=== PATIENT | female | born 1955 | race Caucasian/White ===

== ENCOUNTER 2019-06-15 10:01 | Outpatient (CLI) | payer MEDICARE, OTHER, SELFPAY ==
[2019-06-15 11:25] LABS: Basophils # 0.1 10^3/uL (0.0-0.1); Eosinophils # 0.2 10^3/uL (0.0-0.8); Eosinophils % 4.2 %; Hematocrit 40.2 % (37.0-47.0); Lymphocytes # 1.1 10^3/uL (0.8-4.8); Lymphocytes % 21.1 %; Mean Corpuscular HGB Conc 32.3 g/dL (30.0-36.0); Mean Corpuscular Volume 89.5 fL (81-99); Mean Platelet Volume 10.2 fL (7.4-10.4); Monocytes # 0.6 10^3/uL (0.2-0.9); Neutrophils # 3.2 10^3/uL (1.8-7.7); Neutrophils % 61.1 %; Nucleated Red Blood Cells % 0 %; Platelet Count 171 10^3/cmm (130-400); Red Blood Count 4.49 10^6/uL (4.1-5.3); Red Cell Distribution Width 13.3 % (12.1-15.1); White Blood Count 5.3 10^3/uL (4.0-10.0)
[2019-06-15 11:46] LABS: Alanine Aminotransferase 19 U/L (0-33); Albumin Level 3.9 g/dL (3.5-5.2); Alkaline Phosphatase 83 IU/L (35-105); Anion Gap 15.9 (5-19); Aspartate Amino Transferase 25 U/L (0-32); Blood Urea Nitrogen 15 mg/dL (8-23); Calcium 10.8 mg/Dl (8.8-10.2); Carbon Dioxide 24 mmol/L (22-29); Chloride 102 mmol/L (98-107); Globulin 2.5 g/dL (1.3-4.6); Glomerular Filtration Rate 123.8 mL/min (90-130); Glucose 141 mg/dL (74-106); Potassium 3.9 mmol/L (3.5-5.1); Sodium 138 mmol/L (136-145); Total Bilirubin 1.1 mg/dL (0.15-1.2); Total Protein 6.4 g/dL (6.6-8.7)
[2019-06-15 12:00] LABS: Lactate Dehydrogenase 193 U/L (135-214)
== END 2019-06-15 10:02 | disposition home or self-care (01) ==
LOC: ONCMED 10:06
PROVIDERS: Family Provider Family Medicine; PCP Family Medicine; Visit Provider Internal Medicine Medical Oncology
DX: C82.19 Follicular lymphoma grade II, extranodal and solid organ sites (principal)
CPT/HCPCS: 80053; 83615; 85025

== ENCOUNTER 2019-06-19 14:09 | Outpatient (CLI) | payer MEDICARE, OTHER, SELFPAY ==
--- NOTE | 2019-06-23 16:48 | ONC FU_ITS ---
Dr. García Patient Follow-Up Note Patient: Aylin Dietz Unit #: [id number]: 1955 Dicatated By: Paco García M.D.Date of Visit:Jun 19, 2019 Onc Med Follow-up/Prog Note Chief Complaint: Lymphoma. 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 She has a history of having undergone treatment for lymphoma by Dr. Ghulam Coon in [place]. It was initially diagnosed in 1991. I do not have the records, the based on the patient's description, it was probably low-grade. It had progressed on light chemotherapy, following which she had 6 cycles of treatment with an Adriamycin containing regimen, I assume CHOP, completed sometime in 1992. She had complete response, previously with no evidence of recurrence. Her medical history is otherwise significant for rheumatoid arthritis, initially diagnosed in 1982. Her RA has been well controlled on long-term therapy with methotrexate. Her other medical illnesses include hypertension, GERD, and obstructive sleep apnea. In December 2016 she was found to have low-grade endometrial carcinoma, for which she underwent hysterectomy/bilateral salpingo-oophorectomy. She did not require any additional treatment. She also has had multiple skin cancers excised. She is a nonsmoker. Sometime around May or June she became aware of a knot in her right cheek. It wasn't visible, but she could feel it with her finger or her tongue. A neck CT on 09/26/2018 showed an enlarged lymph node on the right side of the face measuring 1.9 x 1.2 cm. There was a suggestion of fullness and soft tissue lesion in the right pouting tonsil measuring approximately 1.3 x 1.1 cm. The parotid glands appeared normal, and there appeared to be normal sized intraparotid lymph nodes. She was referred to Dr. Garcia. An initial FNA biopsy of the cheek mass was nondiagnostic. She was then referred to Dr. Faustina Martinez at [facility]. On 12/04/2018 she underwent right superficial parotidectomy, level IIA and posterior level IB right neck dissection, and excision of the right buccal mass. The parotid gland showed no histopathologic abnormalities and the intraparotid lymph nodes showed reactive lymphoid hyperplasia with no morphologic evidence of lymphoma. 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 The neck dissection showed no involvement in 13 lymph nodes. I had seen her initially on 01/04/2019. Her staging PET/CT on 01/06/2019 showed a poorly defined right parotid soft tissue lesion measuring approximately 1.7 x 3.0 cm with SUV 3.6, felt to be consistent with lymphoma. A second FDG positive mass was noted in the subcutaneous fat overlying the left maxilla measuring 1.4 x 0.8 cm. There were multiple FDG positive mediastinal lymph nodes with possible paralysis of the left vocal cord. There were 2 semisolid nodules in the right upper lobe, with the dominant lesion measuring 1.1 cm of SUV 2.0, felt to be inflammatory. With low-grade lymphoma in the setting of long-term methotrexate therapy, she was recommended to stop the methotrexate and otherwise just continue on observation/expectant management. Her medical illnesses, in addition to rheumatoid arthritis, include hypertension, GERD, and obstructive sleep apnea. She has additional history of having undergone hysterectomy/bilateral salpingo-oophorectomy for low-grade endometrial cancer in 2017. She also has had multiple skin cancers excised. She is a nonsmoker. INTERIM HISTORY: Her repeat neck CT on 04/12/2019 showed evidence of partial right neck dissection and removal of the right parotid gland with appropriate appearing postsurgical changes. There are no new lymph nodes identified, but there was a new soft tissue fullness noted in the right paraglottic space measuring 19 x [address] of the neck on 05/16/2019 showed evidence of soft tissue thickening/mass involving the right paraglottic space extending to the right vocal cord, unchanged from the prior study. There was severe central canal stenosis in the cervical spine at C5-C6, also unchanged. Partially visualized patchy opacities were noted in the right lung apex. There was no cervical lymphadenopathy. She is seen for a follow-up visit. She has been somewhat fatigued, but she is still doing light work. ECOG score is 1. Her appetite has been good, and her weight has been stable. She has not had fever. She has occasional hot flashes. She has some shortness of breath with activity. She does not complain of cough, and she has not been having chest pain. She had another episode of diarrhea 3 to 4 weeks ago, but that resolved. She has no complaints. Her joint pain has been getting worse, especially in her hands. She says her left knee has been hurting a lot. She has numbness/tingling in her feet. Recently the fingertips on both hands have felt different. Medications: Aspirin 1 Tablet (of 81 mg) Oral daily, Calcium + D 1 Tablet Oral daily, Folic Acid 2 Tablet (of 1 mg) Oral daily, Losartan Potassium-HCTZ 1 Tablet (of 50-12.5 mg) Oral daily, metFORMIN HCl 1 Tablet (of 500 mg) Oral daily, Multivitamin Adults 1 Tablet Oral daily, Naproxen 1 Tablet (of 500 mg) Oral daily PRN, raNITIdine HCl 1 Tablet (of 300 mg) Oral b.i.d. Allergies: No Known Allergies. Review of Systems: Constitutional - She has some fatigue, but she is able to do light work. Her appetite is good. Her weight is stable. No fever. She has occasional hot flashes and sweating. ECOG score is 1, ENMT - She has occasional sinus congestion. No mouth sores. No sore throat or difficulty swallowing, Hematologic/Lymphatic - No abnormal bruising or bleeding, Respiratory - She has some shortness of breath with activity. No cough. No pleuritic pain or hemoptysis, Cardiovascular - No angina pain. No palpitations, Gastrointestinal - No nausea or vomiting. No heartburn or acid reflux. She had diarrhea 3 or 4 weeks ago. Her bowels are OK now. No blood in the stool or black stools, Genitourinary (F) - No dysuria or hematuria. No urinary frequency. No urgency or incontinence, Musculoskeletal - She has been having more joint pain, particularly in her hands. She also complains that her left knee is hurting a lot, Integumentary - No skin complications, Neurologic - No headache or dizziness. She has numbness and tingling in her feet, Psychiatric - No anxiety or depression. No insomnia. Vital Signs: Performed on Jun 19, 2019 14:46 Height - 67.50 in Weight - 304.2 lbs (HIGH) BSA - 2.43 sq.m BMI - 46.94 (HIGH) Temperature - 98.7 F Pulse - 92 /min Respiration - 24 /min BP - 136/86 mm(hg) O2 Sat - 96 % Pain - 0 Physical Examination: Constitutional - She looks pretty good generally, Eyes - Sclerae nonicteric. Conjunctivae clear, ENMT - No lesions noted in the oral cavity, Hematologic/Lymphatic - There is no cervical, clavicular, or axillary adenopathy noted, Respiratory - Lungs are clear with good air movement bilaterally, Cardiovascular - Heart rhythm is regular. There is a II/ systolic murmur. There is no gallop or rub noted, Abdomen - Moderately distended. Liver and spleen are not enlarged. There is no abdominal mass or ascites noted and there is no inguinal adenopathy, Extremities - No edema. Dorsalis pedis pulses are palpable bilaterally, Neurologic - No focal neurologic deficits noted. Impression: 1. 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 2. She had previous chemotherapy for lymphoma in . This was probably also low-grade lymphoma. 3. She has long-standing rheumatoid arthritis. Her other medical illnesses include: 4. Hypertension. 5. GERD. 6. Obstructive sleep apnea. 7. She underwent hysterectomy/bilateral salpingo-oophorectomy for low-grade endometrial cancer in 2017. 8. She has had multiple skin cancers excised. Her staging PET/CT did show residual activity in the right parotid area, and there also appeared to be involved mediastinal lymph nodes. However, in the setting of long-term methotrexate therapy, she was advised initially to just stop the methotrexate and otherwise continue on observation/expectant management. Her neck CT on 04/12/2019 showed no new lymph nodes, but there was a new soft tissue fullness noted in the right paraglottic space measuring 19 x 12 mm. She was then seen by Dr. Garcia and her flexible laryngoscopy on 04/23/2019 showed no abnormal findings. Her repeat neck CT showed no progression of the abnormality in the right paraglottic space. There was no cervical lymphadenopathy noted. Plan: She remains on observation/expectant management. She will be scheduled for a follow-up visit with restaging PET/CT in 1 month. Signed By: Paco García M.D. <<Signature on File>>
== END 2019-06-19 14:10 | disposition home or self-care (01) ==
LOC: ONCMED 14:16
PROVIDERS: Family Provider Family Medicine; PCP Family Medicine; Visit Provider Internal Medicine Medical Oncology
DX: C82.19 Follicular lymphoma grade II, extranodal and solid organ sites (principal); M06.9 Rheumatoid arthritis, unspecified; I10 Essential (primary) hypertension; K21.9 Gastro-esophageal reflux disease without esophagitis; G47.33 Obstructive sleep apnea (adult) (pediatric); Z79.82 Long term (current) use of aspirin; Z79.899 Other long term (current) drug therapy; Z85.828 Personal history of other malignant neoplasm of skin; Z85.42 Personal history of malignant neoplasm of other parts of uterus; Z90.710 Acquired absence of both cervix and uterus; Z92.21 Personal history of antineoplastic chemotherapy
CPT/HCPCS: G0463

== ENCOUNTER 2019-07-31 13:42 | Outpatient (CLI) | payer MEDICARE, OTHER, SELFPAY ==
--- NOTE | 2019-07-31 13:53 | CT_ITS ---
WS: [id number] CT NECK WITH CONTRAST HISTORY: FOLLICULAR LYMPHOMA GRADE II,EXTRANODAL AND SOLID ORGAN SITE TECHNIQUE: Contiguous 5 mm axial images are performed through the neck with intravenous contrast. Sag ittal and coronal reformats are also submitted. All CT scans at [facility] use at least o ne of these dose optimization techniques: automated exposure control; mA and/or kV adjustment per pat ient size (includes targeted exams where dose is matched to clinical indication); or iterative recons truction. CONTRAST: CONTRAST: Omnipaque 300; 95 mL IV. DLP: 3084.84 mGycm COMPARISON: 05/16/2019, 04/12/2019 and 09/26/2018 Significant improvement in the recently described soft tissue mass in the RIGHT paracolic space. Ther e is still some soft tissue thickening in the superior RIGHT pericolonic space near the free edge of the epiglottis. This soft tissue thickening measures 10 x 6 mm and extends anteriorly towards the mid line but does not cross the midline. No compromise of the airway. No cervical chain lymph nodes. Prior postsurgical changes of a RIGHT parotidectomy and lymph node dis section. No change in the appearance of the postsurgical site. There is soft tissue thickening and moyer rgical clips at the resection site. Normal thyroid. There is a central calcification in the RIGHT lobe. Severe degenerative disc disease at C5-6 and C6-7. Encroachment upon the cervical cord at C5-C6 by os teophytes. Visualized portions of the skull base demonstrate no abnormalities. Orbits and globes are within norm al limits. No soft tissue masses. Visualized paranasal sinuses and mastoid air cells are normal. Again noted are the ill-defined nodules in the RIGHT upper lung with the largest measuring 6 mm. Thes e are unchanged. CT/CT neck w con* [id number] IMPRESSION: 1. Significant decrease in size of the RIGHT paraglottic space mass since 05/06. There is still a small amount of soft tissue thickening in the superior paraglottic space abutting the free edge of the epiglottis. This could be some retained mucus products. Overall decrease in size of the previously described mass. 2. Postsurgical changes in the RIGHT neck. No adenopathy identified. 3. Unchanged RIGHT upper lobe ill-defined nodules.
[2019-07-31] MEDS: iohexol 300 mg/mL 100 mL Btl IV (14:55)
== END 2019-07-31 13:43 | disposition home or self-care (01) ==
LOC: RADWPI 13:48
PROVIDERS: Family Provider Family Medicine; PCP Family Medicine; Visit Provider Internal Medicine Medical Oncology
DX: C82.19 Follicular lymphoma grade II, extranodal and solid organ sites (principal)
CPT/HCPCS: 70491; Q9967

== ENCOUNTER 2019-08-03 11:28 | Outpatient (CLI) | payer MEDICARE, OTHER, SELFPAY ==
--- NOTE | 2019-08-03 11:33 | CT_ITS ---
WS: [id number] CT scan of the chest With IV contrast, CT scan of the abdomen and pelvis with IV contrast, addition al two-dimensional coronal and sagittal reconstruction was performed, 08/03/2019 Clinical Data: FOLLICULAR LYMPHOMA GRADE 2 Comparison: CT chest abdomen and pelvis, 04/20/2019. DLP: 2635.[address] scans at [facility] use at least one of these dose optimization techniques: automat ed exposure control; mA and/or kV adjustment per patient size (includes targeted exams where dose is matched to clinical indication); or iterative reconstruction. Findings: Chest: The groundglass opacities in the right lung have diminished in size and number. The left lung opacit ies have diminished slightly in size. The mediastinal adenopathy remains unchanged. No masses or new groundglass infiltrates are seen. There are no effusions. The heart size is normal with no pericardial effusion. The pulmonary arterial system and thoracic aorta demonstrate no abnormalities or dilatations. There is no axillary adenopathy. The bones of the thorax show osteoarthritis of the thoracic vertebra l bodies. Abdomen/pelvis: The liver, spleen, adrenal glands and pancreas show no change. The spleen remains slightly increased in size. There are gallstones in the gallbladder.. The kidneys show equal bilateral contrast excretion and there is a 0.79 cm nonobstructing central lef t renal calculus.. The abdominal aorta is normal in size. No appendicitis or diverticulitis is seen. Oral contrast is in the stomach and small bowel and there is no bowel dilatation. No abscess, adenopathy, ascites, mass, obstruction or free air is seen. The c olon shows fecal material and sigmoid diverticula. The bladder is unremarkable. The uterus is absent. No inguinal hernia is seen. The bones of the lower thorax, lumbar spine, pelvis, and hips demonstrate osteoarthritic change and m ultiple levels of degenerative disc disease of the lumbar spine. No metastatic lesions are seen.. CT/CT chest abd pel w con* Impression: 1. Multiple bilateral pulmonary ground glass opacifications which have improved slightly. 2. No change in mediastinal adenopathy. 3. No change in splenomegaly and cholelithiasis. 4. Nonobstructing central left renal calculus.
[2019-08-03] MEDS: iohexol 300 mg/mL 50 mL Btl PO (13:13)
[2019-08-03] MEDS: iohexol 300 mg/mL 100 mL Btl IV (13:14)
== END 2019-08-03 11:29 | disposition home or self-care (01) ==
LOC: RADWPI 11:32
PROVIDERS: Family Provider Family Medicine; PCP Family Medicine; Visit Provider Internal Medicine Medical Oncology
DX: C82.19 Follicular lymphoma grade II, extranodal and solid organ sites (principal); R49.0 Dysphonia; N20.0 Calculus of kidney; R16.1 Splenomegaly, not elsewhere classified; K80.20 Calculus of gallbladder without cholecystitis without obstruction; R91.1 Solitary pulmonary nodule; R91.8 Other nonspecific abnormal finding of lung field
CPT/HCPCS: 71260; 74177

== ENCOUNTER 2019-09-07 10:55 | Outpatient (CLI) | payer MEDICARE, OTHER, SELFPAY ==
[2019-09-07 12:15] LABS: Basophils # 0.1 10^3/uL (0.0-0.1); Basophils % 1.4 %; Eosinophils # 0.2 10^3/uL (0.0-0.8); Eosinophils % 4.3 %; Hematocrit 42.2 % (37.0-47.0); Hemoglobin 13.8 g/dL (11.5-15.3); Lymphocytes # 1.2 10^3/uL (0.8-4.8); Lymphocytes % 22.7 %; Mean Corpuscular HGB Conc 32.7 g/dL (30.0-36.0); Mean Corpuscular Volume 91.7 fL (81-99); Mean Platelet Volume 10.5 fL (7.4-10.4); Monocytes # 0.6 10^3/uL (0.2-0.9); Monocytes % 11.2 %; Neutrophils % 59.6 %; Nucleated Red Blood Cells % 0 %; Platelet Count 180 10^3/cmm (130-400); Red Cell Distribution Width 13.2 % (12.1-15.1); White Blood Count 5.1 10^3/uL (4.0-10.0)
[2019-09-07 12:38] LABS: Alanine Aminotransferase 27 U/L (0-33); Albumin Level 4.1 g/dL (3.5-5.2); Alkaline Phosphatase 81 IU/L (35-105); Anion Gap 19.9 (5-19); Aspartate Amino Transferase 28 U/L (0-32); Blood Urea Nitrogen 14 mg/dL (8-23); Calcium 10.4 mg/dL (8.5-10.5); Carbon Dioxide 25 mmol/L (22-29); Chloride 101 mmol/L (98-107); Globulin 2.5 g/dL (1.3-4.6); Glucose 187 mg/dL (65-115); Osmolality Calculated 295 mOsm/kg (285-295); Potassium 3.9 mmol/L (3.5-5.1); Sodium 142 mmol/L (136-145); Total Bilirubin 1.2 mg/dL (0.15-1.2); Total Protein 6.6 g/dL (6.6-8.7)
[2019-09-07 12:59] LABS: Lactate Dehydrogenase 175 U/L (135-214)
== END 2019-09-07 10:56 | disposition home or self-care (01) ==
LOC: ONCMED 12:52
PROVIDERS: Family Provider Family Medicine; PCP Family Medicine; Visit Provider Internal Medicine Medical Oncology
DX: C82.19 Follicular lymphoma grade II, extranodal and solid organ sites (principal)
CPT/HCPCS: 80053; 83615; 85025

== ENCOUNTER 2019-10-31 13:37 | Outpatient (RCR) | payer MEDICARE, OTHER, SELFPAY | END 2019-11-04 23:59 | disposition home or self-care (01) | LOC: SPT 13:37 | PROVIDERS: PCP Family Medicine; Visit Provider Family Medicine | DX: M25.562 Pain in left knee (principal) | CPT/HCPCS: 97161; 97530 ==

== ENCOUNTER 2019-11-09 10:56 | Outpatient (CLI) | payer MEDICARE, OTHER, SELFPAY ==
--- NOTE | 2019-11-09 11:10 | XR_ITS ---
WS: [id number] SCREENING DEXA SCAN [employer] HISTORY: 64 years old Female with POSTMENOPAUSAL COMPARISON: None available. FINDINGS: The L1-L4 bone mineral density measures 2.209 g/cm2. This corresponds to a T score of 8.6 and Z score of 9.0. Left femoral neck bone mineral density measures 1.336 g/cm2. This corresponds to T score of 2.6 and Z score of 3.0. Right femoral neck bone mineral density measures 1.351 g/cm2. This corresponds to a T score of 2.7 an d Z score of 3.1. Mean femoral neck bone mineral density measures 1.343 g/cm2. This corresponds to a T score of 2.7 and Z score of 3.1. XR/XR DEXA axial skeleton* [id number] IMPRESSION: Patient's FRAX calculated 10 year probability for major osteoporotic fracture i s 4.6% and osteoporotic hip fracture is 0.1% Normal bone densitometry study.
== END 2019-11-09 10:57 | disposition home or self-care (01) ==
LOC: RADWPI 10:59
PROVIDERS: Family Provider Family Medicine; PCP Family Medicine; Visit Provider Family Medicine
DX: Z78.0 Asymptomatic menopausal state (principal)
CPT/HCPCS: 77080

== ENCOUNTER 2019-12-05 06:00 | Outpatient (RCR) | payer MEDICARE, OTHER, SELFPAY | END 2020-01-04 23:00 | disposition home or self-care (01) | LOC: SPT 06:00 | PROVIDERS: PCP Family Medicine; Referring Provider Family Medicine; Visit Provider Family Medicine | DX: M25.562 Pain in left knee (principal) | CPT/HCPCS: 97110 ==

== ENCOUNTER 2019-12-14 14:20 | Outpatient (CLI) | payer MEDICARE, OTHER, SELFPAY ==
[2019-12-14 14:38] LABS: Basophils # 0.1 10^3/uL (0.0-0.1); Basophils % 1.1 %; Eosinophils # 0.1 10^3/uL (0.0-0.8); Hematocrit 40.5 % (37.0-47.0); Hemoglobin 13.3 g/dL (11.5-15.3); Lymphocytes # 1.2 10^3/uL (0.8-4.8); Mean Corpuscular HGB Conc 32.8 g/dL (30.0-36.0); Mean Corpuscular Volume 91.2 fL (81-99); Mean Platelet Volume 10.2 fL (7.4-10.4); Monocytes # 0.7 10^3/uL (0.2-0.9); Monocytes % 12.2 %; Neutrophils # 3.36 10^3/uL (1.8-7.7); Neutrophils % 62.1 %; Nucleated Red Blood Cells % 0 %; Platelet Count 174 10^3/cmm (130-400); Red Blood Count 4.44 10^6/uL (4.1-5.3); Red Cell Distribution Width 13.1 % (12.1-15.1); White Blood Count 5.4 10^3/uL (4.0-10.0)
[2019-12-14 15:00] LABS: Alanine Aminotransferase 28 U/L (0-33); Albumin Level 4.1 g/dL (3.5-5.2); Alkaline Phosphatase 75 IU/L (35-105); Anion Gap 16.9 (5-19); Aspartate Amino Transferase 27 U/L (0-32); Blood Urea Nitrogen 13 mg/dL (8-23); Calcium 9.9 mg/dL (8.5-10.5); Carbon Dioxide 24 mmol/L (22-29); Chloride 105 mmol/L (98-107); Globulin 2.5 g/dL (1.3-4.6); Glomerular Filtration Rate 159.7 mL/min (90-130); Glucose 119 mg/dL (65-115); Lactate Dehydrogenase 165 U/L (135-214); Osmolality Calculated 291 mOsm/kg (285-295); Potassium 3.9 mmol/L (3.5-5.1); Sodium 142 mmol/L (136-145); Total Bilirubin 1.2 mg/dL (0.15-1.2); Total Protein 6.6 g/dL (6.6-8.7)
== END 2019-12-14 14:21 | disposition home or self-care (01) ==
LOC: ONCMED 15:11
PROVIDERS: PCP Family Medicine; Visit Provider Internal Medicine Medical Oncology
DX: C82.19 Follicular lymphoma grade II, extranodal and solid organ sites (principal); K21.9 Gastro-esophageal reflux disease without esophagitis; I10 Essential (primary) hypertension; M06.9 Rheumatoid arthritis, unspecified; Z85.42 Personal history of malignant neoplasm of other parts of uterus; Z85.820 Personal history of malignant melanoma of skin
CPT/HCPCS: 80053; 83615; 85025

== ENCOUNTER 2019-12-17 14:16 | Outpatient (CLI) | payer MEDICARE, OTHER, SELFPAY ==
--- NOTE | 2019-12-21 14:28 | ONC FU_ITS ---
Dr. García Patient Follow-Up Note Patient: Aylin Dietz Unit #: [id number]: 1955 Dicatated By: Paco García M.D.Date of Visit:Dec 17, 2019 Onc Med Follow-up/Prog Note Chief Complaint: Lymphoma. 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 She has a history of having undergone treatment for lymphoma by Dr. Ghulam Coon in [place]. It was initially diagnosed in 1991. I do not have the records, the based on the patient's description, it was probably low-grade. It had progressed on light chemotherapy, following which she had 6 cycles of treatment with an Adriamycin containing regimen, I assume CHOP, completed sometime in 1992. She had complete response, previously with no evidence of recurrence. Her medical history is otherwise significant for rheumatoid arthritis, initially diagnosed in 1982. Her RA has been well controlled on long-term therapy with methotrexate. Her other medical illnesses include hypertension, GERD, and obstructive sleep apnea. In December 2016 she was found to have low-grade endometrial carcinoma, for which she underwent hysterectomy/bilateral salpingo-oophorectomy. She did not require any additional treatment. She also has had multiple skin cancers excised. She is a nonsmoker. Sometime around May or June she became aware of a knot in her right cheek. It wasn't visible, but she could feel it with her finger or her tongue. A neck CT on 09/26/2018 showed an enlarged lymph node on the right side of the face measuring 1.9 x 1.2 cm. There was a suggestion of fullness and soft tissue lesion in the right pouting tonsil measuring approximately 1.3 x 1.1 cm. The parotid glands appeared normal, and there appeared to be normal sized intraparotid lymph nodes. She was referred to Dr. Garcia. An initial FNA biopsy of the cheek mass was nondiagnostic. She was then referred to Dr. Faustina Martinez at [facility]. On 12/04/2018 she underwent right superficial parotidectomy, level IIA and posterior level IB right neck dissection, and excision of the right buccal mass. The parotid gland showed no histopathologic abnormalities and the intraparotid lymph nodes showed reactive lymphoid hyperplasia with no morphologic evidence of lymphoma. 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 The neck dissection showed no involvement in 13 lymph nodes. I had seen her initially on 01/04/2019. Her staging PET/CT on 01/06/2019 showed a poorly defined right parotid soft tissue lesion measuring approximately 1.7 x 3.0 cm with SUV 3.6, felt to be consistent with lymphoma. A second FDG positive mass was noted in the subcutaneous fat overlying the left maxilla measuring 1.4 x 0.8 cm. There were multiple FDG positive mediastinal lymph nodes with possible paralysis of the left vocal cord. There were 2 semisolid nodules in the right upper lobe, with the dominant lesion measuring 1.1 cm of SUV 2.0, felt to be inflammatory. With low-grade lymphoma in the setting of long-term methotrexate therapy, she was recommended to stop the methotrexate and otherwise just continue on observation/expectant management. Her medical illnesses, in addition to rheumatoid arthritis, include hypertension, GERD, and obstructive sleep apnea. She has additional history of having undergone hysterectomy/bilateral salpingo-oophorectomy for low-grade endometrial cancer in 2017. She also has had multiple skin cancers excised. She is a nonsmoker. INTERIM HISTORY: Her repeat neck CT on 04/12/2019 showed evidence of partial right neck dissection and removal of the right parotid gland with appropriate appearing postsurgical changes. There are no new lymph nodes identified, but there was a new soft tissue fullness noted in the right paraglottic space measuring 19 x 12 mm. She was seen again by Dr. Garcia and her flexible laryngoscopy showed no significant abnormality. Repeat CT of the neck on 05/16/2019 showed evidence of soft tissue thickening/mass involving the right paraglottic space extending to the right vocal cord, unchanged from the prior study. There was severe central canal stenosis in the cervical spine at C5-C6, also unchanged. Partially visualized patchy opacities were noted in the right lung apex. There was no cervical lymphadenopathy. Restaging CT sans of the chest, abdomen, and pelvis on 08/03/2019 showed diminished size and number of groundglass opacities in the right lung. The left lung opacities also had diminished slightly in size. The mediastinal adenopathy remained unchanged. There was no axillary adenopathy noted. The spleen remained slightly increased in size. There was no adenopathy in the abdomen/pelvis. She continued observation/expectant management. She is seen for a followup visit. She has been feeling just fine, though she says her energy is not as good as it had been. She has been going to physical therapy for problems with her left knee. She is still able to do light work. Her ECOG score is 1. Her appetite is good. She has not had fever. She does report having sweating almost every night. She has occasional cough associated with phlegm in her throat. She does not complain of shortness of breath or chest pain. She has no GI or complaints. She has been having some pain in her hands/fingers, and she thinks she may be getting neuropathy, she does have neuropathy in her feet. Medications: Aspirin 1 Tablet (of 81 mg) Oral daily, Calcium + D 1 Tablet Oral daily, Famotidine 1 Tablet (of 20 mg) Oral daily, Folic Acid 2 Tablet (of 1 mg) Oral daily, hydroCHLOROthiazide 1 Tablet (of 12.5 mg) Oral daily, Lipitor 1 Tablet Oral daily, Losartan Potassium 1 Tablet (of 50 mg) Oral daily, metFORMIN HCl 1 Tablet (of 500 mg) Oral daily, Multivitamin Adults 1 Tablet Oral daily, Naproxen 1 Tablet (of 500 mg) Oral daily PRN Allergies: No Known Allergies. Review of Systems: Constitutional - She is feeling good, but her energy is low. She is able to do light housework. Her appetite is good and weight is up about 4 pounds. No fevers. She is having night sweats. No hot flashes. ECOG score is 1, ENMT - No sinus congestion/drainage. No mouth sores. No sore throat or difficulty swallowing, Hematologic/Lymphatic - She bruises easily, Respiratory - No shortness of breath. She has an occasional cough. No pleuritic pain or hemoptysis. She uses CPAP at night, Cardiovascular - No angina pain. No palpitations, Gastrointestinal - No nausea or vomiting. No heartburn or acid reflux. No diarrhea or constipation. No blood in the stool or black stools, Genitourinary (F) - No dysuria or hematuria. No urinary frequency. No urgency or incontinence, Musculoskeletal - She is having pain in her left knee, and she is going to physical therapy for it, Integumentary - No skin complications, Neurologic - No headache or dizziness. She is having a heaviness feeling in her hands. She has neuropathy in her feet. No other focal neurologic symptoms, Psychiatric - No anxiety or depression. No insomnia. Vital Signs: Performed on Dec 17, 2019 14:34 Height - 67.50 in Weight - 308.8 lbs (HIGH) BSA - 2.45 sq.m BMI - 47.65 (HIGH) Temperature - 97.0 F (LOW) Pulse - 93 /min Respiration - 24 /min BP - 155/85 mm(hg) (HIGH) O2 Sat - 96 % Pain - 0 Physical Examination: Constitutional - She looks pretty good generally, Eyes - Sclerae nonicteric. Conjunctivae clear, ENMT - No lesions noted in the oral cavity, Hematologic/Lymphatic - There is no cervical, clavicular, or axillary adenopathy noted, Respiratory - Lungs are clear with good air movement bilaterally, Cardiovascular - Heart rhythm is regular. There is a II/ systolic murmur. There is no gallop or rub noted, Abdomen - Moderately distended but soft. Liver and spleen are not enlarged. There is no abdominal mass or ascites noted and there is no inguinal adenopathy, Extremities - Slight edema, Neurologic - No focal neurologic deficits noted. Lab/Imaging: Test performed on Dec 14, 2019 14:01 LDH (Total) 165 U/L Sodium 142 mmol/L Potassium 3.9 mmol/L Chloride 105 mmol/L CO2 24 mmol/L Anion Gap 16.9 BUN 13 mg/dL Creatinine 0.4 mg/dL Cr Clearance (Est) 301.3600 mL/min eGFR 159.7 mL/min Glucose 119 mg/dL Calcium 9.9 mg/dL Protein, Total 6.6 g/dL Albumin 4.1 g/dL Globulin 2.5 g/dL Bilirubin, Total 1.2 mg/dL ALT (SGPT) 28 U/L AST (SGOT) 27 U/L Alkaline Phosphatase 75 IU/L WBC 5.4 10 3/uL RBC 4.44 10 6/uL HGB 13.3 g/dL HCT 40.5 % MCV 91.2 fL MCH 30.0 pg MCHC 32.8 g/dL RDW 13.1 % Platelet Count 174 10 3/cmm MPV 10.2 fL Neutrophils 3.36 10 3/uL Lymphocytes 1.2 10 3/uL Monocytes 0.7 10 3/uL Eosinophils 0.1 10 3/uL Basophils 0.1 10 3/uL Neutrophil % 62.1 % Lymphocyte % 22.0 % Monocyte % 12.2 % Eosinophil % 2.0 % Basophils % 1.1 % NRBC % 0 % Impression: 1. 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 It developed in the setting of mcc methotrexate therapy for rheumatoid arthritis. 2. She had previous chemotherapy for lymphoma in . This was probably also low-grade lymphoma. 3. She has long-standing rheumatoid arthritis. Her other medical illnesses include: 4. Hypertension. 5. GERD. 6. Obstructive sleep apnea. 7. She underwent hysterectomy/bilateral salpingo-oophorectomy for low-grade endometrial cancer in 2017. 8. She has had multiple skin cancers excised. Her staging PET/CT did show residual activity in the right parotid area, and there also appeared to be involved mediastinal lymph nodes. However, in the setting of long-term methotrexate therapy, she was advised to stop the methotrexate and otherwise just be followed on observation/expectant management. Her neck CT on 04/12/2019 showed no new lymph nodes, but there was a new soft tissue fullness noted in the right paraglottic space measuring 19 x 12 mm. She was then seen by Dr. Garcia and her flexible laryngoscopy on 04/23/2019 showed no abnormal findings. Her repeat neck CT showed no progression of the abnormality in the right paraglottic space. There was no cervical lymphadenopathy noted. Restaging CT scans of the chest, abdomen, and pelvis on 08/03/2019 showed improved groundglass opacities in the right lung. There was slight improvement noted in the left lung. Mediastinal lymph nodes appeared stable. There was no other adenopathy noted. She continued observation/expectant management. During follow-up she her overall clinical status has remained stable with no obvious progression of the lymphoma. Plan: She remains on observation/expectant management. She will be scheduled for repeat CT scans in January, which will be a 6-month interval study. She is scheduled to have follow-up visit with Dr. Raya in February. Signed By: Paco García M.D. <<Signature on File>>
== END 2019-12-17 14:17 | disposition home or self-care (01) ==
LOC: ONCMED 14:20
PROVIDERS: PCP Family Medicine; Visit Provider Internal Medicine Medical Oncology
DX: C82.19 Follicular lymphoma grade II, extranodal and solid organ sites (principal); I10 Essential (primary) hypertension; K21.9 Gastro-esophageal reflux disease without esophagitis; G47.33 Obstructive sleep apnea (adult) (pediatric); Z85.42 Personal history of malignant neoplasm of other parts of uterus; Z85.828 Personal history of other malignant neoplasm of skin; Z90.710 Acquired absence of both cervix and uterus; Z90.722 Acquired absence of ovaries, bilateral
CPT/HCPCS: G0463

== ENCOUNTER 2020-01-05 06:00 | Outpatient (RCR) | payer MEDICARE, OTHER, SELFPAY | END 2020-02-04 23:59 | disposition home or self-care (01) | LOC: SPT 06:00 | PROVIDERS: PCP Family Medicine; Referring Provider Family Medicine; Visit Provider Family Medicine | DX: M25.562 Pain in left knee (principal) | CPT/HCPCS: 97110 ==

== ENCOUNTER 2020-01-30 09:19 | Outpatient (CLI) | payer MEDICARE, OTHER, SELFPAY ==
--- NOTE | 2020-01-30 09:39 | CT_ITS ---
WS: [id number] CT CHEST, ABDOMEN AND PELVIS WITH CONTRAST HISTORY: FOLLICULAR LYMPHOMA GRADE II, EXTRANODAL AND SOLID ORGAN TECHNIQUE: Contiguous 5 mm axial imaging performed through the chest, abdomen and pelvis with IV cont rast, oral contrast has been provided. Coronal and sagittal reformats chest. Coronal and sagittal ref ormats through the abdomen and pelvis. All CT scans at [facility] use at least one of the se dose optimization techniques: automated exposure control; mA and/or kV adjustment per patient size (includes targeted exams where dose is matched to clinical indication); or iterative reconstruction. CONTRAST: Omnipaque 300; 95 mL IV. DLP: 2572.71 mGycm COMPARISON: 08/03/2019 and 04/20/[address]: Continued slow improvement in the bilateral groundglass and subsolid opacifications since and 04/20/2019. Area of increased opacification in density along the RIGHT inferior major fi ssure measures 12 mm with improvement. There is additional groundglass opacification in the RIGHT mid dle lobe and linear atelectasis at the lingula along the diaphragmatic surface of the LEFT lower lobe . Small mediastinal and hilar lymph nodes. Lymph nodes have decreased in size and number since 04/20/20 19. No enlarging lymph nodes. Normal-sized thoracic aorta and pulmonary artery. Normal size heart. Abdomen CT: Mild hepatic steatosis. No mass or bile duct dilatation. Portal vein is patent. Gallbladd er is present and contains stones. No adjacent inflammation. No bile duct dilatation. Pancreas remain s enlarged at 14.3 cm in length with no change. Normal pancreas and adrenal glands. Cortical thinning and nodularity of each kidney. Nonobstructing calcification mid LEFT kidney measures 12 mm. Focal sc arring in the LEFT upper pole. Atherosclerosis aorta and splenic artery. No adenopathy. No GI tract obstruction. Several diverticula in the descending and sigmoid colon with no inflammation . Pelvic CT: Well-distended urinary bladder. No free fluid or adenopathy. Prior hysterectomy. Degenerative thoracolumbar scoliosis. No bone destruction. No fractures or pathological fracture. CT/CT chest abd pel w con* IMPRESSION: 1. Continued slow improvement in the groundglass opacifications and subsolid o pacifications bilaterally. 2. Slight improvement in the mediastinal and hilar lymph nodes. Largest lymph node at the AP window measures 10 mm. 3. Unchanged mild splenomegaly. 4. No mesenteric or retroperitoneal adenopathy identified. 5. Cholelithiasis without acute cholecystitis. 6. Colonic diverticulosis without diverticulitis.
[2020-01-30] MEDS: iohexol 300 mg/mL 50 mL Btl PO (10:11)
[2020-01-30] MEDS: iohexol 300 mg/mL 100 mL Btl IV (11:09)
== END 2020-01-30 09:20 | disposition home or self-care (01) ==
LOC: RADWPI 09:22
PROVIDERS: PCP Family Medicine; Visit Provider Internal Medicine Medical Oncology
DX: C82.19 Follicular lymphoma grade II, extranodal and solid organ sites (principal); R16.1 Splenomegaly, not elsewhere classified; K80.20 Calculus of gallbladder without cholecystitis without obstruction; K57.90 Diverticulosis of intestine, part unspecified, without perforation or abscess without bleeding
CPT/HCPCS: 71260; 74177; Q9967

== ENCOUNTER 2020-02-01 10:07 | Outpatient (CLI) | payer MEDICARE, OTHER, SELFPAY ==
--- NOTE | 2020-02-01 | CT_ITS ---
WS: [id number] CT NECK WITH CONTRAST HISTORY: LYMPHOMA TECHNIQUE: Contiguous 5 mm axial images are performed through the neck with intravenous contrast. Sag ittal and coronal reformats are also submitted. All CT scans at [facility] use at least o ne of these dose optimization techniques: automated exposure control; mA and/or kV adjustment per pat ient size (includes targeted exams where dose is matched to clinical indication); or iterative recons truction. CONTRAST: CONTRAST: Omnipaque 300; 95 mL IV. DLP: 3541.25 mGy-cm. COMPARISON: 07/31/2019 and 05/16/2019 Continued soft tissue thickening in the RIGHT paraglottic space with extension to the midline. There is mild contact on the epiglottic fold. Mass has slightly increased in size now measuring 1.5 x 0.7 c m. Mass appears slightly more bulky as compared to the most recent study. There is mild deformity and encroachment into the RIGHT vallecula. Status post resection of majority of the RIGHT parotid gland. No significant cervical chain or suprac lavicular adenopathy is identified. Calcification in the RIGHT thyroid. Submandibular glands are normal. LEFT parotid gland is negative. Straightening of the normal cervical lordosis. Advanced degenerative changes in the cervical spine mo st significant at C5-6. Osteophytes encroach upon the central canal at C5-6. Visualized paranasal sinuses and mastoid air cells are normal. RIGHT upper lobe nodules poorly visualized today due to the motion and breathing artifact. Subcentime ter lymph nodes in the RIGHT paratracheal region and AP window. CT/CT neck w con* [id number] IMPRESSION: 1. Interval increase in size of the RIGHT paraglottic space mass with slight e xtension across the midline and narrowing of the vallecula. Soft tissue mass no w measures 1.5 x 0.7 cm. Suspicious for recurrent neoplastic disease. 2. No adenopathy. 3. RIGHT neck parotid gland removal and lymph node resection. 4. RIGHT upper lobe nodule is not identified today and may be obscured by vashti thing motion.
[2020-02-01] MEDS: iohexol 300 mg/mL 100 mL Btl IV (10:57)
== END 2020-02-01 10:08 | disposition home or self-care (01) ==
LOC: RADWPI 10:13
PROVIDERS: PCP Family Medicine; Visit Provider Internal Medicine Medical Oncology
DX: C82.19 Follicular lymphoma grade II, extranodal and solid organ sites (principal)
CPT/HCPCS: 70491; Q9967

== ENCOUNTER 2020-02-08 07:49 | Outpatient (CLI) | payer MEDICARE, OTHER, SELFPAY ==
--- NOTE | 2020-02-08 07:57 | MM_ITS ---
WS: [id number] BILATERAL DIGITAL SCREENING MAMMOGRAPHY WITH CAD CLINICAL INFORMATION: SCREENING HISTORY: Screening mammogram. No current complaints. COMPARISON: TECHNIQUE: Bilateral CC and MLO views. FINDINGS: Scattered fibroglandular densities bilaterally. Previously described cyst along the posterior nipple line has nearly resolved today measuring 5 mm. No suspicious focal mass, asymmetry, calcifications, o r architectural distortion. No evidence of malignancy. Vascular calcifications. Punctate and lucent c entered calcifications. MM/[place] [id number] IMPRESSION: BI-RADS: 2-Benign FOLLOW UP: 1 Year Follow-up Recommend return to annual screening mammography.
== END 2020-02-08 07:50 | disposition home or self-care (01) ==
LOC: RADSHAW 07:53
PROVIDERS: PCP Family Medicine; Visit Provider Family Medicine
DX: Z12.31 Encounter for screening mammogram for malignant neoplasm of breast (principal)
CPT/HCPCS: 77067

== ENCOUNTER 2020-03-04 10:14 | Outpatient (CLI) | payer MEDICARE, OTHER, SELFPAY ==
--- NOTE | 2020-03-04 10:48 | ECG_ITS ---
[facility] Test Date: 2020-03-04 Pat Name: Aylin Dietz Department: Room: Gender: Female Manager Distribution: : 1955 Requested By: Vinh Pineda Order Number: [id number] Jeffy MD: Adal Almodovar M.D. Measurements Intervals [place] Rate: 94 P: 27 ME: 174 QRS: -25 QRSD: 108 T: 19 QT: 344 QTc: 431 Interpretive Statements SINUS RHYTHM BORDERLINE LEFT AXIS DEVIATION [QRS AXIS < -20] VOLTAGE CRITERIA FOR LVH [MEETS CRITERIA IN ONE OF: R(aVL), S(V1), R(V5), R(V5/V6)+S(V1)] INTERPRETATION BASED ON A DEFAULT AGE OF 40 YEARS No previous ECG available for comparison Electronically Signed On 03-05-2020 18:36:44 CDT by Adal Almodovar M.D. [id number]
[2020-03-04 10:57] LABS: Basophils # 0.1 10^3/uL (0.0-0.1); Basophils % 1.2 %; Eosinophils # 0.1 10^3/uL (0.0-0.8); Eosinophils % 1.9 %; Hematocrit 39.8 % (37.0-47.0); Lymphocytes # 1.3 10^3/uL (0.8-4.8); Lymphocytes % 22.3 %; Mean Corpuscular HGB Conc 32.7 g/dL (30.0-36.0); Mean Corpuscular Hemoglobin 30.2 pg (28.0-34.0); Mean Corpuscular Volume 92.6 fL (81-99); Mean Platelet Volume 10.1 fL (7.4-10.4); Monocytes # 0.8 10^3/uL (0.2-0.9); Monocytes % 13.5 %; Neutrophils # 3.41 10^3/uL (1.8-7.7); Neutrophils % 60.4 %; Nucleated Red Blood Cells % 0 %; Platelet Count 160 10^3/cmm (130-400); Red Cell Distribution Width 12.9 % (12.1-15.1); White Blood Count 5.7 10^3/uL (4.0-10.0)
[2020-03-04 11:16] LABS: Anion Gap 15.4 (5-19); Blood Urea Nitrogen 16 mg/dL (8-23); Calcium 10.1 mg/dL (8.5-10.5); Carbon Dioxide 28 mmol/L (22-29); Chloride 102 mmol/L (98-107); Glomerular Filtration Rate 83.7 mL/min (90-130); Glucose 159 mg/dL (65-115); Osmolality Calculated 297 mOsm/kg (285-295); Potassium 4.4 mmol/L (3.5-5.1); Sodium 141 mmol/L (136-145)
== END 2020-03-04 10:15 | disposition home or self-care (01) ==
LOC: LAB 10:22
PROVIDERS: PCP Family Medicine; Visit Provider Specialist
DX: R22.1 Localized swelling, mass and lump, neck (principal)
CPT/HCPCS: 36415; 80048; 85025; 93005

== ENCOUNTER 2020-05-08 15:55 | Inpatient (IN) | payer MEDICARE, OTHER, SELFPAY ==
[2020-05-08] VITALS (9 sets, daily range): BP systolic 87–132; BP diastolic 59–77; PULSE 86–120; RESP 16–20; TEMP 36.9–39.4; O2SAT 93–95; BMI 45.6
--- NOTE | 2020-05-08 16:29 | XR_ITS ---
WS: [id number] Portable AP upright chest, 05/08/2020 Clinical Data: fever Comparison: None. Findings: No nodules, masses or effusions are seen. The heart is normal. The pulmonary vascularity is not increased. No pneumonia or pneumothorax is seen. The aortic arch and descending aorta are minima lly tortuous. XR/XR chest 1V portable [id number] Impression: Atherosclerosis.
--- NOTE | 2020-05-08 17:12 | ED_ITS ---
Documented by User: DAYDAY Del Toro 05/08/20 19:02 HPI - Fever General: Chief Complaint: Fever Stated Complaint: fever/dehydrated/unable to eat Time Seen by Provider: 05/08/20 17:02 History of Present Illness: HPI Narrative: Presents from home with acute onset fever today confusion problems ambulation and was incontinent stool here in the waiting room. Patient did have Covid 2 months ago. Did have a throat biopsy 2 weeks ago. Patient with some abdominal discomfort. MD elicited complaint: fever and malaise Pertinent past history: other (Covid) Onset (ago): hour(s) Exacerbating factors: nothing Associated symptoms: Reports no associated symptoms, abdominal pain (Abdominal discomfort generalized mild) and confusion; Deny chills, chest pain, extremity pain, headache(s), nasal congestion, nausea or vomiting Treatments prior to arrival fever: none Review of Systems Const: Denies: fever(s), chills or body aches Eyes: Denies: change in vision or blurry vision ENMT: Denies: throat pain or nasal congestion Card: Denies: chest pain or dyspnea on exertion Resp: Denies: dyspnea, productive cough or non-productive cough GI: Reports: abdominal pain (Abdominal discomfort generalized mild) and other (Was incontinent of stool in waiting room); Denies: nausea or vomiting Musc: Denies: extremity pain Skin/Breast: Denies: rash Neuro: Reports: confusion and difficulty communicating thoughts; Denies: headache(s) Psych: Denies: anxiety or depression Brendon/Lymph: Denies: easy bruising Physical Exam Const: COMMON NORMALS: no acute distress and average body habitus ORIENTATION/CONSCIOUSNESS: Yes oriented to person, Yes oriented to place and Yes oriented to time HENMT: COMMON NORMALS: normocephalic HEAD & SCALP: normal to inspection and normocephalic FACE & SINUS: normal facial exam Eye: COMMON NORMALS: conjunctivae normal GENERAL EYE: appearance normal, both eyes and all related structures CONJUNCTIVA: Yes conjunctivae normal Neck/C-Spine: COMMON NORMALS: no meningeal signs and no JVD Chest: COMMONS NORMALS: normal inspection of the chest Resp: COMMON NORMALS: normal respiratory effort and clear to auscultation bilaterally AUSCULTATION: clear to auscultation bilaterally Cardio: COMMON NORMALS: no JVD, regular rate and regular rhythm RATE: regular rate RHYTHM: regular rhythm GI: COMMON NORMALS: Normal to inspection, nondistended, normoactive bowel sounds present Extremity: COMMON NORMALS: normal to inspection and full ROM Neuro: SENSORIUM/ORIENTATION: Yes oriented to person, Yes oriented to place and Yes oriented to time MENINGEAL SIGNS: Yes no meningeal signs SPEECH: speech normal GAIT: Yes Other gait observations present (Week) MOTOR EXAM: Pronator motor function not present and no tremor noted Course Vital Signs: Vital signs: Vital Signs Temperature 98.4 F 05/08/20 20:58 Pulse Rate 93 05/08/20 22:09 Respiratory Rate 18 05/08/20 22:09 Blood Pressure 116/72 05/08/20 22:09 Pulse Oximetry 95 05/08/20 22:09 MDM - Fever MDM Narrative: Medical decision making narrative: Discussed case with Dr. Gerard. Following sepsis protocol Lab Data: Labs: Lab Results 05/08/20 05/08/20 05/08/20 Range/Units 17:20 17:20 17:20 WBC 12.2 H (4.0-10.0) 10^3/ uL RBC 4.30 (4.1-5.3) 10^6/u L Hgb 12.8 (11.5-15.3) g/dL Hct 38.2 (37.0-47.0) % MCV 88.8 (81-99) fL MCH 29.8 (28.0-34.0) pg MCHC 33.5 (30.0-36.0) g/dL RDW 13.6 (12.1-15.1) % Plt Count 122 L (130-400) 10^3/c mm MPV 11.1 H (7.4-10.4) fL Neut % (Auto) 76.4 % Lymph % (Auto) 6.9 % Gaston % (Auto) 15.1 % Eos % (Auto) 0.6 % Baso % (Auto) 0.3 % Neut # (Auto) 9.35 H (1.8-7.7) 10^3/u L Lymph # (Auto) 0.9 (0.8-4.8) 10^3/u L Gaston # (Auto) 1.9 H (0.2-0.9) 10^3/u L Eos # (Auto) 0.1 (0.0-0.8) 10^3/u L Baso # (Auto) 0.0 (0.0-0.1) 10^3/u L Nucleated RBC % (a uto) 0 % Nucleated RBCs # 0.0 /100WBC D-Dimer (0-0.59) ug/mIFE U Specimen Type Sample Site ABG pH (7.35-7.45) ABG pCO2 (35-45) mmHg ABG pO2 (80.0-100.0) mmH g ABG HCO3 (22-26) mmol/L ABG Base Excess (-2.0-2.0) mmol/ L Rodríguez Test Hematocrit (37-47) % O2 Delivery Device FiO2 % Specimen Drawn By Automatic Equipment Technician ID Sodium 134 L (136-145) mmol/L Potassium 3.5 (3.5-5.1) mmol/L Chloride 98 (98-107) mmol/L Carbon Dioxide 21 L (22-29) mmol/L Anion Gap 18.5 (5-19) BUN 30 H (8-23) mg/dL Creatinine 1.1 H (0.5-0.9) mg/dL GFR Calculation 49.7 L (90-130) mL/min Glucose 193 H (65-115) mg/dL Calculated Osmolal ity 289 (285-295) mOsm/k g Lactic Acid 2.2 (0.5-2.2) mmol/L Lactic Acid (Sepsi s) (0.5-2.2) mmol/L Calcium 9.6 (8.5-10.5) mg/dL Total Bilirubin 3.4 H (0.15-1.2) mg/dL AST 37 H (0-32) U/L ALT 29 (0-33) U/L Alkaline Phosphata se 110 H (35-105) IU/L Troponin T Baselin e (0-10) ng/L C-Reactive Protein 257.9 H (0.0-4.9) mg/L Total Protein 6.5 L (6.6-8.7) g/dL Albumin 3.5 (3.5-5.2) g/dL Globulin 3.0 (1.3-4.6) g/dL Urine Color (Yellow) Urine Appearance (CLEAR) Urine pH (5-7) Ur Specific Gravit y (1.005-1.030) Urine Protein (Negative) Urine Glucose (UA) (Normal) Urine Ketones (Negative) Urine Blood (Negative) Urine Nitrate (Negative) Urine Bilirubin (Negative) Urine Urobilinogen (Negative) mg/dL Ur Leukocyte Dayana ase (Negative) Urine RBC (0-2) /hpf Urine WBC (0-5) /hpf Ur Squamous Epith Cells (0-5) /hpf Ur Transition Epit h Cell /hpf Amorphous Sediment Urine Bacteria (NONE) /hpf Influenza Type A A g (Negative) Influenza Type B A g (Negative) 05/08/20 05/08/20 05/08/20 Range/Units 17:21 18:48 19:33 WBC (4.0-10.0) 10^3/ uL RBC (4.1-5.3) 10^6/u L Hgb (11.5-15.3) g/dL Hct (37.0-47.0) % MCV (81-99) fL MCH (28.0-34.0) pg MCHC (30.0-36.0) g/dL RDW (12.1-15.1) % Plt Count (130-400) 10^3/c mm MPV (7.4-10.4) fL Neut % (Auto) % Lymph % (Auto) % Gaston % (Auto) % Eos % (Auto) % Baso % (Auto) % Neut # (Auto) (1.8-7.7) 10^3/u L Lymph # (Auto) (0.8-4.8) 10^3/u L Gaston # (Auto) (0.2-0.9) 10^3/u L Eos # (Auto) (0.0-0.8) 10^3/u L Baso # (Auto) (0.0-0.1) 10^3/u L Nucleated RBC % (a uto) % Nucleated RBCs # /100WBC D-Dimer (0-0.59) ug/mIFE U Specimen Type arterial Sample Site left radial ABG pH 7.45 (7.35-7.45) ABG pCO2 32.4 L (35-45) mmHg ABG pO2 72.4 L (80.0-100.0) mmH g ABG HCO3 22.6 (22-26) mmol/L ABG Base Excess -0.7 (-2.0-2.0) mmol/ L Rodríguez Test positive Hematocrit 39.0 (37-47) % O2 Delivery Device room air FiO2 21.0 % Specimen Drawn By harkr Automatic Equipment Technician ID harkr Sodium (136-145) mmol/L Potassium (3.5-5.1) mmol/L Chloride (98-107) mmol/L Carbon Dioxide (22-29) mmol/L Anion Gap (5-19) BUN (8-23) mg/dL Creatinine (0.5-0.9) mg/dL GFR Calculation (90-130) mL/min Glucose (65-115) mg/dL Calculated Osmolal ity (285-295) mOsm/k g Lactic Acid (0.5-2.2) mmol/L Lactic Acid (Sepsi s) (0.5-2.2) mmol/L Calcium (8.5-10.5) mg/dL Total Bilirubin (0.15-1.2) mg/dL AST (0-32) U/L ALT (0-33) U/L Alkaline Phosphata se (35-105) IU/L Troponin T Baselin e (0-10) ng/L C-Reactive Protein (0.0-4.9) mg/L Total Protein (6.6-8.7) g/dL Albumin (3.5-5.2) g/dL Globulin (1.3-4.6) g/dL Urine Color Dark yellow (Yellow) Urine Appearance Cloudy (CLEAR) Urine pH 5 (5-7) Ur Specific Gravit y 1.020 (1.005-1.030) Urine Protein 2+ H (Negative) Urine Glucose (UA) Norm (Normal) Urine Ketones 1+ H (Negative) Urine Blood 3+ H (Negative) Urine Nitrate Negative (Negative) Urine Bilirubin 1+ H (Negative) Urine Urobilinogen 1 H (Negative) mg/dL Ur Leukocyte Dayana ase 2+ H (Negative) Urine RBC 5-10 H (0-2) /hpf Urine WBC Too numerous to c nt H (0-5) /hpf Ur Squamous Epith Cells 40-55 H (0-5) /hpf Ur Transition Epit h Cell 0-4 /hpf Amorphous Sediment Not Reportable Urine Bacteria 4+ H (NONE) /hpf Influenza Type A A g Negative (Negative) Influenza Type B A g Negative (Negative) 05/08/20 05/08/20 05/08/20 Range/Units 19:47 20:49 20:49 WBC (4.0-10.0) 10^3/ uL RBC (4.1-5.3) 10^6/u L Hgb (11.5-15.3) g/dL Hct (37.0-47.0) % MCV (81-99) fL MCH (28.0-34.0) pg MCHC (30.0-36.0) g/dL RDW (12.1-15.1) % Plt Count (130-400) 10^3/c mm MPV (7.4-10.4) fL Neut % (Auto) % Lymph % (Auto) % Gaston % (Auto) % Eos % (Auto) % Baso % (Auto) % Neut # (Auto) (1.8-7.7) 10^3/u L Lymph # (Auto) (0.8-4.8) 10^3/u L Gaston # (Auto) (0.2-0.9) 10^3/u L Eos # (Auto) (0.0-0.8) 10^3/u L Baso # (Auto) (0.0-0.1) 10^3/u L Nucleated RBC % (a uto) % Nucleated RBCs # /100WBC D-Dimer 4.60 H (0-0.59) ug/mIFE U Specimen Type Sample Site ABG pH (7.35-7.45) ABG pCO2 (35-45) mmHg ABG pO2 (80.0-100.0) mmH g ABG HCO3 (22-26) mmol/L ABG Base Excess (-2.0-2.0) mmol/ L Rodríguez Test Hematocrit (37-47) % O2 Delivery Device FiO2 % Specimen Drawn By Automatic Equipment Technician ID Sodium (136-145) mmol/L Potassium (3.5-5.1) mmol/L Chloride (98-107) mmol/L Carbon Dioxide (22-29) mmol/L Anion Gap (5-19) BUN (8-23) mg/dL Creatinine (0.5-0.9) mg/dL GFR Calculation (90-130) mL/min Glucose (65-115) mg/dL Calculated Osmolal ity (285-295) mOsm/k g Lactic Acid (0.5-2.2) mmol/L Lactic Acid (Sepsi s) 1.6 (0.5-2.2) mmol/L Calcium (8.5-10.5) mg/dL Total Bilirubin (0.15-1.2) mg/dL AST (0-32) U/L ALT (0-33) U/L Alkaline Phosphata se (35-105) IU/L Troponin T Baselin e 32 H (0-10) ng/L C-Reactive Protein (0.0-4.9) mg/L Total Protein (6.6-8.7) g/dL Albumin (3.5-5.2) g/dL Globulin (1.3-4.6) g/dL Urine Color (Yellow) Urine Appearance (CLEAR) Urine pH (5-7) Ur Specific Gravit y (1.005-1.030) Urine Protein (Negative) Urine Glucose (UA) (Normal) Urine Ketones (Negative) Urine Blood (Negative) Urine Nitrate (Negative) Urine Bilirubin (Negative) Urine Urobilinogen (Negative) mg/dL Ur Leukocyte Dayana ase (Negative) Urine RBC (0-2) /hpf Urine WBC (0-5) /hpf Ur Squamous Epith Cells (0-5) /hpf Ur Transition Epit h Cell /hpf Amorphous Sediment Urine Bacteria (NONE) /hpf Influenza Type A A g (Negative) Influenza Type B A g (Negative) Discharge Plan Discharge Patient Disposition: Admitted As Inpatient Clinical Impression: Pyelonephritis, Urolithiasis, Sepsis Condition: Stable Sign Out Sign Out Data: Patient Sign Out occurred on 05/08/20 at 19:50. Patient's care was discussed, and care was transferred from to Siomara Gerard. Coding Level of Care Code ED Metrology Technician for Chg Fwd Exam Comprehensive Documented by User: Siomara Gerard 05/08/20 22:22 HPI - Fever General: Chief Complaint: Fever Stated Complaint: fever/dehydrated/unable to eat Time Seen by Provider: 05/08/20 17:02 Course Vital Signs: Vital signs: Vital Signs Temperature 98.4 F 05/08/20 20:58 Pulse Rate 93 05/08/20 22:09 Respiratory Rate 18 05/08/20 22:09 Blood Pressure 116/72 05/08/20 22:09 Pulse Oximetry 95 05/08/20 22:09 MDM - Fever MDM Narrative: Medical decision making narrative: 1955 -Case endorsed to me from Geremias Ocampo. Please see his note for his history, physical exam and medical decision-making notes. 2220 -the case was reviewed with Dr. Spence. He is going to come into place a stent. Dr. Moon understands he has been consulted. Currently patient is still stable with no tachycardia, no hypotension and she is making urine. She is afebrile now. There is been no vomiting and the patient has received IV antibiotics. Other findings Dr. Moon stated he would like to work-up after she is out of surgery. Lab Data: Attestation: I reviewed the patient's lab results. Labs: Lab Results 05/08/20 05/08/20 05/08/20 Range/Units 17:20 17:20 17:20 WBC 12.2 H (4.0-10.0) 10^3/ uL RBC 4.30 (4.1-5.3) 10^6/u L Hgb 12.8 (11.5-15.3) g/dL Hct 38.2 (37.0-47.0) % MCV 88.8 (81-99) fL MCH 29.8 (28.0-34.0) pg MCHC 33.5 (30.0-36.0) g/dL RDW 13.6 (12.1-15.1) % Plt Count 122 L (130-400) 10^3/c mm MPV 11.1 H (7.4-10.4) fL Neut % (Auto) 76.4 % Lymph % (Auto) 6.9 % Gaston % (Auto) 15.1 % Eos % (Auto) 0.6 % Baso % (Auto) 0.3 % Neut # (Auto) 9.35 H (1.8-7.7) 10^3/u L Lymph # (Auto) 0.9 (0.8-4.8) 10^3/u L Gaston # (Auto) 1.9 H (0.2-0.9) 10^3/u L Eos # (Auto) 0.1 (0.0-0.8) 10^3/u L Baso # (Auto) 0.0 (0.0-0.1) 10^3/u L Nucleated RBC % (a uto) 0 % Nucleated RBCs # 0.0 /100WBC D-Dimer (0-0.59) ug/mIFE U Specimen Type Sample Site ABG pH (7.35-7.45) ABG pCO2 (35-45) mmHg ABG pO2 (80.0-100.0) mmH g ABG HCO3 (22-26) mmol/L ABG Base Excess (-2.0-2.0) mmol/ L Rodríguez Test Hematocrit (37-47) % O2 Delivery Device FiO2 % Specimen Drawn By Automatic Equipment Technician ID Sodium 134 L (136-145) mmol/L Potassium 3.5 (3.5-5.1) mmol/L Chloride 98 (98-107) mmol/L Carbon Dioxide 21 L (22-29) mmol/L Anion Gap 18.5 (5-19) BUN 30 H (8-23) mg/dL Creatinine 1.1 H (0.5-0.9) mg/dL GFR Calculation 49.7 L (90-130) mL/min Glucose 193 H (65-115) mg/dL Calculated Osmolal ity 289 (285-295) mOsm/k g Lactic Acid 2.2 (0.5-2.2) mmol/L Lactic Acid (Sepsi s) (0.5-2.2) mmol/L Calcium 9.6 (8.5-10.5) mg/dL Total Bilirubin 3.4 H (0.15-1.2) mg/dL AST 37 H (0-32) U/L ALT 29 (0-33) U/L Alkaline Phosphata se 110 H (35-105) IU/L Troponin T Baselin e (0-10) ng/L C-Reactive Protein 257.9 H (0.0-4.9) mg/L Total Protein 6.5 L (6.6-8.7) g/dL Albumin 3.5 (3.5-5.2) g/dL Globulin 3.0 (1.3-4.6) g/dL Urine Color (Yellow) Urine Appearance (CLEAR) Urine pH (5-7) Ur Specific Gravit y (1.005-1.030) Urine Protein (Negative) Urine Glucose (UA) (Normal) Urine Ketones (Negative) Urine Blood (Negative) Urine Nitrate (Negative) Urine Bilirubin (Negative) Urine Urobilinogen (Negative) mg/dL Ur Leukocyte Dayana ase (Negative) Urine RBC (0-2) /hpf Urine WBC (0-5) /hpf Ur Squamous Epith Cells (0-5) /hpf Ur Transition Epit h Cell /hpf Amorphous Sediment Urine Bacteria (NONE) /hpf Influenza Type A A g (Negative) Influenza Type B A g (Negative) 05/08/20 05/08/20 05/08/20 Range/Units 17:21 18:48 19:33 WBC (4.0-10.0) 10^3/ uL RBC (4.1-5.3) 10^6/u L Hgb (11.5-15.3) g/dL Hct (37.0-47.0) % MCV (81-99) fL MCH (28.0-34.0) pg MCHC (30.0-36.0) g/dL RDW (12.1-15.1) % Plt Count (130-400) 10^3/c mm MPV (7.4-10.4) fL Neut % (Auto) % Lymph % (Auto) % Gaston % (Auto) % Eos % (Auto) % Baso % (Auto) % Neut # (Auto) (1.8-7.7) 10^3/u L Lymph # (Auto) (0.8-4.8) 10^3/u L Gaston # (Auto) (0.2-0.9) 10^3/u L Eos # (Auto) (0.0-0.8) 10^3/u L Baso # (Auto) (0.0-0.1) 10^3/u L Nucleated RBC % (a uto) % Nucleated RBCs # /100WBC D-Dimer (0-0.59) ug/mIFE U Specimen Type arterial Sample Site left radial ABG pH 7.45 (7.35-7.45) ABG pCO2 32.4 L (35-45) mmHg ABG pO2 72.4 L (80.0-100.0) mmH g ABG HCO3 22.6 (22-26) mmol/L ABG Base Excess -0.7 (-2.0-2.0) mmol/ L Rodríguez Test positive Hematocrit 39.0 (37-47) % O2 Delivery Device room air FiO2 21.0 % Specimen Drawn By harkr Automatic Equipment Technician ID harkr Sodium (136-145) mmol/L Potassium (3.5-5.1) mmol/L Chloride (98-107) mmol/L Carbon Dioxide (22-29) mmol/L Anion Gap (5-19) BUN (8-23) mg/dL Creatinine (0.5-0.9) mg/dL GFR Calculation (90-130) mL/min Glucose (65-115) mg/dL Calculated Osmolal ity (285-295) mOsm/k g Lactic Acid (0.5-2.2) mmol/L Lactic Acid (Sepsi s) (0.5-2.2) mmol/L Calcium (8.5-10.5) mg/dL Total Bilirubin (0.15-1.2) mg/dL AST (0-32) U/L ALT (0-33) U/L Alkaline Phosphata se (35-105) IU/L Troponin T Baselin e (0-10) ng/L C-Reactive Protein (0.0-4.9) mg/L Total Protein (6.6-8.7) g/dL Albumin (3.5-5.2) g/dL Globulin (1.3-4.6) g/dL Urine Color Dark yellow (Yellow) Urine Appearance Cloudy (CLEAR) Urine pH 5 (5-7) Ur Specific Gravit y 1.020 (1.005-1.030) Urine Protein 2+ H (Negative) Urine Glucose (UA) Norm (Normal) Urine Ketones 1+ H (Negative) Urine Blood 3+ H (Negative) Urine Nitrate Negative (Negative) Urine Bilirubin 1+ H (Negative) Urine Urobilinogen 1 H (Negative) mg/dL Ur Leukocyte Dayana ase 2+ H (Negative) Urine RBC 5-10 H (0-2) /hpf Urine WBC Too numerous to c nt H (0-5) /hpf Ur Squamous Epith Cells 40-55 H (0-5) /hpf Ur Transition Epit h Cell 0-4 /hpf Amorphous Sediment Not Reportable Urine Bacteria 4+ H (NONE) /hpf Influenza Type A A g Negative (Negative) Influenza Type B A g Negative (Negative) 05/08/20 05/08/20 05/08/20 Range/Units 19:47 20:49 20:49 WBC (4.0-10.0) 10^3/ uL RBC (4.1-5.3) 10^6/u L Hgb (11.5-15.3) g/dL Hct (37.0-47.0) % MCV (81-99) fL MCH (28.0-34.0) pg MCHC (30.0-36.0) g/dL RDW (12.1-15.1) % Plt Count (130-400) 10^3/c mm MPV (7.4-10.4) fL Neut % (Auto) % Lymph % (Auto) % Gaston % (Auto) % Eos % (Auto) % Baso % (Auto) % Neut # (Auto) (1.8-7.7) 10^3/u L Lymph # (Auto) (0.8-4.8) 10^3/u L Gaston # (Auto) (0.2-0.9) 10^3/u L Eos # (Auto) (0.0-0.8) 10^3/u L Baso # (Auto) (0.0-0.1) 10^3/u L Nucleated RBC % (a uto) % Nucleated RBCs # /100WBC D-Dimer 4.60 H (0-0.59) ug/mIFE U Specimen Type Sample Site ABG pH (7.35-7.45) ABG pCO2 (35-45) mmHg ABG pO2 (80.0-100.0) mmH g ABG HCO3 (22-26) mmol/L ABG Base Excess (-2.0-2.0) mmol/ L Rodríguez Test Hematocrit (37-47) % O2 Delivery Device FiO2 % Specimen Drawn By Automatic Equipment Technician ID Sodium (136-145) mmol/L Potassium (3.5-5.1) mmol/L Chloride (98-107) mmol/L Carbon Dioxide (22-29) mmol/L Anion Gap (5-19) BUN (8-23) mg/dL Creatinine (0.5-0.9) mg/dL GFR Calculation (90-130) mL/min Glucose (65-115) mg/dL Calculated Osmolal ity (285-295) mOsm/k g Lactic Acid (0.5-2.2) mmol/L Lactic Acid (Sepsi s) 1.6 (0.5-2.2) mmol/L Calcium (8.5-10.5) mg/dL Total Bilirubin (0.15-1.2) mg/dL AST (0-32) U/L ALT (0-33) U/L Alkaline Phosphata se (35-105) IU/L Troponin T Baselin e 32 H (0-10) ng/L C-Reactive Protein (0.0-4.9) mg/L Total Protein (6.6-8.7) g/dL Albumin (3.5-5.2) g/dL Globulin (1.3-4.6) g/dL Urine Color (Yellow) Urine Appearance (CLEAR) Urine pH (5-7) Ur Specific Gravit y (1.005-1.030) Urine Protein (Negative) Urine Glucose (UA) (Normal) Urine Ketones (Negative) Urine Blood (Negative) Urine Nitrate (Negative) Urine Bilirubin (Negative) Urine Urobilinogen (Negative) mg/dL Ur Leukocyte Dayana ase (Negative) Urine RBC (0-2) /hpf Urine WBC (0-5) /hpf Ur Squamous Epith Cells (0-5) /hpf Ur Transition Epit h Cell /hpf Amorphous Sediment Urine Bacteria (NONE) /hpf Influenza Type A A g (Negative) Influenza Type B A g (Negative) Imaging Data^: CT Head: Radiologist's impression: [address] [address] [address] Scan Report Signed Patient: Aylin Dietz #: [id number] : 4Acct#:[id number] Age/Sex: 64 / FADM Date: 05/08/20 Loc: ERRoom/Bed: Attending Dr: Ordering Provider/Ordering MD: Denzel Ocampo Sr, HEALTH POLICY ANALYSTASIF Date of Service: 05/08/20 Procedure(s): CT head wo con* [id number] Accession Number(s): [id number] Report Number: [id number] PROCEDURE INFORMATION: Exam: CT Head Without Contrast Exam date and time: 05/08/2020 6:12 PM Age: 64 years old Clinical indication: Altered mental status/memory loss; Confusion or disorientation; Additional info: Confusion sudden onset TECHNIQUE: Imaging protocol: Computed tomography of the head without contrast. Radiation optimization: All CT scans at this facility use at least one of these dose optimization techniques: automated exposure control; mA and/or kV adjustment per patient size (includes targeted exams where dose is matched to clinical indication); or iterative reconstruction. COMPARISON: No relevant prior studies available. RADIATION DOSE METRICS: Total DLP (mGy-cm): 917.75 FINDINGS: Brain: No evidence of active or acute intracranial pathologic process, hemorrhage, or trauma. Unremarkable white matter for age. No mass effect. Cerebral ventricles: No ventriculomegaly. Bones/joints: Unremarkable. No acute fracture. Paranasal sinuses: Visualized sinuses are unremarkable. No fluid levels. Mastoid air cells: Visualized mastoid air cells are well aerated. Soft tissues: Unremarkable. CT/CT head wo con* [id number] IMPRESSION: No acute intracranial abnormality. Radiation Dose CTDIVOL = (mGy): DLP = 917.75 (mGy-cm) Dictated By:Atif Alexander Signed By:Lucy Alexander Date/Time:05/08/201847 DD/ 46 CT Abd/Pel: Radiologist's impression: [address] [address] [address] Scan Report Signed Patient: Aylin Dietz #: [id number] : 4[facility]#:[id number] Age/Sex: 64 / FADM Date: 05/08/20 Loc: ERRoom/Bed: Attending Dr: Ordering Provider/Ordering MD: Denzel Ocampo Sr, HEALTH POLICY ANALYSTRAMOS Date of Service: 05/08/20 Procedure(s): CT angio chest w abd pel w con Accession Number(s): [id number] Report Number: [id number] PROCEDURE INFORMATION: Exam: CT Angiography Chest With Contrast Exam date and time: 05/08/2020 8:04 PM Age: 64 years old Clinical indication: Abdominal tenderness; Shortness of breath; Prior surgery; Surgery type: Hyst; Patient HX: Best images possible. Positional iv; Additional info: Post covid TECHNIQUE: Imaging protocol: Computed tomographic angiography of the chest with intravenous contrast. 3D rendering (Not supervised by radiologist): MIP and/or 3D reconstructed images were created by the technologist. Radiation optimization: All CT scans at this facility use at least one of these dose optimization techniques: automated exposure control; mA and/or kV adjustment per patient size (includes targeted exams where dose is matched to clinical indication); or iterative reconstruction. Contrast material: VISI 320; Contrast volume: 95 ml; Contrast route: INTRAVENOUS (IV); COMPARISON: CT chest abd pel w con* 01/30/2020 10:57 AM RADIATION DOSE METRICS: Total DLP (mGy-cm): 3240.17 FINDINGS: Pulmonary arteries: Suboptimal pulmonary arterial contrast enhancement. No grossly visible central pulmonary embolism/pulmonary arterial thrombus. Aorta: The thoracic aorta is nonaneurysmal. No visible intimal flap or dissection. Lungs: No visible active or acute interstitial or alveolar airspace disease. Stable very tiny focus of ground-glass opacification base of the anterior segment right upper lobe. Stable very small subpleural plaque along the major fissure lateral segment right middle lobe. Doubt of clinical significance. Pleural space: Unremarkable. No pneumothorax. No pleural effusion. Heart: Mild coronary artery disease. Calcified mitral annulus. No cardiomegaly. No visible pericardial effusion. Lymph nodes: Marginally prominent mediastinal lymph nodes that have been stable since last evaluation of 01/30/2020. Bones/joints: Degenerative disease and degenerative disc disease of the spine without visible evidence of acute osseous abnormality. No visible osteolytic or osteoblastic destructive process. Mild scoliotic curvature. Soft tissues: Unremarkable. Other findings: Marked obesity. Increased quantum mottle artifact which degrades image quality in detail. IMPRESSION: 1. Suboptimal pulmonary arterial contrast enhancement. No grossly visible central pulmonary embolism/pulmonary arterial thrombus. 2. Mild coronary disease. PROCEDURE INFORMATION: Exam: CT Abdomen And Pelvis With Contrast Exam date and time: 05/08/2020 8:04 PM Age: 64 years old Clinical indication: Abdominal tenderness; Shortness of breath; Prior surgery; Surgery type: Hyst; Patient HX: Best images possible. Positional iv; Additional info: Post covid TECHNIQUE: Imaging protocol: Computed tomography of the abdomen and pelvis with intravenous contrast. Radiation optimization: All CT scans at this facility use at least one of these dose optimization techniques: automated exposure control; mA and/or kV adjustment per patient size (includes targeted exams where dose is matched to clinical indication); or iterative reconstruction. Contrast material: VISI 320; Contrast volume: 95 ml; Contrast route: INTRAVENOUS (IV); COMPARISON: CT chest abd pel w con* 01/30/2020 10:57 AM RADIATION DOSE METRICS: Total DLP (mGy-cm): 3240.17 FINDINGS: Liver: Diffuse fatty infiltration of the liver. Hepatomegaly. No visible hepatic mass or cystic structure. Gallbladder and bile ducts: Cholelithiasis. Porcelain gallbladder. No visible intra or extrahepatic biliary ectasia. Pancreas: Mild atrophic changes of the pancreas. No visible pancreatic ductal ectasia. Spleen: Splenomegaly. Scattered calcified granulomas of antecedent disease. Adrenal glands: Normal. No mass. Kidneys and ureters: Left ureteropelvic junction lithiasis measuring 9 mm x 6 mm x 7.8 mm. Moderate severe left hydronephrosis to the high grade partially obstructing stone. No visible distal ureterolithiasis. Residual 11.7 mm calyceal stone equator left kidney. Right kidney with 2 tiny nonobstructing calyceal nephrolithiasis foci both under 2 mm. Stomach and bowel: Assessment of the hollow viscus fails to reveal evidence of active or acute pathology. Nonobstructed bowel pattern. No visible acute diverticulitis. No visible adynamic or reactive ileus. Appendix: The appendix is visualized and appears noninflamed. Intraperitoneal space: Unremarkable. No free air. No significant fluid collection. Vasculature: The abdominal aorta is nonaneurysmal. Mild arterial sclerotic disease. Lymph nodes: Unremarkable. No enlarged lymph nodes. Urinary bladder: Sal catheter within a decompressed urinary bladder. Reproductive: Status post hysterectomy. Bones/joints: Degenerative disease and degenerative disc disease of the spine with spondylosis deformans and facet arthrosis. No visible osteolytic or osteoblastic destructive process. Soft tissues: Marked obesity. Other findings: Increased quantum mottle artifact which degrades image quality in detail. CT/CT angio chest w abd pel w con IMPRESSION: 1. Left ureteropelvic junction lithiasis measuring 9 mm x 6 mm x 7.8 mm. Moderate severe left hydronephrosis to the high grade partially obstructing stone. 2. Bilateral nephrolithiasis. 3. Splenomegaly. 4. Diffuse fatty infiltration of the liver with hepatomegaly. 5. Cholelithiasis. Porcelain gallbladder. 6. Other nonurgent, nonemergent, chronic, and age related findings as detailed in text above. Radiation Dose CTDIVOL = (mGy): DLP = 3240.17~3240.17 (mGy-cm) Dictated By:Atif Alexander Signed By:Atif AlexanderSigned Date/Time:05/08/202115 DD/ 13 EKG Data^: EKG 1: Attestation: I personally reviewed and interpreted this EKG as follows: EKG interpretation date: 05/08/20 EKG interpretation time: 20:46 Interpretation: Normal sinus rhythm @ 95, left axis deviation, nonspecific ST and T wave changes. EKG 2: Attestation: I personally reviewed and interpreted this EKG as follows: EKG interpretation date: 05/08/20 EKG interpretation time: 22:01 Interpretation: Normal sinus rhythm at 93 beats a minute, nonspecific ST and T wave changes. Discharge Plan Discharge Patient Disposition: Admitted As Inpatient Clinical Impression: Pyelonephritis, Urolithiasis, Sepsis Condition: Stable Sign Out Sign Out Data: Patient Sign Out occurred on 05/08/20 at 19:50. Patient's care was discussed, and care was transferred from to Siomara Albright [facility]. Coding Level of Care Code ED Metrology Technician for Chg Fwd Exam Comprehensive
[2020-05-08 18:06] LABS: Basophils % 0.3 %; Eosinophils # 0.1 10^3/uL (0.0-0.8); Eosinophils % 0.6 %; Hematocrit 38.2 % (37.0-47.0); Hemoglobin 12.8 g/dL (11.5-15.3); Lymphocytes # 0.9 10^3/uL (0.8-4.8); Lymphocytes % 6.9 %; Mean Corpuscular HGB Conc 33.5 g/dL (30.0-36.0); Mean Corpuscular Hemoglobin 29.8 pg (28.0-34.0); Mean Corpuscular Volume 88.8 fL (81-99); Mean Platelet Volume 11.1 fL (7.4-10.4); Monocytes # 1.9 10^3/uL (0.2-0.9); Monocytes % 15.1 %; Neutrophils # 9.35 10^3/uL (1.8-7.7); Neutrophils % 76.4 %; Nucleated Red Blood Cells % 0 %; Platelet Count 122 10^3/cmm (130-400); Red Cell Distribution Width 13.6 % (12.1-15.1); White Blood Count 12.2 10^3/uL (4.0-10.0)
[2020-05-08] MEDS: acetaminophen 500 mg Tablet 1000 MG PO (18:06)
[2020-05-08] MEDS: sodium chloride 0.9% 1,000 ML 999 ML IV ×3 (18:07→22:22)
[2020-05-08 18:17] LABS: Influenza A by IFA Negative (Negative); Influenza B by IFA Negative (Negative)
[2020-05-08 18:20] LABS: Lactic Sepsis W/Reflex 2.2 mmol/L (0.5-2.2)
[2020-05-08 18:21] LABS: Alanine Aminotransferase 29 U/L (0-33); Albumin Level 3.5 g/dL (3.5-5.2); Alkaline Phosphatase 110 IU/L (35-105); Anion Gap 18.5 (5-19); Aspartate Amino Transferase 37 U/L (0-32); Blood Urea Nitrogen 30 mg/dL (8-23); C Reactive Protein 257.9 mg/L (0.0-4.9); Calcium 9.6 mg/dL (8.5-10.5); Carbon Dioxide 21 mmol/L (22-29); Chloride 98 mmol/L (98-107); Glomerular Filtration Rate 49.7 mL/min (90-130); Glucose 193 mg/dL (65-115); Osmolality Calculated 289 mOsm/kg (285-295); Potassium 3.5 mmol/L (3.5-5.1); Sodium 134 mmol/L (136-145); Total Bilirubin 3.4 mg/dL (0.15-1.2); Total Protein 6.5 g/dL (6.6-8.7)
--- NOTE | 2020-05-08 18:27 | PC.NURSE ---
daughter states pt has been confused for the last two days. states pt is normally a&o x4. daughter states called pt about 1430 today and noticed pt seemed to have word salad and could not explain what she was doing to her. upon exam pt is having a hard time developing sentences and often forgets what she wants to say. pt is oriented to time, place, person. pt has mild sensory deficit to right arm and right face, pt visual newell are also impaired, but pt got number of fingers wrong on both right and left peripheral vision. no drift noted, perrl. 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
--- NOTE | 2020-05-08 18:31 | CTR_ITS ---
PROCEDURE INFORMATION: Exam: CT Angiography Chest With Contrast Exam date and time: 05/08/2020 8:04 PM Age: 64 years old Clinical indication: Abdominal tenderness; Shortness of breath; Prior surgery; Surgery type: Hyst; Patient HX: Best images possible. Positional iv; Additional info: Post covid TECHNIQUE: Imaging protocol: Computed tomographic angiography of the chest with intravenous contrast. 3D rendering (Not supervised by radiologist): MIP and/or 3D reconstructed images were created by the technologist. Radiation optimization: All CT scans at this facility use at least one of these dose optimization techniques: automated exposure control; mA and/or kV adjustment per patient size (includes targeted exams where dose is matched to clinical indication); or iterative reconstruction. Contrast material: VISI 320; Contrast volume: 95 ml; Contrast route: INTRAVENOUS (IV); COMPARISON: CT chest abd pel w con* 01/30/2020 10:57 AM RADIATION DOSE METRICS: Total DLP (mGy-cm): 3240.17 FINDINGS: Pulmonary arteries: Suboptimal pulmonary arterial contrast enhancement. No grossly visible central pulmonary embolism/pulmonary arterial thrombus. Aorta: The thoracic aorta is nonaneurysmal. No visible intimal flap or dissection. Lungs: No visible active or acute interstitial or alveolar airspace disease. Stable very tiny focus of ground-glass opacification base of the anterior segment right upper lobe. Stable very small subpleural plaque along the major fissure lateral segment right middle lobe. Doubt of clinical significance. Pleural space: Unremarkable. No pneumothorax. No pleural effusion. Heart: Mild coronary artery disease. Calcified mitral annulus. No cardiomegaly. No visible pericardial effusion. Lymph nodes: Marginally prominent mediastinal lymph nodes that have been stable since last evaluation of 01/30/2020. Bones/joints: Degenerative disease and degenerative disc disease of the spine without visible evidence of acute osseous abnormality. No visible osteolytic or osteoblastic destructive process. Mild scoliotic curvature. Soft tissues: Unremarkable. Other findings: Marked obesity. Increased quantum mottle artifact which degrades image quality in detail. IMPRESSION: 1. Suboptimal pulmonary arterial contrast enhancement. No grossly visible central pulmonary embolism/pulmonary arterial thrombus. 2. Mild coronary disease. PROCEDURE INFORMATION: Exam: CT Abdomen And Pelvis With Contrast Exam date and time: 05/08/2020 8:04 PM Age: 64 years old Clinical indication: Abdominal tenderness; Shortness of breath; Prior surgery; Surgery type: Hyst; Patient HX: Best images possible. Positional iv; Additional info: Post covid TECHNIQUE: Imaging protocol: Computed tomography of the abdomen and pelvis with intravenous contrast. Radiation optimization: All CT scans at this facility use at least one of these dose optimization techniques: automated exposure control; mA and/or kV adjustment per patient size (includes targeted exams where dose is matched to clinical indication); or iterative reconstruction. Contrast material: VISI 320; Contrast volume: 95 ml; Contrast route: INTRAVENOUS (IV); COMPARISON: CT chest abd pel w con* 01/30/2020 10:57 AM RADIATION DOSE METRICS: Total DLP (mGy-cm): 3240.17 FINDINGS: Liver: Diffuse fatty infiltration of the liver. Hepatomegaly. No visible hepatic mass or cystic structure. Gallbladder and bile ducts: Cholelithiasis. Porcelain gallbladder. No visible intra or extrahepatic biliary ectasia. Pancreas: Mild atrophic changes of the pancreas. No visible pancreatic ductal ectasia. Spleen: Splenomegaly. Scattered calcified granulomas of antecedent disease. Adrenal glands: Normal. No mass. Kidneys and ureters: Left ureteropelvic junction lithiasis measuring 9 mm x 6 mm x 7.8 mm. Moderate severe left hydronephrosis to the high grade partially obstructing stone. No visible distal ureterolithiasis. Residual 11.7 mm calyceal stone equator left kidney. Right kidney with 2 tiny nonobstructing calyceal nephrolithiasis foci both under 2 mm. Stomach and bowel: Assessment of the hollow viscus fails to reveal evidence of active or acute pathology. Nonobstructed bowel pattern. No visible acute diverticulitis. No visible adynamic or reactive ileus. Appendix: The appendix is visualized and appears noninflamed. Intraperitoneal space: Unremarkable. No free air. No significant fluid collection. Vasculature: The abdominal aorta is nonaneurysmal. Mild arterial sclerotic disease. Lymph nodes: Unremarkable. No enlarged lymph nodes. Urinary bladder: Sal catheter within a decompressed urinary bladder. Reproductive: Status post hysterectomy. Bones/joints: Degenerative disease and degenerative disc disease of the spine with spondylosis deformans and facet arthrosis. No visible osteolytic or osteoblastic destructive process. Soft tissues: Marked obesity. Other findings: Increased quantum mottle artifact which degrades image quality in detail. CT/CT angio chest w abd pel w con IMPRESSION: 1. Left ureteropelvic junction lithiasis measuring 9 mm x 6 mm x 7.8 mm. Moderate severe left hydronephrosis to the high grade partially obstructing stone. 2. Bilateral nephrolithiasis. 3. Splenomegaly. 4. Diffuse fatty infiltration of the liver with hepatomegaly. 5. Cholelithiasis. Porcelain gallbladder. 6. Other nonurgent, nonemergent, chronic, and age related findings as detailed in text above. Radiation Dose CTDIVOL = (mGy): DLP = 3240.17~3240.17 (mGy-cm)
[2020-05-08 19:14] LABS: Add Urine Microscopic? YES; Bilirubin Urine 1+ (Negative); Blood Urine 3+ (Negative); Glucose Urine UA Norm (Normal); Ketones Urine 1+ (Negative); Leukocyte Esterase Urine 2+ (Negative); Nitrate Urine Negative (Negative); Protein Urine 2+ (Negative); Urine Appearance Cloudy (CLEAR); Urine Color Dark Yellow (Yellow); Urobilinogen Urine 1 mg/dL (Negative); pH Urine 5 (5-7)
[2020-05-08 19:30] LABS: Reflex Lactate Order REFLEX LACTIC ORDERD
[2020-05-08 19:37] LABS: Add Urine Culture? No; Bacteria Urine 4+ /hpf; Squamous Epithelial Cell Urine 40-55 /hpf (0-5); Transitional Epi Cells Urine 0-4 /hpf; WBC Urine TOO NUMEROUS TO CNT /hpf (0-5)
[2020-05-08 19:45] LABS: ABG PCO2 32.4 mmHg (35-45); ABG PH Result 7.45 (7.35-7.45); Base Excess ABG -0.7 mmol/L (-2.0-2.0); Blood Gas Allen Test positive; Blood Gas Sample Site left radial; HCO3 ABG 22.6 mmol/L (22-26); Oxygen Device room air; PO2 ABG 72.4 mmHg (80.0-100.0)
[2020-05-08] MEDS: cefTRIAXone 1,000 MG in sodium chloride 0.9% (plus) 50 ML 100 MG IV ×2 (19:49→23:30)
--- NOTE | 2020-05-08 19:59 | ECG_ITS ---
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 Measurements Intervals [place] Rate: 95 P: 55 NH: 201 QRS: -30 QRSD: 110 T: 52 QT: 374 QTc: 472 Interpretive Statements SINUS RHYTHM BORDERLINE LEFT AXIS DEVIATION [QRS AXIS < -20] Compared to ECG 03/04/2020 10:49:29 Left ventricular hypertrophy no longer present Electronically Signed On 05-09-2020 19:12:40 SHIP FITTER by Barb Diamond M.D. [id number]
[2020-05-08] MEDS: iodixanol 320 mg/mL 100mL Btl IV (20:44)
--- NOTE | 2020-05-08 20:58 | PC.NURSE ---
pt incontinent of bowel and diaphoretic in ct scan. pt bed sheets changed and neelam care performed
[2020-05-08 21:13] LABS: Lactic Acid level (Lactate) 1.6 mmol/L (0.5-2.2)
[2020-05-08 21:14] LABS: Troponin(5th) Baseline 32 ng/L (0-10)
--- NOTE | 2020-05-08 21:47 | US_ITS ---
WS: [id number] ULTRASOUND ABDOMEN LIMITED CLINICAL INFORMATION: Pain COMPARISON: None. FINDINGS: Liver Size: Enlarged Craniocaudal length: 24.7 cm. Echogenicity: Coarse Surface nodularity: None. Mass (size and location): None. Bile ducts Intrahepatic ducts: Normal. Common bile duct diameter: 0.5 cm. Gallbladder Calcified porcelain gallbladder is Gallstones: Present Gallbladder sludge: None. Gallbladder wall thickenin.8 mm Pericholecystic fluid: None. Sonographic Mccarty sign: Absent. Pancreas Normal as visualized. Right kidney: Normal. Hydronephrosis: None. Size: 13.9 cm x 6.6 cm x 5.0 cm. Abdominal aorta and IVC Visualized portions are normal. Ascites: None. US/US gall bladder [id number] IMPRESSION: 1. Hepatomegaly with diffuse fatty infiltration. 2. Calcified porcelain gallbladder with cholelithiasis and mild wall thickenin g. This is similar in appearance to CT January 30, 2020. Normal common bile duct . 3. No hydronephrosis in right kidney.
--- NOTE | 2020-05-08 21:59 | ECG_ITS ---
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 Measurements Intervals [place] Rate: 93 P: 2 MS: 155 QRS: -29 QRSD: 117 T: 44 QT: 372 QTc: 463 Interpretive Statements SINUS RHYTHM BORDERLINE LEFT AXIS DEVIATION [QRS AXIS < -20] MODERATE INTRAVENTRICULAR CONDUCTION DELAY [110+ ms QRS DURATION] Compared to ECG 05/08/2020 20:46:12 Intraventricular conduction delay now present Electronically Signed On 05-09-2020 19:35:29 BILLING SERVICES MANAGER by Barb Diamond M.D. [id number]
--- NOTE | 2020-05-08 22:51 | P.CONIM_ITS ---
Providers/Reason For Consult Consulting Physican/Specialty*: Urology/Spence Reason for Consult*: Left obstructive pyelonephritis Primary Care Provider: Vinh Raya MD History of Present Illness History of Present Illness Aylin Dietz is a 64 [facility], left flank pain, evidence of sepsis with UTI and a CT scan showed a large obstructing left UPJ stone as well as a renal calculus. She was having some confusion as well. White count was elevated. Urinalysis was grossly infected. I was consulted for emergency evaluation and recommended emergency left ureteral stent placement. Will be admitted to the hospitalist service for management of sepsis. Review of Systems Narrative: General: Has had fever and chills. Some confusion noted by her daughter. Prior to several days ago she was in her usual good state of health. HEENT no changes in hearing difficulty swallowing cardiovascular denies chest pains Respiratory no chronic cough. No shortness of breath. No wheezing GI has had nausea and abdominal pain diffusely but also left-sided pain no overt UTI type symptoms but has had some left flank pain consistent with renal colic as well. Skin denies jaundice rashes or lesions Hematologic lymphatic: No abnormal bleeding. No swollen lymph nodes Psychiatric: Has had some confusion the last couple days according to her daughter Tabitha Musculoskeletal: Denies any acute change or deformities does have chronic rheumatoid arthritis symptomatic Endocrine: No flushing. Does have history of diabetes status of control unknown Meds/Allergies Home Medications and Allergies Home Medications Medication Instructions Recorded Confirmed Last Taken Type aspirin [Aspir-81] 81 mg PO DAILY 05/08/20 05/08/20 Unknown History atorvastatin 10 mg PO DAILY 05/08/20 05/08/20 Unknown History calcium carbonate-vitamin D3 1 tab PO DAILY 05/08/20 05/08/20 Unknown History [Calcium + D] famotidine 20 mg PO BID 05/08/20 05/08/20 Unknown History folic acid 2 mg PO DAILY 05/08/20 05/08/20 Unknown History hydrochlorothiazide 12.5 mg PO DAILY 05/08/20 05/08/20 Unknown History hydrocodone-acetaminophen 1 - 2 tab PO Q5H PRN 05/08/20 05/08/20 Unknown History losartan 100 mg PO DAILY 05/08/20 05/08/20 Unknown History metformin 500 mg PO DAILY 05/08/20 05/08/20 Unknown History multivitamin 1 tab PO DAILY 05/08/20 05/08/20 Unknown History Allergies Allergy/AdvReac Type Severity Reaction Status Date / Time No Known Allergies Allergy Unverified 05/08/20 18:51 Current Medications Current Medications Generic Name Dose Route Start Last Admin Trade Name Freq PRN Reason Stop Dose Admin Sodium Chloride 1,000 mls @ 999 mls/hr 05/08/20 22:16 05/08/20 22:22 Sodium Chloride 0.9% IV 05/08/20 23:16 999 mls/hr .Q1H1M ONE Administration PFSH Acute PFSH: Medical History (Updated 05/08/20 @ 23:13 by Dmitriy Spence MD) GERD (gastroesophageal reflux disease) History of lymphoma History of rheumatoid arthritis Hypertension Obstructive sleep apnea Skin cancer Tonsillectomy planned Surgical History (Updated 05/08/20 @ 23:12 by Dmitriy Spence MD) History of bladder suspension procedure History of carpal tunnel release History of total abdominal hysterectomy and bilateral salpingo-oophorectomy History of tubal ligation Family History (Updated 05/08/20 @ 23:11 by Dmitriy Spence MD) Other CAD (coronary artery disease) Cancer Hypertension Social History (Updated 05/08/20 @ 23:10 by Dmitriy Spence MD) Smoking and tobacco status: never smoked Vitals/I&O/Wt Last Vital Signs Temp 98.4 F 05/08/20 20:58 Pulse 93 05/08/20 22:09 Resp 18 05/08/20 22:09 BP 116/72 05/08/20 22:09 Pulse Ox 95 05/08/20 22:09 Weight last 48 hrs Weight 300 lb Physical Exam Const: COMMON NORMALS: no acute distress, alert and well nourished GENERAL APPEARANCE: well kempt and well developed ORIENTATION/CONSCIOUSNESS: not confused HENMT: COMMON NORMALS: normocephalic and atraumatic HEAD & SCALP: normoceph alic and atraumatic Eye: COMMON NORMALS: conjunctivae normal and no scleral icterus CONJUNCTIVA: Yes conjunctivae normal Neck/C-Spine: COMMON NORMALS: full ROM GENERAL: Yes normal visual ins pection Lymph: LYMPHATIC: no lymphadenopathy noted and no lymphedema noted Resp: COMMON NORMALS: normal respiratory effort and clear to auscultation bilaterally EFFORT & INSPECTION: No labored and No Actively coughing AUSCULTATION: clear to auscultation bilaterally Cardio: COMMON NORMALS: regular rate, regular rhythm and No murmurs present (Cardio) RATE: regular rate RHYTHM: regular rhythm BRUITS: no carotid bruits Extremity: COMMON NORMALS: no clubbing, cyanosis or edema Neuro: COMMON NORMALS: no focal motor deficits SENSORIUM/ORIENTATION: Yes alert Psych: COMMON NORMALS: mental status grossly normal APPEARANCE: Yes grossly normal and Yes well kempt ATTITUDE: Yes calm and Yes engaged Skin: COMMON NORMALS: no rashes or lesions noted and no jaundice GENERAL SKIN EXAM: no rashes or lesions noted Urinary Catheter Management^: Sal: Cath Placed During This Visit: yes Reason for Continuing Indwelling Catheter: Acute Urinary Retention or Obstruction Urinary Catheter Date of Insertion: 05/08/20 Urinary Catheter Time of Insertion: 18:45 Data Micro: Micro: Microbiology 05/08/20 19:12 Blood Culture - Pr eliminary Blood SPECIMEN COLLE MARIMAR 05/08/20 19:47 Blood Culture - Pr eliminary Blood SPECIMEN [facility] MARIM[facility] A&P Assessment and plan (1) Obstructive pyelonephritis: To the operating room emergently for cystoscopy, left ureteral stent placement. Possible ureteroscopy if cannot advance wire beyond the obstructing stone. Reviewed the possibility for need for interventional radiology and left percutaneous nephrostomy tube placement if retrograde access is unattainable. This is emergent. Patient is quite ill. Status: Acute (2) Sepsis: Status: Acute Qualifiers: Sepsis acute organ dysfunction status: unspecified Sepsis type: sepsis due to unspecified organism Qualified Code(s): A41.9 - Sepsis, unspecified organism (3) Urolithiasis: Status: Acute Qualifiers: Urinary calculus location: kidney and ureter Qualified Code(s): N20.2 - Calculus of kidney with calculus of ureter Coding Level of Care Code Acute Hydration Plant Operator for [facility] Fwd Exam Comprehensive Diagnoses Obstructive pyelonephritis N11.1 Sepsis A41.9 Sepsis acute organ dysfunction status: unspecified Sepsis type: sepsis due to unspecified organism Urolithiasis N20.2 Urinary calculus location: kidney and ureter
[2020-05-08 23:09] LABS: INR 1.17 (0.8-1.2); Partial Thromboplastin Time 34.5 SECONDS (23.9-36.7)
[2020-05-08 23:16] LABS: Troponin 5 2HR 26.81 ng/L (0-10)
--- NOTE | 2020-05-08 23:17 | ANES.PREANE2 ---
Pre-Anesthetic Assessment Pre-Anesthetic Assessment: Height/Weight: Height 1.73 m Weight 136.078 kg Temp Pulse Resp BP Pulse Ox 98.4 F 93 18 116/72 95 05/08/20 20:58 05/08/20 22:09 05/08/20 22:09 05/08/20 22:09 05/08/20 22:09 Preop Diagnosis: obstructive pyelonephritis Proposed Procedure: Operation Date: 05/08/20 23:00 Proposed Procedures p Cystoscopy(Not Applicable) - Dmitriy Spence MD s Ureteral Stent Placement(Not Applicable) - Dmitriy Spence MD Was Beta Merle taken within 24 hours: N/A Last intake: 0700 Social: Social History: No alcohol and No tobacco Airway: Submandibular: WNL Cervical ROM: WNL MP: 3 Dentition: Full Additional comments: biopsy base of tongue two weeks ago Pulmonary: Pulmonary: Sleep apnea (cpap) CV/HEM: CV/HEM: HTN : Comments: kidney stones Hepatic: Hepatic: None reported GI: GI: None reported Metabolic: Metabolic: DM (pre-diabetic) and Morbid obesity Musc/skel: Musc/skel: OA/DJD Neuropsych: Neuropsych: None reported Anesthetic Plan: ASA status: 3E Anesthesia: General and MAC PFSH Anesthesia PFSH: Medical History (Updated 05/08/20 @ 23:13 by Dmitriy Spence MD) GERD (gastroesophageal reflux disease) History of lymphoma History of rheumatoid arthritis Hypertension Obstructive sleep apnea Skin cancer Tonsillectomy planned Surgical History (Updated 05/08/20 @ 23:12 by Dmitriy Spence MD) History of bladder suspension procedure History of carpal tunnel release History of total abdominal hysterectomy and bilateral salpingo-oophorectomy History of tubal ligation Family History (Updated 05/08/20 @ 23:11 by Dmitriy Spence MD) Other CAD (coronary artery disease) Cancer Hypertension Social History (Updated 05/08/20 @ 23:10 by Dmitriy Spence MD) Smoking and tobacco status: never smoked Data Anesthesia CBC & Chem 7: 05/08/20 17:20 05/08/20 17:20 Other Labs: Laboratory Results - last 48 hr 05/08/20 05/08/20 05/08/20 17:20 17:20 17:20 WBC 12.2 H RBC 4.30 Hgb 12.8 Hct 38.2 MCV 88.8 MCH 29.8 MCHC 33.5 RDW 13.6 Plt Count 122 L MPV 11.1 H Neut % (Auto) 76.4 Lymph % (Auto) 6.9 [place] % (Auto) 15.1 Eos % (Auto) 0.6 Baso % (Auto) 0.3 Neut # (Auto) 9.35 H Lymph # (Auto) 0.9 [place] # (Auto) 1.9 H Eos # (Auto) 0.1 Baso # (Auto) 0.0 Nucleated RBC % (auto) 0 Nucleated RBCs # 0.0 PT INR APTT D-Dimer Specimen Type Sample Site ABG pH ABG pCO2 ABG pO2 ABG HCO3 ABG Base Excess Rdoríguez Test Hematocrit O2 Delivery Device FiO2 Specimen Drawn By Plant Physiology Teacher ID Sodium 134 L Potassium 3.5 Chloride 98 Carbon Dioxide 21 L Anion Gap 18.5 BUN 30 H Creatinine 1.1 H GFR Calculation 49.7 L Glucose 193 H Calculated Osmolality 289 Lactic Acid 2.2 Lactic Acid (Sepsis) Calcium 9.6 Total Bilirubin 3.4 H AST 37 H ALT 29 Alkaline Phosphatase 110 H Troponin T Baseline C-Reactive Protein 257.9 H Total Protein 6.5 L Albumin 3.5 Globulin 3.0 Urine Color Urine Appearance Urine pH Ur Specific [place] Urine Protein Urine Glucose (UA) Urine Ketones Urine Blood Urine Nitrate Urine Bilirubin Urine Urobilinogen Ur Leukocyte Esterase Urine RBC Urine WBC Ur Squamous Epith Cells Ur Transition Epith Cell Amorphous Sediment Urine Bacteria Influenza Type A Ag Influenza Type B Ag 05/08/20 05/08/20 05/08/20 17:21 18:48 19:33 WBC RBC Hgb Hct MCV MCH MCHC RDW Plt Count MPV Neut % (Auto) Lymph % (Auto) [place] % (Auto) Eos % (Auto) Baso % (Auto) Neut # (Auto) Lymph # (Auto) [place] # (Auto) Eos # (Auto) Baso # (Auto) Nucleated RBC % (auto) Nucleated RBCs # PT INR APTT D-Dimer Specimen Type arterial Sample Site left radial ABG pH 7.45 ABG pCO2 32.4 L ABG pO2 72.4 L ABG HCO3 22.6 ABG Base Excess -0.7 Rodríguez Test positive Hematocrit 39.0 O2 Delivery Device room air FiO2 21.0 Specimen Drawn By harkr Plant Physiology Teacher ID harkr Sodium Potassium Chloride Carbon Dioxide Anion Gap BUN Creatinine GFR Calculation Glucose Calculated Osmolality Lactic Acid Lactic Acid (Sepsis) Calcium Total Bilirubin AST ALT Alkaline Phosphatase Troponin T Baseline C-Reactive Protein Total Protein Albumin Globulin Urine Color Dark yellow Urine Appearance Cloudy Urine pH 5 Ur Specific [place] 1.020 Urine Protein 2+ H Urine Glucose (UA) Norm Urine Ketones 1+ H Urine Blood 3+ H Urine Nitrate Negative Urine Bilirubin 1+ H Urine Urobilinogen 1 H Ur Leukocyte Esterase 2+ H Urine RBC 5-10 H Urine WBC Too numerous to cnt H Ur Squamous Epith Cells 40-55 H Ur Transition Epith Cell 0-4 Amorphous Sediment Not Reportable Urine Bacteria 4+ H Influenza Type A Ag Negative Influenza Type B Ag Negative 05/08/20 05/08/20 05/08/20 19:47 20:49 20:49 WBC RBC Hgb Hct MCV MCH MCHC RDW Plt Count MPV Neut % (Auto) Lymph % (Auto) [place] % (Auto) Eos % (Auto) Baso % (Auto) Neut # (Auto) Lymph # (Auto) [place] # (Auto) Eos # (Auto) Baso # (Auto) Nucleated RBC % (auto) Nucleated RBCs # PT INR APTT D-Dimer 4.60 H Specimen Type Sample Site ABG pH ABG pCO2 ABG pO2 ABG HCO3 ABG Base Excess Rodríguez Test Hematocrit O2 Delivery Device FiO2 Specimen Drawn By Plant Physiology Teacher ID Sodium Potassium Chloride Carbon Dioxide Anion Gap BUN Creatinine GFR Calculation Glucose Calculated Osmolality Lactic Acid Lactic Acid (Sepsis) 1.6 Calcium Total Bilirubin AST ALT Alkaline Phosphatase Troponin T Baseline 32 H C-Reactive Protein Total Protein Albumin Globulin Urine Color Urine Appearance Urine pH Ur Specific [place] Urine Protein Urine Glucose (UA) Urine Ketones Urine Blood Urine Nitrate Urine Bilirubin Urine Urobilinogen Ur Leukocyte Esterase Urine RBC Urine WBC Ur Squamous Epith Cells Ur Transition Epith Cell Amorphous Sediment Urine Bacteria Influenza Type A Ag Influenza Type B Ag 05/08/20 22:38 WBC RBC Hgb Hct MCV MCH MCHC RDW Plt Count MPV Neut % (Auto) Lymph % (Auto) [place] % (Auto) Eos % (Auto) Baso % (Auto) Neut # (Auto) Lymph # (Auto) [place] # (Auto) Eos # (Auto) Baso # (Auto) Nucleated RBC % (auto) Nucleated RBCs # PT 15.30 H INR 1.17 APTT 34.5 D-Dimer Specimen Type Sample Site ABG pH ABG pCO2 ABG pO2 ABG HCO3 ABG Base Excess Rodríguez Test Hematocrit O2 Delivery Device FiO2 Specimen Drawn By Plant Physiology Teacher ID Sodium Potassium Chloride Carbon Dioxide Anion Gap BUN Creatinine GFR Calculation Glucose Calculated Osmolality Lactic Acid Lactic Acid (Sepsis) Calcium Total Bilirubin AST ALT Alkaline Phosphatase Troponin T Baseline C-Reactive Protein Total Protein Albumin Globulin Urine Color Urine Appearance Urine pH Ur Specific [place] Urine Protein Urine Glucose (UA) Urine Ketones Urine Blood Urine Nitrate Urine Bilirubin Urine Urobilinogen Ur Leukocyte Esterase Urine RBC Urine WBC Ur Squamous Epith Cells Ur Transition Epith Cell Amorphous Sediment Urine Bacteria Influenza Type A Ag Influenza Type B Ag Micro: Microbiology 05/08/20 19:12 Blood Culture - Preliminary Blood SPECIMEN COLLECTED 05/08/20 19:47 Blood Culture - Preliminary Blood SPECIMEN COLLECTED Cardiac Studies: No Data to Display
--- NOTE | 2020-05-08 23:26 | PM.OP ---
Operative Report Date of procedure: May 08, 2020 Pre-op Diagnosis: obstructive pyelonephritis, left proximal 9 mm obstructing ureteral stone Post-op diagnosis: same Procedure Done: 1. Cystoscopy, left ureteral stent placement Implants: 7 [place] by 30 cm double-pigtail stent Pathology: none sent Surgeon: Bebe Anesthesia: MAC Estimated blood loss: Minimal Urine output: Not measured Complications: None Condition: stable Disposition: PACU Brief History: Aylin is a very pleasant 64-year-old white female who I evaluated for the first time tonight emergently at the request of the emergency department for obstructive pyelonephritis on the left associated with septic picture and a 9+ millimeter left proximal ureteral stone with obstruction. Urine was grossly infected. White count was elevated. She had not reported a fever of about 103 and had been ill for several days with some mental status changes. She had an additional stone in the left kidney that was nonobstructing. Admitted to the hospitalist service with urology consultation for emergency stent placement. Procedure: After emergent evaluation examination and obtaining of informed consent she was taken to the operating suite on 05/08/2014 where general anesthesia was administered without difficulty after appropriate timeout was performed, SCDs confirmed to be functioning, preoperative antibiotics administered, beta-myrtle protocol confirmed. Prepped and draped in the usual sterile fashion in dorsal lithotomy position paying careful attention to avoiding pressure points. 21 [place] cystoscope with 30 degree lens was introduced into the urethral meatus and advanced into the bladder under videoscopy. Bladder was systematically examined. No stones were seen. Showed signs of chronic infection. A flexible tip guidewire was advanced up the left ureter bypassing the stone at the UPJ and curling in the upper pole calyx. A 7 [place] by 30 cm double-pigtail stent was advanced over the guidewire through the cystoscope into appropriate position as confirmed via fluoroscopy and cystoscopy. Stent was confirmed to be draining. Bladder drained with a Sal catheter and the procedure completed. Hemodynamically stable throughout the procedure.
[2020-05-08 23:30] LABS: Troponin 5 2HR Delta -5.19 ABS# (0-10)
[2020-05-09] VITALS (153 sets, daily range): BP systolic 74–137; BP diastolic 40–79; PULSE 94–126; RESP 12–59; TEMP 37.2–40; O2SAT 91–100
--- NOTE | 2020-05-09 | SCC_ITS ---
Procedure Done: 1. Cystoscopy, left ureteral stent placement 6.7 seconds of fluoroscopic guidance, for a cumulative dose of 3.82 mGy, was provided to Dr. Spence by the radiology department. C-arm images of the abdomen were saved for the patient's permanent record. [facility]
--- NOTE | 2020-05-09 | SCC_ITS ---
Procedure Done: 1. Cystoscopy, left ureteral stent placement 6.7 seconds of fluoroscopic guidance, for a cumulative dose of 3.82 mGy, was provided to Dr. Spence by the radiology department. C-arm images of the abdomen were saved for the patient's permanent record. [facility]
[2020-05-09] MEDS: vancomycin 1,500 MG/300 ML PIGGYBACK 200 MG IV ×2 (00:38→19:23)
--- NOTE | 2020-05-09 00:48 | P.HP_ITS ---
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 ECA course: Pertinent vitals: Temperature: 103 , HR: 104-120 , B/P : 80/48 Imaging studies: CT head without contrast: No evidence of active or acute intracranial pathologic process, hemorrhage, or trauma. Unremarkable white matter for age. No mass effect. Cerebral ventricles: No ventriculomegaly. CT angio chest w abd pel w con: Suboptimal pulmonary arterial contrast enhancement. No grossly visible central pulmonary embolism/pulmonary arterial thrombus. No visible active or acute interstitial or alveolar airspace disease. Stable very tiny focus of ground-glass opacification base of the anterior segment right upper lobe. CT Abdomen And Pelvis With Contrast Left ureteropelvic junction lithiasis measuring 9 mm x 6 mm x 7.8 mm. Moderate severe left hydronephrosis to the high grade partially obstructing stone. Bilateral nephrolithiasis. Splenomegaly. Diffuse fatty infiltration of the liver with hepatomegaly. Cholelithiasis. Porcelain gallbladder. U/S ABD : Pertinent labs: WBC: 12.2 , lactic acid : 1.6 , Troponin: Baseline: 32, 2-hour: 26, delta T: - 5.1 Influenza : negative Urinalysis: Urine WBC : Too numerous to count, urine leukocyte Estrace: Positive Dr. Spence was consulted in the ER: For management of acute pyelonephritis: Secondary to obstructive uropathy. S/P Cystoscopy, left ureteral stent placement. Implants: 7 [place] by 30 cm double-pigtail stent. ER medication: Ceftriaxone 1 g IV x1 dose. 4 L IV normal saline Review of Systems Card: Denies: palpitations, edema, swelling of feet/ankles, dyspnea on exertion, orthopnea or leg pain with exertion Resp: Denies: dyspnea, productive cough, wheezing or pain on inspiration GI: Denies: abdominal pain, diarrhea or constipation Musc: Denies: extremity pain or extremity swelling Neuro: Denies: headache(s) Medications/Allergies Home Medications Medication Instructions Recorded Confirmed Last Taken Type aspirin [Aspir-81] 81 mg PO DAILY 05/08/20 05/08/20 Unknown History atorvastatin 10 mg PO DAILY 05/08/20 05/08/20 Unknown History calcium carbonate-vitamin D3 1 tab PO DAILY 05/08/20 05/08/20 Unknown History [Calcium + D] famotidine 20 mg PO BID 05/08/20 05/08/20 Unknown History folic acid 2 mg PO DAILY 05/08/20 05/08/20 Unknown History hydrochlorothiazide 12.5 mg PO DAILY 05/08/20 05/08/20 Unknown History hydrocodone-acetaminophen 1 - 2 tab PO Q5H PRN 05/08/20 05/08/20 Unknown History losartan 100 mg PO DAILY 05/08/20 05/08/20 Unknown History metformin 500 mg PO DAILY 05/08/20 05/08/20 Unknown History multivitamin 1 tab PO DAILY 05/08/20 05/08/20 Unknown History Allergies Allergy/AdvReac Type Severity Reaction Status Date / Time No Known Allergies Allergy Unverified 05/08/20 18:51 PFSH Acute PFSH: Medical History GERD (gastroesophageal reflux disease) History of lymphoma History of rheumatoid arthritis Hypertension Obstructive sleep apnea Skin cancer Tonsillectomy planned Surgical History History of bladder suspension procedure History of carpal tunnel release History of total abdominal hysterectomy and bilateral salpingo-oophorectomy History of tubal ligation Family History Other CAD (coronary artery disease) Cancer Hypertension Social History Smoking and tobacco status: never smoked Vitals/I&O/Wt Last Vital Signs Temp 98.4 F 05/08/20 20:58 Pulse 120 H 05/09/20 00:39 Resp 18 05/08/20 23:00 BP 120/55 05/09/20 00:39 Pulse Ox 99 05/09/20 00:39 05/08/20 05/08/20 05/09/20 14:59 22:59 06:59 Intake Total 50 / 50 Balance 50 / 50 Weight last 48 hrs Weight 136.078 kg Physical Exam Const: COMMON NORMALS: patient oriented x3 HENMT: COMMON NORMALS: normocephalic, atraumatic, hearing grossly normal bilaterally and external ears normal HEAD & SCALP: normocephalic and atraumatic EXTERNAL EAR: Yes external ears normal Eye: COMMON NORMALS: no scleral icterus GENERAL EYE: appearance normal, both eyes and all related structures Chest: COMMONS NORMALS: normal inspection of the chest and normal palpation of entire chest wall CHEST: Yes Symmetrical chest wall rise Resp: COMMON NORMALS: normal respiratory effort, No retractions, No use of accessory muscles and clear to auscultation bilaterally EFFORT & INSPECTION: Yes symmetric chest movement AUSCULTATION: clear to auscultation bilaterally Cardio: COMMON NORMALS: regular rate, regular rhythm, S1 normal heart sound present, S2 normal heart sound present, No gallops present (Cardio), No murmurs present (Cardio), No rub (Cardio) and Peripheral pulses 2+ throughout RATE: regular rate RHYTHM: regular rhythm HEART SOUNDS: S1 normal heart sound present and S2 normal heart sound present PERIPHERAL PULSES: Peripheral pulses 2+ throughout GI: COMMON NORMALS: Normal to inspection, nondistended, normoactive bowel sounds present, Soft to palpation, non-tender, No hepatosplenomegaly present and no masses AUSCULTATION: Yes normoactive bowel sounds PALPATION: Yes Soft to palpation and Yes No hepatosplenomegaly present RECTAL EXAM: deferred : OTHER: Left CVA tenderness present Extremity: COMMON NORMALS: no clubbing, cyanosis or edema and no pedal edema Neuro: COMMON NORMALS: patient oriented x3 Urinary Catheter Management^: Sal: Cath Placed During This Visit: yes Reason for Continuing Indwelling Catheter: Acute Urinary Retention or Obstruction Urinary Catheter Date of Insertion: 05/09/20 Urinary Catheter Time of Insertion: 00:19 Data : 05/08/20 17:20 05/08/20 17:20 Micro: Microbiology 05/08/20 19:12 Blood Culture - Preliminary Blood SPECIMEN COLLECTED 05/08/20 19:47 Blood Culture - Preliminary Blood SPECIMEN COLLECTED A&P Assessment and plan (1) Septic shock: Secondary to acute pyelonephritis secondary to obstructive uropathy Currently on Vanco and imipenem Currently requiring Levophed after adequate post volume resuscitation. Status: Acute (2) Obstructive pyelonephritis: S/P Cystoscopy, left ureteral stent placement. Implants: 7 [place] by 30 cm double-pigtail stent. Urology on board. Rec appreciated Status: Acute (3) Total bilirubin, elevated: Monitor CMP. Follow ultrasound abdomen report. Status: Acute (4) Diabetes: Sliding scale insulin Status: Acute (5) History of lymphoma: Status: Inactive (6) Hypertension: Currently hypotensive. Monitor blood pressure Status: Inactive (7) Obstructive sleep apnea: Status: Inactive Additional A&P Information DVT PPX: Lovenox 40 mg sc daily Code Status : Full code Disposition : Home Attestations Medical Necessity Statement*: Patient needs to be in hospital for management of septic shock. 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
[2020-05-09] MEDS: famotidine 20 mg/2 mL INJ IVP (01:01)
[2020-05-09] MEDS: enoxaparin 40 mg/0.4 mL Syringe SUBCUT (01:12)
[2020-05-09 01:13] LABS: Glucose Point of Care 165 mg/dL (70-110)
[2020-05-09 01:48] LABS: Troponin 5 6HR 30.44 ng/L (0-10)
[2020-05-09 02:02] LABS: Troponin 5 6HR Delta -1.56 ng/L (0-12)
--- NOTE | 2020-05-09 03:33 | PC.PHAR ---
Pharmacokinetic dosing service Date: 05/09/20 Time: 332 Objective: Patient: Aylin Dietz Floor: ICU-9 Age: 64 yo Serum creatinine: 1.1 mg/dL Height: 68.0 Inches Weight (kg): 139.706 Diagnosis: Relevant medical/social history: Cultures and sensitivities: Other labs: Assessment: IBW (kg): 63.90 Dosing wt(kg): 94.2 Estimated Creatinine clearance (ml/min): 50.7 CRCL method: Cockcroft and Gault using ibw(default). Drug selected: Vancomycin Loading dose (mg): 0 Vd (liters): 84.8 (factor used: 0.9 L/kg) Fernando (hr-1): 0.046 Half life (hrs): 15.07 Recommended dose: 1500 mg Interval: 18 hrs Infusion time (hrs): 1.5 Predicted peak (mcg/mL): 30.4 Predicted trough (mcg/mL): 14.23 Adjusted body weight was selected for vancomycin dosing. To switch back, select the total body weight option above. Renal function is stable [ ] /unstable [ ] Recommendations: Give Vancomycin 1500 mg q 18 hrs with an expected Cpeak of 30.4 mcg/ml and an expected Ctrough of 14.23 mcg/ml Renal dosing of other antibiotics (review renal dosing of other medications and list guidelines here): Thank you for the consult, will continue to follow. Signature: Julieta Kong [facility]
[2020-05-09] MEDS: sodium chloride 0.9% 1,000 ML 100 ML IV ×2 (04:16→19:37)
[2020-05-09] MEDS: acetaminophen 325 mg Tablet 650 MG PO ×4 (04:28→19:35)
[2020-05-09 04:33] LABS: Alanine Aminotransferase 32 U/L (0-33); Alkaline Phosphatase 109 IU/L (35-105); Aspartate Amino Transferase 47 U/L (0-32); Blood Urea Nitrogen 31 mg/dL (8-23); Calcium 8.8 mg/dL (8.5-10.5); Carbon Dioxide 18 mmol/L (22-29); Chloride 109 mmol/L (98-107); Globulin 3.5 g/dL (1.3-4.6); Glomerular Filtration Rate 55.5 mL/min (90-130); Glucose 159 mg/dL (65-115); Magnesium 1.4 mg/dL (1.7-2.3); Osmolality Calculated 304 mOsm/kg (285-295); Sodium 142 mmol/L (136-145); Total Bilirubin 2.1 mg/dL (0.15-1.2); Total Protein 6.5 g/dL (6.6-8.7)
[2020-05-09 04:51] LABS: Anion Gap 18.2 (5-19); Potassium 3.2 mmol/L (3.5-5.1)
[2020-05-09] MEDS: potassium chloride ER 20 mEq Tablet 40 MEQ PO (05:43)
[2020-05-09] MEDS: magnesium sulfate premix 2 GM/50 ML PIGGYBACK IV (05:44)
[2020-05-09 06:27] LABS: NT Pro B Type Natriuretic Pept 1525 pg/mL (0-125)
[2020-05-09 07:34] LABS: Hematocrit 39.5 % (37.0-47.0); Hemoglobin 12.5 g/dL (11.5-15.3); Mean Corpuscular HGB Conc 31.6 g/dL (30.0-36.0); Mean Corpuscular Hemoglobin 29.7 pg (28.0-34.0); Mean Corpuscular Volume 93.8 fL (81-99); Mean Platelet Volume 10.7 fL (7.4-10.4); Platelet Count 116 10^3/cmm (130-400); Red Blood Count 4.21 10^6/uL (4.1-5.3); Red Cell Distribution Width 14.1 % (12.1-15.1); Slide Review Slide Review Perform; White Blood Count 8.5 10^3/uL (4.0-10.0)
[2020-05-09 07:45] LABS: Absolute Neutrophil 7.4 10^3/cmm (1.4-6.5); Absolute Segmented Neutrophil 4.9 10/cmm (1.6-7.1); Band Neutrophils Absolute 2.5 10^3/cmm (0.0-1.2); Lymphocytes 9 %; Monocytes Absolute 0.3 10^3/cmm (0.1-0.6); Platelet Estimate Decreased (Normal); Segmented Neutrophils 58 %; Total Cells Counted 100 (0-100)
[2020-05-09 07:48] LABS: Eosinophils 0 %
[2020-05-09] MEDS: atorvastatin 40 mg Tablet 10 MG PO (08:16)
[2020-05-09] MEDS: folic acid 1 mg Tablet 2 MG PO (08:16)
[2020-05-09] MEDS: aspirin 81 mg EC Tablet PO (08:16)
[2020-05-09] MEDS: calcium carb-vit d 600mg/400unit 1 Tablet 1 EACH PO (08:16)
[2020-05-09] MEDS: famotidine 20 mg Tablet PO ×2 (08:16→18:33)
--- NOTE | 2020-05-09 09:30 | PC.CHAP ---
Pastoral Care Encounter/Spiritual Assessment Type of Contact [] Declined intake clinician visit [] Patient/Family/Request visit [] Outpatient visit [] Follow-up visit [] Physician referral [] Code/Alert [x] Routine visit [] Staff referral [] Actively dying [] Patient sleeping [] Family support [] [] Out of room [] Palliative care [] [] Receiving care in room [] Pre-surgical visit [] Trauma [] Long length of stay [] ICU visit [] Other: Relational/Emotional Strength [] Patient feels connected with others/family/visitors/staff [] Distress [] Loneliness/isolation [] Abandonment Spirituality of Patient [] Person of Leonila [] Attends Denominational of their Leonila [] Believes in Prayer [] Reads Bible or Uatsdin materials [] There are Spiritual issues to be addressed 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 Interventions [x] Prayer [x] Active listening [x] Non-anxious presence [x] Spiritual/emotional support [] Crisis/trauma care [] Spiritual counseling [] Bereavement support [] Provided bereavement packet [] Provided Bible/devotional materials [] Provided toy/stuffed animal, coloring book to patient or family member [] Provided Communion [] Anointing/[place] [] Salvation [x] Completed spiritual assessment [] Other: Impact on Illness or Injury [] Angry [] Fearful [] Anxious [] Often cries [] Exhaustion [] Unable to work [] Unable to attend orthodoxy [] Unable to walk/stand [] Unable to read [] Unable to drive [] Unable to eat/drink [] Unable to sleep [] Unable to be with family [] Patient intubated [] Other: Summary feeling stronger every day Time spent with patient 5 min
[2020-05-09] MEDS: sodium chloride 0.9% 500 ML 999 ML IV (09:49)
[2020-05-09 10:47] LABS: Procalcitonin 17.38 ng/mL (0-0.5)
--- NOTE | 2020-05-09 12:25 | P.PN_ITS ---
Subjective Subjective: Interval history: This morning patient was examined, she sitting up in bed, enjoying breakfast, alert oriented x3, answering all questions appropriately, denies any chest pain, denies any shortness of breath, denies any back pain, denies any abdominal pain, no fevers, no chills, no nausea, no vomiting Vitals/I&O/Wt Last Vital Signs Temp 99.9 F H 05/09/20 12:00 Pulse 98 05/09/20 12:00 Resp 25 H 05/09/20 12:00 BP 123/71 05/09/20 12:00 Pulse Ox 97 05/09/20 12:00 05/08/20 05/09/20 05/09/20 22:59 06:59 14:59 Intake Total 2316.213 / 2316.213 147.88 / 147.88 Output Total 450 / 450 500 / 500 Balance 1866.213 / 1866.213 -352.12 / -352.12 Weight last 48 hrs Weight 139.706 kg Weight 136.078 kg Physical Exam Const: COMMON NORMALS: no acute distress and patient oriented x3 HENMT: COMMON NORMALS: normocephalic HEAD & SCALP: normocephalic Neck/C-Spine: COMMON NORMALS: no JVD Resp: COMMON NORMALS: normal respiratory effort, No retractions, No use of accessory muscles and clear to auscultation bilaterally AUSCULTATION: clear to auscultation bilaterally Cardio: COMMON NORMALS: no JVD, regular rate, regular rhythm, S1 normal heart sound present and S2 normal heart sound present RATE: regular rate RHYTHM: regular rhythm HEART SOUNDS: S1 normal heart sound present and S2 normal heart sound present GI: COMMON NORMALS: Normal to inspection, nondistended, normoactive bowel sounds present, Soft to palpation, non-tender, No hepatosplenomegaly present, no masses and no bruits PALPATION: Yes Soft to palpation and Yes No hepatosplenomegaly present Extremity: COMMON NORMALS: capillary refill normal, no clubbing, cyanosis or edema, no calf tenderness and no pedal edema Neuro: COMMON NORMALS: patient oriented x3 Psych: COMMON NORMALS: mental status grossly normal Urinary Catheter Management^: Sal: Cath Placed During This Visit: yes Reason for Continuing Indwelling Catheter: Accurate Measurement of Urinary Output in Critically Ill Patients Urinary Catheter Date of Insertion: 05/09/20 Urinary Catheter Time of Insertion: 00:19 Data : 05/09/20 03:45 05/09/20 03:45 Micro: Microbiology 05/08/20 19:47 Blood Culture - Preliminary Blood Gram Negative Rods 05/08/20 19:12 Blood Culture - Preliminary Blood Gram Negative Rods A&P Assessment and plan (1) Septic shock: Secondary to acute pyelonephritis, secondary to obstructive uropathy, left proximal 9 mm obstructing ureteral stone Status post cystoscopy, left ureteral stent placement by Dr. Nunez Currently on Vanco and imipenem Blood culture showing gram-negative rods Currently off Levophed, will check volume status, LR boluses as needed Status: Acute (2) Obstructive pyelonephritis: S/P Cystoscopy, left ureteral stent placement. Implants: 7 German by 30 cm double-pigtail stent. Urology on board. Rec appreciated Status: Acute (3) Total bilirubin, elevated: T bili 2.1, direct 0.9, AST 47, alk phos 109 Has no abdominal pain complaints Has a known history of cholelithiasis CT scan of the abdomen shows diffuse fatty infiltration of the liver, hepatomegaly, no visible hepatic mass or stricture, no visible intra or extrahepatic biliary ectasia, porcelain gallbladder, no visible pancreatic duct ectasia, Abdominal ultrasound shows hepatomegaly with diffuse fatty infiltration, calcified porcelain gallbladder with cholelithiasis, mild wall thickening Plan: -Monitor bili, alk phos, AST, ALT, alk phos Status: Acute (4) Diabetes: Sliding scale insulin Status: Acute (5) History of lymphoma: Status: Inactive (6) Hypertension: Currently hypotensive. Monitor blood pressure Status: Inactive (7) Obstructive sleep apnea: Status: Inactive (8) Gram-negative bacteremia: Status: Acute (9) Porcelain gallbladder: We will have patient follow-up with surgery as outpatient Status: Acute Additional A&P Information DVT PPX: Lovenox 40 mg sc daily Code Status : Full code Disposition : Home Attestations Medical Necessity Statement*: Patient requires hospitalization, inpatient, greater than 2 midnights, for gram negative bacteremia, obstructive uropathy, pyelonephritis, UTI, sepsis, septic shock, transaminitis, cholelithiasis Time Spent in Patient Care: Greater than 35 minutes Critical Care Time: Critical care time 30 minutes Critical Care Time (min): 30 Coding Level of Care Code Acute Chief Controller Tower for Chg Fwd Exam Comprehensive Diagnoses Septic shock A41.9; R65.21 Obstructive pyelonephritis N11.1 Total bilirubin, elevated R17 Diabetes E11.9 History of lymphoma Z85.79 Hypertension I10 Obstructive sleep apnea G47.33 Gram-negative bacteremia R78.81 Porcelain gallbladder K82.8
[2020-05-09 13:06] LABS: Alanine Aminotransferase 32 U/L (0-33); Albumin Level 3.2 g/dL (3.5-5.2); Alkaline Phosphatase 127 IU/L (35-105); Anion Gap 16.6 (5-19); Aspartate Amino Transferase 37 U/L (0-32); Blood Urea Nitrogen 29 mg/dL (8-23); Calcium 8.6 mg/dL (8.5-10.5); Carbon Dioxide 21 mmol/L (22-29); Chloride 105 mmol/L (98-107); Globulin 3.1 g/dL (1.3-4.6); Glomerular Filtration Rate 49.7 mL/min (90-130); Glucose 179 mg/dL (65-115); Osmolality Calculated 298 mOsm/kg (285-295); Potassium 3.6 mmol/L (3.5-5.1); Sodium 139 mmol/L (136-145); Total Bilirubin 1.6 mg/dL (0.15-1.2); Total Protein 6.3 g/dL (6.6-8.7)
--- NOTE | 2020-05-09 13:35 | PC.NURSE ---
Fluid challange/cheetah test completed per Dr Cardozo. SVI change of 21.2%. Nurse alerted Dr Cardozo
[2020-05-09 15:20] LABS: Glucose Point of Care 212 mg/dL (70-110)
--- NOTE | 2020-05-09 15:27 | PC.NURSE ---
Nurse Observed patient becoming increasingly thirsty throughout the day and occasional diarrhea. Pt is a non inuslin dependent type 2 diabetic. Nurse checked blood sugar and the result was 212. Nurse received order from dr kirkland to start low dose insulin with meals and at bedtime as well as a stool sample to test for c-diff.
--- NOTE | 2020-05-09 15:47 | PC.NURSE ---
Patient Vomited a approximately 100 mL into emesis basin. Nurse provided patient with oral hygiene products and offered Zofran if needed.
--- NOTE | 2020-05-09 15:54 | PC.NURSE ---
Patient's temperature ia 101.4. Nurse administered 650mg of tylenol PRN.
[2020-05-09 17:54] LABS: Glucose Point of Care 131 mg/dL (70-110)
[2020-05-09 19:40] LABS: Glucose Point of Care 171 mg/dL (70-110)
--- NOTE | 2020-05-09 20:54 | PC.NURSE ---
Patient in room resting at this time. Patient did have incontinent BM earlier this shift and staff changed patient and gave good skin and neelam care. Patient denies any pain at this time. Patient is alert and orientated. BS active in all quadrants. Lung sounds clear. Call light within reach. Continue care.
[2020-05-09] MEDS: lanolin oint 7 gm 1 APPLIC TOPICAL (21:56)
--- NOTE | 2020-05-09 23:05 | SC_ITS ---
WS: [id number] C-arm fluoroscopy for left renal stent placement, 05/09/2020 Clinical Data: stent placement Comparison: None. Findings: There is a left ureteral stent curled in the left renal pelvis. SC/C-arm FL for Urology Impression: Left ureteral stent placement.
[2020-05-10] VITALS (94 sets, daily range): BP systolic 86–140; BP diastolic 50–89; PULSE 89–172; RESP 12–60; TEMP 36.6–38.8; O2SAT 82–100
[2020-05-10] MEDS: enoxaparin 40 mg/0.4 mL Syringe SUBCUT (00:03)
[2020-05-10] MEDS: acetaminophen 325 mg Tablet 650 MG PO ×4 (00:11→20:06)
[2020-05-10] MEDS: adenosine 3 mg/mL SDV 2mL 6 MG IVP (02:53)
[2020-05-10] MEDS: adenosine 3 mg/mL SDV 2mL 12 MG IVP (02:55)
--- NOTE | 2020-05-10 03:15 | ECG_ITS ---
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1955 Requested By: Scot Moon Order Number: [id number] Reading MD: CONI RANKIN Measurements Intervals [place] Heart Rate: 151 P: DE: QRS: -35 QRSD: 115 T: 77 QT: 298 QTc: 474 Interpretive Statements ATRIAL FIBRILLATION WITH RAPID VENTRICULAR RESPONSE MARKED LEFT AXIS DEVIATION [QRS AXIS < -30] MODERATE INTRAVENTRICULAR CONDUCTION DELAY [110+ ms QRS DURATION] NONSPECIFIC T-WAVE ABNORMALITY INTERPRETATION BASED ON A DEFAULT AGE OF 40 YEARS Compared to ECG 05/08/2020 22:01:43 T-wave abnormality now present Sinus rhythm no longer present Electronically Signed On 05-10-2020 17:27:20 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
[2020-05-10] MEDS: metoprolol tartrate 1 mg/1 mL SDV 5 mL 5 MG IV (03:23)
[2020-05-10] MEDS: digoxin 250 mcg/ml INJ 2 mL 500 MCG IVP (04:01)
--- NOTE | 2020-05-10 04:26 | PC.NURSE ---
Cardiac Change: Approximately at 0245 nurse noticed a tachycardia heart rate. EKG performed showing afib with rvr. LIZZY Ball called Dr. Moon to unit and Dr. Moon ordered 6mg IVP administered with no results. 12mg IVP then ordered and administered per Dr. Moon pause noted on athletic monitor, but rhythm still afib with rvr. Dr. Moon then ordered a 150mg Amio bolus and IV titratable drip. After amio bolus and before starting the drip, Dr. Moon also ordered 5mg Metoprolol IVP with constant cardiac monitoring and BP cycles every 1 minute. Pulse rate still tachy afib with rvr running approximately 140-165 bpm. Amio titratable drip started and infusing per protocol. Dr. Moon ordered 500mcg IVP of Digoxin administered per protocol, patients heart rate continues to run 125-145 afib with rvr at this time, patient is asymptomatic and denies any chest pain, no sweating present. Call light within reach continue care.
[2020-05-10 05:07] LABS: Basophils % 0.4 %; Eosinophils % 0.1 %; Hematocrit 34.5 % (37.0-47.0); Hemoglobin 11.3 g/dL (11.5-15.3); Lymphocytes # 0.5 10^3/uL (0.8-4.8); Lymphocytes % 7.5 %; Mean Corpuscular HGB Conc 32.8 g/dL (30.0-36.0); Mean Corpuscular Hemoglobin 29.4 pg (28.0-34.0); Mean Corpuscular Volume 89.8 fL (81-99); Mean Platelet Volume 11.5 fL (7.4-10.4); Monocytes # 0.8 10^3/uL (0.2-0.9); Monocytes % 12.1 %; Neutrophils # 5.35 10^3/uL (1.8-7.7); Nucleated Red Blood Cells % 0 %; Platelet Count 84 10^3/cmm (130-400); Red Blood Count 3.84 10^6/uL (4.1-5.3); Red Cell Distribution Width 14.2 % (12.1-15.1); White Blood Count 6.8 10^3/uL (4.0-10.0)
[2020-05-10 05:37] LABS: INR 1.09 (0.8-1.2)
[2020-05-10 05:40] LABS: Lactate (Lactic Acid level) 1.6 mmol/L (0.5-2.2)
[2020-05-10 05:45] LABS: Alanine Aminotransferase 26 U/L (0-33); Albumin Level 2.8 g/dL (3.5-5.2); Alkaline Phosphatase 128 IU/L (35-105); Anion Gap 16.4 (5-19); Aspartate Amino Transferase 25 U/L (0-32); Blood Urea Nitrogen 25 mg/dL (8-23); Calcium 8.6 mg/dL (8.5-10.5); Carbon Dioxide 18 mmol/L (22-29); Chloride 106 mmol/L (98-107); Globulin 3.1 g/dL (1.3-4.6); Glomerular Filtration Rate 62.6 mL/min (90-130); Glucose 156 mg/dL (65-115); Magnesium 1.7 mg/dL (1.7-2.3); Osmolality Calculated 292 mOsm/kg (285-295); Potassium 3.4 mmol/L (3.5-5.1); Sodium 137 mmol/L (136-145); Total Bilirubin 1.1 mg/dL (0.15-1.2); Total Protein 5.9 g/dL (6.6-8.7)
[2020-05-10 05:50] LABS: Procalcitonin 19.34 ng/mL (0-0.5)
[2020-05-10 05:58] LABS: D Dimer 8.74 ug/mIFEU (0-0.59)
[2020-05-10 06:01] LABS: Creatine Phosphokinase 90 U/L (26-192)
--- NOTE | 2020-05-10 06:23 | PC.NURSE ---
Patient resting in room with eyes closed. Patient is still currently afib with rvr. Amio gtt running per protocol. 0935 is the time to titrate to amio to maintenance dose. Patient denies any pain or chest pain. Call light is within reach. Continue care.
[2020-05-10] MEDS: ondansetron 2 mg/ML SDV 2 mL 4 MG IVP (06:48)
[2020-05-10] MEDS: magnesium sulfate premix 2 GM/50 ML PIGGYBACK IV (07:45)
--- NOTE | 2020-05-10 07:49 | XRR_ITS ---
PROCEDURE INFORMATION: Exam: XR Chest, 1 View Exam date and time: 05/10/2020 7:50 AM Age: 64 years old Clinical indication: Shortness of breath; Additional info: SOB TECHNIQUE: Imaging protocol: XR of the chest Views: 1 view. COMPARISON: CR XR chest 1V portable [id number] 05/08/2020 4:55 PM FINDINGS: Lungs: Unremarkable. No consolidation. Pleural space: Unremarkable. No pleural effusion. No pneumothorax. Heart/Mediastinum: Unremarkable. No cardiomegaly. Bones/joints: Unremarkable. XR/XR chest 1V portable [id number] IMPRESSION: No acute findings.
[2020-05-10 08:24] LABS: Glucose Point of Care 149 mg/dL (70-110)
--- NOTE | 2020-05-10 08:24 | CTR_ITS ---
PROCEDURE INFORMATION: Exam: CT Abdomen And Pelvis With Contrast Exam date and time: 05/10/2020 9:53 AM Age: 64 years old Clinical indication: Fever; Prior surgery; Surgery date: 6+ months; Surgery type: Hyster; Additional info: Recurrent fevers, sepsis, R/O abscess TECHNIQUE: Imaging protocol: Computed tomography of the abdomen and pelvis with intravenous contrast. Radiation optimization: All CT scans at this facility use at least one of these dose optimization techniques: automated exposure control; mA and/or kV adjustment per patient size (includes targeted exams where dose is matched to clinical indication); or iterative reconstruction. Contrast material: OMNIPAQUE 300; Contrast volume: 95 ml; Contrast route: INTRAVENOUS (IV); COMPARISON: CT angio chest w abd pel w con 05/08/2020 8:11 PM RADIATION DOSE METRICS: Total DLP (mGy-cm): 1804.42 FINDINGS: Lungs: There is left basilar atelectasis. Liver: There is diffuse decreased density of the liver indicating fatty liver. Gallbladder and bile ducts: Calcified stones are present in the gallbladder. There is a porcelain gallbladder. The bile ducts are not dilated. Pancreas: Normal. No ductal dilation. Spleen: Small benign calcified granulomas are present in the spleen. Adrenal glands: Normal. No mass. Kidneys and ureters: There is a 16 mm nonobstructing calcification within the midportion of the left kidney. The previously seen 9 mm ureteral calculus has been pushed back into the renal pelvis. The left hydronephrosis seen on previous CT scan has been relieved. There is small amount of left perinephric fluid that has decreased. Punctate nonobstructing calcifications present in the right kidney. A tiny bubble of air in the left renal pelvis is probably related to the stent placement. Stomach and bowel: Unremarkable. No obstruction. No mucosal thickening. Appendix: No evidence of appendicitis. Intraperitoneal space: A small ascites has developed in the lower pelvis. Vasculature: Unremarkable. No abdominal aortic aneurysm. Lymph nodes: Unremarkable. No enlarged lymph nodes. Urinary bladder: Sal catheter is present in a collapsed urinary bladder. Reproductive: Unremarkable as visualized. Bones/joints: Degenerative changes are present in the spine with sclerosis and osteophyte formation. Soft tissues: Unremarkable. CT/CT abdomen pelvis w con* [id number] IMPRESSION: 1. Satisfactory left ureteral stent position. There is no hydronephrosis. 2. Bilateral nephrolithiasis. The 9 mm left ureteral calculus that was seen on previous study has been pushed back into the nondilated left renal pelvis. 3. Fatty liver. 4. Cholelithiasis. Porcelain gallbladder. Radiation Dose CTDIVOL = (mGy): DLP = 1804.42 (mGy-cm)
[2020-05-10] MEDS: calcium carb-vit d 600mg/400unit 1 Tablet 1 EACH PO (08:26)
[2020-05-10] MEDS: aspirin 81 mg EC Tablet PO (08:27)
[2020-05-10] MEDS: folic acid 1 mg Tablet 2 MG PO (08:27)
[2020-05-10] MEDS: famotidine 20 mg Tablet PO ×2 (08:27→17:33)
[2020-05-10] MEDS: potassium chloride ER 20 mEq Tablet 40 MEQ PO (08:28)
[2020-05-10] MEDS: atorvastatin 40 mg Tablet 10 MG PO (08:28)
[2020-05-10 10:04] LABS: C Reactive Protein 390.2 mg/L (0.0-4.9)
--- NOTE | 2020-05-10 10:31 | PM.PN ---
Subjective Subjective: Interval history: Overnight patient developed A. fib with RVR, given amiodarone bolus, amiodarone drip, currently A. fib heart rates in the 110s, had high fevers overnight, T-max 102, he tells me that she has felt feverish overnight, did not have good sleep, as nurses were coming in and out over given her A. fib, no chest pain, no shortness of breath, no abdominal pain, no flank pain, has some degree of a poor appetite Vitals/I&O/Wt Last Vital Signs Temp 101.5 F H 05/10/20 07:36 Pulse 110 H 05/10/20 08:26 Resp 24 H 05/10/20 07:36 BP 114/70 05/10/20 07:36 Pulse Ox 95 05/10/20 08:26 05/09/20 05/10/20 05/10/20 22:59 06:59 14:59 Intake Total 1580 / 6904.978 8841 / 3487.772 Output Total 600 / 1300 1000 / 2300 200 / 200 Balance 980 / 684.772 503 / 1187.772 -200 / -200 Weight last 48 hrs Weight 139.706 kg Weight 136.078 kg Physical Exam Const: COMMON NORMALS: no acute distress and patient oriented x3 GENERAL APPEARANCE: ill appearing HENMT: COMMON NORMALS: normocephalic HEAD & SCALP: normocephalic Neck/C-Spine: COMMON NORMALS: no JVD Resp: COMMON NORMALS: normal respiratory effort, No retractions, No use of accessory muscles and clear to auscultation bilaterally AUSCULTATION: clear to auscultation bilaterally Cardio: COMMON NORMALS: no JVD, S1 normal heart sound present and S2 normal heart sound present RATE: tachycardic RHYTHM: abnormal rhythm HEART SOUNDS: S1 normal heart sound present and S2 normal heart sound present GI: COMMON NORMALS: Normal to inspection, nondistended, normoactive bowel sounds present, Soft to palpation, non-tender, No hepatosplenomegaly present, no masses and no bruits PALPATION: Yes Soft to palpation and Yes No hepatosplenomegaly present Extremity: COMMON NORMALS: capillary refill normal, no clubbing, cyanosis or edema, no calf tenderness and no pedal edema Neuro: COMMON NORMALS: patient oriented x3 Psych: COMMON NORMALS: mental status grossly normal Urinary Catheter Management^: Sal: Cath Placed During This Visit: yes Reason for Continuing Indwelling Catheter: Accurate Measurement of Urinary Output in Critically Ill Patients Urinary Catheter Date of Insertion: 05/09/20 Urinary Catheter Time of Insertion: 00:19 Data : 05/10/20 04:53 05/10/20 04:53 Micro: Microbiology 05/09/20 17:44 C.difficile Toxin B Gene (PCR) - Final Stool - Stool Aspirate 05/08/20 19:47 Blood Culture - Preliminary Blood Gram Negative Rods 05/08/20 19:12 Blood Culture - Preliminary Blood Gram Negative Rods A&P Assessment and plan (1) Septic shock: Secondary to acute pyelonephritis, secondary to obstructive uropathy, left proximal 9 mm obstructing ureteral stone Status post cystoscopy, left ureteral stent placement by Dr. Spence, postop day [address] Spence, purulent material was drained after stent was placed Continues to have fevers, T-max 102, pro-Tone 19.34, CRP 390.2, now developed A. fib with RVR Blood culture showing gram-negative rods Plan: -Requires ICU admission -Currently off Levophed, will check volume status, LR boluses as needed -Continue amiodarone drip, wean 0.5, start p.o. Cardizem 30 every 6 hours -Heparin drip started, monitor PTT -Echocardiogram ordered -Repeat blood cultures, urine cultures, inflammatory markers, chest x-ray, will order CT scan of the abdomen and pelvis with contrast to rule out underlying abscess -Continue vancomycin and Primaxin -We will monitor hemodynamics closely, monitor heart rates -We will keep n.p.o. until CT scan of the abdomen comes back Status: Acute (2) Obstructive pyelonephritis: S/P Cystoscopy, left ureteral stent placement. Implants: 7 Indonesian by 30 cm double-pigtail stent. Urology on board. Rec appreciated Status: Acute (3) Total bilirubin, elevated: T bili 2.1, direct 0.9, AST 47, alk phos 109 Now T bili is 1.1, direct 0.7, AST 25, ALT 26, alk phos 128 Has no abdominal pain complaints Has a known history of cholelithiasis CT scan of the abdomen shows diffuse fatty infiltration of the liver, hepatomegaly, no visible hepatic mass or stricture, no visible intra or extrahepatic biliary ectasia, porcelain gallbladder, no visible pancreatic duct ectasia, Abdominal ultrasound shows hepatomegaly with diffuse fatty infiltration, calcified porcelain gallbladder with cholelithiasis, mild wall thickening Plan: -Monitor bili, alk phos, AST, ALT, alk phos Status: Acute (4) Diabetes: Sliding scale insulin Status: Acute (5) History of lymphoma: Status: Inactive (6) Hypertension: Currently MAP greater than 65 Monitor blood pressure Status: Inactive (7) Obstructive sleep apnea: Status: Inactive (8) Gram-negative bacteremia: Status: Acute (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 fib with RVR, no chest pain complaints -Is on aspirin, statin, heparin as above -Echocardiogram ordered -No known underlying cardiovascular disease -Continue to monitor Status: Acute Additional A&P Information DVT PPX: Heparin drip Code Status : Full code Disposition : Home Plan for today: Repeat cultures, repeat blood work, chest x-ray, CT of the abdomen to rule out underlying abscess, get urology's recommendations, monitor hemodynamics closely, for A. fib transition to p.o. Cardizem, continue heparin drip, monitor for bleeding Attestations Medical Necessity Statement*: Patient requires hospitalization, ICU, for septic shock secondary to obstructive pyelonephritis, now with borderline low blood pressures, A. fib with RVR, recurrent fevers Time Spent in Patient Care: Greater than 35 minutes Critical Care Time: Critical Care Time (min): 45 Coding Level of Care Code Acute Vegetable Worker for Chg Fwd Diagnoses Septic shock A41.9; R65.21 Obstructive pyelonephritis N11.1 Total bilirubin, elevated R17 Diabetes E11.9 History of lymphoma Z85.79 Hypertension I10 Obstructive sleep apnea G47.33 Gram-negative bacteremia R78.81 Porcelain gallbladder K82.8 Atrial fibrillation with RVR I48.91 NSTEMI (non-ST elevated myocardial infarction) I21.4
[2020-05-10] MEDS: iohexol 300 mg/mL 100 mL Btl IV (10:39)
[2020-05-10] MEDS: dilTIAZem 30 mg Tablet PO (10:56)
[2020-05-10 11:13] LABS: Erythrocyte Sedimentation Rate 97 mm/hr (0-15)
[2020-05-10 12:21] LABS: Glucose Point of Care 131 mg/dL (70-110)
[2020-05-10 12:21] LABS: Partial Thromboplastin Time 28.8 SECONDS (23.9-36.7)
[2020-05-10 12:31] LABS: Vancomycin Trough 8.6 ug/mL (10-15)
[2020-05-10] MEDS: vancomycin 1,500 MG/300 ML PIGGYBACK 200 MG IV ×2 (12:48→13:59)
[2020-05-10] MEDS: heparin 5,000 unit/mL INJ 1 mL 4000 UNIT IVP (13:03)
[2020-05-10] MEDS: heparin drip 25,000 UNIT/500 ML PREMIX 36 UNIT IV (13:10)
[2020-05-10] MEDS: dilTIAZem 60 mg Tablet PO (14:00)
--- NOTE | 2020-05-10 15:26 | PC.NURSE ---
Nurse took patient to CT scan with another nurse. Trip was uneventful. Started patient on new medication orders of heparin, and cardizem upon return.
--- NOTE | 2020-05-10 15:28 | PC.NURSE ---
Patient developed a fever of 101.6. NUrse administered PRN tylenol.
[2020-05-10 17:20] LABS: Glucose Point of Care 126 mg/dL (70-110)
--- NOTE | 2020-05-10 17:52 | PC.NURSE ---
Patient's heart rate has become more regular. Varying between 90-105.Alerted Dr kirkland and received orders to stop the amiodorone, give 250ml bolus of LR, and increase the cardizem dose to 90mg po q6h.
--- NOTE | 2020-05-10 19:00 | PC.NURSE ---
Dr. Moon at bedside. Patient's blood pressure stable at this time. Dr. Moon requested to hold LR bolus for now. Will continue to monitor.
[2020-05-10 19:31] LABS: Basophils % 0.6 %; Eosinophils % 0.4 %; Hematocrit 33.9 % (37.0-47.0); Hemoglobin 11.1 g/dL (11.5-15.3); Lymphocytes # 0.5 10^3/uL (0.8-4.8); Lymphocytes % 6.8 %; Mean Corpuscular HGB Conc 32.7 g/dL (30.0-36.0); Mean Corpuscular Hemoglobin 29.4 pg (28.0-34.0); Mean Corpuscular Volume 89.9 fL (81-99); Mean Platelet Volume 11.6 fL (7.4-10.4); Monocytes # 0.8 10^3/uL (0.2-0.9); Monocytes % 10.8 %; Neutrophils # 5.68 10^3/uL (1.8-7.7); Neutrophils % 80.8 %; Nucleated Red Blood Cells % 0 %; Platelet Count 101 10^3/cmm (130-400); Red Blood Count 3.77 10^6/uL (4.1-5.3); Red Cell Distribution Width 14.3 % (12.1-15.1)
[2020-05-10] MEDS: sodium chloride 0.9% 1,000 ML 100 ML IV (19:49)
[2020-05-10] MEDS: dilTIAZem 60 mg Tablet 90 MG PO (19:49)
[2020-05-10 20:16] LABS: Glucose Point of Care 146 mg/dL (70-110)
[2020-05-10 20:24] LABS: Partial Thromboplastin Time 46.5 SECONDS (23.9-36.7)
[2020-05-10] MEDS: heparin 5,000 unit/mL INJ 1 mL IV (20:39)
[2020-05-11] VITALS (49 sets, daily range): BP systolic 95–162; BP diastolic 50–94; PULSE 79–126; RESP 14–35; TEMP 33.3–38.3; O2SAT 78–99
[2020-05-11] MEDS: dilTIAZem 60 mg Tablet 90 MG PO ×4 (01:45→20:09)
[2020-05-11] MEDS: vancomycin 1,500 MG/300 ML PIGGYBACK 200 MG IV ×2 (01:45→13:45)
[2020-05-11] MEDS: acetaminophen 325 mg Tablet 650 MG PO ×3 (01:52→16:12)
[2020-05-11] MEDS: heparin drip 25,000 UNIT/500 ML PREMIX 39 UNIT IV ×2 (03:20→20:10)
[2020-05-11 03:42] LABS: Basophils # 0.1 10^3/uL (0.0-0.1); Basophils % 0.9 %; Eosinophils # 0.1 10^3/uL (0.0-0.8); Eosinophils % 0.7 %; Hematocrit 32.9 % (37.0-47.0); Hemoglobin 10.8 g/dL (11.5-15.3); Lymphocytes # 0.7 10^3/uL (0.8-4.8); Lymphocytes % 10.5 %; Mean Corpuscular HGB Conc 32.8 g/dL (30.0-36.0); Mean Corpuscular Hemoglobin 29.3 pg (28.0-34.0); Mean Corpuscular Volume 89.2 fL (81-99); Monocytes % 14.6 %; Neutrophils # 4.92 10^3/uL (1.8-7.7); Neutrophils % 72.7 %; Nucleated Red Blood Cells % 0 %; Platelet Count 101 10^3/cmm (130-400); Red Blood Count 3.69 10^6/uL (4.1-5.3); Red Cell Distribution Width 14.3 % (12.1-15.1); White Blood Count 6.8 10^3/uL (4.0-10.0)
[2020-05-11 03:56] LABS: Lactate (Lactic Acid level) 1.4 mmol/L (0.5-2.2)
[2020-05-11 03:58] LABS: Magnesium 1.8 mg/dL (1.7-2.3); Phosphorus 1.8 mg/dL (2.5-4.5)
[2020-05-11 04:09] LABS: NT Pro B Type Natriuretic Pept 3317 pg/mL (0-125); Procalcitonin 10.44 ng/mL (0-0.5)
[2020-05-11 04:18] LABS: Alanine Aminotransferase 22 U/L (0-33); Albumin Level 2.1 g/dL (3.5-5.2); Alkaline Phosphatase 136 IU/L (35-105); Blood Urea Nitrogen 20 mg/dL (8-23); Calcium 8.1 mg/dL (8.5-10.5); Carbon Dioxide 17 mmol/L (22-29); Chloride 107 mmol/L (98-107); Globulin 3.4 g/dL (1.3-4.6); Glomerular Filtration Rate 83.7 mL/min (90-130); Glucose 124 mg/dL (65-115); Osmolality Calculated 284 mOsm/kg (285-295); Sodium 135 mmol/L (136-145); Total Bilirubin 0.7 mg/dL (0.15-1.2); Total Protein 5.5 g/dL (6.6-8.7)
[2020-05-11 04:19] LABS: Creatine Phosphokinase 40 U/L (26-192)
[2020-05-11 04:31] LABS: INR 1.02 (0.8-1.2)
[2020-05-11 04:32] LABS: Partial Thromboplastin Time 62.2 SECONDS (23.9-36.7)
[2020-05-11 05:11] LABS: Anion Gap 14.9 (5-19); Potassium 3.9 mmol/L (3.5-5.1)
[2020-05-11 05:12] LABS: Aspartate Amino Transferase 29 U/L (0-32)
--- NOTE | 2020-05-11 05:28 | USCV_ITS ---
Aylin Dietz Age: 64 Gender: F : 1955 Exam Date: 05/11/2020 06:27 Ordering Phys: Scot Moon MD Technologist: Estela Polk [place] [facility] [place]: New onset atrial fibrillation BP: 137 / 72 HR: 95 Rhythm: Sinus Technical Quality: Suboptimal MEASUREMENTS (Male / Female) Normal Values 2D ECHO LV Diastolic Diameter PLAX 4.5 cm 4.2 - 5.9 / 3.9 - 5.3 cm LV Systolic Diameter PLAX 3.0 cm LV Chamber Size 4.5 cm IVS Diastolic Thickness 1.8 cm 0.6 - 1.0 / 0.6 - 0.9 cm IVS Systolic Thickness 2.0 cm LVPW Diastolic Thickness 1.0 cm 0.6 - 1.0 / 0.6 - 0.9 cm LVPW Systolic Thickness 1.5 cm RV Chamber Size 3.1 cm LVOT Diameter 2.1 cm LV Ejection Fraction 2D Teich 61.8 % LA Diameter 3.6 cm LA Width 4.2 cm LA Height 6.7 cm RA Width 3.3 cm RA Height 5.6 cm Aorta at Sinotubular Diameter 2.9 cm M-MODE LV Diastolic Diameter MM 6.8 cm 4.2 - 5.9 / 3.9 - 5.3 cm LV Systolic Diameter MM 4.5 cm LV Ejection Fraction MM Teich 61.7 % IVS Diastolic Thickness MM 0.8 cm 0.6 - 1.0 / 0.6 - 0.9 cm IVS Systolic Thickness MM 1.4 cm LVPW Diastolic Thickness MM 1.2 cm 0.6 - 1.0 / 0.6 - 0.9 cm LVPW Systolic Thickness MM 1.7 cm RV Diastolic Diameter MM 0.9 cm Aortic Annulus Diameter 3.7 cm LA Ao Ratio MM 1.3 MV E Point Septal Separation 0.9 cm DOPPLER AV Peak Velocity 175.0 cm/s LVOT Peak Velocity 107.0 cm/s AV Area Cont Eq vti 2.4 cm squared AV Area Cont Eq pk 2.1 cm squared MV Peak Velocity 179.0 cm/s MV Area PHT 2.5 cm squared MV E' Velocity 178.0 cm/s TR Peak Velocity 248.0 cm/s TR Peak Gradient 24.6 mmHg TV Peak E Velocity 102.0 cm/s Right Atrial Pressure 3.0 mmHg Pulmonary Artery Systolic Pressu 27.6 mmHg PV Peak Velocity 81.0 cm/s RV Acceleration Time 0.0 s RV Ejection Time 0.3 s RV AcT/ET 0.2 FINDINGS Left Ventricle Normal left ventricular cavity size. Normal left ventricular systolic function. Left ventricular ejection fraction is estimated at 61 %. Due to atrial fibrillation diastolic function cannot be assessed accurately. Right Ventricle The right ventricle is normal in size and function. Right Atrium The right atrium is normal in size. Left Atrium Moderately increased left atrial size. Mitral Valve Moderately thickened mitral valve. Moderate mitral annular calcification. No mitral valve stenosis. Moderate mitral valve regurgitation. Aortic Valve Moderate aortic valve calcification. Mild aortic valve restriction without significant stenosistrace aortic valve regurgitation. Tricuspid Valve Dkat-el-eksesnch tricuspid valve regurgitation. Pulmonic Valve Mild pulmonary valve regurgitation. Pericardium Normal pericardium without effusion. Aorta Normal ascending aorta dimension. CONCLUSIONS 1-Normal left ventricular cavity size. Normal left ventricular systolic function. Left ventricular ejection fraction is estimated at 61 %. Due to atrial fibrillation diastolic function cannot be assessed accurately. 2-Moderate aortic valve calcification. Mild aortic valve restriction without significant stenosistrace aortic valve regurgitation. 3-Moderately increased left atrial size. 4-Moderately thickened mitral valve. Moderate mitral annular calcification. No mitral valve stenosis. Moderate mitral valve regurgitation. 2-Zgbz-cf-moderate tricuspid valve regurgitation. 6-There is no pericardial effusion. 7-Right atrial pressure is around 5 mm of mercury. 8-When compared to the prior echocardiogram dated January 12, 2017 patient is in atrial fibrillation now Adal Almodoavr MD (Electronically Signed) Final Date: 11 May 2020 14:12 S
[2020-05-11 05:32] LABS: D Dimer 7.91 ug/mIFEU (0-0.59)
[2020-05-11] MEDS: sodium chloride 0.9% 1,000 ML 100 ML IV (06:20)
[2020-05-11 06:48] LABS: Basophils % 0.6 %; Eosinophils # 0.1 10^3/uL (0.0-0.8); Eosinophils % 0.9 %; Hematocrit 31.9 % (37.0-47.0); Hemoglobin 10.6 g/dL (11.5-15.3); Lymphocytes # 0.7 10^3/uL (0.8-4.8); Lymphocytes % 10.4 %; Mean Corpuscular HGB Conc 33.2 g/dL (30.0-36.0); Mean Corpuscular Hemoglobin 29.5 pg (28.0-34.0); Mean Corpuscular Volume 88.9 fL (81-99); Mean Platelet Volume 11.7 fL (7.4-10.4); Neutrophils # 4.92 10^3/uL (1.8-7.7); Neutrophils % 72.2 %; Nucleated Red Blood Cells % 0 %; Platelet Count 105 10^3/cmm (130-400); Red Blood Count 3.59 10^6/uL (4.1-5.3); Red Cell Distribution Width 14.3 % (12.1-15.1); White Blood Count 6.8 10^3/uL (4.0-10.0)
--- NOTE | 2020-05-11 07:00 | XRR_ITS ---
PROCEDURE INFORMATION: Exam: XR Chest, 1 View Exam date and time: 05/11/2020 5:20 AM Age: 64 years old Clinical indication: Dyspnea; Additional info: SOB TECHNIQUE: Imaging protocol: XR of the chest Views: 1 view. COMPARISON: CR (CHEST, ) 05/10/2020 8:29 AM FINDINGS: Tubes, catheters and devices: Continued surgical clips in the right neck. Lungs: Possible interval minimal interstitial marking prominence in the lungs. Still no consolidation. Pleural space: Still no apparent pneumothorax or pleural fluid. Heart/Mediastinum: Interval borderline cardiomegaly. Vasculature: Continued aortic elongation. 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 No visible acute bony disease. XR/XR chest 1V portable [id number] IMPRESSION: Interval borderline cardiomegaly and possible development of minimal interstitial edema in the lungs.
[2020-05-11 08:12] LABS: Glucose Point of Care 119 mg/dL (70-110)
[2020-05-11] MEDS: calcium carb-vit d 600mg/400unit 1 Tablet 1 EACH PO (08:27)
[2020-05-11] MEDS: phosphorus 250 mg Tablet 500 MG PO (08:28)
[2020-05-11] MEDS: famotidine 20 mg Tablet PO ×2 (08:29→17:54)
[2020-05-11] MEDS: magnesium oxide 400 mg tablet 800 MG PO (08:29)
[2020-05-11] MEDS: folic acid 1 mg Tablet 2 MG PO (08:29)
[2020-05-11] MEDS: aspirin 81 mg EC Tablet PO (08:30)
[2020-05-11] MEDS: atorvastatin 40 mg Tablet 10 MG PO (08:30)
[2020-05-11] MEDS: metoprolol tartrate 1 mg/1 mL SDV 5 mL 5 MG IV ×2 (08:31→12:58)
--- NOTE | 2020-05-11 10:18 | PM.PN ---
Subjective Subjective: Interval history: This morning patient was examined, she is in bed, she has been off pressors for the last 48 hours, continues to be febrile, T-max 102, this is day 3 of admission, she complains of fevers and chills overnight, has some degree of poor appetite, no cough, no shortness of breath, no chest pain, no lightheadedness, no dizziness, no nausea, no vomiting, no abdominal pain, no flank pain, overall she is doing better, she is in and out of A. fib, her heart rates are well controlled, no episodes of bleeding as she is on heparin drip Vitals/I&O/Wt Last Vital Signs Temp 100.0 F H 05/11/20 08:00 Pulse 105 H 05/11/20 09:52 Resp 16 05/11/20 09:47 BP 132/72 05/11/20 08:00 Pulse Ox 98 05/11/20 09:47 05/10/20 05/11/20 05/11/20 22:59 06:59 14:59 Intake Total 1239.855 / 2212.980 1330.000 / 3542.980 418.333 / 418.333 Output Total 850 / 1050 600 / 1650 Balance 389.855 / 1162.980 730.000 / 1892.980 418.333 / 418.333 Physical Exam Const: COMMON NORMALS: no acute distress and patient oriented x3 GENERAL APPEARANCE: ill appearing HENMT: COMMON NORMALS: normocephalic HEAD & SCALP: normocephalic Neck/C-Spine: COMMON NORMALS: no JVD Resp: COMMON NORMALS: normal respiratory effort, No retractions, No use of accessory muscles and clear to auscultation bilaterally AUSCULTATION: clear to auscultation bilaterally Cardio: COMMON NORMALS: no JVD, regular rate, regular rhythm, S1 normal heart sound present and S2 normal heart sound present RATE: regular rate RHYTHM: regular rhythm HEART SOUNDS: S1 normal heart sound present and S2 normal heart sound present GI: COMMON NORMALS: Normal to inspection, nondistended, normoactive bowel sounds present, Soft to palpation, non-tender, No hepatosplenomegaly present, no masses and no bruits PALPATION: Yes Soft to palpation and Yes No hepatosplenomegaly present Extremity: COMMON NORMALS: capillary refill normal, no clubbing, cyanosis or edema, no calf tenderness and no pedal edema Neuro: COMMON NORMALS: patient oriented x3 Psych: COMMON NORMALS: mental status grossly normal Urinary Catheter Management^: Sal: Cath Placed During This Visit: yes Reason for Continuing Indwelling Catheter: Accurate Measurement of Urinary Output in Critically Ill Patients Urinary Catheter Date of Insertion: 05/09/20 Urinary Catheter Time of Insertion: 00:19 Data : 05/11/20 06:11 05/11/20 02:46 Micro: Microbiology 05/08/20 19:47 Blood Culture - Preliminary Blood Klebsiella pneumoniae 05/08/20 19:12 Blood Culture - Preliminary Blood Klebsiella pneumoniae 05/10/20 09:00 Urine Culture - Preliminary Urine Catheterized 05/10/20 11:37 Blood Culture - Preliminary Blood SPECIMEN COLLECTED 05/10/20 11:53 Blood Culture - Preliminary Blood SPECIMEN COLLECTED A&P Assessment and plan (1) Septic shock: Secondary to acute pyelonephritis, secondary to obstructive uropathy, left proximal 9 mm obstructing ureteral stone Status post cystoscopy, left ureteral stent placement by Dr. Spence, postop day [address] Spence, purulent material was drained after stent was placed Continues to have fevers, T-max 102, WBC down to 6.8, lactate 1.4, pro-Tone 10.44, CRP 252 Developed A. fib with RVR, now in A. fib well controlled Blood culture showing gram-negative rods, repeat blood culture so far negative Repeat CT scan of the abdomen pelvis with contrast yesterday, did not show any significant abscess, satisfactory placement of left ureteral stent, no hydronephrosis, bilateral nephrolithiasis, 9 mm left ureteral calculus that was seen on previous study has been pushed back into the nondilated left renal pelvis Plan: -Requires ICU admission -Currently off Levophed, will check volume status, LR boluses as needed to maintain MAP in the 65 -Off amiodarone drip, continue Cardizem 90 every 6 hours -Heparin drip started, monitor PTT -Echocardiogram ordered, pending -Follow cultures -Continue vancomycin and Primaxin day 3 -We will monitor hemodynamics closely, monitor heart rates -Consistent carb diet -Heparin for DVT prophylaxis, will consider switching over to Eliquis in the next 24 to 48 hours -For persistent fevers will do Covid testing, follow echo Plan for today, Covid testing, follow echocardiogram given up out of bed, bilateral lower extremity ultrasound for DVT Status: Acute (2) Obstructive pyelonephritis: S/P Cystoscopy, left ureteral stent placement. Implants: 7 Estonian by 30 cm double-pigtail stent. Urology on board. Rec appreciated Status: Acute (3) Total bilirubin, elevated: T bili 2.1, direct 0.9, AST 47, alk phos 109 Now T bili is 0.7, AST 29, ALT 22, alk phos 136, CK 40 Has no abdominal pain complaints Has a known history of cholelithiasis CT scan of the abdomen shows diffuse fatty infiltration of the liver, hepatomegaly, no visible hepatic mass or stricture, no visible intra or extrahepatic biliary ectasia, porcelain gallbladder, no visible pancreatic duct ectasia, Abdominal ultrasound shows hepatomegaly with diffuse fatty infiltration, calcified porcelain gallbladder with cholelithiasis, mild wall thickening Plan: -Monitor bili, alk phos, AST, ALT, alk phos Status: Acute (4) Diabetes: Sliding scale insulin Status: Acute (5) History of lymphoma: Status: Inactive (6) Hypertension: Currently MAP greater than 65 Monitor blood pressure Status: Inactive (7) Obstructive sleep apnea: Continue home CPAP Status: Inactive (8) Gram-negative bacteremia: Status: Acute (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 fib with RVR, no chest pain complaints -Is on aspirin, statin, heparin as above -Echocardiogram ordered -No known underlying cardiovascular disease -Continue to monitor Status: Acute Additional A&P Information DVT PPX: Heparin drip Code Status : Full code Disposition : Home Plan for today: Follow repeat cultures, Covid testing, follow echo, follow bilateral lower extremity ultrasounds, get up out of bed, aggressive pulmonary toilet Attestations Medical Necessity Statement*: Patient requires hospitalization for sepsis secondary to obstructive uropathy, with recurrent fevers, A. fib with RVR Time Spent in Patient Care: Greater than 35 minutes (>than 50% of time spent in counselling and/or direct pt care on unit). Critical Care Time: Critical Care Time (min): 35 Coding Level of Care Code Acute Veterans Service Officer for Chg Fwd Diagnoses Septic shock A41.9; R65.21 Obstructive pyelonephritis N11.1 Total bilirubin, elevated R17 Diabetes E11.9 History of lymphoma Z85.79 Hypertension I10 Obstructive sleep apnea G47.33 Gram-negative bacteremia R78.81 Porcelain gallbladder K82.8 Atrial fibrillation with RVR I48.91 NSTEMI (non-ST elevated myocardial infarction) I21.4
--- NOTE | 2020-05-11 10:26 | USR_ITS ---
PROCEDURE INFORMATION: Exam: US Duplex Lower Extremity Veins, Bilateral Exam date and time: 05/11/2020 10:51 AM Age: 64 years old Clinical indication: Abnormal findings; Abnormal lab test; Elevated d-dimer; Additional info: Persistent fever TECHNIQUE: Imaging protocol: Real-time duplex ultrasound of the extremities with 2-D hanley scale, color Doppler flow and spectral waveform analysis with image documentation. Complete exam focused on the bilateral lower extremity veins. COMPARISON: No relevant prior studies available. FINDINGS: Right deep veins: Unremarkable. The common femoral, femoral, proximal profunda femoral and popliteal veins are patent without thrombus. Normal Doppler waveforms. Normal compressibility and/or augmentation response. Right superficial veins: Saphenofemoral junction is patent without thrombus. Left deep veins: Unremarkable. The common femoral, femoral, proximal profunda femoral and popliteal veins are patent without thrombus. Normal Doppler waveforms. Normal compressibility and/or augmentation response. Left superficial veins: Saphenofemoral junction is patent without thrombus. Soft tissues: Unremarkable. US/CV venous duplex [facility] [id number] IMPRESSION: No evidence of deep vein thrombosis.
[2020-05-11 11:19] LABS: Glucose Point of Care 143 mg/dL (70-110)
[2020-05-11 12:03] LABS: Partial Thromboplastin Time 62.1 SECONDS (23.9-36.7)
[2020-05-11 12:09] LABS: Influenza A by IFA Negative (Negative); Influenza B by IFA Negative (Negative)
[2020-05-11 12:27] LABS: SARS Covid-2 Antigen Negative (Negative)
[2020-05-11 12:35] LABS: Vancomycin Trough 15.8 ug/mL (10-15)
[2020-05-11 17:27] LABS: Glucose Point of Care 121 mg/dL (70-110)
[2020-05-11 20:30] LABS: Glucose Point of Care 169 mg/dL (70-110)
[2020-05-11 20:38] LABS: Partial Thromboplastin Time 42.1 SECONDS (23.9-36.7)
[2020-05-11] MEDS: heparin 5,000 unit/mL INJ 1 mL IV (20:54)
[2020-05-12] VITALS (46 sets, daily range): BP systolic 103–144; BP diastolic 48–94; PULSE 82–133; RESP 0–40; TEMP 36.6–38; O2SAT 89–98
[2020-05-12] MEDS: vancomycin 1,500 MG/300 ML PIGGYBACK 200 MG IV (00:44)
[2020-05-12] MEDS: dilTIAZem 60 mg Tablet 90 MG PO ×4 (01:59→20:24)
[2020-05-12 04:49] LABS: Basophils # 0.1 10^3/uL (0.0-0.1); Eosinophils # 0.1 10^3/uL (0.0-0.8); Eosinophils % 0.8 %; Lymphocytes # 0.9 10^3/uL (0.8-4.8); Lymphocytes % 12.7 %; Mean Corpuscular HGB Conc 33.3 g/dL (30.0-36.0); Mean Corpuscular Hemoglobin 29.8 pg (28.0-34.0); Mean Corpuscular Volume 89.3 fL (81-99); Mean Platelet Volume 11.8 fL (7.4-10.4); Monocytes # 1.3 10^3/uL (0.2-0.9); Monocytes % 17.2 %; Neutrophils # 4.78 10^3/uL (1.8-7.7); Neutrophils % 65.8 %; Nucleated Red Blood Cells % 0 %; Platelet Count 121 10^3/cmm (130-400); Red Blood Count 3.36 10^6/uL (4.1-5.3); Red Cell Distribution Width 14.5 % (12.1-15.1); White Blood Count 7.3 10^3/uL (4.0-10.0)
[2020-05-12 05:00] LABS: Alanine Aminotransferase 19 U/L (0-33); Albumin Level 2.3 g/dL (3.5-5.2); Alkaline Phosphatase 155 IU/L (35-105); Anion Gap 14.6 (5-19); Aspartate Amino Transferase 25 U/L (0-32); Blood Urea Nitrogen 17 mg/dL (8-23); Calcium 7.9 mg/dL (8.5-10.5); Carbon Dioxide 19 mmol/L (22-29); Chloride 110 mmol/L (98-107); Globulin 3.1 g/dL (1.3-4.6); Glomerular Filtration Rate 83.7 mL/min (90-130); Glucose 135 mg/dL (65-115); Osmolality Calculated 294 mOsm/kg (285-295); Potassium 3.6 mmol/L (3.5-5.1); Sodium 140 mmol/L (136-145); Total Bilirubin 0.6 mg/dL (0.15-1.2); Total Protein 5.4 g/dL (6.6-8.7)
[2020-05-12 05:12] LABS: INR 1.06 (0.8-1.2)
[2020-05-12 05:21] LABS: D Dimer 7.21 ug/mIFEU (0-0.59)
[2020-05-12 05:22] LABS: C Reactive Protein 145.4 mg/L (0.0-4.9); Magnesium 1.6 mg/dL (1.7-2.3); Phosphorus 2.2 mg/dL (2.5-4.5)
[2020-05-12 05:33] LABS: NT Pro B Type Natriuretic Pept 2983 pg/mL (0-125); Procalcitonin 7.57 ng/mL (0-0.5)
[2020-05-12 05:43] LABS: Creatine Phosphokinase 30 U/L (26-192)
[2020-05-12] MEDS: heparin drip 25,000 UNIT/500 ML PREMIX 36 UNIT IV (07:41)
[2020-05-12 08:33] LABS: Glucose Point of Care 128 mg/dL (70-110)
[2020-05-12] MEDS: famotidine 20 mg Tablet PO ×2 (08:37→18:19)
[2020-05-12] MEDS: aspirin 81 mg EC Tablet PO (08:37)
[2020-05-12] MEDS: calcium carb-vit d 600mg/400unit 1 Tablet 1 EACH PO (08:37)
[2020-05-12] MEDS: folic acid 1 mg Tablet 2 MG PO (08:37)
[2020-05-12] MEDS: atorvastatin 40 mg Tablet 10 MG PO (08:37)
--- NOTE | 2020-05-12 08:54 | PC.CHAP ---
Pastoral Care Encounter/Spiritual Assessment Type of Contact [] Declined auto porter visit [] Patient/Family/Request visit [] Outpatient visit [] Follow-up visit [] Physician referral [] Code/Alert [] Routine visit [] Staff referral [] Actively dying [] Patient sleeping [] Family support [] [] Out of room [] Palliative care [] [] Receiving care in room [] Pre-surgical visit [] Trauma [] Long length of stay [] ICU visit [] Other: Relational/Emotional Strength [] Patient feels connected with others/family/visitors/staff [] Distress [] Loneliness/isolation [] Abandonment Spirituality of Patient [] Person of Leonila [] Attends Buddhist of their Leonila [] Believes in Prayer [] Reads Bible or Anabaptism materials [] There are Spiritual issues to be addressed 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 Interventions [x] Prayer [] Active listening [] Non-anxious presence [] Spiritual/emotional support [] Crisis/trauma care [] Spiritual counseling [] Bereavement support [] Provided bereavement packet [] Provided Bible/devotional materials [] Provided toy/stuffed animal, coloring book to patient or family member [] Provided Communion [] Anointing/Crystal [] Salvation [x] Completed spiritual assessment [] Other: Impact on Illness or Injury [] Angry [] Fearful [] Anxious [] Often cries [] Exhaustion [] Unable to work [] Unable to attend yarsanism [] Unable to walk/stand [] Unable to read [] Unable to drive [] Unable to eat/drink [] Unable to sleep [] Unable to be with family [] Patient intubated [] Other: Summary Time spent with patient
--- NOTE | 2020-05-12 10:43 | PC.SOCIAL ---
Pg 2 IMM Explained to pt Pg 2 IMM. No questions voiced. Provided pt a copy. Signed, dated, & timed a copy & placed in chart.
--- NOTE | 2020-05-12 11:10 | XR_ITS ---
WS: [id number] XR chest 1V portable [id number] REASON FOR EXAM: dyspnea FINDINGS: There is mild to moderate tortuosity of the thoracic aorta. The heart size is normal. Compared to previous examination of 05/11/2020 the patient may be developing early infiltrative change s in the left lower lung. No other significant interval change or new finding noted. XR/XR chest 1V portable [id number] IMPRESSION: Possible early infiltrative changes in the left lower lung, as clinically warra nted follow-up chest x-ray is suggested.
[2020-05-12] MEDS: FUROsemide 10 mg/mL SDV 2mL 20 MG IVP (11:28)
[2020-05-12] MEDS: enoxaparin 40 mg/0.4 mL Syringe SUBCUT ×2 (11:28→23:28)
[2020-05-12] MEDS: enoxaparin 100 mg/mL Syringe SUBCUT ×2 (11:28→23:28)
[2020-05-12 12:31] LABS: Glucose Point of Care 117 mg/dL (70-110)
--- NOTE | 2020-05-12 13:26 | PM.PN ---
Documented by User: JUAN Pizarro STDNT 05/12/20 13:37 Subjective Subjective: Interval history: Aylin is a 64 yo female with h/o diabetes, HTN, and follicular lymphoma who presented on May 09 with fever and confusion, and was diagnosed with septic shock. During the course of her hospital stay she developed afib w/ RVR. Today she is feeling better but still has a fever. Medications: Reviewed: Yes Vitals/I&O/Wt Last Vital Signs Temp 100.4 F H 05/12/20 08:00 Pulse 99 05/12/20 11:00 Resp 28 H 05/12/20 11:00 BP 129/87 05/12/20 11:00 Pulse Ox 96 05/12/20 11:00 05/11/20 05/12/20 05/12/20 22:59 06:59 14:59 Intake Total 1232.5 / 2000.833 529 / 2529.833 411.4 / 411.4 Output Total 1500 / 2150 600 / 2750 Balance -267.5 / -149.167 -71 / -220.167 411.4 / 411.4 Physical Exam Const: COMMON NORMALS: no acute distress and patient oriented x3 GENERAL APPEARANCE: cooperative and comfortable HENMT: COMMON NORMALS: normocephalic, atraumatic and hearing grossly normal bilaterally HEAD & SCALP: normal to inspection, normocephalic and atraumatic Eye: COMMON NORMALS: Equal, round and reactive pupils present, EOMs intact bilaterally, conjunctivae normal, no scleral icterus, no papilledema, normal visual newell by confrontation and fundi normal bilaterally CONJUNCTIVA: Yes conjunctivae normal PUPIL: Yes Equal, round and reactive pupils present DIRECT OPHTHALMOSCOPY: Yes no papilledema and Yes fundi normal bilaterally Extremity: GENERAL: Yes edema (b/l lower extremity) Neuro: COMMON NORMALS: patient oriented x3 Urinary Catheter Management^: Sal: Cath Placed During This Visit: yes Reason for Continuing Indwelling Catheter: Accurate Measurement of Urinary Output in Critically Ill Patients Urinary Catheter Date of Insertion: 05/09/20 Urinary Catheter Time of Insertion: 00:19 Data : 05/12/20 03:45 05/12/20 03:45 Micro: Microbiology 05/10/20 09:00 Urine Culture - Final Urine Catheterized 05/10/20 11:53 Blood Culture - Preliminary Blood NEGATIVE TO DATE 05/10/20 11:37 Blood Culture - Preliminary Blood NEGATIVE TO DATE 05/08/20 19:47 Blood Culture - Preliminary Blood Klebsiella pneumoniae 05/08/20 19:12 Blood Culture - Preliminary Blood Klebsiella pneumoniae Attestations Medical Necessity Statement*: Ms. Dietz will need continued hospitalization due to the continuation of her fever. Coding Level of Care Code Acute Director Of Procurement for Chg Fwd Exam Expanded Problem Focused Diagnoses Atrial fibrillation with RVR I48.91 Gram-negative bacteremia R78.81 Septic shock A41.9; R65.21 Obstructive pyelonephritis N11.1 Urolithiasis N20.2 Urinary calculus location: kidney and ureter Documented by User: Joslyn Ibrahim MD 05/12/20 21:24 Physical Exam Urinary Catheter Management^: Sal: Cath Placed During This Visit: no Data : 05/12/20 03:45 05/12/20 03:45 A&P Assessment and plan (1) Atrial fibrillation with RVR: Status: Acute (2) Gram-negative bacteremia: Status: Acute (3) Septic shock: Status: Acute (4) Obstructive pyelonephritis: Status: Acute (5) Urolithiasis: Status: Acute Qualifiers: Urinary calculus location: kidney and ureter Qualified Code(s): N20.2 - Calculus of kidney with calculus of ureter Additional A&P Information Patient seen and examined with medical student 64F with PMH lymphoma, on expectant management, no obvious progression since Jan 2020 p/w septic shock, obstructive pyelonephriis on left side with proximan UPJ stone, s/p stent placement on 05/08. Since then, she has had resolution of leukocytosis, remains off pressors since 05/09 and has clincally felt imrpoved. However still with fever of 101F. Repeat CT on 05/10 with patent stent and perinephric inflammation. Cr overall stable. Continue to monitor fever curve for now as otherwise appears to be clinically mproving. Blood cx from admission with Klebsiella pn., clear since 05/10 thus far. Narrow coverage based on susceptibilities from imipenem/vanco to cefepime today. Planned for discharge on po FQs when ready. Hospital course notable for development of Afib with RVR for which she is on Cardizem. CUrrently rate between 80-100 bpm. This is new onset per history, however she reports intermittent palpitation sin the past which was attributed to exertion. Possible that may have been pAfib. Otherwise, may be precipitated by sepsis. Currenly also with signs of diastolic CHF with elevated BNP, developing LE edema, net + 5L since admission, 02 sat 90% on RA. CHF may be precipitated by A fib with RVR. Trial of lasix 20mg IVP today and monitor for response. Coding Level of Care Code Acute Director Of Procurement for g Fwd Exam Expanded Problem Focused Diagnoses Atrial fibrillation with RVR I48.91 Gram-negative bacteremia R78.81 Septic shock A41.9; R65.21 Obstructive pyelonephritis N11.1 Urolithiasis N20.2 Urinary calculus location: kidney and ureter
[2020-05-12] MEDS: cefepime 2,000 MG in sodium chloride 0.9% (plus) 50 ML 100 MG IV ×2 (13:54→23:27)
[2020-05-12 18:01] LABS: Glucose Point of Care 130 mg/dL (70-110)
--- NOTE | 2020-05-12 18:35 | PC.NURSE ---
Patient to CSU at 1730. Patient A&O, VSS. Patient oriented to room and call light. See physical assessment. Nurse to continue to monitor.
[2020-05-12 20:37] LABS: Glucose Point of Care 172 mg/dL (70-110)
--- NOTE | 2020-05-12 21:27 | PC.NURSE ---
Initial shift assessment finds the patient resting comfortably seated in a chair with no acute complaints. 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 Pt was assisted with ambulation with contact guard standby assist without incident. Pt placed in bed in a position of comfort with call light and bedside table within reach.
[2020-05-13] VITALS (54 sets, daily range): BP systolic 112–138; BP diastolic 58–94; PULSE 81–126; RESP 17–37; TEMP 36.4–36.6; O2SAT 93–98
[2020-05-13] MEDS: dilTIAZem 60 mg Tablet 90 MG PO ×3 (01:15→13:49)
[2020-05-13 05:02] LABS: INR 0.99 (0.8-1.2)
[2020-05-13 05:10] LABS: Lactate (Lactic Acid level) 1.2 mmol/L (0.5-2.2)
[2020-05-13 05:12] LABS: D Dimer 5.49 ug/mIFEU (0-0.59)
[2020-05-13 05:15] LABS: Magnesium 1.4 mg/dL (1.7-2.3); Phosphorus 2.5 mg/dL (2.5-4.5)
[2020-05-13 05:17] LABS: NT Pro B Type Natriuretic Pept 2186 pg/mL (0-125); Procalcitonin 4.18 ng/mL (0-0.5)
[2020-05-13 05:28] LABS: Creatine Phosphokinase 21 U/L (26-192)
--- NOTE | 2020-05-13 06:36 | PC.NURSE ---
Pt rested through the night with not acute changes and remained free from falls and injuries for the duration of the shift.
[2020-05-13 06:56] LABS: Glucose Point of Care 126 mg/dL (70-110)
[2020-05-13] MEDS: calcium carb-vit d 600mg/400unit 1 Tablet 1 EACH PO (09:00)
[2020-05-13] MEDS: folic acid 1 mg Tablet 2 MG PO (09:00)
[2020-05-13] MEDS: atorvastatin 40 mg Tablet 10 MG PO (09:00)
[2020-05-13] MEDS: famotidine 20 mg Tablet PO ×2 (09:01→17:58)
[2020-05-13] MEDS: aspirin 81 mg EC Tablet PO (09:01)
[2020-05-13 11:21] LABS: Glucose Point of Care 143 mg/dL (70-110)
--- NOTE | 2020-05-13 11:34 | P.PN_ITS ---
Documented by User: [email or web address] Fields STDNT 05/13/20 11:55 Subjective Subjective: Interval history: Alyin is a 64 yo female with h/o follicular lymphoma, diabetes, and urolithiasis that presented with sepsis on May 08 secondary to obstructive pyelonephritis. She developed afib with RVR during the course of her hospital stay. Today she says she feels like her fever has resolved and wanted to ask about what caused her afib and if she could get her catheter out. She reported that she is able to walk but gets SOB when she does. She does not have any other complaints at this time. Medications: Reviewed: Yes Vitals/I&O/Wt Last Vital Signs Temp 97.9 F 05/13/20 10:48 Pulse 110 H 05/13/20 10:48 Resp 18 05/13/20 10:48 BP 117/80 05/13/20 10:48 Pulse Ox 98 05/13/20 10:48 05/12/20 05/13/20 05/13/20 22:59 06:59 14:59 Intake Total 380 / 791.4 350 / 1141.4 360 / 360 Output Total 725 / 2275 1400 / 3675 1000 / 1000 Balance -345 / -1483.6 -1050 / -2533.6 -640 / -640 Physical Exam Const: COMMON NORMALS: no acute distress and patient oriented x3 GENERAL APPEARANCE: cooperative and comfortable HENMT: COMMON NORMALS: normocephalic, atraumatic and hearing grossly normal bilaterally HEAD & SCALP: normal to inspection, normocephalic and atraumatic Eye: COMMON NORMALS: Equal, round and reactive pupils present, EOMs intact bilaterally, conjunctivae normal, no scleral icterus, no papilledema, normal visual newell by confrontation and fundi normal bilaterally CONJUNCTIVA: Yes conjunctivae normal PUPIL: Yes Equal, round and reactive pupils present DIRECT OPHTHALMOSCOPY: Yes no papilledema and Yes fundi normal bilaterally Neck/C-Spine: COMMON NORMALS: no JVD Resp: COMMON NORMALS: normal respiratory effort, No retractions, No use of accessory muscles and clear to auscultation bilaterally EFFORT & INSPECTION: Yes able to speak in complete sentences and Yes symmetric chest movement AUSCULTATION: clear to auscultation bilaterally Cardio: COMMON NORMALS: no JVD, regular rate, regular rhythm, S1 normal heart sound present, S2 normal heart sound present, No gallops present (Cardio), No clicks present (Cardio), No murmurs present (Cardio) and Peripheral pulses 2+ throughout RATE: regular rate RHYTHM: regular rhythm HEART SOUNDS: S1 normal heart sound present and S2 normal heart sound present PERIPHERAL PULSES: Peripheral pulses 2+ throughout Extremity: GENERAL: Yes edema ( +1 b/l lower extremity) Neuro: COMMON NORMALS: patient oriented x3 Urinary Catheter Management^: Sal: Cath Placed During This Visit: yes Reason for Continuing Indwelling Catheter: Accurate Measurement of Urinary Output in Critically Ill Patients Urinary Catheter Date of Insertion: 05/09/20 Urinary Catheter Time of Insertion: 00:19 Data : 05/12/20 03:45 05/12/20 03:45 Micro: Microbiology 05/10/20 09:00 Urine Culture - Final Urine Catheterized A&P Assessment and plan (1) Atrial fibrillation with RVR: Pt stated she did not feel like her heart was fluttering this morning, continue treatment with diltiazem and continue to monitor on telemetry. Pitting edema has improved from yesterday, continue current Lasix dose. Consult with cardiology upon discharge. Status: Acute (2) Gram-negative bacteremia: Last blood culture on May 10 was negative for organisms. This morning patient was afebrile, which is encouraging for beginning of resolution of sepsis. Will continue to monitor for another 24 hours for fever to ensure resolution. Continue current antibiotics course. Status: Acute (3) Septic shock: see above Status: Acute (4) Obstructive pyelonephritis: L ureteral stent placement was placed on May [address] Spence. Pt has been able to produce urine since then, and today her urine was clear of debris. As mentioned above, will continue to treat with antibiotics. Will need to consult with Dr. Spence to see if her catheter can be removed. Pt will need to follow up with Dr. Spence after discharge. Status: Acute (5) Urolithiasis: see above Status: Acute Qualifiers: Urinary calculus location: kidney and ureter Qualified Code(s): N20.2 - Calculus of kidney with calculus of ureter Coding Level of Care Code Acute Nursing Program Manager for [facility] Fwd Exam Detailed Diagnoses Atrial fibrillation with RVR I48.91 Gram-negative bacteremia R78.81 Septic shock A41.9; R65.21 Obstructive pyelonephritis N11.1 Urolithiasis N20.2 Urinary calculus location: kidney and ureter Diabetes E11.9 Diabetes mellitus type: type 2 Diabetes mellitus fdc insulin use: without fdc use Diabetes mellitus complication status: without complication CHF (congestive heart failure) I50.9 Documented by User: Joslyn Ibrahim MD 05/13/20 15:26 Physical Exam Urinary Catheter Management^: Sal: Cath Placed During This Visit: no Data : 05/12/20 03:45 05/12/20 03:45 A&P Assessment and plan (1) Atrial fibrillation with RVR: Status: Acute (2) Gram-negative bacteremia: Status: Acute (3) Septic shock: Status: Acute (4) Obstructive pyelonephritis: Status: Acute (5) Diabetes: Status: Acute Qualifiers: Diabetes mellitus type: type 2 Diabetes mellitus fdc insulin use: without intermediate frame tender use Diabetes mellitus complication status: without complication Qualified Code(s): E11.9 - Type 2 diabetes mellitus without complications (6) CHF (congestive heart failure): Status: Acute Additional A&P Information 64F with PMH lymphoma, on expectant management, no obvious progression since Jan 2020 p/w septic shock, obstructive pyelonephriis on left side with proximan UPJ stone, s/p stent placement on 05/08. Since then, she has had resolution of leukocytosis, remains off pressors since 05/09 and has clincally felt imrpoved. Her fever curve is also starting to improve. Last fever was at 8 AM yesterday, she is afebrile for at least [address] on 05/10 with patent stent and perinephric inflammation. Cr overall stable. Plan to discharge patient once afebrile consistently for 48 hours. Blood cx from admission with Klebsiella pn., clear since 05/10 thus far. treated with imipenem/vanco -->cefepime. Planned for discharge on po FQs to complete total 14 days of treatment from stent placement. Hospital course notable for development of Afib with RVR for which she is on Cardizem. CUrrently rate controlled between 80-100 bpm. This is new onset per history, however she reports intermittent palpitation sin the past which was attributed to exertion. Possible that may have been pAfib. Otherwise, may be precipitated by sepsis. Today we will change Cardizem 90 mg every 6 hours to sustained-release Cardizem in anticipation of upcoming discharge and monitor her heart rate and telemetry. Continues to be in A. fib, however rate controlled. Currenly also with signs of diastolic CHF with elevated BNP, LE edema, net + 5L since admission. Received 20 mg of IV Lasix, after which patient states that her dyspnea is improved today. 02 sat improved from 90% to 96% on RA. CHF may be precipitated by A fib with RVR. Repeat Lasix at 40 mg IV push today and monitor urine output. Remove Sal catheter today, encouraged to urinate and bedside commode for accurate output measurement. Her Covid PCR returned today as inconclusive, uncertain significance. No current signs or symptoms of COVID-19 pneumonia. We will repeat a Covid PCR Overall patient appears to be clinically improving, planning for discharge in the upcoming 24 hours if remains afebrile Attestations Medical Necessity Statement*: Continued need for inpatient admission for CHF, volume overload, IV diuresis, IV antibiotics ongoing, monitor fever curve, plan for discharge in the upcoming 24 hours Coding Level of Care Code Acute Nursing Program Manager for [facility] Fwd Exam Detailed Diagnoses Atrial fibrillation with RVR I48.91 Gram-negative bacteremia R78.81 Septic shock A41.9; R65.21 Obstructive pyelonephritis N11.1 Urolithiasis N20.2 Urinary calculus location: kidney and ureter Diabetes E11.9 Diabetes mellitus type: type 2 Diabetes mellitus intermediate frame tender insulin use: without fdc use Diabetes mellitus complication status: without complication CHF (congestive heart failure) I50.9
[2020-05-13] MEDS: enoxaparin 40 mg/0.4 mL Syringe SUBCUT ×2 (11:56→23:43)
[2020-05-13] MEDS: enoxaparin 100 mg/mL Syringe SUBCUT ×2 (11:56→23:43)
[2020-05-13] MEDS: cefepime 2,000 MG in sodium chloride 0.9% (plus) 50 ML 100 MG IV ×2 (11:57→23:42)
[2020-05-13 12:43] LABS: Coronavirus Lab Test PTC Inconclusive
[2020-05-13] MEDS: FUROsemide 10 mg/mL SDV 4mL 40 MG IVP (15:11)
[2020-05-13 16:48] LABS: Glucose Point of Care 125 mg/dL (70-110)
[2020-05-13] MEDS: dilTIAZem ER (24HR) 240 mg Capsule PO (17:59)
[2020-05-13] MEDS: acetaminophen 325 mg Tablet 650 MG PO (20:22)
[2020-05-13 21:10] LABS: Glucose Point of Care 162 mg/dL (70-110)
[2020-05-14] VITALS (14 sets, daily range): BP systolic 119–134; BP diastolic 72–97; PULSE 64–112; RESP 16–25; TEMP 36.4–36.8; O2SAT 95–100
--- NOTE | 2020-05-14 04:05 | PC.NURSE ---
NURSING NOTE; SHIFT SUMMARY: PT ALERT AND ORIENTED X4; MOVES ALL EXTREMITIES AND FOLLOWS COMMANDS. DENIES PAIN THIS SHIFT. CURRENTLY RESTING WITH EYES CLOSED, RESP EVEN AND NON LABORED. ALL VS AND ASSESSMENTS CHARTED. NO DISTRESS NOTED AT THIS TIME.
[2020-05-14 06:28] LABS: Glucose Point of Care 118 mg/dL (70-110)
[2020-05-14] MEDS: famotidine 20 mg Tablet PO (09:28)
[2020-05-14] MEDS: aspirin 81 mg EC Tablet PO (09:28)
[2020-05-14] MEDS: atorvastatin 40 mg Tablet 10 MG PO (09:28)
[2020-05-14] MEDS: folic acid 1 mg Tablet 2 MG PO (09:28)
[2020-05-14] MEDS: calcium carb-vit d 600mg/400unit 1 Tablet 1 EACH PO (09:29)
[2020-05-14] MEDS: dilTIAZem ER (24HR) 300 mg Capsule PO (09:29)
--- NOTE | 2020-05-14 11:06 | P.DS_ITS ---
Discharge Providers Date of Admission: 05/09/20 00:15 Date of Discharge: May 14, 2020 Attending Provider at Admission: Dmitriy Spence MD Attending Provider at Discharge: Joslyn Ibrahim MD Primary Care Provider: Vinh Raya MD Diagnoses at Discharge Discharge Diagnosis (1) Atrial fibrillation with RVR: Status: Acute (2) Gram-negative bacteremia: Status: Acute (3) Septic shock: Status: Acute (4) Obstructive pyelonephritis: Status: Acute (5) Diabetes: Status: Acute Qualifiers: Diabetes mellitus complication status: without complication Diabetes mellitus residential insulin use: without residential use Diabetes mellitus type: type 2 Qualified Code(s): E11.9 - Type 2 diabetes mellitus without complications (6) CHF (congestive heart failure): Status: Acute Reason for Visit Reason for Visit: fever/dehydrated/unable to eat Hospital Course Hospital Course 64F with PMH lymphoma, on expectant management, no obvious progression since Jan 2020 p/w septic shock, obstructive pyelonephriis on left side with proximal UPJ stone, s/p stent placement on 05/08. Since then, she has had resolution of leukocytosis, remains off pressors since 05/09 and has clincally felt imrpoved. Her fever has resolved over the last [address] on 05/10 with patent stent and perinephric inflammation. Cr overall stable. Blood cx from admission with Klebsiella pn., clear since 05/10 thus far. treated with imipenem/vanco -->cefepime. Planned for discharge on po FQs to complete total 14 days (05/10-05/24). Hospital course notable for development of Afib with RVR for which she is on Cardizem. Currently rate controlled between 80-100 bpm. This is new onset per history, however she reports intermittent palpitation sin the past which was attributed to exertion. Possible that may have been pAfib. Otherwise, may be precipitated by sepsis. Continues to be in A. fib, however rate controlled. She is being discharged on po cardizem 360mg SR. Currenly also with signs of diastolic CHF with elevated BNP, LE edema, net + 5L since admission. Received iv diuresis over 2 days after whoch she was improved. Mild LE edema still persisting. Being discharged on 20 mg of p.o. Lasix daily. Because Lasix and Cardizem are new medications that have been introduced and blood pressure is currently stable with these 2, her home doses of losartan and hydrochlorothiazide have been held. Her [id number] score is calculated to be 4, has been started on anticoagulation initially with a heparin drip, now transitioned to Eliquis 5 mg twice daily upon discharge. She is instructed to keep a blood pressure and heart rate chart twice daily over the next week and take it to her cardiology appointment. Overall patient is significantly improved since admission, being discharged today in stable condition. She is to follow-up with Dr. Almodovar from cardiology within the next 7 to 10 days, Dr. Spence in the next 2 weeks and follow-up with Dr. Garcia from ENT to get her recent biopsy results. 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 Extremities 1+ pitting edema, improved over previously Urinary Catheter Management^: Sal: Cath Placed During This Visit: yes, but has since been removed by the nurse Reason for Continuing Indwelling Catheter: Acute Urinary Retention or Obstruction Urinary Catheter Date of Insertion: 05/09/20 Urinary Catheter Time of Insertion: 00:19 Date Urinary Catheter Removed: 05/13/20 Time Urinary Catheter Discontinued: 15:20 Discharge Data Data Completed and Pending: Completed Studies During Hospitalization Category Date Time Status CT abdomen pelvis w con* [id number] Stat Cat Scan 05/10/20 08:[address] angio chest w abd pel w con Urge nt Cat Scan 05/08/20 18:[address] head wo con* 7 0450 Urgent Cat Scan 05/08/20 17:11 Completed XR chest 1V arturo ble [id number] Routine Exams 05/10/20 07:49 Completed XR chest 1V arturo ble [id number] Routine Exams 05/11/20 07:00 Completed XR chest 1V arturo ble [id number] Routine Exams 05/12/20 11:10 Completed XR chest 1V arturo ble [id number] Stat Exams 05/08/20 16:29 Completed CV echo complete* [id number] Routine Ultrasound 05/11/20 05:28 [place] [id number] Routin e Ultrasound 05/11/20 10:26 Completed US gall bladder 7 0214 Urgent Ultrasound 05/08/20 21:47 Completed Pending at discharge Category Date Time Status Blood Culture Sta t Lab 05/10/20 11:37 Results Coronavirus Lab T est PTC Routine Lab 05/13/20 15:10 Received Labs from last 24 hours 05/14/20 05/13/20 05/13/20 06:10 20:38 16:38 POC Glucose 118 162 125 Nasal/Oral COVID-1 9 PCR 05/13/20 05/13/20 05/11/20 15:10 10:52 11:00 POC Glucose 143 Nasal/Oral COVID-1 9 PCR Pending Inconclusive Vitals: Last Vital Signs Temp 97.6 F 05/14/20 07:31 Pulse 112 H 05/14/20 07:31 Resp 20 H 05/14/20 07:31 BP 128/72 05/14/20 07:31 Pulse Ox 100 05/14/20 07:31 Discharge Plan Discharge Patient Disposition: Home Condition: Stable Prescriptions: New acetaminophen 325 mg Tablet 650 mg PO Q4H PRN (Reason: Mild/Mod Pain Or Temp >/= 101) Qty: 0 RF: 0 diltiazem HCl 300 mg Capsule,Extended Release 24hr 360 mg PO DAILY 30 Days Qty: 30 RF: 0 Eliquis 5 mg tablet 5 mg PO BID 30 Days Qty: 60 RF: 0 Cipro 500 mg tablet 500 mg PO BID 10 Days Qty: 20 RF: 0 potassium chloride 10 mEq capsule, extended release 10 meq PO DAILY Qty: 10 RF: 0 Continued multivitamin Tablet 1 tab PO DAILY RF: 0 metformin 500 mg tablet 500 mg PO DAILY RF: 0 atorvastatin 10 mg tablet 10 mg PO DAILY RF: 0 hydrocodone-acetaminophen 5-325 mg tablet 1 - 2 tab PO Q5H PRN (Reason: Pain) RF: 0 aspirin 81 mg Tablet,Delayed Release (Dr/Ec) 81 mg PO DAILY RF: 0 famotidine 20 mg tablet 20 mg PO BID RF: 0 folic acid 1 mg Tablet 2 mg PO DAILY RF: 0 calcium carbonate-vitamin D3 600 mg(1,500mg) -200 unit Tablet 1 tab PO DAILY RF: 0 Discontinued hydrochlorothiazide 12.5 mg capsule 12.5 mg PO DAILY RF: 0 losartan 100 mg tablet 100 mg PO DAILY RF: 0 Discharge Orders: Discharge Order (Routine); Ordered 05/14/20 Ordered By: Joslyn Ibrahim Referrals: Dmitriy Spence MD [Physician] - 2 weeks (Please, follow-up with Dr. Spence on May 28 at 3:30p.m. If you have any questions or need to reschedule. Please call ) Adal Almodovar MD [Physician] - 1 week (Please, follow-up with Dr. Almodovar on May 22 at 12:15p.m. If you have any questions or need to reschedule. please call ) Vinh Raya MD [Primary Care Provider] - 1 week (Please, follow-up with Dr. Raya on May 21 at 11:00a.m. If you have any questions or need to reschedule. Please call [phone]) Discharge Diet: Usual diet and Diabetic Discharge Activity: Resume usual activity Patient Instructions: Ciprofloxacin (By mouth), Diltiazem (By mouth), Acetaminophen (By mouth), Potassium Chloride (By mouth), Apixaban (By mouth), Myocardial Infarction (DC), Atrial Fibrillation (DC), Kidney Stones (DC), Acute Pyelonephritis (DC), Sepsis (DC), CHF Stoplight Activity Restrictions/Additional Instructions: check BP and HR twice a day at the same time everyday and maintain a chart. If HR >140 or less than 50, call your PCP or hat steamer. I experiencing chest pain or shortness of breath, report to nearest ER. Discharge Attestations Time Spent in Discharge Care*: greater than 30 min Specific Discharge Activities: educating and/or supporting family/caregiver, documenting/other paperwork and evaluating patient/reviewing data Quality Metrics Clinical Quality Measures During this hospital stay, did patient experience: None Coding Level of Care Code Acute Conflict Resolution Professional for [facility] Fwd Diagnoses Atrial fibrillation with RVR I48.91 Gram-negative bacteremia R78.81 Septic shock A41.9; R65.21 Obstructive pyelonephritis N11.1 Diabetes E11.9 Diabetes mellitus complication status: without complication Diabetes mellitus residential insulin use: without exterminator helper use Diabetes mellitus type: type 2 CHF (congestive heart failure) I50.9
[2020-05-14 11:37] LABS: Glucose Point of Care 110 mg/dL (70-110)
--- NOTE | 2020-05-14 13:00 | PC.NURSE ---
patient discharged home at this time to self care patient provided discharge instruction and all follow up appointments. patient verbalized understanding medications delivered to bedside and patient educated on new medications.
[2020-05-15 18:11] LABS: Coronavirus Lab Test PTC Negative
== END 2020-05-14 14:33 | disposition home or self-care (01) | DRG 853 ==
LOC: ER 22:22 → OR 23:07 → ICU 05-09 07:51 → CSU 05-12 17:29
PROVIDERS: Emergency Medicine; Family Medicine; Internal Medicine; Nurse Practitioner Family; Admitting Provider Urology; Emergency Provider Emergency Medicine; PCP Family Medicine; Visit Provider Student in an Organized Health Care Education/Training Program
PROC: 0TJB8ZZ Inspection of Bladder, Via Natural or Artificial Opening Endoscopic (ICD-10-PCS; CPT 52000; principal; 2020-05-08 23:00)
PROC: 0T778DZ Dilation of Left Ureter with Intraluminal Device, Via Natural or Artificial Opening Endoscopic (ICD-10-PCS; CPT 50605; 2020-05-08 23:00)
DX: A41.9 Sepsis, unspecified organism (principal); R65.21 Severe sepsis with septic shock; I50.31 Acute diastolic (congestive) heart failure; I21.4 Non-ST elevation (NSTEMI) myocardial infarction; N20.2 Calculus of kidney with calculus of ureter; N11.1 Chronic obstructive pyelonephritis; R17 Unspecified jaundice; R78.81 Bacteremia; E11.9 Type 2 diabetes mellitus without complications; I11.0 Hypertensive heart disease with heart failure; Z86.19 Personal history of other infectious and parasitic diseases; G47.33 Obstructive sleep apnea (adult) (pediatric); Z85.79 Personal history of other malignant neoplasms of lymphoid, hematopoietic and related tissues; Z79.82 Long term (current) use of aspirin; Z79.84 Long term (current) use of oral hypoglycemic drugs; I48.91 Unspecified atrial fibrillation; K21.9 Gastro-esophageal reflux disease without esophagitis
CPT/HCPCS: 12345; 36415; 36416; 36600; 51702; 70450; 71045; 71275; 74177; 76000; 76705; 80053; 80202; 81001; 82248; 82550; 82803; 82962; 83605; 83735; 83880; 84100; 84145; 84484; 85007; 85025; 85049; 85378; 85610; 85651; 85730; 86140; 87040; 87077; 87086; 87186; 87205; 87426; 87493; 87635; 87804; 93005; 93306; 93970; 94664; 96372; 96375; 97110; 97116; 97161; 97165; 97530; 97535; 99283; 99291; C2625; J0131; J0153; J0282; J0692; J0696; J0743; J1160; J1644; J1650; J1815; J1940; J2405; J2704; J2765; J3010; J3370; J3475; J3490; J7030; J7040; J7060; Q9967

== ENCOUNTER 2020-05-28 13:26 | Outpatient (CLI) | payer MEDICARE, OTHER, SELFPAY ==
--- NOTE | 2020-05-28 13:32 | FLR_ITS ---
PROCEDURE INFORMATION: Exam: XR Abdomen, 1 View Exam date and time: 05/28/2020 1:35 PM Age: 64 years old Clinical indication: Condition or disease; Other: Urolithiasis TECHNIQUE: Imaging protocol: XR of the abdomen. Views: Frontal supine view of the abdomen. 1 View. COMPARISON: CT abdomen pelvis w con* [id number] 05/10/2020 10:17 AM FINDINGS: Tubes, catheters and devices: There is a ureteral stent in place on the left side appearing well positioned. Gastrointestinal tract: Normal. No bowel dilation. Organs: The left kidney shows nonobstructing caliceal stones in the upper pole measuring 12 mm, and in the lower pole measuring 11 mm. Vasculature: Splenic artery calcifications are present Bones/joints: There is severe lumbar spine osteoarthritis. XR/XR KUB [id number] IMPRESSION: 1. No acute findings. 2. Ureteral stent left side good position 3. Nonobstructing stones left kidney 4. Severe osteoarthritis lumbar spine 5. Vascular calcifications splenic artery
== END 2020-05-28 13:27 | disposition home or self-care (01) ==
LOC: RAD 13:29
PROVIDERS: PCP Family Medicine; Visit Provider Urology
DX: N20.1 Calculus of ureter (principal); Z96.0 Presence of urogenital implants; N20.0 Calculus of kidney; M47.816 Spondylosis without myelopathy or radiculopathy, lumbar region
CPT/HCPCS: 74018; 81003

== ENCOUNTER → 2020-06-10 11:05 | Outpatient (BNVA) | payer MEDICARE, OTHER, SELFPAY | PROVIDERS: PCP Family Medicine; Visit Provider Nurse Practitioner Family | DX: Z20.828 Contact with and (suspected) exposure to other viral communicable diseases (principal); N20.2 Calculus of kidney with calculus of ureter | CPT/HCPCS: 81003; 87635 ==

== ENCOUNTER 2020-06-16 10:26 | Day surgery (SDC) | payer MEDICARE, OTHER, SELFPAY ==
[2020-06-13 12:37] VITALS: BMI 47.0
[2020-06-16] VITALS (7 sets, daily range): BP systolic 118–158; BP diastolic 71–83; PULSE 68–97; RESP 16–18; TEMP 36.2–37.2; O2SAT 94–100
--- NOTE | 2020-06-16 10:33 | XRR_ITS ---
PROCEDURE INFORMATION: Exam: XR Abdomen, 1 View Exam date and time: 06/16/2020 10:37 AM Age: 64 years old Clinical indication: Screening exam; Other: Pre op eswl; Additional info: Preop eswl TECHNIQUE: Imaging protocol: XR of the abdomen. Views: Frontal supine view of the abdomen. 1 View. COMPARISON: CR XR KUB [id number] 05/28/2020 1:38 PM FINDINGS: Lungs: Calcified granulomas present in the spleen. Gastrointestinal tract: No dilated gas-filled loops of bowel. Organs: There is a left renal pelvic calculus measuring approximately 14 mm in size, and a calculus in the inferior pole of the left kidney measuring approximately 15 mm in size, not accounting for magnification. There is a left double-J stent present with the proximal pigtail in the left renal pelvis and distal pigtail in the urinary bladder. Vasculature: Tortuous calcified splenic artery. Bones/joints: Multilevel disc degeneration and facet arthropathy in the lumbar spine and lower thoracic spine. XR/XR KUB [id number] IMPRESSION: 1. Left nephrolithiasis. 2. Left double-J stent in appropriate position.
--- NOTE | 2020-06-16 11:23 | ANES.PREANE2 ---
Pre-Anesthetic Assessment Pre-Anesthetic Assessment: Height/Weight: Height 1.7 m Weight 136.078 kg Temp Pulse Resp BP Pulse Ox 97.5 F L 97 18 158/83 98 06/16/20 10:50 06/16/20 10:50 06/16/20 10:50 06/16/20 10:50 06/16/20 10:50 Preop Diagnosis: Renal calculi status post emergency stenting Proposed Procedure: Operation Date: 06/16/20 12:00 Proposed Procedures p Cystoscopy 16682 91487 N20.1(Not Applicable) - Dmitriy Spence MD s left Ureteral Stent Exchange(Left) - Dmitriy Spence MD s ESWL(Not Applicable) - Dmitriy Spence MD Was Beta Merle taken within 24 hours: N/A Social: Social History: No alcohol and No tobacco Exam: Pre-Anes Outpt Exam: alert, oriented x 3, clear to auscultation bilaterally and regular rate & rhythm Airway: Submandibular: WNL Cervical ROM: WNL MP: 2 Dentition: Full Pulmonary: Pulmonary: None reported CV/HEM: CV/HEM: HTN : : None reported Hepatic: Hepatic: None reported GI: GI: None reported Metabolic: Metabolic: DM and Morbid obesity Comments: Pre diabetes Musc/skel: Musc/skel: None reported Neuropsych: Neuropsych: None reported Anesthetic Plan: ASA status: 3 Anesthesia: General Risk of > 500 ml blood loss (7ml/kg in children): No PFSH Anesthesia PFSH: Medical History GERD (gastroesophageal reflux disease) History of endometrial cancer History of follicular lymphoma History of lymphoma History of rheumatoid arthritis Hypertension Mitral valve regurgitation Obstructive pyelonephritis Obstructive sleep apnea Sepsis Skin cancer Tonsillectomy planned Tricuspid valve regurgitation Surgical History History of bladder suspension procedure History of carpal tunnel release History of total abdominal hysterectomy and bilateral salpingo-oophorectomy History of tubal ligation S/P panniculectomy S/P skin biopsy Family History Other CAD (coronary artery disease) Cancer Hypertension Social History Smoking and tobacco status: never smoked Alcohol intake: never Marital status: Current occupational status: retired Data Anesthesia Cardiac Studies: No Data to Display
[2020-06-16] MEDS: sodium chloride 0.9% 1,000 ML 30 ML IV (11:29)
[2020-06-16 11:32] LABS: Glucose Point of Care 132 mg/dL (70-110)
--- NOTE | 2020-06-16 11:59 | P.HPUD_ITS ---
Surgery/Procedure H&P Update DATE OF PROCEDURE: June 16, 2020 DATE H&P PERFORMED: 06/10/20 H&P UPDATE INFORMATION: I have reviewed H&P completed within last 30 days, I have examined patient prior to procedure, No changes to prior documentation and H&P is in [facility] on date indicated CHANGES TO PREVIOUS DOCUMENTATION: In addition to office visit above I also reviewed and applied 05/28/2020 office visit. She is off her blood thinners. No change in symptoms. No contraindications to proceeding with stent change and ESWL. PREOP DIAGNOSIS: Renal calculi status post emergency stenting PLANNED PROCEDURE: Operation Date: 06/16/20 12:00 Proposed Procedures p Cystoscopy [id number] N20.1(Not Applicable) - Dmitriy Spence MD s left Ureteral Stent Exchange(Left) - Dmitriy Spence MD s ESWL(Not Applicable) - Dmitriy Spence MD
[2020-06-16] MEDS: levofloxacin-dextrose 5 % 500 MG/100 ML PREMIX 100 MG IV (12:04)
--- NOTE | 2020-06-16 13:37 | SUR.PHASEI ---
1331 PT AWAKE ALERT DENIES PAIN AND NAUSEA, PT REMINDED NOT TO RUB HER EYES, VSS , GOOD RESP EFFORT NOTED.
--- NOTE | 2020-06-16 13:44 | P.OP_ITS ---
Operative Report Date of procedure: June 16, 2020 Pre-op Diagnosis: Renal calculi status post emergency stenting Post-op diagnosis: same Procedure Done: 1. Cystoscopy with left ureteral stent exchange Implants: 1. Left ureteral stent: 7 x 30 no string Specimens removed/disposition: None Pathology: none sent Surgeon: Bebe Piano Case And Bench Assembler: Lithotripsy Employee Benefits Manager: Clive Sethi Anesthesia: General Estimated blood loss: None Urine output: Not measured Complications: None Findings: 1. Stent exchanged without difficulty. 2. Left upper pole stone demonstrate excellent fragmentation. 3. Left lower pole stone showed some fragmentation. Condition: stable Disposition: PACU Brief History: Sally is a very pleasant 64-year-old white female recently treated with obstructive pyelonephritis with emergency stenting and antibiotic therapy. She was found to have 2 large stones one of them obstructing at the UPJ pushed back into the kidney at time of stent placement. She is admitted today for stent change and treatment of the stones with ESWL. Based on the size of the stones it was anticipated that she will require more than 1 treatment and that was explained to the patient and her family preoperatively. Procedure: After routine preoperative evaluation examination and obtaining of informed consent she was taken to the operating suite on 06/16/2020 where general anesthesia was administered without difficulty after appropriate timeout was pe rformed, SCDs confirmed to be functioning, preoperative antibiotics administered, beta-myrtle protocol confirmed. Prepped and draped in usual sterile fashion in dorsolithotomy position paying careful attention to avoiding pressure points. 21 Romanian cystoscope with 30 degree lens was introduced into the urethral meatus and advanced into the bladder under videoscopy. The stent was easily identified with minimal encrustation. A flexible tip guidewire was advanced up the left ureter next to the stent curling in the upper pole calyx and the stent was then removed with grasping forceps. A 7 Romanian by 30 cm stent was then advanced over the guidewire into appropriate position as confirmed via fluoroscopy and cystoscopy. The patient was then repositioned in supine position on the Dornier unit such that the stones were located at the focal point with the therapy head positioned anteriorly. Initial treatment was instituted on the upper pole stone at a rate of 70 and intensity of 1 later advanced to an intensity of 4. A several minute pause was conducted after approximately 300 shocks. A total of 3000 shocks were administered essentially splitting the therapy between the 2 stones with excellent change of the upper pole stone and to a degree lesser change of the lower pole stone. She tolerated the procedure well without complications and was awakened in the operating room and returned to the recovery room in stable condition. PLANS: 1. Anticipate discharge from outpatient surgery 2. Follow-up in approximately 1 week with a KUB 3. Strain all voids. Bring specimens in for analysis.
--- NOTE | 2020-06-16 14:10 | ANE.PACU2 ---
Inpatient post-anesthesia follow up: Airway intact: Yes Vital signs: Temperature 97.2 F Pulse Rate 80 Respiratory Rate 16 Blood Pressure 143/74 Pulse Oximetry 94 Oxygen Delivery Me thod Room Air Oxygen Flow Rate 8 Fraction of Inspir ed Oxygen Hydration adequate: Yes Nausea and vomiting: No Pain level: 1 Mental status: Baseline
--- NOTE | 2020-06-16 15:09 | SUR.PHASEII ---
labs drawn. plan of care explained to patient and family.
== END 2020-06-16 15:15 | disposition home or self-care (01) ==
PROVIDERS: PCP Family Medicine; Visit Provider Urology
PROC: 0TJB8ZZ Inspection of Bladder, Via Natural or Artificial Opening Endoscopic (ICD-10-PCS; CPT 52000; principal; 2020-06-16 12:00)
PROC: (CPT 52332; 2020-06-16 12:00)
PROC: (CPT 50590; 2020-06-16 12:00)
DX: N20.0 Calculus of kidney (principal); I10 Essential (primary) hypertension; E11.9 Type 2 diabetes mellitus without complications; E66.01 Morbid (severe) obesity due to excess calories; Z68.42 Body mass index [BMI] 45.0-49.9, adult; K21.9 Gastro-esophageal reflux disease without esophagitis; Z85.89 Personal history of malignant neoplasm of other organs and systems; Z85.72 Personal history of non-Hodgkin lymphomas; G47.33 Obstructive sleep apnea (adult) (pediatric); Z85.828 Personal history of other malignant neoplasm of skin; Z79.82 Long term (current) use of aspirin; Z79.84 Long term (current) use of oral hypoglycemic drugs
CPT/HCPCS: 52332; 12345; 36416; 74018; 82962; C2625; J0330; J1956; J2405; J2704; J3010; J7030

== ENCOUNTER 2020-06-23 07:08 | Outpatient (CLI) | payer MEDICARE, OTHER, SELFPAY ==
--- NOTE | 2020-06-23 07:00 | XR_ITS ---
WS: [id number] ABDOMEN: SUPINE FILM HISTORY: UROLITHIASIS COMPARISON: 06/16/2020 Extensive vascular calcifications in the splenic artery. Calcific densities in the LEFT abdomen may b e soft tissue or diverticula. Advanced degenerative changes in the lumbar spine. Marked increased scl erosis in bone density. PET/CT from 05/24/2020 report was reviewed and negative for metastatic diseas e. Right kidney: No renal or ureteral stone identified. Left kidney: LEFT ureteral double pigtail stent. 7.4 mm calcification at the L4 level adjacent to the stent. There is a calcification projecting over the lower pole the LEFT kidney which is not as well visualized today due to motion. This may or may not be in the kidney. XR/XR KUB [id number] IMPRESSION: 1. Satisfactory position of the double pigtail LEFT ureteral stent. 2. Single 7.4 mm calcification adjacent to the mid stent.
== END 2020-06-23 07:09 | disposition home or self-care (01) ==
LOC: RAD 07:17
PROVIDERS: PCP Family Medicine; Visit Provider Urology
DX: N20.9 Urinary calculus, unspecified (principal); Z96.0 Presence of urogenital implants
CPT/HCPCS: 74018; 82365; 88300

== ENCOUNTER 2020-06-30 07:32 | Outpatient (CLI) | payer MEDICARE, OTHER, SELFPAY ==
--- NOTE | 2020-06-30 07:39 | XR_ITS ---
WS: [id number] Exam: XR KUB [id number] Date/Time of Exam: 06/30/2020 7:40 AM Reason For Exam: Stones Exam: XR KUB [id number] Date/Time of Exam: 06/30/2020 7:40 AM Reason For Exam: Stones Comparison 06/23/2020. A left-sided ureteral stent is in place appearing to be in satisfactory location. Calcifications supe rimpose the lower pole of the left kidney and most likely represent renal calculi. Marked degenerativ e change and spondylosis of the lumbar spine. Bony sclerosis of the L-spine, hips and SI joints. Mode rate amount of stool in the right colon. Extensive atherosclerotic plaquing of the splenic artery. No acute abdominal process. Signs of prior cholecystectomy. XR/XR KUB [id number] IMPRESSION: 1. Left ureteral stent appearing to be in appropriate location. 2. Additional nonacute findings as above. 3. Calcifications superimposing the lower pole the left kidney most likely eladio l calculi.
== END 2020-06-30 07:33 | disposition home or self-care (01) ==
LOC: RAD 07:37
PROVIDERS: PCP Family Medicine; Visit Provider Urology
DX: Z96.0 Presence of urogenital implants (principal); N20.2 Calculus of kidney with calculus of ureter
CPT/HCPCS: 74018; 81003; 82365; 87635; 88300

== ENCOUNTER 2020-07-07 10:23 | Day surgery (SDC) | payer MEDICARE, OTHER, SELFPAY ==
--- NOTE | 2020-07-04 11:32 | ECG_ITS ---
[facility] Test Date: 2020-07-04 Pat Name: Aylin Dietz Department: Room: Gender: Female Housing Coordinator: : 1955 Requested By: Saud Hernandez Order Number: [id number] Jeffy MD: Ashanti Mcarthur M.D. Measurements Intervals [place] Rate: 97 P: 52 MA: 215 QRS: -21 QRSD: 106 T: 31 QT: 341 QTc: 435 Interpretive Statements SINUS RHYTHM WITH FIRST DEGREE AV BLOCK BORDERLINE LEFT AXIS DEVIATION [QRS AXIS < -20] MODERATE VOLTAGE CRITERIA FOR LVH, CONSIDER NORMAL VARIANT [MEETS CRITERIA IN ONE OF: R(aVL), S(V1), R(V5), R(V5/V6)+S(V1)] Compared to ECG 05/10/2020 02:58:00 First degree AV block now present Atrial fibrillation no longer present Intraventricular conduction delay no longer present T-wave abnormality no longer present Electronically Signed On 07-04-2020 22:25:28 COMPUTER ASSISTANT by Ashanti Mcarthur M.D. [email or web address]
[2020-07-04 11:33] VITALS: BMI 45.5
--- NOTE | 2020-07-04 14:25 | ANES.PREANE2 ---
Pre-Anesthetic Assessment Pre-Anesthetic Assessment: Height/Weight: Height 1.71 m Weight 133.81 kg Preop Diagnosis: Renal calculi status post emergency stenting Proposed Procedure: Operation Date: 07/07/20 12:00 Proposed Procedures p ESWL 55365 N20.9(Left) - Dmitriy Spence MD Familial anesthetic complications: None Was Beta Merle taken within 24 hours: N/A Social: Social History: No alcohol and No tobacco Exam: Pre-Anes Outpt Exam: alert, oriented x 3, clear to auscultation bilaterally and regular rate & rhythm Airway: Submandibular: WNL Cervical ROM: WNL MP: 2 Dentition: Full CV/HEM: CV/HEM: CHF (Functional status OK) and HTN Comments: MVR GI: GI: GERD Metabolic: Metabolic: DM PFSH Anesthesia PFSH: Medical History GERD (gastroesophageal reflux disease) History of endometrial cancer History of follicular lymphoma History of lymphoma History of rheumatoid arthritis Hypertension Mitral valve regurgitation Obstructive pyelonephritis Obstructive sleep apnea Sepsis Skin cancer Tonsillectomy planned Tricuspid valve regurgitation Surgical History History of bladder suspension procedure History of carpal tunnel release History of total abdominal hysterectomy and bilateral salpingo-oophorectomy History of tubal ligation S/P panniculectomy S/P skin biopsy Family History Other CAD (coronary artery disease) Cancer Hypertension Social History Smoking and tobacco status: never smoked Alcohol intake: never Marital status: Current occupational status: retired Data Anesthesia Cardiac Studies: No Data to Display
--- NOTE | 2020-07-07 10:25 | XR_ITS ---
WS: [id number] ABDOMEN 1 VIEW(S) HISTORY: Preop ESWL left lower pole calculus COMPARISON: 06/30/2020 LEFT ureteral double pigtail stent catheter remains in good position. There are numerous calcificatio ns in the LEFT true pelvis. These calcifications may or may not be within the ureter. Some of the salomón cifications or distal and displaced from the ureter. Heavy calcification in the splenic artery. Degenerative facet disease in the lower lumbar spine. XR/XR KUB [id number] IMPRESSION: 1. LEFT ureteral stent remains unchanged in position. 2. Difficult to identified and localized calcifications in the LEFT kidney and LEFT true pelvis.
[2020-07-07 10:51] VITALS: BP 158/87; PULSE 94; RESP 18; TEMP 36.6; O2SAT 97
[2020-07-07] MEDS: sodium chloride 0.9% 1,000 ML 30 ML IV (11:21)
--- NOTE | 2020-07-07 11:36 | P.ANESUD_ITS ---
Pre-Anesthetic Update Pre-Anesthetic Assessment: Date of Surgery/Procedure: 07/07/20 Preop Agatha gnosis: Left lower pole renal calculus Proposed Procedure: Operation Date: 07/07/20 12:00 Proposed Procedures p ESWL 70426 N20.9(Left) - Dmitriy Spence MD Any changes to Pre-Anesthetic Assessment?: No Last Intake: Intake Last Liquid Date 07/06/20 Last Liquid Time 22:00 Last Solid Date 07/05/20 Last Solid Time 18:00 Vitals: Temperature 97.9 F 07/07/20 10:51 Temperature Source Temporal Artery S can 07/07/20 10:51 Pulse Rate 94 07/07/20 10:51 Respiratory Rate 18 07/07/20 10:51 Blood Pressure 158/87 07/07/20 10:51 Blood Pressure Juju n 110 07/07/20 10:51 Pulse Oximetry 97 07/07/20 10:51 Oxygen Delivery Me thod 07/07/20 10:53 Exam: Pre-Anes Outpt Exam: alert, oriented x 3, clear to auscultation bilaterally and regular rate & rhythm Cardiac Studies: No Data to Display
--- NOTE | 2020-07-07 12:11 | P.HPUD_ITS ---
Surgery/Procedure H&P Update DATE OF PROCEDURE: July 07, 2020 DATE H&P PERFORMED: 06/30/20 H&P UPDATE INFORMATION: I have reviewed H&P completed within last 30 days, I have examined patient prior to procedure, No changes to prior documentation and H&P is in [facility] EMR on date indicated PREOP DIAGNOSIS: Left lower pole renal calculus PLANNED PROCEDURE: Operation Date: 07/07/20 12:00 Proposed Procedures p ESWL 85288 N20.9(Left) - Dmitriy Spence MD
[2020-07-07] MEDS: levofloxacin-dextrose 5 % 500 MG/100 ML PREMIX 100 MG IV (12:30)
[2020-07-07 13:15] VITALS: BP 177/82; PULSE 109; RESP 16; TEMP 36.2; O2SAT 100
[2020-07-07 13:20] VITALS: BP 139/87; PULSE 101; RESP 20; O2SAT 97
--- NOTE | 2020-07-07 13:22 | PM.OP ---
Operative Report Date of procedure: July 07, 2020 Pre-op Diagnosis: Left lower pole renal calculus Post-op diagnosis: same Procedure Done: 1. Extracorporeal shockwave lithotripsy to LLP stone Pathology: none sent Surgeon: Bebe Electric Motor Tester Assembler: Tuch: Navdeep Anesthesia: General Urine output: Not measured Complications: None Findings: Stone easily identified. Treated with 2000 shocks with excellent change. Cannot identify any significant fragments at the completion. Condition: stable Disposition: PACU Brief History: Mrs. Dietz is a very pleasant 64-year-old white female who previously was treated for obstructive pyelonephritis and a stent was placed and antibiotics initiated. She recovered well from the infectious complications and has since undergone a single ESWL with eradication of the larger of the 2 stones that were identified at diagnosis. She has remaining left lower pole stone and is back now for treatment for that. Stent still remains in place. No further infectious concerns. Procedure: After routine preoperative evaluation examination and obtaining of informed consent she was taken to the operating suite on 07/07/2020 where general anesthesia was administered without difficulty after appropriate timeout was performed, SCDs confirmed to be functioning, preoperative antibiotics administered, beta-myrtle protocol confirmed. Positioned on the Dornier unit in supine position such that the stone was located at the focal point. The shock head was positioned anteriorly. The stone can be easily identified in the left lower pole. Some other areas that look like might have been stones in the area of the proximal ureter on the KUB preoperatively were not identified with careful investigation. Shockwave was initiated intensity of 1 and advanced an intensity of 4. Initial rate was 70. There was a several minute pause after about 300 shocks. Early change was noted. After the stone had dramatically changed the rate was increased to 90. She tolerated the procedure well without complications and was awakened in the operating room and returned to the recovery room in stable condition. PLANS: 1. Anticipate discharge from outpatient surgery 2. Follow-up later this week for KUB and possible cystoscopy with stent removal.
[2020-07-07 13:25] VITALS: BP 113/78; PULSE 104; RESP 18; TEMP 36.2; O2SAT 95
[2020-07-07 13:28] VITALS: BP 152/88; PULSE 102; RESP 16; TEMP 36.2; O2SAT 93
[2020-07-07 13:43] VITALS: BP 152/88; PULSE 93; RESP 16; O2SAT 94
--- NOTE | 2020-07-07 16:25 | ANE.PACU2 ---
Inpatient post-anesthesia follow up: Airway intact: Yes Vital signs: Temperature 97.1 F Pulse Rate 93 Respiratory Rate 16 Blood Pressure 152/88 Pulse Oximetry 94 Oxygen Delivery Me thod Room Air Oxygen Flow Rate 6 Fraction of Inspir ed Oxygen Hydration adequate: Yes Nausea and vomiting: No Pain level: 2 Mental status: Baseline
== END 2020-07-07 13:57 | disposition home or self-care (01) ==
PROVIDERS: PCP Family Medicine; Visit Provider Urology
PROC: (CPT 50590; principal; 2020-07-07 12:00)
DX: N20.0 Calculus of kidney (principal); I11.0 Hypertensive heart disease with heart failure; I50.9 Heart failure, unspecified; K21.9 Gastro-esophageal reflux disease without esophagitis; E11.9 Type 2 diabetes mellitus without complications; Z85.89 Personal history of malignant neoplasm of other organs and systems; G47.33 Obstructive sleep apnea (adult) (pediatric); Z79.82 Long term (current) use of aspirin
CPT/HCPCS: 50590; 12345; 74018; 93005; J1100; J1956; J2405; J2704; J2710; J3010; J3490; J7030

== ENCOUNTER 2020-07-08 08:55 | Outpatient (CLI) | payer MEDICARE, OTHER, SELFPAY ==
[2020-07-08 09:33] LABS: Basophils % 0.4 %; Hematocrit 38.4 % (37.0-47.0); Hemoglobin 12.3 g/dL (11.5-15.3); Lymphocytes # 0.8 10^3/uL (0.8-4.8); Lymphocytes % 11.2 %; Mean Corpuscular Hemoglobin 28.8 pg (28.0-34.0); Mean Corpuscular Volume 89.9 fL (81-99); Mean Platelet Volume 9.8 fL (7.4-10.4); Monocytes # 0.5 10^3/uL (0.2-0.9); Monocytes % 7.3 %; Neutrophils # 5.36 10^3/uL (1.8-7.7); Neutrophils % 80.4 %; Nucleated Red Blood Cells % 0 %; Platelet Count 197 10^3/cmm (130-400); Red Blood Count 4.27 10^6/uL (4.1-5.3); Red Cell Distribution Width 13.7 % (12.1-15.1); White Blood Count 6.7 10^3/uL (4.0-10.0)
[2020-07-08 09:55] LABS: Alanine Aminotransferase 17 U/L (0-33); Albumin Level 4.1 g/dL (3.5-5.2); Alkaline Phosphatase 76 IU/L (35-105); Anion Gap 15.8 (5-19); Aspartate Amino Transferase 20 U/L (0-32); Blood Urea Nitrogen 14 mg/dL (8-23); Calcium 9.5 mg/dL (8.5-10.5); Carbon Dioxide 23 mmol/L (22-29); Chloride 104 mmol/L (98-107); Globulin 2.8 g/dL (1.3-4.6); Glomerular Filtration Rate 83.7 mL/min (90-130); Glucose 151 mg/dL (65-115); Lactate Dehydrogenase 165 U/L (135-214); Osmolality Calculated 291 mOsm/kg (285-295); Potassium 3.8 mmol/L (3.5-5.1); Sodium 139 mmol/L (136-145); Total Bilirubin 1.1 mg/dL (0.15-1.2); Total Protein 6.9 g/dL (6.6-8.7)
--- NOTE | 2020-07-09 07:22 | ONC FU_ITS ---
Dr. García Patient Follow-Up Note Patient: Aylin Dietz Unit #: [id number]: 1955 Dicatated By: Paco García M.D.Date of Visit:Jul 08, 2020 Onc Med Follow-up/Prog Note Chief Complaint: Lymphoma. 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 She has a history of having undergone treatment for lymphoma by Dr. Ghulam Coon in [place]. It was initially diagnosed in 1991. I do not have the records, the based on the patient's description, it was probably low-grade. It had progressed on light chemotherapy, following which she had 6 cycles of treatment with an Adriamycin containing regimen, I assume CHOP, completed sometime in 1992. She had complete response, previously with no evidence of recurrence. Her medical history is otherwise significant for rheumatoid arthritis, initially diagnosed in 1982. Her RA has been well controlled on long-term therapy with methotrexate. Her other medical illnesses include hypertension, GERD, and obstructive sleep apnea. In December 2016 she was found to have low-grade endometrial carcinoma, for which she underwent hysterectomy/bilateral salpingo-oophorectomy. She did not require any additional treatment. She also has had multiple skin cancers excised. She is a nonsmoker. Sometime around May or June she became aware of a knot in her right cheek. It wasn't visible, but she could feel it with her finger or her tongue. A neck CT on 09/26/2018 showed an enlarged lymph node on the right side of the face measuring 1.9 x 1.2 cm. There was a suggestion of fullness and soft tissue lesion in the right pouting tonsil measuring approximately 1.3 x 1.1 cm. The parotid glands appeared normal, and there appeared to be normal sized intraparotid lymph nodes. She was referred to Dr. Garcia. An initial FNA biopsy of the cheek mass was nondiagnostic. She was then referred to Dr. Faustina Martinez at [facility]. On 12/04/2018 she underwent right superficial parotidectomy, level IIA and posterior level IB right neck dissection, and excision of the right buccal mass. The parotid gland showed no histopathologic abnormalities and the intraparotid lymph nodes showed reactive lymphoid hyperplasia with no morphologic evidence of lymphoma. 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 The neck dissection showed no involvement in 13 lymph nodes. I had seen her initially on 01/04/2019. Her staging PET/CT on 01/06/2019 showed a poorly defined right parotid soft tissue lesion measuring approximately 1.7 x 3.0 cm with SUV 3.6, felt to be consistent with lymphoma. A second FDG positive mass was noted in the subcutaneous fat overlying the left maxilla measuring 1.4 x 0.8 cm. There were multiple FDG positive mediastinal lymph nodes with possible paralysis of the left vocal cord. There were 2 semisolid nodules in the right upper lobe, with the dominant lesion measuring 1.1 cm of SUV 2.0, felt to be inflammatory. With low-grade lymphoma in the setting of long-term methotrexate therapy, she was recommended to stop the methotrexate and otherwise just continue on observation/expectant management. Her medical illnesses, in addition to rheumatoid arthritis, include hypertension, GERD, and obstructive sleep apnea. She has additional history of having undergone hysterectomy/bilateral salpingo-oophorectomy for low-grade endometrial cancer in 2017. She also has had multiple skin cancers excised. She is a nonsmoker. INTERIM HISTORY: Her repeat neck CT on 04/12/2019 showed evidence of partial right neck dissection and removal of the right parotid gland with appropriate appearing postsurgical changes. There are no new lymph nodes identified, but there was a new soft tissue fullness noted in the right paraglottic space measuring 19 x 12 mm. She was seen again by Dr. Garcia and her flexible laryngoscopy showed no significant abnormality. Repeat CT of the neck on 05/16/2019 showed evidence of soft tissue thickening/mass involving the right paraglottic space extending to the right vocal cord, unchanged from the prior study. There was severe central canal stenosis in the cervical spine at C5-C6, also unchanged. Partially visualized patchy opacities were noted in the right lung apex. There was no cervical lymphadenopathy. Restaging CT sans of the chest, abdomen, and pelvis on 08/03/2019 showed diminished size and number of groundglass opacities in the right lung. The left lung opacities also had diminished slightly in size. The mediastinal adenopathy remained unchanged. There was no axillary adenopathy noted. The spleen remained slightly increased in size. There was no adenopathy in the abdomen/pelvis. She continued observation/expectant management. Repeat CT scans of the chest, abdomen, and pelvis on 01/30/2020 showed continued slow improvement in the groundglass opacifications and subsolid opacifications bilaterally as well as slight improvement in the mediastinal and hilar lymph nodes. The largest AP window lymph node measured 10 mm. There was unchanged mild splenomegaly. There is no mesenteric or retroperitoneal adenopathy identified. Her repeat neck CT scan on 02/01/2020 showed interval increase in the right paraglottic space mass with slight extension across the midline and with narrowing of the vallecula. The mass measured 1.5 x 0.7 cm. There is no associated adenopathy. With that finding she was referred to Dr. Garcia. On 04/23/2020 she underwent biopsy of the right base of tongue lesion. Pathology showed B-cell rich lymphoproliferative process. It was noted that the overall cytomorphologic and immunohistochemical features were worrisome for B-cell neoplasm and marginal zone lymphoma, in particular, was a consideration. A florid reactive process could not be entirely excluded. A restaging PET/CT on 05/24/2020 showed resolution of previously noted uptake in the right parotid gland but there was new FDG positive soft tissue at the right base of tongue measuring 1.0 cm, SUV 6.8. There is no significant change in the mediastinal adenopathy from the prior study. Previously noted right lung groundglass opacities and semisolid nodules were nearly resolved. In the meantime, on 05/08/2020 she had been admitted to the hospital with pyelonephritis/sepsis in association with a large obstructing left UPJ stone and a large renal calculus. She underwent cystoscopy with left ureteral stent placement. On 06/16/2020 she underwent replacement of the ureteral stent and ESWL of both stones. She underwent repeat ESWL of the lower pole renal calculus on 07/07/2020. She is seen now for a follow-up visit. She has been feeling better generally following her lithotripsy procedure yesterday. Her ECOG score is 1. She has good appetite. She has not had fever. She has just occasional sweating at night. She has had some sinus symptoms. She has a little bit of residual sore throat and cough from her endotracheal tube yesterday. She does not complain of shortness of breath or chest pain. She was having constipation, but that has resolved. She has no other GI complaints. She has had some blood in the urine, but she scheduled to have her ureteral stent removed on Tuesday. She has having a little more joint pain, mainly in her hands. She has a little bit of numbness on the ends of her fingers. She has no other focal neurologic symptoms. Medications: Aspirin 1 Tablet (of 81 mg) Oral daily, Calcium + D 1 Tablet Oral daily, Cardizem CD 1 (360 mg) Capsule SR 24 HR Oral daily, Cipro 1 (500 mg) Tablet Oral b.i.d., Eliquis 1 (5 mg) Tablet Oral b.i.d., Famotidine 1 Tablet (of 20 mg) Oral daily, Folic Acid 2 Tablet (of 1 mg) Oral daily, hydroCHLOROthiazide 1 Tablet (of 12.5 mg) Oral daily, Lipitor 1 Tablet (of 10 mg) Oral daily, Losartan Potassium 1 Tablet (of 50 mg) Oral daily, metFORMIN HCl 1 Tablet (of 500 mg) Oral daily, Multivitamin Adults 1 Tablet Oral daily, Naproxen 1 Tablet (of 500 mg) Oral daily PRN Allergies: No Known Allergies. Vital Signs: Weight is 293 pounds. Blood pressure 138/78, pulse 90, respirations 18, temp 99.1 degrees, oxygen saturation 96%. Physical Examination: Constitutional - She looks pretty good generally, Eyes - Sclerae nonicteric. Conjunctivae clear, ENMT - There are no lesions noted in the oral cavity, Hematologic/Lymphatic - Therapist some slight soft tissue swelling in the neck area. There is no cervical, clavicular, or axillary lymphadenopathy noted, Respiratory - Lungs are clear with good air movement bilaterally, Cardiovascular - Heart rhythm is regular. There is a II/ systolic murmur. There is no gallop or rub noted, Abdomen - Moderately distended but soft. Liver and spleen are not enlarged. There is no abdominal mass or ascites noted and there is no inguinal adenopathy, Extremities - No edema, Neurologic - No focal neurologic deficits noted. Lab/Imaging: Test performed on Jul 08, 2020 09:15 LDH (Total) 165 U/L Sodium 139 mmol/L Potassium 3.8 mmol/L Chloride 104 mmol/L CO2 23 mmol/L Anion Gap 15.8 BUN 14 mg/dL Creatinine 0.7 mg/dL Cr Clearance (Est) 174.8100 mL/min eGFR 83.7 mL/min Glucose 151 mg/dL Osmolality - Calculated 291 mOsm/kg Calcium 9.5 mg/dL Protein, Total 6.9 g/dL Albumin 4.1 g/dL Globulin 2.8 g/dL Bilirubin, Total 1.1 mg/dL ALT (SGPT) 17 U/L AST (SGOT) 20 U/L Alkaline Phosphatase 76 IU/L WBC 6.7 10 3/uL RBC 4.27 10 6/uL HGB 12.3 g/dL HCT 38.4 % MCV 89.9 fL MCH 28.8 pg MCHC 32.0 g/dL RDW 13.7 % Platelet Count 197 10 3/cmm MPV 9.8 fL Neutrophils 5.36 10 3/uL Lymphocytes 0.8 10 3/uL Monocytes 0.5 10 3/uL Eosinophils 0.0 10 3/uL Basophils 0.0 10 3/uL Neutrophil % 80.4 % Lymphocyte % 11.2 % Monocyte % 7.3 % Eosinophil % 0.0 % Basophils % 0.4 % NRBC % 0 % Problem List: 1. Grade 1-2 follicular lymphoma presenting as a right buccal mass. It developed in the setting of physician practice manager methotrexate therapy for rheumatoid arthritis. 2. She had previous chemotherapy for lymphoma in . This was probably also low-grade lymphoma. 3. Long-standing rheumatoid arthritis. 4. Hypertension. 5. GERD. 6. Obstructive sleep apnea. 7. She underwent hysterectomy/bilateral salpingo-oophorectomy for low-grade endometrial cancer in 2016. 8. She has had multiple skin cancers excised. 9. In May 2020 she had an episode of pyelonephritis/sepsis in association with nephrolithiasis. She has undergone placement of left ureteral stent and ESWL x 2. Problems Addressed with this Encounter and Plan: 1. Grade 1-2 follicular lymphoma presenting as a right buccal mass. It developed in the setting of physician practice manager methotrexate therapy for rheumatoid arthritis. She underwent right superficial parotidectomy, level IIA and posterior level IB right neck dissection and excision of right buccal mass on 12/04/2018. Her staging PET/CT did show residual activity in the right parotid area, and there also appeared to be involved mediastinal lymph nodes. However, in the setting of long-term methotrexate therapy, she was advised to stop the methotrexate and otherwise just be followed on observation/expectant management. Her repeat neck CT scan on 02/01/2020 showed interval increase in the right paraglottic space mass with slight extension across the midline and with narrowing of the vallecula. The mass measured 1.5 x 0.7 cm. There is no associated adenopathy. With that finding she was referred to Dr. Garcia. On 04/23/2020 she underwent biopsy of the right base of tongue lesion. Pathology showed B-cell rich lymphoproliferative process. It was noted that the overall cytomorphologic and immunohistochemical features were worrisome for B-cell neoplasm , but a florid reactive process could not be entirely excluded. A restaging PET/CT on 05/24/2020 showed resolution of previously noted uptake in the right parotid gland but there was new FDG positive soft tissue at the right base of tongue measuring 1.0 cm, SUV 6.8. There is no significant change in the mediastinal adenopathy from the prior study. Previously noted right lung groundglass opacities and semisolid nodules were nearly resolved. During this time she required treatment for the nephrolithiasis and associated pyelonephritis. Her clinical status has otherwise remained stable. Thus far by PET/CT the areas of involvement with her lymphoma are still very limited, and in the absence of any evidence of progression to a higher grade lymphoma, she can remain on observation/expectant management. I will see her again in 6 months, or sooner as needed. 2. Long-standing rheumatoid arthritis. Her joint pain has worsened somewhat since she has been off the methotrexate, but thus far it remains tolerable. Signed By: Paco García M.D. <<Signature on File>>
== END 2020-07-08 08:56 | disposition home or self-care (01) ==
LOC: ONCMED 09:00
PROVIDERS: PCP Family Medicine; Visit Provider Internal Medicine Medical Oncology
DX: C82.19 Follicular lymphoma grade II, extranodal and solid organ sites (principal); N20.0 Calculus of kidney; M06.9 Rheumatoid arthritis, unspecified
CPT/HCPCS: 36415; 80053; 83615; 85025; 99214

== ENCOUNTER 2020-07-11 09:32 | Outpatient (CLI) | payer MEDICARE, OTHER, SELFPAY ==
--- NOTE | 2020-07-11 09:30 | XR_ITS ---
WS: [id number] KUB, AP view, 07/11/2020 Clinical Data: UROLITHIASIS Comparison: KUB, 07/07/2020. Findings: The left ureteral stent remains in good position. Fecal material and gas obscure detail over both kid neys. There are left phleboliths in the true pelvis. Splenic artery shows abundant calcification. Degenerative change of the lumbar vertebral bodies is se milagros. XR/XR KUB [id number] Impression: 1. No change in left ureteral stent. 2. Multiple calcifications in left true pelvis.
== END 2020-07-11 09:33 | disposition home or self-care (01) ==
LOC: RAD 09:36
PROVIDERS: PCP Family Medicine; Visit Provider Urology
DX: N20.9 Urinary calculus, unspecified (principal); Z96.0 Presence of urogenital implants
CPT/HCPCS: 74018; 81003

== ENCOUNTER 2020-07-28 10:22 | Outpatient (CLI) | payer MEDICARE, OTHER, SELFPAY ==
--- NOTE | 2020-07-28 11:08 | ECG_ITS ---
[facility] Test Date: 2020-07-28 Pat Name: Aylin Dietz Department: Room: Gender: Female Hearing Officer: : 1955 Requested By: Vinh Pineda Order Number: [id number] Jeffy MD: Ashanti Mcarthur M.D. Measurements Intervals [place] Rate: 94 P: 46 WI: 217 QRS: -16 QRSD: 113 T: 66 QT: 349 QTc: 438 Interpretive Statements SINUS RHYTHM WITH FIRST DEGREE AV BLOCK WITH OCCASIONAL VENTRICULAR PREMATURE COMPLEXES POSSIBLE LEFT ATRIAL ENLARGEMENT [-0.1mV P WAVE IN V1/V2] LEFT VENTRICULAR HYPERTROPHY AND ST-T CHANGE [VOLTAGE CRITERIA PLUS ST/T ABNORMALITY] Compared to ECG 07/04/2020 11:42:05 ST (T wave) deviation now present Electronically Signed On 07-29-2020 6:10:19 [employer]IC [employer] SPECIALIST by Ashanti Mcarthur M.D. [id number]
[2020-07-28 11:20] LABS: Basophils # 0.1 10^3/uL (0.0-0.1); Basophils % 1.5 %; Eosinophils # 0.1 10^3/uL (0.0-0.8); Eosinophils % 2.9 %; Hematocrit 40.5 % (37.0-47.0); Hemoglobin 13.1 g/dL (11.5-15.3); Lymphocytes % 21.2 %; Mean Corpuscular HGB Conc 32.3 g/dL (30.0-36.0); Mean Corpuscular Hemoglobin 28.9 pg (28.0-34.0); Mean Corpuscular Volume 89.4 fL (81-99); Mean Platelet Volume 9.7 fL (7.4-10.4); Monocytes # 0.6 10^3/uL (0.2-0.9); Monocytes % 12.6 %; Neutrophils # 2.91 10^3/uL (1.8-7.7); Neutrophils % 61.2 %; Nucleated Red Blood Cells % 0 %; Platelet Count 166 10^3/cmm (130-400); Red Blood Count 4.53 10^6/uL (4.1-5.3); Red Cell Distribution Width 13.6 % (12.1-15.1); White Blood Count 4.8 10^3/uL (4.0-10.0)
[2020-07-28 11:40] LABS: Blood Urea Nitrogen 12 mg/dL (8-23); Calcium 9.9 mg/dL (8.5-10.5); Carbon Dioxide 25 mmol/L (22-29); Chloride 103 mmol/L (98-107); Glucose 135 mg/dL (65-115); Osmolality Calculated 290 mOsm/kg (285-295); Sodium 139 mmol/L (136-145)
== END 2020-07-28 10:23 | disposition home or self-care (01) ==
PROVIDERS: PCP Family Medicine; Visit Provider Specialist
DX: D38.0 Neoplasm of uncertain behavior of larynx (principal); Z01.810 Encounter for preprocedural cardiovascular examination
CPT/HCPCS: 36415; 80048; 85025; 93005

== ENCOUNTER 2020-08-06 12:34 | Outpatient (CLI) | payer MEDICARE, OTHER, SELFPAY ==
--- NOTE | 2020-08-06 15:30 | XR_ITS ---
WS: [id number] KUB, AP view, 08/06/2020 Clinical Data: Stones Comparison: KUB, 07/11/2020. Findings: The left ureteral catheter has been removed. No definite renal or ureteral calculi are seen. There are calcifications in the splenic artery. There is severe degenerative change of the lumbar spi ne. XR/XR KUB [id number] Impression: Removal of left ureteral catheter.
== END 2020-08-06 12:35 | disposition home or self-care (01) ==
LOC: RAD 12:41
PROVIDERS: PCP Family Medicine; Visit Provider Urology
DX: N20.9 Urinary calculus, unspecified (principal)
CPT/HCPCS: 74018; 81003

== ENCOUNTER 2020-08-20 09:15 | Outpatient (CLI) | payer MEDICARE, OTHER, SELFPAY ==
[2020-08-22 10:00] LABS: Miscellaneous Test See Scanned Lab Rpt
== END 2020-08-20 09:16 | disposition home or self-care (01) ==
LOC: LAB 09:16
PROVIDERS: PCP Family Medicine; Visit Provider Specialist
DX: D37.02 Neoplasm of uncertain behavior of tongue (principal)
CPT/HCPCS: 88184; 88185; 88305

== ENCOUNTER 2020-10-02 09:21 | Outpatient (CLI) | payer MEDICARE, OTHER, SELFPAY ==
--- NOTE | 2020-10-03 16:52 | ONC FU_ITS ---
Dr. García Patient Follow-Up Note Patient: Aylin Dietz Unit #: [id number]: 1955 Dicatated By: Paco García M.D.Date of Visit:Oct 02, 2020 Onc Med Follow-up/Prog Note Chief Complaint: Lymphoma. 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 She has a history of having undergone treatment for lymphoma by Dr. Ghulam Coon in [place]. It was initially diagnosed in 1991. I do not have the records, but based on the patient's description, it was probably low-grade. It had progressed on light chemotherapy, following which she had 6 cycles of treatment with an Adriamycin containing regimen, I assume CHOP, completed sometime in 1992. She had a complete response. Sometime around May 2018 or June 2018 she became aware of a knot in her right cheek. It wasn't visible, but she could feel it with her finger or her tongue. A neck CT on 09/26/2018 showed an enlarged lymph node on the right side of the face measuring 1.9 x 1.2 cm. There was a suggestion of fullness and soft tissue lesion in the right pouting tonsil measuring approximately 1.3 x 1.1 cm. The parotid glands appeared normal, and there appeared to be normal sized intraparotid lymph nodes. She was referred to Dr. Garcia. An initial FNA biopsy of the cheek mass was nondiagnostic. She was then referred to Dr. Faustina Martinez at [facility]. On 12/04/2018 she underwent right superficial parotidectomy, level IIA and posterior level IB right neck dissection, and excision of the right buccal mass. The parotid gland showed no histopathologic abnormalities and the intraparotid lymph nodes showed reactive lymphoid hyperplasia with no morphologic evidence of lymphoma. 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 The neck dissection showed no involvement in 13 lymph nodes. I had seen her initially on 01/04/2019. Her staging PET/CT on 01/06/2019 showed a poorly defined right parotid soft tissue lesion measuring approximately 1.7 x 3.0 cm with SUV 3.6, felt to be consistent with lymphoma. A second FDG positive mass was noted in the subcutaneous fat overlying the left maxilla measuring 1.4 x 0.8 cm. There were multiple FDG positive mediastinal lymph nodes with possible paralysis of the left vocal cord. There were 2 semisolid nodules in the right upper lobe, with the dominant lesion measuring 1.1 cm of SUV 2.0, felt to be inflammatory. With low-grade lymphoma in the setting of long-term methotrexate therapy, she was recommended to stop the methotrexate and otherwise just continue on observation/expectant management. Her medical illnesses, in addition to rheumatoid arthritis, include hypertension, GERD, and obstructive sleep apnea. She has additional history of having undergone hysterectomy/bilateral salpingo-oophorectomy for low-grade endometrial cancer in 2017. She also has had multiple skin cancers excised. She is a nonsmoker. INTERIM HISTORY: Her repeat neck CT on 04/12/2019 showed evidence of partial right neck dissection and removal of the right parotid gland with appropriate appearing postsurgical changes. There are no new lymph nodes identified, but there was a new soft tissue fullness noted in the right paraglottic space measuring 19 x 12 mm. She was seen again by Dr. Garcia and her flexible laryngoscopy showed no significant abnormality. Repeat CT of the neck on 05/16/2019 showed evidence of soft tissue thickening/mass involving the right paraglottic space extending to the right vocal cord, unchanged from the prior study. There was severe central canal stenosis in the cervical spine at C5-C6, also unchanged. Partially visualized patchy opacities were noted in the right lung apex. There was no cervical lymphadenopathy. Restaging CT sans of the chest, abdomen, and pelvis on 08/03/2019 showed diminished size and number of groundglass opacities in the right lung. The left lung opacities also had diminished slightly in size. The mediastinal adenopathy remained unchanged. There was no axillary adenopathy noted. The spleen remained slightly increased in size. There was no adenopathy in the abdomen/pelvis. She continued observation/expectant management. Repeat CT scans of the chest, abdomen, and pelvis on 01/30/2020 showed continued slow improvement in the groundglass opacifications and subsolid opacifications bilaterally as well as slight improvement in the mediastinal and hilar lymph nodes. The largest AP window lymph node measured 10 mm. There was unchanged mild splenomegaly. There was no mesenteric or retroperitoneal adenopathy identified. Her repeat neck CT scan on 02/01/2020 showed interval increase in the right paraglottic space mass with slight extension across the midline and with narrowing of the vallecula. The mass measured 1.5 x 0.7 cm. There was no associated adenopathy. With that finding she was referred to Dr. Garcia. On 04/23/2020 she underwent biopsy of the right base of tongue lesion. Pathology showed B-cell rich lymphoproliferative process. It was noted that the overall cytomorphologic and immunohistochemical features were worrisome for B-cell neoplasm, and marginal zone lymphoma, in particular, was a consideration. A florid reactive process could not be entirely excluded. A restaging PET/CT on 05/24/2020 showed resolution of previously noted uptake in the right parotid gland but there was new FDG positive soft tissue at the right base of tongue measuring 1.0 cm, SUV 6.8. There was no significant change in the mediastinal adenopathy from the prior study. Previously noted right lung groundglass opacities and semisolid nodules were nearly resolved. In the meantime, on 05/08/2020 she had been admitted to the hospital with pyelonephritis/sepsis in association with a large obstructing left UPJ stone and a large renal calculus. She underwent cystoscopy with left ureteral stent placement. On 06/16/2020 she underwent replacement of the ureteral stent and ESWL of both stones. She underwent repeat ESWL of the lower pole renal calculus on 07/07/2020. On 08/20/2020 she underwent direct laryngoscopy with biopsy of right base of tongue lesion by Dr. Garcia. Pathology was consistent with follicular lymphoma, grade 3A. She is seen now for a follow-up visit. Her mouth was initially sore following the biopsy last month, but that is better now. She has been feeling pretty good generally. She is walking and doing light housework. ECOG score is 1. She has good appetite. She has not had fever. She does have some hot flashes and sweating. She recently has had some cough, attributable to allergies. She does not complain of shortness of breath or chest pain. She has no GI/ complaints other than mild constipation. She does report having some soreness in her hands. Her joint pain has overall not been bad. She does not complain of headache or dizziness. She does have some numbness in her fingers. Medications: Aspirin 1 Tablet (of 81 mg) Oral daily, Calcium + D 1 Tablet Oral daily, Cardizem CD 1 (360 mg) Capsule SR 24 HR Oral daily, Eliquis 1 (5 mg) Tablet Oral b.i.d., Famotidine 1 Tablet (of 20 mg) Oral daily, Folic Acid 2 Tablet (of 1 mg) Oral daily, Lipitor 1 Tablet (of 10 mg) Oral daily, metFORMIN HCl 1 Tablet (of 500 mg) Oral daily, Multivitamin Adults 1 Tablet Oral daily, Naproxen 1 Tablet (of 500 mg) Oral daily PRN Allergies: No Known Allergies. Vital Signs: Performed on Oct 02, 2020 09:45 Height - 67.50 in Weight - 296.4 lbs (LOW) BSA - 2.40 sq.m BMI - 45.74 (HIGH) Temperature - 98.7 F Pulse - 86 /min Respiration - 18 /min BP - 148/69 mm(hg) (HIGH) O2 Sat - 96 % Pain - 0 Fatigue - 0 Physical Examination: Constitutional - She looks pretty good generally, Eyes - Sclerae nonicteric. Conjunctivae clear, ENMT - There are no lesions noted in the oral cavity, Hematologic/Lymphatic - There is no cervical, clavicular, or axillary lymphadenopathy noted, Respiratory - Lungs are clear with good air movement bilaterally, Cardiovascular - Heart rhythm is regular. There is a II/ systolic murmur. There is no gallop or rub noted, Abdomen - Moderately distended. Liver and spleen are not enlarged. There is no abdominal mass or ascites noted and there is no inguinal adenopathy, Extremities - No edema, Neurologic - No focal neurologic deficits noted. Problem List: 1. Grade 1-2 follicular lymphoma presenting as a right buccal mass. It developed in the setting of half-way methotrexate therapy for rheumatoid arthritis. 2. She had previous chemotherapy for lymphoma in . This was probably also low-grade lymphoma. 3. Long-standing rheumatoid arthritis. 4. Hypertension. 5. GERD. 6. Obstructive sleep apnea. 7. She underwent hysterectomy/bilateral salpingo-oophorectomy for low-grade endometrial cancer in 2017. 8. She has had multiple skin cancers excised. 9. In May 2020 she had an episode of pyelonephritis/sepsis in association with nephrolithiasis. She has undergone placement of left ureteral stent and ESWL x 2. 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 It developed in the setting of half-way methotrexate therapy for rheumatoid arthritis. She underwent right superficial parotidectomy, level IIA and posterior level IB right neck dissection and excision of right buccal mass on 12/04/2018. Her staging PET/CT did show residual activity in the right parotid area, and there also appeared to be involved mediastinal lymph nodes. However, in the setting of long-term methotrexate therapy, she was advised to stop the methotrexate and otherwise just be followed on observation/expectant management. Her repeat neck CT scan on 02/01/2020 showed interval increase in the right paraglottic space mass with slight extension across the midline and with narrowing of the vallecula. The mass measured 1.5 x 0.7 cm. There is no associated adenopathy. With that finding she was referred to Dr. Garcia. On 04/23/2020 she underwent biopsy of the right base of tongue lesion. Pathology showed B-cell rich lymphoproliferative process. It was noted that the overall cytomorphologic and immunohistochemical features were worrisome for B-cell neoplasm , but a florid reactive process could not be entirely excluded. A restaging PET/CT on 05/24/2020 showed resolution of previously noted uptake in the right parotid gland but there was new FDG positive soft tissue at the right base of tongue measuring 1.0 cm, SUV 6.8. There was no significant change in the mediastinal adenopathy from the prior study. Previously noted right lung groundglass opacities and semisolid nodules were nearly resolved. On 08/21/2019 when she underwent direct laryngoscopy with biopsy of the right base of tongue lesion. Pathology was consistent with follicular lymphoma, grade 3A. With that finding, she clearly has had progressive disease despite having stopped the methotrexate. 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 Overall, the pathology and the PET SUV are still consistent with low-grade disease. However, with obvious disease progression I think she should start treatment. I gave her the option to proceed with a course of treatment with bendamustine/rituximab or to see one of the lymphoma specialist at [facility] for second opinion evaluation. She is going to let me know what she decides. Prior to initiating any treatment she will require placement of Port-A-Cath venous access device, and that will be arranged with Dr. Muir. Signed By: Paco García M.D. <<Signature on File>>
== END 2020-10-02 09:22 | disposition home or self-care (01) ==
LOC: ONCMED 09:25
PROVIDERS: PCP Family Medicine; Visit Provider Internal Medicine Medical Oncology
DX: C82.18 Follicular lymphoma grade II, lymph nodes of multiple sites (principal); M06.9 Rheumatoid arthritis, unspecified; I10 Essential (primary) hypertension; K21.9 Gastro-esophageal reflux disease without esophagitis; G47.33 Obstructive sleep apnea (adult) (pediatric); Z85.41 Personal history of malignant neoplasm of cervix uteri; Z85.828 Personal history of other malignant neoplasm of skin; Z79.899 Other long term (current) drug therapy; Z92.21 Personal history of antineoplastic chemotherapy; Z79.52 Long term (current) use of systemic steroids
CPT/HCPCS: 99214

== ENCOUNTER → 2020-10-27 11:44 | Outpatient (BNVA) | payer MEDICARE, OTHER, SELFPAY | PROVIDERS: PCP Family Medicine; Visit Provider Surgery | DX: Z01.812 Encounter for preprocedural laboratory examination (principal); Z20.822 Contact with and (suspected) exposure to COVID-19 | CPT/HCPCS: 87635 ==

== ENCOUNTER 2020-10-30 08:09 | Day surgery (SDC) | payer MEDICARE, OTHER, SELFPAY ==
[2020-10-29 15:08] VITALS: BMI 45.0
[2020-10-30] VITALS (7 sets, daily range): BP systolic 95–138; BP diastolic 43–90; PULSE 70–89; RESP 12–18; TEMP 36.2–37.2; O2SAT 95–99
--- NOTE | 2020-10-30 | SCC_ITS ---
Procedure Done: Port-A-Cath placement into the right subclavian vein with intraoperative fluoroscopy interpretation. 6.7 seconds of fluoroscopic guidance, for a cumulative dose of 1.61 mGy, was provided to Dr. Muir by the radiology department. C-arm images of the chest were saved for the patient's permanent record. LILY
--- NOTE | 2020-10-30 08:48 | ANES.PREANE2 ---
Pre-Anesthetic Assessment Pre-Anesthetic Assessment: Height/Weight: Height 1.73 m Weight 134.263 kg Temp Pulse Resp BP Pulse Ox 98.9 F 89 18 138/90 96 10/30/20 08:36 10/30/20 08:36 10/30/20 08:36 10/30/20 08:36 10/30/20 08:36 Preop Diagnosis: Left lower pole renal calculus Proposed Procedure: Operation Date: 10/30/20 09:45 Proposed Procedures p Portacath Placement 49848 C82.90(Not Applicable) - Robb Muir MD Last intake: Intake Last Liquid Date 10/29/20 Last Liquid Time 20:30 Last Solid Date 10/29/20 Last Solid Time 20:30 Airway: MP: 3 Dentition: Full Pulmonary: Pulmonary: Sleep apnea CV/HEM: CV/HEM: Afib (on eliquis - held since ) and HTN Comments: took diltiazem this morning 2019 echo CONCLUSIONS 1-Normal left ventricular cavity size. Normal left ventricular systolic function. Left ventricular ejection fraction is estimated at 61 %. Due to atrial fibrillation diastolic function cannot be assessed accurately. 2-Moderate aortic valve calcification. Mild aortic valve restriction without significant stenosistrace aortic valve regurgitation. 3-Moderately increased left atrial size. 4-Moderately thickened mitral valve. Moderate mitral annular calcification. No mitral valve stenosis. Moderate mitral valve regurgitation. 7-Utty-qo-moderate tricuspid valve regurgitation. 6-There is no pericardial effusion. 7-Right atrial pressure is around 5 mm of mercury. 8-When compared to the prior echocardiogram dated January 12, 2017 patient is in atrial fibrillation now GI: GI: GERD Metabolic: Metabolic: DM, Hyperlipidemia and Morbid obesity Musc/skel: Musc/skel: RA Anesthetic Plan: ASA status: 3 Anesthesia: MAC Risk of > 500 ml blood loss (7ml/kg in children): No PFSH Anesthesia PFSH: Medical History GERD (gastroesophageal reflux disease) History of endometrial cancer History of follicular lymphoma History of lymphoma History of rheumatoid arthritis Hypertension Mitral valve regurgitation Obstructive pyelonephritis Obstructive sleep apnea Sepsis Skin cancer Tonsillectomy planned Tricuspid valve regurgitation Surgical History History of bladder suspension procedure History of carpal tunnel release History of total abdominal hysterectomy and bilateral salpingo-oophorectomy History of tubal ligation S/P panniculectomy S/P skin biopsy Family History Mother , at age 66 Non Hodgkin's lymphoma Father Heart disease Diabetes Other CAD (coronary artery disease) Cancer Hypertension Social History (System 08/18/20 @ 15:12 by Calista Tinajero) Smoking and tobacco status: never smoked Alcohol intake: never Marital status: Current occupational status: retired History of recent travel: No Data Anesthesia Cardiac Studies: No Data to Display
[2020-10-30] MEDS: sodium chloride 0.9% 1,000 ML 30 ML IV (08:51)
--- NOTE | 2020-10-30 08:51 | W.PM.OPSUD ---
Surgery/Procedure H&P Update DATE OF PROCEDURE: October 30, 2020 DATE H&P PERFORMED: 10/21/20 H&P UPDATE INFORMATION: No changes to prior documentation PREOP DIAGNOSIS: Follicular lymphoma. PLANNED PROCEDURE: Operation Date: 10/30/20 09:45 Proposed Procedures p Portacath Placement 60728 C82.90(Not Applicable) - Robb Muir MD
[2020-10-30 08:52] LABS: Glucose Point of Care 141 mg/dL (70-110)
--- NOTE | 2020-10-30 09:20 | SC_ITS ---
WS: [id number] C-ARM RADIOGRAPHS CHEST; 2 IMAGES HISTORY: PORTACATH PLACEMENT COMPARISON: None available. Intraoperative imaging during Port-A-Cath placement. SC/C-arm FL for CVA [id number] IMPRESSION: Intraoperative imaging during Port-A-Cath placement.
[2020-10-30] MEDS: ceFAZolin 3,000 MG in sodium chloride 0.9% (100 ml) 100 ML 200 MG IV (09:45)
[2020-10-30] MEDS: heparin, porcine 1,000 unit/mL INJ 10 mL 2000 UNIT XX (10:22)
--- NOTE | 2020-10-30 10:22 | PM.OP ---
Operative Report Date of procedure: October 30, 2020 Pre-op Diagnosis: Follicular lymphoma. Post-op diagnosis: same Procedure Done: Port-A-Cath placement into the right subclavian vein with intraoperative fluoroscopy interpretation. Pathology: none sent Surgeon: Robb Muir Anesthesia: MAC Estimated blood loss (mL): 5 Complications: None. Condition: stable Disposition: same day Procedure: The patient was brought to the Operating Room and was placed in a supine position on the operating room table. A monitored anesthetic was induced. The shoulders were extended by means of a posterior shoulder roll. The anterior surface of the chest and neck were prepped and draped in a sterile fashion. 1% lidocaine was used to anesthetize a small area underneath the right clavicle. The subclavian vein was accessed on the first pass with a needle and syringe as evidenced by the return of dark nonpulsatile blood. The J-wire was passed down the needle and the needle was removed. The C-arm was positioned and showed the wire extending down the vena cava. A site just inferiorly on the chest wall was anesthetized using a combination of 1% lidocaine and 0.5% bupivacaine with 1:200,000 parts of epinephrine. A transverse incision was made and an inferior pocket was created in the subcutaneous layer using cautery in preparation for port placement. The Port-A-Cath tubing was passed from the incision through the subcutaneous layer to the exit point of the J-wire. The tubing was attached to the port and was cut to an appropriate length. The introducer and sheath were passed over the J-wire, and the introducer and J-wire were removed. The Port-A-Cath tubing was passed down the sheath, which was torn away. The C-arm was positioned and showed good placement of the Port-A-Cath tubing tip in the superior vena cava. The port aspirated easily and flushed well with hep flush solution. The port was sewn in place with some interrupted sutures of 3-0 PDS. The transverse incision was closed at the dermis using a single inverted suture of 3-0 Vicryl and the skin was approximated using a running subcuticular suture of 4-0 Vicryl. The small incision under the clavicle at the previous insertion site of the J wire was closed using a single inverted suture of 4-0 Vicryl. Benzoin and Steri-Strips were placed over the incisions and a sterile bandage followed. The patient was taken to the recovery area in stable condition postoperatively. INTRAOPERATIVE FLUOROSCOPY FINDINGS: Intraoperative fluoroscopic images of a Port-A-Cath placement were reviewed. An initial image reveals a J-wire entering the right subclavian vein and extending down the vena cava. Subsequent images reveal a Port-A-Cath on that side of the chest with its tubing tip in good location in the superior vena cava. No obvious pneumothorax is identified.
--- NOTE | 2020-10-30 10:29 | PM.PACU ---
Documented by User: Joe Petersen CRNA 10/30/20 10:29 PACU note PACU note: VSS, Good respiratory effort, report to [facility] T[employer]ER Post-Anesthesia Exam: awake
--- NOTE | 2020-10-30 14:08 | ANE.PACU2 ---
Inpatient post-anesthesia follow up: Airway intact: Yes Vital signs: Temperature 97.3 F Pulse Rate 70 Respiratory Rate 18 Blood Pressure 120/70 Pulse Oximetry 99 Oxygen Delivery Me thod Room Air Oxygen Flow Rate Fraction of Inspir ed Oxygen Hydration adequate: Yes Nausea and vomiting: No Pain level: 2 Mental status: Baseline
== END 2020-10-30 11:26 | disposition home or self-care (01) ==
PROVIDERS: PCP Family Medicine; Visit Provider Surgery
PROC: (CPT 36561; principal; 2020-10-30 09:45)
DX: C82.90 Follicular lymphoma, unspecified, unspecified site (principal); I48.91 Unspecified atrial fibrillation; Z79.01 Long term (current) use of anticoagulants; I10 Essential (primary) hypertension; K21.9 Gastro-esophageal reflux disease without esophagitis; Z85.89 Personal history of malignant neoplasm of other organs and systems; M06.9 Rheumatoid arthritis, unspecified; G47.33 Obstructive sleep apnea (adult) (pediatric); Z82.49 Family history of ischemic heart disease and other diseases of the circulatory system; Z83.3 Family history of diabetes mellitus
CPT/HCPCS: 36561; 36416; 77001; 82962; 96365; C1788; J0690; J1644; J2704; J3010; J3490; J7030

== ENCOUNTER 2020-11-04 13:57 | Outpatient (CLI) | payer MEDICARE, OTHER, SELFPAY ==
[2020-11-04 15:27] LABS: Basophils # 0.1 10^3/uL (0.0-0.1); Basophils % 1.1 %; Eosinophils # 0.1 10^3/uL (0.0-0.8); Eosinophils % 2.1 %; Hematocrit 39.1 % (37.0-47.0); Hemoglobin 12.8 g/dL (11.5-15.3); Lymphocytes # 1.2 10^3/uL (0.8-4.8); Lymphocytes % 24.4 %; Mean Corpuscular HGB Conc 32.7 g/dL (30.0-36.0); Mean Corpuscular Hemoglobin 29.9 pg (28.0-34.0); Mean Corpuscular Volume 91.4 fL (81-99); Monocytes # 0.6 10^3/uL (0.2-0.9); Monocytes % 11.7 %; Neutrophils # 2.85 10^3/uL (1.8-7.7); Neutrophils % 60.3 %; Nucleated Red Blood Cells % 0 %; Platelet Count 168 10^3/cmm (130-400); Red Blood Count 4.28 10^6/uL (4.1-5.3); Red Cell Distribution Width 14.3 % (12.1-15.1); White Blood Count 4.7 10^3/uL (4.0-10.0)
[2020-11-04 15:45] LABS: Alanine Aminotransferase 17 U/L (0-33); Alkaline Phosphatase 81 IU/L (35-105); Anion Gap 14.9 (5-19); Aspartate Amino Transferase 26 U/L (0-32); Blood Urea Nitrogen 17 mg/dL (8-23); Calcium 9.9 mg/dL (8.5-10.5); Carbon Dioxide 28 mmol/L (22-29); Chloride 104 mmol/L (98-107); Globulin 2.5 g/dL (1.3-4.6); Glomerular Filtration Rate 123.1 mL/min (90-130); Glucose 105 mg/dL (65-115); Lactate Dehydrogenase 153 U/L (135-214); Osmolality Calculated 298 mOsm/kg (285-295); Potassium 3.9 mmol/L (3.5-5.1); Sodium 143 mmol/L (136-145); Total Bilirubin 1.4 mg/dL (0.15-1.2); Total Protein 6.5 g/dL (6.6-8.7)
[2020-11-04 16:30] LABS: Hepatitis B Core AB, Total Non-Reactive (Nonreactive); Hepatitis B Surface AB 3.5 (11.5-1000); Hepatitis B Surface Antigen Non-Reactive (Nonreactive)
== END 2020-11-04 13:58 | disposition home or self-care (01) ==
LOC: ONCMED 14:00
PROVIDERS: PCP Family Medicine; Visit Provider Internal Medicine Medical Oncology
DX: C82.18 Follicular lymphoma grade II, lymph nodes of multiple sites (principal); Z79.52 Long term (current) use of systemic steroids; Z79.899 Other long term (current) drug therapy; Z11.59 Encounter for screening for other viral diseases
CPT/HCPCS: 36591; 80053; 83615; 85025; 86705; 86706; 87340

== ENCOUNTER 2020-11-05 06:48 | Outpatient (CLI) | payer MEDICARE, OTHER, SELFPAY ==
[2020-11-05] MEDS: ondansetron 2 mg/ML SDV 2 mL 8 MG IVP (11:24)
[2020-11-05] MEDS: sodium chloride 0.9% 1,000 ML 999 ML IV (11:24)
[2020-11-05 11:26] LABS: Estmated Average Glucose 111; Hemoglobin A1C 5.5 % (4.0-6.0)
[2020-11-05] MEDS: diphenhydrAMINE 50 mg/mL SDV 1mL 25 MG IVP (11:26)
[2020-11-05] MEDS: acetaminophen 325 mg Tablet 650 MG PO (11:29)
[2020-11-05 12:19] LABS: Folate Level > 20.0 ng/mL (4.8-37.3)
[2020-11-05 12:20] LABS: Alanine Aminotransferase 15 U/L (0-33); Albumin Level 3.8 g/dL (3.5-5.2); Alkaline Phosphatase 78 IU/L (35-105); Anion Gap 12.9 (5-19); Aspartate Amino Transferase 22 U/L (0-32); Blood Urea Nitrogen 15 mg/dL (8-23); Calcium 9.6 mg/dL (8.5-10.5); Carbon Dioxide 29 mmol/L (22-29); Chloride 103 mmol/L (98-107); Cholesterol 123 mg/dL (0-200); Globulin 2.3 g/dL (1.3-4.6); Glomerular Filtration Rate 123.1 mL/min (90-130); Glucose 117 mg/dL (65-115); HDL Cholesterol 44 mg/dL (60-100); LDL Cholesterol Calculated 41 mg/dL (50-129); LDL HDL Ratio 0.93 RATIO (0.00-3.22); Osmolality Calculated 294 mOsm/kg (285-295); Potassium 3.9 mmol/L (3.5-5.1); Sodium 141 mmol/L (136-145); Thyroid Stimulating Hormone 2.07 uIU/mL (0.27-4.20); Total Bilirubin 1.4 mg/dL (0.15-1.2); Total Protein 6.1 g/dL (6.6-8.7); Triglycerides 189 mg/dL (0-150); Vitamin B12 237 pg/mL (232-1245)
== END 2020-11-05 06:49 | disposition home or self-care (01) ==
LOC: ONCMED 06:50
PROVIDERS: PCP Family Medicine; Visit Provider Internal Medicine Medical Oncology
DX: Z51.12 Encounter for antineoplastic immunotherapy (principal); C82.19 Follicular lymphoma grade II, extranodal and solid organ sites; Z79.899 Other long term (current) drug therapy
CPT/HCPCS: 80053; 80061; 82607; 82746; 83036; 84443; 96367; 96375; 96413; 96415; 96417; J1100; J1200; J2405; J7030; J7040; J9034; J9312

== ENCOUNTER 2020-11-06 08:41 | Outpatient (CLI) | payer MEDICARE, OTHER, SELFPAY ==
[2020-11-06] MEDS: sodium chloride 0.9% 250 ML 75 ML IV (14:18)
[2020-11-06] MEDS: palonosetron 0.25 mg/5 mL SDV IV (14:18)
== END 2020-11-06 08:42 | disposition home or self-care (01) ==
LOC: ONCMED 09:11
PROVIDERS: PCP Family Medicine; Visit Provider Internal Medicine Medical Oncology
DX: Z51.11 Encounter for antineoplastic chemotherapy (principal); C82.18 Follicular lymphoma grade II, lymph nodes of multiple sites; Z79.899 Other long term (current) drug therapy
CPT/HCPCS: 96367; 96413; J1100; J2469; J7050; J9034

== ENCOUNTER 2020-12-03 05:43 | Outpatient (RCR) | payer MEDICARE, OTHER, SELFPAY ==
[2020-11-11 14:23] LABS: Basophils % 0.4 %; Eosinophils # 0.1 10^3/uL (0.0-0.8); Eosinophils % 0.7 %; Hematocrit 38.8 % (37.0-47.0); Hemoglobin 12.8 g/dL (11.5-15.3); Lymphocytes # 0.4 10^3/uL (0.8-4.8); Lymphocytes % 4.8 %; Mean Corpuscular Hemoglobin 29.6 pg (28.0-34.0); Mean Corpuscular Volume 89.8 fL (81-99); Mean Platelet Volume 9.8 fL (7.4-10.4); Monocytes # 0.8 10^3/uL (0.2-0.9); Monocytes % 9.9 %; Neutrophils # 6.32 10^3/uL (1.8-7.7); Neutrophils % 83.7 %; Nucleated Red Blood Cells % 0 %; Platelet Count 179 10^3/cmm (130-400); Red Blood Count 4.32 10^6/uL (4.1-5.3); Red Cell Distribution Width 14.5 % (12.1-15.1); White Blood Count 7.6 10^3/uL (4.0-10.0)
[2020-11-18 14:46] LABS: Basophils % 0.6 %; Eosinophils # 0.1 10^3/uL (0.0-0.8); Eosinophils % 1.4 %; Hematocrit 37.3 % (37.0-47.0); Hemoglobin 12.2 g/dL (11.5-15.3); Lymphocytes # 0.4 10^3/uL (0.8-4.8); Lymphocytes % 5.8 %; Mean Corpuscular HGB Conc 32.7 g/dL (30.0-36.0); Mean Corpuscular Hemoglobin 30.1 pg (28.0-34.0); Mean Corpuscular Volume 92.1 fL (81-99); Mean Platelet Volume 9.8 fL (7.4-10.4); Monocytes # 0.9 10^3/uL (0.2-0.9); Neutrophils % 77.6 %; Nucleated Red Blood Cells % 0 %; Platelet Count 170 10^3/cmm (130-400); Red Blood Count 4.05 10^6/uL (4.1-5.3); Red Cell Distribution Width 14.8 % (12.1-15.1); White Blood Count 6.6 10^3/uL (4.0-10.0)
[2020-11-25 08:40] LABS: Basophils # 0.1 10^3/uL (0.0-0.1); Basophils % 1.7 %; Eosinophils # 0.1 10^3/uL (0.0-0.8); Eosinophils % 3.5 %; Hematocrit 36.6 % (37.0-47.0); Hemoglobin 11.9 g/dL (11.5-15.3); Lymphocytes # 0.3 10^3/uL (0.8-4.8); Lymphocytes % 9.6 %; Mean Corpuscular HGB Conc 32.5 g/dL (30.0-36.0); Mean Corpuscular Hemoglobin 29.8 pg (28.0-34.0); Mean Corpuscular Volume 91.7 fL (81-99); Mean Platelet Volume 10.1 fL (7.4-10.4); Monocytes # 0.7 10^3/uL (0.2-0.9); Neutrophils # 2.23 10^3/uL (1.8-7.7); Neutrophils % 64.6 %; Nucleated Red Blood Cells % 0 %; Platelet Count 141 10^3/cmm (130-400); Red Blood Count 3.99 10^6/uL (4.1-5.3); Red Cell Distribution Width 14.7 % (12.1-15.1); White Blood Count 3.5 10^3/uL (4.0-10.0)
[2020-12-02 15:03] LABS: Basophils # 0.1 10^3/uL (0.0-0.1); Basophils % 1.1 %; Eosinophils % 0.5 %; Hematocrit 35.3 % (37.0-47.0); Hemoglobin 11.4 g/dL (11.5-15.3); Lymphocytes # 0.4 10^3/uL (0.8-4.8); Mean Corpuscular HGB Conc 32.3 g/dL (30.0-36.0); Mean Corpuscular Hemoglobin 29.5 pg (28.0-34.0); Mean Corpuscular Volume 91.5 fL (81-99); Monocytes # 0.8 10^3/uL (0.2-0.9); Monocytes % 18.7 %; Neutrophils # 3.01 10^3/uL (1.8-7.7); Neutrophils % 68.8 %; Nucleated Red Blood Cells % 0 %; Platelet Count 141 10^3/cmm (130-400); Red Blood Count 3.86 10^6/uL (4.1-5.3); Red Cell Distribution Width 15.1 % (12.1-15.1); White Blood Count 4.4 10^3/uL (4.0-10.0)
[2020-12-02 15:28] LABS: Alanine Aminotransferase 22 U/L (0-33); Albumin Level 3.7 g/dL (3.5-5.2); Alkaline Phosphatase 84 IU/L (35-105); Anion Gap 16.6 (5-19); Aspartate Amino Transferase 27 U/L (0-32); Blood Urea Nitrogen 12 mg/dL (8-23); Calcium 9.1 mg/dL (8.5-10.5); Carbon Dioxide 25 mmol/L (22-29); Chloride 103 mmol/L (98-107); Globulin 2.2 g/dL (1.3-4.6); Glomerular Filtration Rate 99.7 mL/min (90-130); Glucose 139 mg/dL (65-115); Osmolality Calculated 294 mOsm/kg (285-295); Potassium 3.6 mmol/L (3.5-5.1); Sodium 141 mmol/L (136-145); Total Bilirubin 1.1 mg/dL (0.15-1.2); Total Protein 5.9 g/dL (6.6-8.7)
[2020-12-03] MEDS: sodium chloride 0.9% 1,000 ML 999 ML IV (10:53)
[2020-12-03] MEDS: ondansetron 2 mg/ML SDV 2 mL 8 MG IV (10:53)
[2020-12-03] MEDS: acetaminophen 325 mg Tablet 650 MG PO (10:53)
[2020-12-03] MEDS: diphenhydrAMINE 50 mg/mL SDV 1mL 25 MG IV (10:56)
--- NOTE | 2020-12-10 04:39 | ONC FU_ITS ---
[facility] Patient Note Patient: Aylin Dietz Unit #: [id number]: [id number] Dictated By: Erika ReyesDate of Visit: Dec 03, 2020 Onc MED Follow-Up/Prog Note Chief Complaint: Lymphoma. 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 She has a history of having undergone treatment for lymphoma by Dr. Ghulam Coon in [place]. It was initially diagnosed in 1991. We do not have the records, but based on the patient's description, it was probably low-grade. It had progressed on light chemotherapy, following which she had 6 cycles of treatment with an Adriamycin containing regimen, assumed CHOP, completed sometime in 1992. She had a complete response. Sometime around May 2018 or June 2018 she became aware of a knot in her right cheek. It wasn't visible, but she could feel it with her finger or her tongue. A neck CT on 09/26/2018 showed an enlarged lymph node on the right side of the face measuring 1.9 x 1.2 cm. There was a suggestion of fullness and soft tissue lesion in the right pouting tonsil measuring approximately 1.3 x 1.1 cm. The parotid glands appeared normal, and there appeared to be normal sized intraparotid lymph nodes. She was referred to Dr. Garcia. An initial FNA biopsy of the cheek mass was nondiagnostic. She was then referred to Dr. Faustina Martinez at [facility]. On 12/04/2018 she underwent right superficial parotidectomy, level IIA and posterior level IB right neck dissection, and excision of the right buccal mass. The parotid gland showed no histopathologic abnormalities and the intraparotid lymph nodes showed reactive lymphoid hyperplasia with no morphologic evidence of lymphoma. 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 The neck dissection showed no involvement in [address] García had seen her initially on 01/04/2019. Her staging PET/CT on 01/06/2019 showed a poorly defined right parotid soft tissue lesion measuring approximately 1.7 x 3.0 cm with SUV 3.6, felt to be consistent with lymphoma. A second FDG positive mass was noted in the subcutaneous fat overlying the left maxilla measuring 1.4 x 0.8 cm. There were multiple FDG positive mediastinal lymph nodes with possible paralysis of the left vocal cord. There were 2 semisolid nodules in the right upper lobe, with the dominant lesion measuring 1.1 cm of SUV 2.0, felt to be inflammatory. With low-grade lymphoma in the setting of long-term methotrexate therapy, she was recommended to stop the methotrexate and otherwise just continue on observation/expectant management. Her medical illnesses, in addition to rheumatoid arthritis, include hypertension, GERD, and obstructive sleep apnea. She has additional history of having undergone hysterectomy/bilateral salpingo-oophorectomy for low-grade endometrial cancer in 2017. She also has had multiple skin cancers excised. She is a nonsmoker. INTERIM HISTORY: Her repeat neck CT on 04/12/2019 showed evidence of partial right neck dissection and removal of the right parotid gland with appropriate appearing postsurgical changes. There are no new lymph nodes identified, but there was a new soft tissue fullness noted in the right paraglottic space measuring 19 x 12 mm. She was seen again by Dr. Garcia and her flexible laryngoscopy showed no significant abnormality. Repeat CT of the neck on 05/16/2019 showed evidence of soft tissue thickening/mass involving the right paraglottic space extending to the right vocal cord, unchanged from the prior study. There was severe central canal stenosis in the cervical spine at C5-C6, also unchanged. Partially visualized patchy opacities were noted in the right lung apex. There was no cervical lymphadenopathy. Restaging CT sans of the chest, abdomen, and pelvis on 08/03/2019 showed diminished size and number of groundglass opacities in the right lung. The left lung opacities also had diminished slightly in size. The mediastinal adenopathy remained unchanged. There was no axillary adenopathy noted. The spleen remained slightly increased in size. There was no adenopathy in the abdomen/pelvis. She continued observation/expectant management. Repeat CT scans of the chest, abdomen, and pelvis on 01/30/2020 showed continued slow improvement in the groundglass opacifications and subsolid opacifications bilaterally as well as slight improvement in the mediastinal and hilar lymph nodes. The largest AP window lymph node measured 10 mm. There was unchanged mild splenomegaly. There was no mesenteric or retroperitoneal adenopathy identified. Her repeat neck CT scan on 02/01/2020 showed interval increase in the right paraglottic space mass with slight extension across the midline and with narrowing of the vallecula. The mass measured 1.5 x 0.7 cm. There was no associated adenopathy. With that finding she was referred to Dr. Garcia. On 04/23/2020 she underwent biopsy of the right base of tongue lesion. Pathology showed B-cell rich lymphoproliferative process. It was noted that the overall cytomorphologic and immunohistochemical features were worrisome for B-cell neoplasm, and marginal zone lymphoma, in particular, was a consideration. A florid reactive process could not be entirely excluded. A restaging PET/CT on 05/24/2020 showed resolution of previously noted uptake in the right parotid gland but there was new FDG positive soft tissue at the right base of tongue measuring 1.0 cm, SUV 6.8. There was no significant change in the mediastinal adenopathy from the prior study. Previously noted right lung groundglass opacities and semisolid nodules were nearly resolved. In the meantime, on 05/08/2020 she had been admitted to the hospital with pyelonephritis/sepsis in association with a large obstructing left UPJ stone and a large renal calculus. She underwent cystoscopy with left ureteral stent placement. On 06/16/2020 she underwent replacement of the ureteral stent and ESWL of both stones. She underwent repeat ESWL of the lower pole renal calculus on 07/07/2020. On 08/20/2020 she underwent direct laryngoscopy with biopsy of right base of tongue lesion by Dr. Garcia. Pathology was consistent with follicular lymphoma, grade 3A. Mrs. Dietz did have follow-up with Dr. García on October 02, 2020 and he discussed with her that her pathology was consistent with follicular lymphoma grade 3A. He recommended that she pursue a course of treatment with bendamustine Rituxan or present to [facility] for second opinion however she eventually elected to pursue Rituxan bendamustine. She was referred to Dr. Muir for placement of Port-A-Cath. On 10/30/2020 she had placement of Port-A-Cath into the right subclavian vein per Dr. Muir. She began her first cycle of rituximab bendamustine on November 05, 2020. Day 2 was completed on November 06, 2020. She has tolerated it well overall. Mrs. Dietz is here today for follow-up. She denies any new concerns. She denies any fever or chills. She has had no night sweats. She denies any nausea or vomiting. She denies mouth sores, sore throat or difficulty swallowing. She states she is had some numbness in her hands but that is chronic and she thinks she has carpal tunnel. She states she has been able to do all of her sewing activities without any interruption though. She did have some tingling in her fingers after the bendamustine treatment but that has completely resolved. She states her appetite is good energy is fair. She has had no diarrhea or constipation. She denies any lower extremity edema. She denies any shortness of breath orthopnea. Has had no hemoptysis. She denies any bowel or bladder changes she denies any hematuria. Overall she states she is doing well. Her ECOG is 1. Past Medical History: Gastroesophageal reflux disease History of endometrial cancer History of multiple skin cancers Hypertension Non-Hodgkin's lymphoma Rheumatoid arthritis Past Surgical History: Bilateral carpal tunnel release Bladder sling procedure Foot surgery bilaterally Multiple skin cancer excisions, including Mohs surgery on the face Removal of basal cell carcinoma on skin Tonsillectomy Tubal ligation Port-A-Cath right subclavian vein???Dr. Muir in 2020 Covid vaccine #2 in 2020 Covid vaccine #1 in 2020 Lithotripsy in 2020 Right superficial parotidectomy, right neck dissection, and excision of right buccal mass in 2019 Hysterectomy/bilateral salpingectomy-oophorectomy in 2017 Hammer toe/bunionectomy in 2004 Allergies: No Known Allergies. Medications: Aspirin 1 Tablet (of 81 mg) Oral daily Calcium + D 1 Tablet Oral daily Cardizem CD 1 (360 mg) Capsule SR 24 HR Oral daily Eliquis 1 (5 mg) Tablet Oral b.i.d. Famotidine 1 Tablet (of 20 mg) Oral daily Folic Acid 2 Tablet (of 1 mg) Oral daily Lipitor 1 Tablet (of 10 mg) Oral daily metFORMIN HCl 1 Tablet (of 500 mg) Oral daily Multivitamin Adults 1 Tablet Oral daily Naproxen 1 Tablet (of 500 mg) Oral daily PRN Family History: Ms. Dietz's mother at age 66: lymphoma. Ms. Dietz's father is alive: heart disease, and type II diabetes. Ms. Dietz has 2 brothers: 2 alive. She has 1 sister who is alive. She has 1 paternal aunt who is : pancreatic cancer. Father has diabetes and heart disease and is still living at age 86. Mother of lymphoma and age 66. A paternal aunt had pancreatic cancer. Two brothers are in good health. Her sister has myasthenia gravis. Social History: Ms. Dietz is and she is retired. Ms. Dietz has never smoked. She has no history of drinking. Ms. Dietz reports the following support systems: lives with spouse, significant other, family, or friends, lives in own house, supportive family/friends willing to assist with needs, and adequate transportation available for expected visits. Her diet consists of regular meals. She indicates her activity level as: regular exercise. She has a nonsmoker. She does not drink alcohol. Review Of Symptoms: <See Above> Vital Signs: Performed on Dec 03, 2020 09:32 Height - 67.50 in Weight - 298.0 lbs (HIGH) BSA - 2.41 sq.m BMI - 45.98 (HIGH) Temperature - 97.1 F (LOW) Pulse - 94 /min Respiration - 17 /min BP - 133/91 mm(hg) O2 Sat - 97 % Pain - 0,1 - No physically strenuous activity, but ambulatory and able to carry out light or sedentary work (e.g. office work, light house work). (ECOG) Physical Examination: Constitutional Alert, oriented, no acute distress. Skin pink, warm and dry. Head Normocephalic; atraumatic. Eyes Conjunctivae and sclerae are clear and without icterus. Pupils are reactive and equal. Neck Supple without masses or thyromegaly. No jugular venous distension. Hematologic/Lymphatic No petechiae or purpura. No tender or palpable lymph nodes in the cervical or supraclavicular areas. Respiratory Lungs are clear to auscultation without rhonchi or wheezing. Cardiovascular Regular rate and rhythm of heart without murmurs,clicks, gallops or rubs. Chest Chest is symmetric without chest wall deformities. Right chest wall port site unremarkable. Back/Spine Non-tender to palpation. Extremities No visible deformities, no cyanosis, clubbing or edema. Musculoskeletal No tenderness or swelling, normal range of motion without obvious weakness. Integumentary No rashes or lesions. Neurologic No sensory or motor deficits, normal cerebellar function, normal gait. Psychiatric Alert and oriented times three. Coherent speech. Verbalizes understanding of our discussions today. Laboratory:Test performed on Dec 02, 2020 14:25 Sodium 141 mmol/L Potassium 3.6 mmol/L Chloride 103 mmol/L CO2 25 mmol/L Anion Gap 16.6 BUN 12 mg/dL Creatinine 0.6 mg/dL Cr Clearance (Est) 193.1100 mL/min eGFR 99.7 mL/min Glucose 139 mg/dL Osmolality - Calculated 294 mOsm/kg Calcium 9.1 mg/dL Protein, Total 5.9 g/dL Albumin 3.7 g/dL Globulin 2.2 g/dL Bilirubin, Total 1.1 mg/dL ALT (SGPT) 22 U/L AST (SGOT) 27 U/L Alkaline Phosphatase 84 IU/L WBC 4.4 10 3/uL RBC 3.86 10 6/uL HGB 11.4 g/dL HCT 35.3 % MCV 91.5 fL MCH 29.5 pg MCHC 32.3 g/dL RDW 15.1 % Platelet Count 141 10 3/cmm MPV 10.0 fL Neutrophils 3.01 10 3/uL Lymphocytes 0.4 10 3/uL Monocytes 0.8 10 3/uL Eosinophils 0.0 10 3/uL Basophils 0.1 10 3/uL Neutrophil % 68.8 % Lymphocyte % 10.0 % Monocyte % 18.7 % Eosinophil % 0.5 % Basophils % 1.1 % NRBC % 0 % Impression: 1. Grade 1-2 follicular lymphoma presenting as a right buccal mass. It developed in the setting of shelter methotrexate therapy for rheumatoid arthritis. 2. She had previous chemotherapy for lymphoma in . This was probably also low-grade lymphoma. 3. Long-standing rheumatoid arthritis. 4. Hypertension. 5. GERD. 6. Obstructive sleep apnea. 7. She underwent hysterectomy/bilateral salpingo-oophorectomy for low-grade endometrial cancer in 2017. 8. She has had multiple skin cancers excised. 9. In May 2020 she had an episode of pyelonephritis/sepsis in association with nephrolithiasis. She has undergone placement of left ureteral stent and ESWL x 2. 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 It developed in the setting of shelter methotrexate therapy for rheumatoid arthritis. She underwent right superficial parotidectomy, level IIA and posterior level IB right neck dissection and excision of right buccal mass on 12/04/2018. Her staging PET/CT did show residual activity in the right parotid area, and there also appeared to be involved mediastinal lymph nodes. However, in the setting of long-term methotrexate therapy, she was advised to stop the methotrexate and otherwise just be followed on observation/expectant management. Her repeat neck CT scan on 02/01/2020 showed interval increase in the right paraglottic space mass with slight extension across the midline and with narrowing of the vallecula. The mass measured 1.5 x 0.7 cm. There is no associated adenopathy. With that finding she was referred to Dr. Garcia. On 04/23/2020 she underwent biopsy of the right base of tongue lesion. Pathology showed B-cell rich lymphoproliferative process. It was noted that the overall cytomorphologic and immunohistochemical features were worrisome for B-cell neoplasm , but a florid reactive process could not be entirely excluded. A restaging PET/CT on 05/24/2020 showed resolution of previously noted uptake in the right parotid gland but there was new FDG positive soft tissue at the right base of tongue measuring 1.0 cm, SUV 6.8. There was no significant change in the mediastinal adenopathy from the prior study. Previously noted right lung groundglass opacities and semisolid nodules were nearly resolved. On 08/21/2019 when she underwent direct laryngoscopy with biopsy of the right base of tongue lesion. Pathology was consistent with follicular lymphoma, grade 3A. With that finding, she clearly has had progressive disease despite having stopped the methotrexate. 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 Overall, the pathology and the PET SUV are still consistent with low-grade disease. However, with obvious disease progression, Dr García recommneded that she should start treatment. Dr. García gave her the option to proceed with a course of treatment with bendamustine/rituximab or to see one of the lymphoma specialist at [facility] for second opinion evaluation. Mrs. Dietz ultimately decided to pursue the Rituxan bendamustine and began her first cycle on November 05, 2020. She had Port-A-Cath placement by Dr. Muir on October 30, 2020. A. Proceed with cycle 2 Rituxan bendamustine. A. Labs from December 02, 2020 were reviewed in detail and discussed with Ms. Dietz and a copy was given to her. WBC 4.4, hemoglobin 11.4, platelets 141,000, ANC is 3000. Potassium 3.6 random glucose 139 and her creatinine is 0.6 LFTs are normal. C. She will continue her current antiemetic regimen as this is working well for her. D. She may have supportive care in the interim should she need it although she has not needed as of yet. E. She will have weekly CBC. F. We will plan to see her back in 4 weeks for cycle 3 Rituxan bendamustine. She will be due for CBC CMP and LDH at that time as well. G. Mrs. Dietz was instructed to contact us in interim should questions or problems arise Signed By: Erika Reyes-LORELEI, PERRY García, and <<Signature on File>>
== END 2020-12-03 23:59 | disposition home or self-care (01) ==
LOC: ONCMED 05:43
PROVIDERS: Internal Medicine Medical Oncology; PCP Family Medicine; Visit Provider Nurse Practitioner
DX: Z51.12 Encounter for antineoplastic immunotherapy (principal); Z51.11 Encounter for antineoplastic chemotherapy; C82.10 Follicular lymphoma grade II, unspecified site; K21.9 Gastro-esophageal reflux disease without esophagitis; I10 Essential (primary) hypertension; G47.33 Obstructive sleep apnea (adult) (pediatric); M06.9 Rheumatoid arthritis, unspecified; Z79.52 Long term (current) use of systemic steroids; Z79.899 Other long term (current) drug therapy; Z87.442 Personal history of urinary calculi; Z85.828 Personal history of other malignant neoplasm of skin; Z90.710 Acquired absence of both cervix and uterus
CPT/HCPCS: 36415; 36591; 80053; 85025; 96367; 96368; 96375; 96413; 96415; 96417; 99214; J1100; J1200; J2405; J7030; J7040; J9034; J9312

== ENCOUNTER 2021-01-01 05:45 | Outpatient (RCR) | payer MEDICARE, OTHER, SELFPAY ==
[2020-12-04] MEDS: palonosetron 0.25 mg/5 mL SDV IVP (14:35)
[2020-12-04] MEDS: sodium chloride 0.9% 250 ML 999 ML IV (14:35)
[2020-12-09 14:36] LABS: Basophils % 0.4 %; Hematocrit 38.1 % (37.0-47.0); Hemoglobin 12.6 g/dL (11.5-15.3); Lymphocytes # 0.2 10^3/uL (0.8-4.8); Lymphocytes % 2.3 %; Mean Corpuscular HGB Conc 33.1 g/dL (30.0-36.0); Mean Corpuscular Hemoglobin 30.7 pg (28.0-34.0); Mean Corpuscular Volume 92.7 fL (81-99); Monocytes # 0.9 10^3/uL (0.2-0.9); Monocytes % 12.8 %; Neutrophils # 5.86 10^3/uL (1.8-7.7); Neutrophils % 83.4 %; Nucleated Red Blood Cells % 0 %; Platelet Count 158 10^3/cmm (130-400); Red Blood Count 4.11 10^6/uL (4.1-5.3); Red Cell Distribution Width 15.6 % (12.1-15.1)
[2020-12-09 14:54] LABS: Alanine Aminotransferase 23 U/L (0-33); Albumin Level 3.6 g/dL (3.5-5.2); Alkaline Phosphatase 75 IU/L (35-105); Aspartate Amino Transferase 22 U/L (0-32); Blood Urea Nitrogen 20 mg/dL (8-23); Carbon Dioxide 28 mmol/L (22-29); Chloride 102 mmol/L (98-107); Globulin 2.1 g/dL (1.3-4.6); Glomerular Filtration Rate 71.5 mL/min (90-130); Glucose 128 mg/dL (65-115); Osmolality Calculated 298 mOsm/kg (285-295); Sodium 142 mmol/L (136-145); Total Bilirubin 1.3 mg/dL (0.15-1.2); Total Protein 5.7 g/dL (6.6-8.7)
[2020-12-09 14:57] LABS: Anion Gap 15.8 (5-19)
[2020-12-09 14:58] LABS: Lactate Dehydrogenase 187 U/L (135-214); Potassium 3.8 mmol/L (3.5-5.1)
[2020-12-16 14:58] LABS: Basophils # 0.1 10^3/uL (0.0-0.1); Basophils % 1.4 %; Hematocrit 36.2 % (37.0-47.0); Hemoglobin 11.8 g/dL (11.5-15.3); Lymphocytes # 0.2 10^3/uL (0.8-4.8); Lymphocytes % 5.5 %; Mean Corpuscular HGB Conc 32.6 g/dL (30.0-36.0); Mean Corpuscular Hemoglobin 30.5 pg (28.0-34.0); Mean Corpuscular Volume 93.5 fL (81-99); Mean Platelet Volume 10.1 fL (7.4-10.4); Monocytes # 0.9 10^3/uL (0.2-0.9); Monocytes % 21.1 %; Neutrophils # 3.15 10^3/uL (1.8-7.7); Neutrophils % 71.5 %; Nucleated Red Blood Cells % 0 %; Platelet Count 140 10^3/cmm (130-400); Red Blood Count 3.87 10^6/uL (4.1-5.3); Red Cell Distribution Width 15.5 % (12.1-15.1); White Blood Count 4.4 10^3/uL (4.0-10.0)
[2020-12-23 14:59] LABS: Basophils % 1.4 %; Hematocrit 33.8 % (37.0-47.0); Hemoglobin 11.1 g/dL (11.5-15.3); Lymphocytes # 0.3 10^3/uL (0.8-4.8); Lymphocytes % 9.7 %; Mean Corpuscular HGB Conc 32.8 g/dL (30.0-36.0); Mean Corpuscular Hemoglobin 30.7 pg (28.0-34.0); Mean Corpuscular Volume 93.6 fL (81-99); Mean Platelet Volume 9.5 fL (7.4-10.4); Monocytes # 0.6 10^3/uL (0.2-0.9); Monocytes % 21.2 %; Neutrophils # 1.92 10^3/uL (1.8-7.7); Neutrophils % 66.7 %; Nucleated Red Blood Cells % 0 %; Platelet Count 124 10^3/cmm (130-400); Red Blood Count 3.61 10^6/uL (4.1-5.3); Red Cell Distribution Width 15.4 % (12.1-15.1); White Blood Count 2.9 10^3/uL (4.0-10.0)
[2020-12-30 15:38] LABS: Basophils # 0.1 10^3/uL (0.0-0.1); Basophils % 2.3 %; Hematocrit 33.4 % (37.0-47.0); Lymphocytes # 0.4 10^3/uL (0.8-4.8); Lymphocytes % 10.5 %; Mean Corpuscular HGB Conc 32.9 g/dL (30.0-36.0); Mean Corpuscular Hemoglobin 30.8 pg (28.0-34.0); Mean Corpuscular Volume 93.6 fL (81-99); Mean Platelet Volume 9.7 fL (7.4-10.4); Monocytes # 0.8 10^3/uL (0.2-0.9); Monocytes % 23.1 %; Neutrophils # 2.15 10^3/uL (1.8-7.7); Neutrophils % 62.9 %; Nucleated Red Blood Cells % 0 %; Platelet Count 148 10^3/cmm (130-400); Red Blood Count 3.57 10^6/uL (4.1-5.3); Red Cell Distribution Width 15.6 % (12.1-15.1); White Blood Count 3.4 10^3/uL (4.0-10.0)
[2020-12-30 15:48] LABS: Alanine Aminotransferase 25 U/L (0-33); Albumin Level 3.6 g/dL (3.5-5.2); Alkaline Phosphatase 87 IU/L (35-105); Anion Gap 14.6 (5-19); Aspartate Amino Transferase 28 U/L (0-32); Blood Urea Nitrogen 11 mg/dL (8-23); Calcium 8.8 mg/dL (8.5-10.5); Carbon Dioxide 26 mmol/L (22-29); Chloride 104 mmol/L (98-107); Globulin 1.9 g/dL (1.3-4.6); Glomerular Filtration Rate 99.7 mL/min (90-130); Glucose 149 mg/dL (65-115); Lactate Dehydrogenase 206 U/L (135-214); Osmolality Calculated 294 mOsm/kg (285-295); Potassium 3.6 mmol/L (3.5-5.1); Sodium 141 mmol/L (136-145); Total Bilirubin 1.2 mg/dL (0.15-1.2); Total Protein 5.5 g/dL (6.6-8.7)
[2020-12-31] MEDS: acetaminophen 325 mg Tablet 650 MG PO (06:50)
[2020-12-31] MEDS: sodium chloride 0.9% 1,000 ML 999 ML IV (09:39)
[2020-12-31] MEDS: diphenhydrAMINE 50 mg/mL SDV 1mL 25 MG IV (09:39)
[2020-12-31] MEDS: ondansetron 2 mg/ML SDV 2 mL 8 MG IV (09:45)
[2021-01-01] MEDS: sodium chloride 0.9% 250 ML 75 ML IV (09:57)
[2021-01-01] MEDS: palonosetron 0.25 mg/5 mL SDV IVP (09:57)
== END 2021-01-03 23:59 | disposition home or self-care (01) ==
LOC: ONCMED 05:45
PROVIDERS: PCP Family Medicine; Visit Provider Internal Medicine Medical Oncology
DX: Z51.12 Encounter for antineoplastic immunotherapy (principal); Z51.11 Encounter for antineoplastic chemotherapy; C82.19 Follicular lymphoma grade II, extranodal and solid organ sites; Z79.899 Other long term (current) drug therapy
CPT/HCPCS: 36415; 36591; 80053; 83615; 85025; 96367; 96368; 96375; 96413; 96415; 96417; J1100; J1200; J2405; J2469; J7030; J7040; J7050; J9034; J9312

== ENCOUNTER 2021-01-28 05:45 | Outpatient (RCR) | payer MEDICARE, OTHER, SELFPAY ==
[2021-01-06 09:32] LABS: Basophils % 0.6 %; Hemoglobin 12.2 g/dL (11.5-15.3); Lymphocytes # 0.1 10^3/uL (0.8-4.8); Lymphocytes % 2.1 %; Mean Corpuscular Hemoglobin 30.7 pg (28.0-34.0); Mean Corpuscular Volume 93.2 fL (81-99); Mean Platelet Volume 10.1 fL (7.4-10.4); Monocytes # 0.7 10^3/uL (0.2-0.9); Monocytes % 15.2 %; Neutrophils # 3.85 10^3/uL (1.8-7.7); Neutrophils % 81.3 %; Nucleated Red Blood Cells % 0 %; Platelet Count 142 10^3/cmm (130-400); Red Blood Count 3.97 10^6/uL (4.1-5.3); Red Cell Distribution Width 15.6 % (12.1-15.1); White Blood Count 4.7 10^3/uL (4.0-10.0)
[2021-01-06 10:03] LABS: Alanine Aminotransferase 24 U/L (0-33); Albumin Level 3.6 g/dL (3.5-5.2); Alkaline Phosphatase 88 IU/L (35-105); Anion Gap 14.5 (5-19); Aspartate Amino Transferase 20 U/L (0-32); Blood Urea Nitrogen 16 mg/dL (8-23); Calcium 9.1 mg/dL (8.5-10.5); Carbon Dioxide 27 mmol/L (22-29); Chloride 99 mmol/L (98-107); Glomerular Filtration Rate 99.7 mL/min (90-130); Glucose 215 mg/dL (65-115); Lactate Dehydrogenase 185 U/L (135-214); Osmolality Calculated 292 mOsm/kg (285-295); Potassium 3.5 mmol/L (3.5-5.1); Sodium 137 mmol/L (136-145); Total Bilirubin 1.4 mg/dL (0.15-1.2); Total Protein 5.6 g/dL (6.6-8.7)
[2021-01-13 09:12] LABS: Basophils # 0.1 10^3/uL (0.0-0.1); Basophils % 1.6 %; Hematocrit 35.6 % (37.0-47.0); Hemoglobin 11.9 g/dL (11.5-15.3); Lymphocytes # 0.3 10^3/uL (0.8-4.8); Lymphocytes % 6.7 %; Mean Corpuscular HGB Conc 33.4 g/dL (30.0-36.0); Mean Corpuscular Hemoglobin 31.2 pg (28.0-34.0); Mean Corpuscular Volume 93.2 fL (81-99); Mean Platelet Volume 9.5 fL (7.4-10.4); Monocytes # 0.8 10^3/uL (0.2-0.9); Monocytes % 21.9 %; Neutrophils # 2.59 10^3/uL (1.8-7.7); Neutrophils % 69.3 %; Nucleated Red Blood Cells % 0 %; Platelet Count 115 10^3/cmm (130-400); Red Blood Count 3.82 10^6/uL (4.1-5.3); Red Cell Distribution Width 15.4 % (12.1-15.1); White Blood Count 3.7 10^3/uL (4.0-10.0)
[2021-01-20 09:56] LABS: Basophils # 0.1 10^3/uL (0.0-0.1); Basophils % 2.2 %; Hematocrit 34.6 % (37.0-47.0); Hemoglobin 11.5 g/dL (11.5-15.3); Lymphocytes # 0.3 10^3/uL (0.8-4.8); Lymphocytes % 8.2 %; Mean Corpuscular HGB Conc 33.2 g/dL (30.0-36.0); Mean Corpuscular Hemoglobin 31.3 pg (28.0-34.0); Mean Corpuscular Volume 94.3 fl (81-99); Mean Platelet Volume 9.7 fL (7.4-10.4); Monocytes # 0.8 10^3/uL (0.2-0.9); Monocytes % 24.4 %; Neutrophils # 2.03 10^3/uL (1.8-7.7); Neutrophils % 64.3 %; Nucleated Red Blood Cells % 0 %; Platelet Count 127 10^3/cmm (130-400); Red Blood Count 3.67 10^6/uL (4.1-5.3); Red Cell Distribution Width 15.9 % (12.1-15.1); White Blood Count 3.2 10^3/uL (4.0-10.0)
[2021-01-26 09:50] LABS: Basophils # 0.1 10^3/uL (0.0-0.1); Basophils % 1.8 %; Eosinophils % 0.6 %; Hemoglobin 10.8 g/dL (11.5-15.3); Lymphocytes # 0.3 10^3/uL (0.8-4.8); Lymphocytes % 9.2 %; Mean Corpuscular HGB Conc 32.7 g/dL (30.0-36.0); Mean Corpuscular Hemoglobin 31.2 pg (28.0-34.0); Mean Corpuscular Volume 95.4 fl (81-99); Mean Platelet Volume 9.7 fL (7.4-10.4); Monocytes # 0.7 10^3/uL (0.2-0.9); Monocytes % 21.8 %; Neutrophils # 2.09 10^3/uL (1.8-7.7); Neutrophils % 64.4 %; Nucleated Red Blood Cells % 0 %; Platelet Count 126 10^3/cmm (130-400); Red Blood Count 3.46 10^6/uL (4.1-5.3); Red Cell Distribution Width 15.9 % (12.1-15.1); White Blood Count 3.3 10^3/uL (4.0-10.0)
[2021-01-26 10:34] LABS: Alanine Aminotransferase 24 U/L (0-33); Albumin Level 3.4 g/dL (3.5-5.2); Alkaline Phosphatase 96 IU/L (35-105); Anion Gap 14.7 (5-19); Aspartate Amino Transferase 25 U/L (0-32); Blood Urea Nitrogen 9 mg/dL (8-23); Calcium 8.9 mg/dL (8.5-10.5); Carbon Dioxide 26 mmol/L (22-29); Chloride 105 mmol/L (98-107); Globulin 2.3 g/dL (1.3-4.6); Glomerular Filtration Rate 123.1 mL/min (90-130); Glucose 220 mg/dL (65-115); Lactate Dehydrogenase 209 U/L (135-214); Osmolality Calculated 299 mOsm/kg (285-295); Potassium 3.7 mmol/L (3.5-5.1); Sodium 142 mmol/L (136-145); Total Protein 5.7 g/dL (6.6-8.7)
[2021-01-27] MEDS: acetaminophen 325 mg Tablet 650 MG PO (09:41)
[2021-01-27] MEDS: diphenhydrAMINE 50 mg/mL SDV 1mL 25 MG IVP (09:42)
[2021-01-27] MEDS: ondansetron 2 mg/ML SDV 2 mL 8 MG IVP (09:43)
[2021-01-27] MEDS: sodium chloride 0.9% 250 ML 999 ML IV (10:05)
--- NOTE | 2021-01-27 17:53 | ONC FU_ITS ---
Dr. García Patient Follow-Up Note Patient: Aylin Dietz Unit #: [id number]: 1955 Dicatated By: Paco García M.D.Date of Visit:Jan 27, 2021 Onc Med Follow-up/Prog Note Chief Complaint: Lymphoma. 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 She has a history of having undergone treatment for lymphoma by Dr. Ghulam Coon in [place]. It was initially diagnosed in 1991. I do not have the records, but based on the patient's description, it was probably low-grade. It had progressed on light chemotherapy, following which she had 6 cycles of treatment with an Adriamycin containing regimen, I assume CHOP, completed sometime in 1992. She had a complete response. Her medical history is otherwise significant for rheumatoid arthritis, initially diagnosed in 1982. Her RA had been well controlled on long-term therapy with methotrexate. Sometime around May 2018 or June 2018 she became aware of a knot in her right cheek. It wasn't visible, but she could feel it with her finger or her tongue. A neck CT on 09/26/2018 showed an enlarged lymph node on the right side of the face measuring 1.9 x 1.2 cm. There was a suggestion of fullness and soft tissue lesion in the right palatine tonsil measuring approximately 1.3 x 1.1 cm. The parotid glands appeared normal, and there appeared to be normal sized intraparotid lymph nodes. She was referred to Dr. Garcia. An initial FNA biopsy of the cheek mass was nondiagnostic. She was then referred to Dr. Faustina Martinez at [facility]. On 12/04/2018 she underwent right superficial parotidectomy, level IIA and posterior level IB right neck dissection, and excision of the right buccal mass. The parotid gland showed no histopathologic abnormalities and the intraparotid lymph nodes showed reactive lymphoid hyperplasia with no morphologic evidence of lymphoma. 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 The neck dissection showed no involvement in 13 lymph nodes. I had seen her initially on 01/04/2019. Her staging PET/CT on 01/06/2019 showed a poorly defined right parotid soft tissue lesion measuring approximately 1.7 x 3.0 cm with SUV 3.6, felt to be consistent with lymphoma. A second FDG positive mass was noted in the subcutaneous fat overlying the left maxilla measuring 1.4 x 0.8 cm. There were multiple FDG positive mediastinal lymph nodes with possible paralysis of the left vocal cord. There were 2 semisolid nodules in the right upper lobe, with the dominant lesion measuring 1.1 cm of SUV 2.0, felt to be inflammatory. With low-grade lymphoma in the setting of long-term methotrexate therapy, she was recommended to stop the methotrexate and otherwise just continue on observation/expectant management. Her repeat neck CT on 04/12/2019 showed evidence of partial right neck dissection and removal of the right parotid gland with appropriate appearing postsurgical changes. There are no new lymph nodes identified, but there was a new soft tissue fullness noted in the right paraglottic space measuring 19 x 12 mm. She was seen again by Dr. Garcia and her flexible laryngoscopy showed no significant abnormality. Repeat CT of the neck on 05/16/2019 showed evidence of soft tissue thickening/mass involving the right paraglottic space extending to the right vocal cord, unchanged from the prior study. There was severe central canal stenosis in the cervical spine at C5-C6, also unchanged. Partially visualized patchy opacities were noted in the right lung apex. There was no cervical lymphadenopathy. Restaging CT sans of the chest, abdomen, and pelvis on 08/03/2019 showed diminished size and number of groundglass opacities in the right lung. The left lung opacities also had diminished slightly in size. The mediastinal adenopathy remained unchanged. There was no axillary adenopathy noted. The spleen remained slightly increased in size. There was no adenopathy in the abdomen/pelvis. She continued observation/expectant management. Repeat CT scans of the chest, abdomen, and pelvis on 01/30/2020 showed continued slow improvement in the groundglass opacifications and subsolid opacifications bilaterally as well as slight improvement in the mediastinal and hilar lymph nodes. The largest AP window lymph node measured 10 mm. There was unchanged mild splenomegaly. There was no mesenteric or retroperitoneal adenopathy identified. Her repeat neck CT scan on 02/01/2020 showed interval increase in the right paraglottic space mass with slight extension across the midline and with narrowing of the vallecula. The mass measured 1.5 x 0.7 cm. There was no associated adenopathy. With that finding she was referred to Dr. Garcia. On 04/23/2020 she underwent biopsy of the right base of tongue lesion. Pathology showed B-cell rich lymphoproliferative process. It was noted that the overall cytomorphologic and immunohistochemical features were worrisome for B-cell neoplasm, and marginal zone lymphoma, in particular, was a consideration. A florid reactive process could not be entirely excluded. A restaging PET/CT on 05/24/2020 showed resolution of previously noted uptake in the right parotid gland but there was new FDG positive soft tissue at the right base of tongue measuring 1.0 cm, SUV 6.8. There was no significant change in the mediastinal adenopathy from the prior study. Previously noted right lung groundglass opacities and semisolid nodules were nearly resolved. In the meantime, on 05/08/2020 she had been admitted to the hospital with pyelonephritis/sepsis in association with a large obstructing left UPJ stone and a large renal calculus. She underwent cystoscopy with left ureteral stent placement. On 06/16/2020 she underwent replacement of the ureteral stent and ESWL of both stones. She underwent repeat ESWL of the lower pole renal calculus on 07/07/2020. On 08/20/2020 she underwent direct laryngoscopy with biopsy of right base of tongue lesion by Dr. Garcia. Pathology was consistent with follicular lymphoma, grade 3A. In the setting of obvious disease progression despite having stopped her methotrexate therapy and with her disease having involved from grade 1???2 to grade 3, she was recommended to undergo course of chemotherapy with bendamustine/rituximab. Her medical illnesses, in addition to the rheumatoid arthritis, include hypertension, GERD, and obstructive sleep apnea. She has additional history of having undergone hysterectomy/bilateral salpingo-oophorectomy for low-grade endometrial cancer in 2017. She also has had multiple skin cancers excised. She is a nonsmoker. INTERIM HISTORY: She completed COVID-19 vaccinations in August and September 2020. She then began cycle 1 of bendamustine rituximab on 11/05/2020. She tolerated the treatment well, and she continued with cycle 2 on 12/03/2020 and with cycle 3 on 12/31/2020. She is seen for a follow-up visit. She has been feeling pretty good generally. She does get more tired during the first week after her treatment. Her energy has otherwise been okay. She is able to do housework. ECOG score is 1. She has good appetite. She has not had fever. She says she is still having 1 episode of night sweating about every night. She has not had sore mouth or throat, but she does tend to wake up at night with a glob in her throat, which she has to clear up. She has some cough, but not constant. She does not complain of shortness of breath or chest pain. She does have some constipation during the first week or so after treatment. She has no other GI or complaints. She currently is not having much joint pain. She has just occasional headache. She does not complain of dizziness. She has some numbness in her fingers, worse on the left. Medications: Aspirin 1 Tablet (of 81 mg) Oral daily, Calcium + D 1 Tablet Oral daily, Cardizem CD 1 (360 mg) Capsule SR 24 HR Oral daily, Eliquis 1 (5 mg) Tablet Oral b.i.d., Famotidine 1 Tablet (of 20 mg) Oral daily, Folic Acid 2 Tablet (of 1 mg) Oral daily, Lipitor 1 Tablet (of 10 mg) Oral daily, metFORMIN HCl 1 Tablet (of 500 mg) Oral daily, Multivitamin Adults 1 Tablet Oral daily, Naproxen 1 Tablet (of 500 mg) Oral daily PRN Allergies: No Known Allergies. Vital Signs: Performed on Jan 27, 2021 08:58 Height - 67.50 in Weight - 294.4 lbs (LOW) BSA - 2.40 sq.m BMI - 45.43 (HIGH) Temperature - 97.2 F (LOW) Pulse - 107 /min (HIGH) Respiration - 18 /min BP - 136/67 mm(hg) O2 Sat - 98 % Pain - 0 Fatigue - 4 Physical Examination: Constitutional - She looks pretty good generally, Eyes - Sclerae nonicteric. Conjunctivae clear, ENMT - There are no lesions noted in the oral cavity, Hematologic/Lymphatic - There is no cervical, clavicular, or axillary lymphadenopathy noted, Respiratory - Lungs are clear with good air movement bilaterally, Cardiovascular - Heart rhythm is regular. There is a II/ systolic murmur. There is no gallop or rub noted, Abdomen - Moderately distended. Liver and spleen are not enlarged. There is no abdominal mass or ascites noted and there is no inguinal adenopathy, Extremities - No edema, Neurologic - No focal neurologic deficits noted. Lab/Imaging: Test performed on Jan 20, 2021 09:35 WBC 3.2 10 3/uL RBC 3.67 10 6/uL HGB 11.5 g/dL HCT 34.6 % MCV 94.3 fl MCH 31.3 pg MCHC 33.2 g/dL RDW 15.9 % Platelet Count 127 10 3/cmm MPV 9.7 fL Neutrophils 2.03 10 3/uL Lymphocytes 0.3 10 3/uL Monocytes 0.8 10 3/uL Eosinophils 0.0 10 3/uL Basophils 0.1 10 3/uL Neutrophil % 64.3 % Lymphocyte % 8.2 % Monocyte % 24.4 % Eosinophil % 0.0 % Basophils % 2.2 % NRBC % 0 % Test performed on Jan 06, 2021 09:04 LDH (Total) 185 U/L Sodium 137 mmol/L Potassium 3.5 mmol/L Chloride 99 mmol/L CO2 27 mmol/L Anion Gap 14.5 BUN 16 mg/dL Creatinine 0.6 mg/dL Cr Clearance (Est) 193.1100 mL/min eGFR 99.7 mL/min Glucose 215 mg/dL Osmolality - Calculated 292 mOsm/kg Calcium 9.1 mg/dL Protein, Total 5.6 g/dL Albumin 3.6 g/dL Globulin 2.0 g/dL Bilirubin, Total 1.4 mg/dL ALT (SGPT) 24 U/L AST (SGOT) 20 U/L Alkaline Phosphatase 88 IU/L Problem List: 1. Grade 1-2 follicular lymphoma presenting as a right buccal mass. 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 2. She had previous chemotherapy for lymphoma in . This was probably also low-grade lymphoma. 3. Long-standing rheumatoid arthritis. 4. Hypertension. 5. GERD. 6. Obstructive sleep apnea. 7. She underwent hysterectomy/bilateral salpingo-oophorectomy for low-grade endometrial cancer in 2017. 8. She has had multiple skin cancers excised. 9. In May 2020 she had an episode of pyelonephritis/sepsis in association with nephrolithiasis. She has undergone placement of left ureteral stent and ESWL x 2. 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 It developed in the setting of care home methotrexate therapy for rheumatoid arthritis. She underwent right superficial parotidectomy, level IIA and posterior level IB right neck dissection, and excision of right buccal mass on 12/04/2018. Her staging PET/CT did show residual activity in the right parotid area, and there also appeared to be involved mediastinal lymph nodes. However, in the setting of long-term methotrexate therapy, she was advised to stop the methotrexate and otherwise just be followed on observation/expectant management. Her repeat neck CT scan on 02/01/2020 showed interval increase in the right paraglottic space mass with slight extension across the midline and with narrowing of the vallecula. The mass measured 1.5 x 0.7 cm. There is no associated adenopathy. With that finding she was referred to Dr. Garcia. On 04/23/2020 she underwent biopsy of the right base of tongue lesion. Pathology showed B-cell rich lymphoproliferative process. It was noted that the overall cytomorphologic and immunohistochemical features were worrisome for B-cell neoplasm, but a florid reactive process could not be entirely excluded. A restaging PET/CT on 05/24/2020 showed resolution of previously noted uptake in the right parotid gland but there was new FDG positive soft tissue at the right base of tongue measuring 1.0 cm, SUV 6.8. There was no significant change in the mediastinal adenopathy from the prior study. Previously noted right lung groundglass opacities and semisolid nodules were nearly resolved. On 08/20/2020 she underwent direct laryngoscopy with biopsy of the right base of tongue lesion. Pathology was consistent with follicular lymphoma, grade 3A. With that finding, she clearly had progressive disease despite having stopped the methotrexate. 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 As such, she was recommended to proceed with a course of treatment with bendamustine/rituximab. She completed COVID-19 vaccinations in August and September 2020. She then began cycle 1 of bendamustine rituximab on 11/05/2020. She tolerated the treatment well, and she continued with cycle 2 on 12/03/2020 and with cycle 3 on 12/31/2020. At this point she is having mild fatigue and constipation for a week or so after treatment. She has mild anemia and mild neutropenia. She is having no other significant adverse effects. She will proceed now with cycle 4 of bendamustine/rituximab. The dosages will remain the same. She will return for follow-up in 4 weeks. She will have restaging PET/CT prior to that visit. If she is showing good response, we will have to determine then whether to begin maintenance rituximab or just follow expectantly. Signed By: Paco García M.D. <<Signature on File>>
[2021-01-28] MEDS: sodium chloride 0.9% 250 ML 999 ML IV (15:45)
[2021-01-28] MEDS: palonosetron 0.25 mg/5 mL SDV IVP (15:45)
== END 2021-02-03 23:59 | disposition home or self-care (01) ==
LOC: ONCMED 05:45
PROVIDERS: PCP Family Medicine; Visit Provider Internal Medicine Medical Oncology
DX: Z51.12 Encounter for antineoplastic immunotherapy (principal); C82.19 Follicular lymphoma grade II, extranodal and solid organ sites; M06.9 Rheumatoid arthritis, unspecified; Z79.52 Long term (current) use of systemic steroids; I10 Essential (primary) hypertension; K21.9 Gastro-esophageal reflux disease without esophagitis; G47.33 Obstructive sleep apnea (adult) (pediatric); Z85.42 Personal history of malignant neoplasm of other parts of uterus; Z85.828 Personal history of other malignant neoplasm of skin; Z79.899 Other long term (current) drug therapy
CPT/HCPCS: 36591; 80053; 83615; 85025; 96367; 96375; 96413; 96415; 96417; 99214; J1100; J1200; J2405; J2469; J7040; J7050; J9034; J9312

== ENCOUNTER 2021-02-11 10:01 | Outpatient (CLI) | payer MEDICARE, OTHER, SELFPAY ==
--- NOTE | 2021-02-11 10:15 | XR_ITS ---
WS: [id number], AP view, 02/11/2021 Clinical Data: UROLITHIASIS Comparison: [facility], 08/06/2020. Findings: No abnormal intraabdominal masses are seen. There is no dilatated small bowel or evidence of obstruct ion. There are serpentine calcifications of the splenic artery. There are injection granulomas in both but tocks. 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 XR/XR KUB [id number] Impression: Negative for renal calcifications.
== END 2021-02-11 10:02 | disposition home or self-care (01) ==
LOC: RAD 10:15
PROVIDERS: PCP Family Medicine; Visit Provider Urology
DX: N20.9 Urinary calculus, unspecified (principal); N20.2 Calculus of kidney with calculus of ureter
CPT/HCPCS: 74018; 81003; 87086

== ENCOUNTER 2021-03-05 09:53 | Outpatient (RCR) | payer MEDICARE, OTHER, SELFPAY ==
[2021-03-05 11:03] LABS: Basophils # 0.1 10^3/uL (0.0-0.1); Basophils % 1.2 %; Eosinophils # 0.1 10^3/uL (0.0-0.8); Eosinophils % 1.9 %; Hematocrit 32.9 % (37.0-47.0); Hemoglobin 10.9 g/dL (11.5-15.3); Lymphocytes # 0.6 10^3/uL (0.8-4.8); Lymphocytes % 13.7 %; Mean Corpuscular HGB Conc 33.1 g/dL (30.0-36.0); Mean Corpuscular Hemoglobin 31.5 pg (28.0-34.0); Mean Corpuscular Volume 95.1 fl (81-99); Monocytes # 0.7 10^3/uL (0.2-0.9); Monocytes % 16.5 %; Neutrophils # 2.81 10^3/uL (1.8-7.7); Neutrophils % 66.2 %; Nucleated Red Blood Cells % 0 %; Platelet Count 132 10^3/cmm (130-400); Red Blood Count 3.46 10^6/uL (4.1-5.3); Red Cell Distribution Width 16.1 % (12.1-15.1); White Blood Count 4.2 10^3/uL (4.0-10.0)
[2021-03-05 11:52] LABS: Alanine Aminotransferase 24 U/L (0-33); Alkaline Phosphatase 101 IU/L (35-105); Anion Gap 14.8 (5-19); Aspartate Amino Transferase 24 U/L (0-32); Blood Urea Nitrogen 15 mg/dL (8-23); Calcium 9.8 mg/dL (8.5-10.5); Carbon Dioxide 25 mmol/L (22-29); Chloride 105 mmol/L (98-107); Globulin 2.2 g/dL (1.3-4.6); Glomerular Filtration Rate 159.2 mL/min (90-130); Glucose 176 mg/dL (65-115); Lactate Dehydrogenase 189 U/L (135-214); Osmolality Calculated 297 mOsm/kg (285-295); Potassium 3.8 mmol/L (3.5-5.1); Sodium 141 mmol/L (136-145); Total Protein 6.2 g/dL (6.6-8.7)
--- NOTE | 2021-03-06 06:13 | ONC FU_ITS ---
Dr. García Patient Follow-Up Note Patient: Aylin Dietz Unit #: [id number]: [id number] Dicatated By: Paco García M.D.Date of Visit:Mar 05, 2021 Onc Med Follow-up/Prog Note Chief Complaint: Lymphoma. 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 She has a history of having undergone treatment for lymphoma by Dr. Ghulam Coon in [place]. It was initially diagnosed in 1991. I do not have the records, but based on the patient's description, it was probably low-grade. It had progressed on light chemotherapy, following which she had 6 cycles of treatment with an Adriamycin containing regimen, I assume CHOP, completed sometime in 1992. She had a complete response. Her medical history is otherwise significant for rheumatoid arthritis, initially diagnosed in 1982. Her RA had been well controlled on long-term therapy with methotrexate. Sometime around May 2018 or June 2018 she became aware of a knot in her right cheek. It wasn't visible, but she could feel it with her finger or her tongue. A neck CT on 09/26/2018 showed an enlarged lymph node on the right side of the face measuring 1.9 x 1.2 cm. There was a suggestion of fullness and soft tissue lesion in the right palatine tonsil measuring approximately 1.3 x 1.1 cm. The parotid glands appeared normal, and there appeared to be normal sized intraparotid lymph nodes. She was referred to Dr. Garcia. An initial FNA biopsy of the cheek mass was nondiagnostic. She was then referred to Dr. Faustina Martinez at [facility]. On 12/04/2018 she underwent right superficial parotidectomy, level IIA and posterior level IB right neck dissection, and excision of the right buccal mass. The parotid gland showed no histopathologic abnormalities and the intraparotid lymph nodes showed reactive lymphoid hyperplasia with no morphologic evidence of lymphoma. 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 The neck dissection showed no involvement in 13 lymph nodes. I had seen her initially on 01/04/2019. Her staging PET/CT on 01/06/2019 showed a poorly defined right parotid soft tissue lesion measuring approximately 1.7 x 3.0 cm with SUV 3.6, felt to be consistent with lymphoma. A second FDG positive mass was noted in the subcutaneous fat overlying the left maxilla measuring 1.4 x 0.8 cm. There were multiple FDG positive mediastinal lymph nodes with possible paralysis of the left vocal cord. There were 2 semisolid nodules in the right upper lobe, with the dominant lesion measuring 1.1 cm of SUV 2.0, felt to be inflammatory. With low-grade lymphoma in the setting of long-term methotrexate therapy, she was recommended to stop the methotrexate and otherwise just continue on observation/expectant management. Her repeat neck CT on 04/12/2019 showed evidence of partial right neck dissection and removal of the right parotid gland with appropriate appearing postsurgical changes. There are no new lymph nodes identified, but there was a new soft tissue fullness noted in the right paraglottic space measuring 19 x 12 mm. She was seen again by Dr. Garcia and her flexible laryngoscopy showed no significant abnormality. Repeat CT of the neck on 05/16/2019 showed evidence of soft tissue thickening/mass involving the right paraglottic space extending to the right vocal cord, unchanged from the prior study. There was severe central canal stenosis in the cervical spine at C5-C6, also unchanged. Partially visualized patchy opacities were noted in the right lung apex. There was no cervical lymphadenopathy. Restaging CT sans of the chest, abdomen, and pelvis on 08/03/2019 showed diminished size and number of groundglass opacities in the right lung. The left lung opacities also had diminished slightly in size. The mediastinal adenopathy remained unchanged. There was no axillary adenopathy noted. The spleen remained slightly increased in size. There was no adenopathy in the abdomen/pelvis. She continued observation/expectant management. Repeat CT scans of the chest, abdomen, and pelvis on 01/30/2020 showed continued slow improvement in the groundglass opacifications and subsolid opacifications bilaterally as well as slight improvement in the mediastinal and hilar lymph nodes. The largest AP window lymph node measured 10 mm. There was unchanged mild splenomegaly. There was no mesenteric or retroperitoneal adenopathy identified. Her repeat neck CT scan on 02/01/2020 showed interval increase in the right paraglottic space mass with slight extension across the midline and with narrowing of the vallecula. The mass measured 1.5 x 0.7 cm. There was no associated adenopathy. With that finding she was referred to Dr. Garcia. On 04/23/2020 she underwent biopsy of the right base of tongue lesion. Pathology showed B-cell rich lymphoproliferative process. It was noted that the overall cytomorphologic and immunohistochemical features were worrisome for B-cell neoplasm, and marginal zone lymphoma, in particular, was a consideration. A florid reactive process could not be entirely excluded. A restaging PET/CT on 05/24/2020 showed resolution of previously noted uptake in the right parotid gland but there was new FDG positive soft tissue at the right base of tongue measuring 1.0 cm, SUV 6.8. There was no significant change in the mediastinal adenopathy from the prior study. Previously noted right lung groundglass opacities and semisolid nodules were nearly resolved. In the meantime, on 05/08/2020 she had been admitted to the hospital with pyelonephritis/sepsis in association with a large obstructing left UPJ stone and a large renal calculus. She underwent cystoscopy with left ureteral stent placement. On 06/16/2020 she underwent replacement of the ureteral stent and ESWL of both stones. She underwent repeat ESWL of the lower pole renal calculus on 07/07/2020. On 08/20/2020 she underwent direct laryngoscopy with biopsy of right base of tongue lesion by Dr. Garcia. Pathology was consistent with follicular lymphoma, grade 3A. In the setting of obvious disease progression despite having stopped her methotrexate therapy and with her disease having involved from grade 1???2 to grade 3, she was recommended to undergo course of chemotherapy with bendamustine/rituximab. She completed COVID-19 vaccinations in August and September 2020. She then began cycle 1 of bendamustine rituximab on 11/05/2020. She tolerated the treatment well, and she continued with cycle 2 on 12/03/2020, with cycle 3 on 12/31/2020, and with cycle 4 on 01/27/2021. Restaging PET/CT on 02/28/2021 showed resolution of previously noted activity at the right base of tongue. There was slight improvement in mediastinal lymph node uptake with an index right paratracheal lymph node showing SUV 4.1 compared to 4.6 on the prior study. There is no new adenopathy noted and there were no other areas of abnormal uptake. Her medical illnesses, in addition to the rheumatoid arthritis, include hypertension, GERD, and obstructive sleep apnea. She has additional history of having undergone hysterectomy/bilateral salpingo-oophorectomy for low-grade endometrial cancer in 2017. She also has had multiple skin cancers excised. She is a nonsmoker. INTERIM HISTORY: She is seen for a follow-up visit. She has been feeling pretty good generally. She says she is getting energy back. She has been doing some walking. She also has been doing light work at home, though she does tire pretty quickly. Her ECOG score is one. She has been watching her diet, as her blood sugars had been more elevated. She has not had fever. She still has some sweating at night, but that has improved. She has occasional sinus drainage and she also has some cough cough, attributable to irritation in the back of her throat. She does not complain of shortness of breath or chest pain. She says her bowel movements have been all over the place. She has no other GI or complaints. She has having some joint pain, especially in her left hand, she uses a lot for quilting and other activities. Recently she has had a few headaches, which she thinks may be related to lisinopril. She does not complain of dizziness. She has some numbness in both hands, left worse than right, and she also has neuropathy in her feet. Medications: Aspirin 1 Tablet (of 81 mg) Oral daily, Atorvastatin Calcium 1 Tablet (of 10 mg) Oral daily, Calcium + D 1 Tablet Oral daily, Cardizem CD 1 (360 mg) Capsule SR 24 HR Oral daily, Eliquis 1 (5 mg) Tablet Oral b.i.d., Famotidine 1 Tablet (of 20 mg) Oral b.i.d., Folic Acid 2 Tablet (of 1 mg) Oral daily, Lipitor 1 Tablet (of 10 mg) Oral daily, Lisinopril 1 Tablet (of 5 mg) Oral daily, metFORMIN HCl 1 Tablet (of 1000 mg) Oral daily, Multivitamin Adults 1 Tablet Oral daily Allergies: No Known Allergies. Vital Signs: Performed on Mar 05, 2021 11:36 Height - 67.50 in Temperature - 98.6 F Pulse - 93 /min Respiration - 18 /min BP - 135/70 mm(hg) O2 Sat - 97 % Pain - 0 Fatigue - 0 Physical Examination: Constitutional - She looks pretty good generally, Eyes - Sclerae nonicteric. Conjunctivae clear, ENMT - There are no lesions noted in the oral cavity, Hematologic/Lymphatic - There is no cervical, clavicular, or axillary lymphadenopathy noted, Respiratory - Lungs are clear with good air movement bilaterally, Cardiovascular - Heart rhythm is regular. There is a II/ systolic murmur. There is no gallop or rub noted, Abdomen - Moderately distended. Liver and spleen are not enlarged. There is no abdominal mass or ascites noted and there is no inguinal adenopathy, Extremities - No edema, Neurologic - No focal neurologic deficits noted. Lab/Imaging: Test performed on Mar 05, 2021 10:15 LDH (Total) 189 U/L Sodium 141 mmol/L Potassium 3.8 mmol/L Chloride 105 mmol/L CO2 25 mmol/L Anion Gap 14.8 BUN 15 mg/dL Creatinine 0.4 mg/dL Cr Clearance (Est) 289.6700 mL/min eGFR 159.2 mL/min Glucose 176 mg/dL Osmolality - Calculated 297 mOsm/kg Calcium 9.8 mg/dL Protein, Total 6.2 g/dL Albumin 4.0 g/dL Globulin 2.2 g/dL Bilirubin, Total 1.0 mg/dL ALT (SGPT) 24 U/L AST (SGOT) 24 U/L Alkaline Phosphatase 101 IU/L WBC 4.2 10 3/uL RBC 3.46 10 6/uL HGB 10.9 g/dL HCT 32.9 % MCV 95.1 fl MCH 31.5 pg MCHC 33.1 g/dL RDW 16.1 % Platelet Count 132 10 3/cmm MPV 10.0 fL Neutrophils 2.81 10 3/uL Lymphocytes 0.6 10 3/uL Monocytes 0.7 10 3/uL Eosinophils 0.1 10 3/uL Basophils 0.1 10 3/uL Neutrophil % 66.2 % Lymphocyte % 13.7 % Monocyte % 16.5 % Eosinophil % 1.9 % Basophils % 1.2 % NRBC % 0 % Problem List: 1. Grade 1-2 follicular lymphoma presenting as a right buccal mass. It developed in the setting of detention methotrexate therapy for rheumatoid arthritis. 2. She had previous chemotherapy for lymphoma in . This was probably also low-grade lymphoma. 3. Long-standing rheumatoid arthritis. 4. Hypertension. 5. GERD. 6. Obstructive sleep apnea. 7. She underwent hysterectomy/bilateral salpingo-oophorectomy for low-grade endometrial cancer in 2017. 8. She has had multiple skin cancers excised. 9. In May 2020 she had an episode of pyelonephritis/sepsis in association with nephrolithiasis. She has undergone placement of left ureteral stent and ESWL x 2. 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 It developed in the setting of salvage determiner methotrexate therapy for rheumatoid arthritis. She underwent right superficial parotidectomy, level IIA and posterior level IB right neck dissection, and excision of right buccal mass on 12/04/2018. Her staging PET/CT did show residual activity in the right parotid area, and there also appeared to be involved mediastinal lymph nodes. However, in the setting of long-term methotrexate therapy, she was advised to stop the methotrexate and otherwise just be followed on observation/expectant management. Her repeat neck CT scan on 02/01/2020 showed interval increase in the right paraglottic space mass with slight extension across the midline and with narrowing of the vallecula. The mass measured 1.5 x 0.7 cm. There is no associated adenopathy. With that finding she was referred to Dr. Garcia. On 04/23/2020 she underwent biopsy of the right base of tongue lesion. Pathology showed B-cell rich lymphoproliferative process. It was noted that the overall cytomorphologic and immunohistochemical features were worrisome for B-cell neoplasm, but a florid reactive process could not be entirely excluded. A restaging PET/CT on 05/24/2020 showed resolution of previously noted uptake in the right parotid gland but there was new FDG positive soft tissue at the right base of tongue measuring 1.0 cm, SUV 6.8. There was no significant change in the mediastinal adenopathy from the prior study. Previously noted right lung groundglass opacities and semisolid nodules were nearly resolved. On 08/20/2020 she underwent direct laryngoscopy with biopsy of the right base of tongue lesion. Pathology was consistent with follicular lymphoma, grade 3A. With that finding, she clearly had progressive disease despite having stopped the methotrexate. 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 As such, she was recommended to proceed with a course of treatment with bendamustine/rituximab. She completed COVID-19 vaccinations in August and September 2020. She then completed 4 cycles of bendamustine rituximab from 11/05/2020 thru 01/27/2021. She tolerated the treatment well. Her restaging PET/CT on 02/28/2021 showed resolution of the previously reported activity at the right base of tongue. There was mild residual uptake in mediastinal lymph nodes, slightly improved. At this point, it appears that the mediastinal lymph node activity is most likely reactive in nature. She otherwise appears to have a very good response to the chemotherapy. With that in mind, she is given the option now to continue with maintenance rituximab. We discussed the fact that there may be some associated immunosuppression and she is aware that it is not a curative treatment, but that it does have a benefit in delaying recurrence/progression. She indicates that she does want to continue treatment, and she will be scheduled to return in 1 month for her cycle one maintenance rituximab. In the meantime, I suggested that she try Voltaren gel for her left hand arthritis pain. Signed By: Paco García M.D. <<Signature on File>>
== END 2021-03-05 23:59 | disposition home or self-care (01) ==
LOC: ONCMED 09:53
PROVIDERS: PCP Family Medicine; Visit Provider Internal Medicine Medical Oncology
DX: C82.10 Follicular lymphoma grade II, unspecified site (principal); M06.9 Rheumatoid arthritis, unspecified; Z79.52 Long term (current) use of systemic steroids; I10 Essential (primary) hypertension; K21.9 Gastro-esophageal reflux disease without esophagitis; G47.33 Obstructive sleep apnea (adult) (pediatric); Z85.41 Personal history of malignant neoplasm of cervix uteri; Z85.828 Personal history of other malignant neoplasm of skin; Z87.442 Personal history of urinary calculi; Z90.710 Acquired absence of both cervix and uterus; Z92.21 Personal history of antineoplastic chemotherapy; Z92.3 Personal history of irradiation; Z79.899 Other long term (current) drug therapy
CPT/HCPCS: 36591; 80053; 83615; 85025; 90471; 90686; 99214

== ENCOUNTER 2021-03-23 06:20 | Outpatient (RCR) | payer MEDICARE, OTHER, SELFPAY ==
[2021-03-20 11:00] LABS: Basophils % 0.9 %; Eosinophils # 0.1 10^3/uL (0.0-0.8); Eosinophils % 1.8 %; Hematocrit 32.9 % (37.0-47.0); Hemoglobin 10.9 g/dL (11.5-15.3); Lymphocytes # 0.5 10^3/uL (0.8-4.8); Lymphocytes % 10.3 %; Mean Corpuscular HGB Conc 33.1 g/dL (30.0-36.0); Mean Corpuscular Hemoglobin 31.3 pg (28.0-34.0); Mean Corpuscular Volume 94.5 fl (81-99); Monocytes # 0.6 10^3/uL (0.2-0.9); Monocytes % 14.2 %; Neutrophils # 3.15 10^3/uL (1.8-7.7); Neutrophils % 72.1 %; Nucleated Red Blood Cells % 0 %; Platelet Count 151 10^3/cmm (130-400); Red Blood Count 3.48 10^6/uL (4.1-5.3); Red Cell Distribution Width 14.9 % (12.1-15.1); White Blood Count 4.4 10^3/uL (4.0-10.0)
[2021-03-20 11:22] LABS: Alanine Aminotransferase 23 U/L (0-33); Albumin Level 3.9 g/dL (3.5-5.2); Alkaline Phosphatase 111 IU/L (35-105); Anion Gap 15.9 (5-19); Aspartate Amino Transferase 21 U/L (0-32); Blood Urea Nitrogen 14 mg/dL (8-23); Calcium 9.3 mg/dL (8.5-10.5); Carbon Dioxide 25 mmol/L (22-29); Chloride 102 mmol/L (98-107); Globulin 2.1 g/dL (1.3-4.6); Glomerular Filtration Rate 123.1 mL/min (90-130); Glucose 185 mg/dL (65-115); Osmolality Calculated 293 mOsm/kg (285-295); Potassium 3.9 mmol/L (3.5-5.1); Sodium 139 mmol/L (136-145)
[2021-03-23] MEDS: diphenhydrAMINE 50 mg/mL SDV 1mL 25 MG IVP (10:02)
[2021-03-23] MEDS: sodium chloride 0.9% 500 ML 75 ML IV (10:02)
[2021-03-23] MEDS: acetaminophen 325 mg Tablet 650 MG PO (10:02)
--- NOTE | 2021-03-30 01:04 | ONC FU_ITS ---
[facility] Patient Note Patient: Aylin Dietz Unit #: [id number]: [id number] Dictated By: Erika ReyesDate of Visit: Mar 23, 2021 Onc MED Follow-Up/Prog Note Chief Complaint: Lymphoma. 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 She has a history of having undergone treatment for lymphoma by Dr. Ghulam Coon in [place]. It was initially diagnosed in 1991. We do not have the records, but based on the patient's description, it was probably low-grade. It had progressed on light chemotherapy, following which she had 6 cycles of treatment with an Adriamycin containing regimen, assumed to be CHOP, completed sometime in 1992. She had a complete response. Her medical history is otherwise significant for rheumatoid arthritis, initially diagnosed in 1982. Her RA had been well controlled on long-term therapy with methotrexate. Sometime around May 2018 or June 2018 she became aware of a knot in her right cheek. It wasn't visible, but she could feel it with her finger or her tongue. A neck CT on 09/26/2018 showed an enlarged lymph node on the right side of the face measuring 1.9 x 1.2 cm. There was a suggestion of fullness and soft tissue lesion in the right palatine tonsil measuring approximately 1.3 x 1.1 cm. The parotid glands appeared normal, and there appeared to be normal sized intraparotid lymph nodes. She was referred to Dr. Garcia. An initial FNA biopsy of the cheek mass was nondiagnostic. She was then referred to Dr. Faustina Martinez at [facility]. On 12/04/2018 she underwent right superficial parotidectomy, level IIA and posterior level IB right neck dissection, and excision of the right buccal mass. The parotid gland showed no histopathologic abnormalities and the intraparotid lymph nodes showed reactive lymphoid hyperplasia with no morphologic evidence of lymphoma. 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 The neck dissection showed no involvement in [address] García had seen her initially on 01/04/2019. Her staging PET/CT on 01/06/2019 showed a poorly defined right parotid soft tissue lesion measuring approximately 1.7 x 3.0 cm with SUV 3.6, felt to be consistent with lymphoma. A second FDG positive mass was noted in the subcutaneous fat overlying the left maxilla measuring 1.4 x 0.8 cm. There were multiple FDG positive mediastinal lymph nodes with possible paralysis of the left vocal cord. There were 2 semisolid nodules in the right upper lobe, with the dominant lesion measuring 1.1 cm of SUV 2.0, felt to be inflammatory. With low-grade lymphoma in the setting of long-term methotrexate therapy, she was recommended to stop the methotrexate and otherwise just continue on observation/expectant management. Her repeat neck CT on 04/12/2019 showed evidence of partial right neck dissection and removal of the right parotid gland with appropriate appearing postsurgical changes. There are no new lymph nodes identified, but there was a new soft tissue fullness noted in the right paraglottic space measuring 19 x 12 mm. She was seen again by Dr. Garcia and her flexible laryngoscopy showed no significant abnormality. Repeat CT of the neck on 05/16/2019 showed evidence of soft tissue thickening/mass involving the right paraglottic space extending to the right vocal cord, unchanged from the prior study. There was severe central canal stenosis in the cervical spine at C5-C6, also unchanged. Partially visualized patchy opacities were noted in the right lung apex. There was no cervical lymphadenopathy. Restaging CT sans of the chest, abdomen, and pelvis on 08/03/2019 showed diminished size and number of groundglass opacities in the right lung. The left lung opacities also had diminished slightly in size. The mediastinal adenopathy remained unchanged. There was no axillary adenopathy noted. The spleen remained slightly increased in size. There was no adenopathy in the abdomen/pelvis. She continued observation/expectant management. Repeat CT scans of the chest, abdomen, and pelvis on 01/30/2020 showed continued slow improvement in the groundglass opacifications and subsolid opacifications bilaterally as well as slight improvement in the mediastinal and hilar lymph nodes. The largest AP window lymph node measured 10 mm. There was unchanged mild splenomegaly. There was no mesenteric or retroperitoneal adenopathy identified. Her repeat neck CT scan on 02/01/2020 showed interval increase in the right paraglottic space mass with slight extension across the midline and with narrowing of the vallecula. The mass measured 1.5 x 0.7 cm. There was no associated adenopathy. With that finding she was referred to Dr. Garcia. On 04/23/2020 she underwent biopsy of the right base of tongue lesion. Pathology showed B-cell rich lymphoproliferative process. It was noted that the overall cytomorphologic and immunohistochemical features were worrisome for B-cell neoplasm, and marginal zone lymphoma, in particular, was a consideration. A florid reactive process could not be entirely excluded. A restaging PET/CT on 05/24/2020 showed resolution of previously noted uptake in the right parotid gland but there was new FDG positive soft tissue at the right base of tongue measuring 1.0 cm, SUV 6.8. There was no significant change in the mediastinal adenopathy from the prior study. Previously noted right lung groundglass opacities and semisolid nodules were nearly resolved. In the meantime, on 05/08/2020 she had been admitted to the hospital with pyelonephritis/sepsis in association with a large obstructing left UPJ stone and a large renal calculus. She underwent cystoscopy with left ureteral stent placement. On 06/16/2020 she underwent replacement of the ureteral stent and ESWL of both stones. She underwent repeat ESWL of the lower pole renal calculus on 07/07/2020. On 08/20/2020 she underwent direct laryngoscopy with biopsy of right base of tongue lesion by Dr. Garcia. Pathology was consistent with follicular lymphoma, grade 3A. In the setting of obvious disease progression despite having stopped her methotrexate therapy and with her disease having involved from grade 1???2 to grade 3, she was recommended to undergo course of chemotherapy with bendamustine/rituximab. She completed COVID-19 vaccinations in August and September 2020. She then began cycle 1 of bendamustine rituximab on 11/05/2020. She tolerated the treatment well, and she continued with cycle 2 on 12/03/2020, with cycle 3 on 12/31/2020, and with cycle 4 on 01/27/2021. Restaging PET/CT on 02/28/2021 showed resolution of previously noted activity at the right base of tongue. There was slight improvement in mediastinal lymph node uptake with an index right paratracheal lymph node showing SUV 4.1 compared to 4.6 on the prior study. There is no new adenopathy noted and there were no other areas of abnormal uptake. Her medical illnesses, in addition to the rheumatoid arthritis, include hypertension, GERD, and obstructive sleep apnea. She has additional history of having undergone hysterectomy/bilateral salpingo-oophorectomy for low-grade endometrial cancer in 2017. She also has had multiple skin cancers excised. She is a nonsmoker. INTERIM HISTORY: Ms. Dietz completed 4 cycles of bendamustine Rituxan as of January 28, 2021. She is here today to initiate her first cycle of maintenance Rituxan. She states she is feeling good overall. She has had no new concerns. She denies any fever or chills. She denies any mouth sores, sore throat or difficulty swallowing. She denies any shortness of breath, cough hemoptysis or orthopnea. She denies any chest pain or palpitations. She states her bowels and bladder are all normal for her. She has not had any diarrhea or constipation. She continues to have joint pain from her RA but states it is no worse than what it has been. She states the Voltaren gel may have helped some. She has no new concerns today. Her ECOG remains at 0 today. Past Medical History: Gastroesophageal reflux disease History of endometrial cancer History of multiple skin cancers Hypertension Non-Hodgkin's lymphoma Rheumatoid arthritis Past Surgical History: Bilateral carpal tunnel release Bladder sling procedure Foot surgery bilaterally Multiple skin cancer excisions, including Mohs surgery on the face Removal of basal cell carcinoma on skin Tonsillectomy Tubal ligation INflunzea [id number] in 2020 Port-A-Cath right subclavian vein???Dr. Muir in 2020 Covid vaccine #2 in 2020 Covid vaccine #1 in 2020 Lithotripsy in 2020 Right superficial parotidectomy, right neck dissection, and excision of right buccal mass in 2019 Hysterectomy/bilateral salpingectomy-oophorectomy in 2017 Hammer toe/bunionectomy in 2004 Allergies: No Known Allergies. Medications: Aspirin 1 Tablet (of 81 mg) Oral daily Atorvastatin Calcium 1 Tablet (of 10 mg) Oral daily Calcium + D 1 Tablet Oral daily Cardizem CD 1 (360 mg) Capsule SR 24 HR Oral daily Eliquis 1 (5 mg) Tablet Oral b.i.d. Famotidine 1 Tablet (of 20 mg) Oral b.i.d. Folic Acid 2 Tablet (of 1 mg) Oral daily Lipitor 1 Tablet (of 10 mg) Oral daily Lisinopril 1 Tablet (of 5 mg) Oral daily metFORMIN HCl 1 Tablet (of 1000 mg) Oral daily Multivitamin Adults 1 Tablet Oral daily Family History: Ms. Dietz's mother at age 66: lymphoma. Ms. Dietz's father is alive: heart disease, and type II diabetes. Ms. Dietz has 2 brothers: 2 alive. She has 1 sister who is alive. She has 1 paternal aunt who is : pancreatic cancer. Father has diabetes and heart disease and is still living at age 86. Mother of lymphoma and age 66. A paternal aunt had pancreatic cancer. Two brothers are in good health. Her sister has myasthenia gravis. Social History: Ms. Dietz is and she is retired. Ms. Dietz has never smoked. She has no history of drinking. Ms. Dietz reports the following support systems: lives with spouse, significant other, family, or friends, lives in own house, supportive family/friends willing to assist with needs, and adequate transportation available for expected visits. Her diet consists of regular meals. She indicates her activity level as: regular exercise. She has a nonsmoker. She does not drink alcohol. Review Of Symptoms: <See Above> Vital Signs: Performed on Mar 23, 2021 08:51 Height - 67.50 in Weight - 282 lbs (LOW) BSA - 2.35 sq.m BMI - 43.52 (HIGH) Temperature - 97.9 F (LOW) Pulse - 109 /min (HIGH) Respiration - 18 /min BP - 124/77 mm(hg) O2 Sat - 97 % Pain - 0 Fatigue - 0,0 - Fully active, able to carry on all predisease activities without restrictions. (ECOG) Physical Examination: Constitutional Alert, oriented, no acute distress. Skin pink, warm and dry. Head Normocephalic; atraumatic. Eyes Conjunctivae and sclerae are clear and without icterus. Pupils are reactive and equal. Neck Supple without masses or thyromegaly. No jugular venous distension. Hematologic/Lymphatic No petechiae or purpura. No tender or palpable lymph nodes in the cervical or supraclavicular areas. Respiratory Lungs are clear to auscultation without rhonchi or wheezing. Cardiovascular Regular rate and rhythm of heart without murmurs,clicks, gallops or rubs. Chest Chest is symmetric without chest wall deformities. Right chest wall port site unremarkable. Back/Spine Non-tender to palpation. Extremities No visible deformities, no cyanosis, clubbing or edema. Musculoskeletal No tenderness or swelling, normal range of motion without obvious weakness. Integumentary No rashes or lesions. Neurologic No sensory or motor deficits, normal cerebellar function, normal gait. Psychiatric Alert and oriented times three. Coherent speech. Verbalizes understanding of our discussions today. Laboratory:Test performed on Mar 20, 2021 10:15 Sodium 139 mmol/L Potassium 3.9 mmol/L Chloride 102 mmol/L CO2 25 mmol/L Anion Gap 15.9 BUN 14 mg/dL Creatinine 0.5 mg/dL Cr Clearance (Est) 231.7300 mL/min eGFR 123.1 mL/min Glucose 185 mg/dL Osmolality - Calculated 293 mOsm/kg Calcium 9.3 mg/dL Protein, Total 6.0 g/dL Albumin 3.9 g/dL Globulin 2.1 g/dL Bilirubin, Total 1.0 mg/dL ALT (SGPT) 23 U/L AST (SGOT) 21 U/L Alkaline Phosphatase 111 IU/L WBC 4.4 10 3/uL RBC 3.48 10 6/uL HGB 10.9 g/dL HCT 32.9 % MCV 94.5 fl MCH 31.3 pg MCHC 33.1 g/dL RDW 14.9 % Platelet Count 151 10 3/cmm MPV 10.0 fL Neutrophils 3.15 10 3/uL Lymphocytes 0.5 10 3/uL Monocytes 0.6 10 3/uL Eosinophils 0.1 10 3/uL Basophils 0.0 10 3/uL Neutrophil % 72.1 % Lymphocyte % 10.3 % Monocyte % 14.2 % Eosinophil % 1.8 % Basophils % 0.9 % NRBC % 0 % Test performed on Mar 05, 2021 10:15 LDH (Total) 189 U/L Test performed on Nov 04, 2020 15:06 Hepatitis B Surf Antigen Non-Reactive Hepatitis B Surface Ab 3.5 STATUS of IMMUINITY Inconsistent with Immunity 0.0 - 8.4 mIU/mL Consistent with Indeterminate Immunity 8.5 - 11.4 mIU/mL Consistent with Immunity >= 11.5 mIU/mL Hepatitis B Core Ab, Total Non-Reactive Impression: 1. Grade 1-2 follicular lymphoma presenting as a right buccal mass. It developed in the setting of terminal superintendent methotrexate therapy for rheumatoid arthritis. 2. She had previous chemotherapy for lymphoma in . This was probably also low-grade lymphoma. 3. Long-standing rheumatoid arthritis. 4. Hypertension. 5. GERD. 6. Obstructive sleep apnea. 7. She underwent hysterectomy/bilateral salpingo-oophorectomy for low-grade endometrial cancer in 2016. 8. She has had multiple skin cancers excised. 9. In May 2020 she had an episode of pyelonephritis/sepsis in association with nephrolithiasis. She has undergone placement of left ureteral stent and ESWL x 2. 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 It developed in the setting of detention methotrexate therapy for rheumatoid arthritis. She underwent right superficial parotidectomy, level IIA and posterior level IB right neck dissection, and excision of right buccal mass on 12/04/2018. Her staging PET/CT did show residual activity in the right parotid area, and there also appeared to be involved mediastinal lymph nodes. However, in the setting of long-term methotrexate therapy, she was advised to stop the methotrexate and otherwise just be followed on observation/expectant management. Her repeat neck CT scan on 02/01/2020 showed interval increase in the right paraglottic space mass with slight extension across the midline and with narrowing of the vallecula. The mass measured 1.5 x 0.7 cm. There is no associated adenopathy. With that finding she was referred to Dr. Garcia. On 04/23/2020 she underwent biopsy of the right base of tongue lesion. Pathology showed B-cell rich lymphoproliferative process. It was noted that the overall cytomorphologic and immunohistochemical features were worrisome for B-cell neoplasm, but a florid reactive process could not be entirely excluded. A restaging PET/CT on 05/24/2020 showed resolution of previously noted uptake in the right parotid gland but there was new FDG positive soft tissue at the right base of tongue measuring 1.0 cm, SUV 6.8. There was no significant change in the mediastinal adenopathy from the prior study. Previously noted right lung groundglass opacities and semisolid nodules were nearly resolved. On 08/20/2020 she underwent direct laryngoscopy with biopsy of the right base of tongue lesion. Pathology was consistent with follicular lymphoma, grade 3A. With that finding, she clearly had progressive disease despite having stopped the methotrexate. 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 As such, she was recommended to proceed with a course of treatment with bendamustine/rituximab. She completed COVID-19 vaccinations in August and September 2020. She then completed 4 cycles of bendamustine rituximab from 11/05/2020 thru 01/27/2021. She tolerated the treatment well. Her restaging PET/CT on 02/28/2021 showed resolution of the previously reported activity at the right base of tongue. There was mild residual uptake in mediastinal lymph nodes, slightly improved. At this point, it appears that the mediastinal lymph node activity is most likely reactive in nature. She otherwise appears to have a very good response to the chemotherapy. With that in mind, she was given the option to continue with maintenance rituximab. Dr García discussed with Mrs Dietz the fact that there may be some associated immunosuppression and she is aware that it is not a curative treatment, but that it does have a benefit in delaying recurrence/progression. She indicates that she does want to continue treatment. A. Proceed with cycle 1 maintenance Rituxan B. Supportive care as indicated. C. Flu vacs given 03/05/2021. D. Labs from March 20, 2021 were reviewed in detail and discussed with Ms. Dietz and a copy was given to her. WBC 4.4, hemoglobin 10.9 platelets 151,000 ANC is 3150. Potassium 3.9 random glucose 185 she states she is following with her primary care regarding her sugars). Creatinine 0.5 LFTs are normal her alk phos is 111. She states she is been following a diabetic diet. Is noted that her weight is down intentionally 12 pounds since her January 27, 2021 visit. E. We will plan to see her back in 2 months with CBC, CMP and LDH which time she will be due for cycle 2 maintenance Rituxan. F. She is followed with Dr. Raya and is due for repeat hemoglobin A1c in May. G. Mrs. Dietz was encouraged to contact us in interim should questions or problems arise. H. We did discuss the fact that she has had Rituxan before and had no reactions however she will be monitored closely for possible infusion reactions. She is reminded that the Rituxan may drop her blood counts, could cause diarrhea or constipation, could cause rash, shortness of breath or nausea/vomiting. She states she recalls side effects of the Rituxan and tolerated it well in the past. Signed By: Erika Reyes-, AOCNP Paco García MD <<Signature on File>>
== END 2021-04-05 23:59 | disposition home or self-care (01) ==
LOC: ONCMED 06:20
PROVIDERS: Internal Medicine Medical Oncology; PCP Family Medicine; Visit Provider Nurse Practitioner
DX: Z51.12 Encounter for antineoplastic immunotherapy (principal); C82.19 Follicular lymphoma grade II, extranodal and solid organ sites; M06.9 Rheumatoid arthritis, unspecified; Z79.52 Long term (current) use of systemic steroids; I10 Essential (primary) hypertension; K21.9 Gastro-esophageal reflux disease without esophagitis; G47.33 Obstructive sleep apnea (adult) (pediatric); Z85.41 Personal history of malignant neoplasm of cervix uteri; Z85.828 Personal history of other malignant neoplasm of skin; Z90.710 Acquired absence of both cervix and uterus; Z87.442 Personal history of urinary calculi; Z87.448 Personal history of other diseases of urinary system; Z79.899 Other long term (current) drug therapy
CPT/HCPCS: 36591; 80053; 85025; 96375; 96413; 96415; 99215; J1200; J7040; J9312

== ENCOUNTER 2021-03-24 10:01 | Outpatient (CLI) | payer MEDICARE, OTHER, SELFPAY ==
--- NOTE | 2021-03-24 10:06 | MM_ITS ---
WS: [id number] SCREENING DIGITAL MAMMOGRAM WITH CAD HISTORY: SCREENING COMPARISON: 02/08/2020, 01/22/2019, 11/12/2016, 01/08/2010 Bilateral CC and MLO views submitted. Computer aided detection analyzed. Breast composition: There are scattered areas of fibroglandular density. 7 mm nodule near 12:00 of th e middle depth RIGHT breast is slightly greater in size and increased in density over multiple prior studies. Otherwise the nodules and calcifications are stable. MM/[id number] IMPRESSION: BI-RADS: 0-Incomplete: Need additional imaging evaluation FOLLOW UP: Need Additional Imaging RIGHT breast: Spot compression views (CC and MLO). True ML. Ultrasound to follo w if abnormality persists.
== END 2021-03-24 10:02 | disposition home or self-care (01) ==
PROVIDERS: PCP Family Medicine; Visit Provider Family Medicine
DX: Z12.31 Encounter for screening mammogram for malignant neoplasm of breast (principal)
CPT/HCPCS: 77067

== ENCOUNTER → 2021-03-26 15:24 | Outpatient (BNVA) | payer MEDICARE, OTHER, SELFPAY | PROVIDERS: PCP Family Medicine; Referring Provider Family Medicine; Visit Provider Specialist | DX: R20.0 Anesthesia of skin (principal); R20.2 Paresthesia of skin | CPT/HCPCS: 95908 ==

== ENCOUNTER 2021-05-18 07:49 | Outpatient (CLI) | payer MEDICARE, OTHER, SELFPAY ==
[2021-05-18 08:33] LABS: Basophils % 0.9 %; Eosinophils # 0.1 10^3/uL (0.0-0.8); Eosinophils % 1.8 %; Hematocrit 35.7 % (37.0-47.0); Hemoglobin 11.9 g/dL (11.5-15.3); Lymphocytes # 0.4 10^3/uL (0.8-4.8); Lymphocytes % 9.4 %; Mean Corpuscular HGB Conc 33.3 g/dL (30.0-36.0); Mean Corpuscular Hemoglobin 30.1 pg (28.0-34.0); Mean Corpuscular Volume 90.4 fl (81-99); Mean Platelet Volume 9.5 fL (7.4-10.4); Monocytes # 0.5 10^3/uL (0.2-0.9); Monocytes % 11.7 %; Neutrophils # 3.31 10^3/uL (1.8-7.7); Nucleated Red Blood Cells % 0 %; Platelet Count 145 10^3/cmm (130-400); Red Blood Count 3.95 10^6/uL (4.1-5.3); White Blood Count 4.4 10^3/uL (4.0-10.0)
[2021-05-18 08:54] LABS: Alanine Aminotransferase 17 U/L (0-33); Albumin Level 4.1 g/dL (3.5-5.2); Alkaline Phosphatase 84 IU/L (35-105); Anion Gap 14.9 (5-19); Aspartate Amino Transferase 18 U/L (0-32); Blood Urea Nitrogen 14 mg/dL (8-23); Carbon Dioxide 24 mmol/L (22-29); Chloride 105 mmol/L (98-107); Globulin 1.9 g/dL (1.3-4.6); Glomerular Filtration Rate 99.7 mL/min (90-130); Glucose 195 mg/dL (65-115); Lactate Dehydrogenase 147 U/L (135-214); Osmolality Calculated 296 mOsm/kg (285-295); Potassium 3.9 mmol/L (3.5-5.1); Sodium 140 mmol/L (136-145); Total Bilirubin 1.1 mg/dL (0.15-1.2)
[2021-05-18] MEDS: diphenhydrAMINE 50 mg/mL SDV 1mL 25 MG IV (10:00)
[2021-05-18] MEDS: sodium chloride 0.9% 250 ML 75 ML IV (10:00)
[2021-05-18] MEDS: acetaminophen 325 mg Tablet 650 MG PO (10:00)
--- NOTE | 2021-05-19 07:31 | ONC FU_ITS ---
Dr. García Patient Follow-Up Note Patient: Aylin Dietz Unit #: [id number]: 1955 Dicatated By: Paco García M.D.Date of Visit:May 18, 2021 Onc Med Follow-up/Prog Note Chief Complaint: Lymphoma. 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 She has a history of having undergone treatment for lymphoma by Dr. Ghulam Coon in [place]. It was initially diagnosed in 1991. I did not have the records, but based on the patient's description, it was probably low-grade. It had progressed on light chemotherapy, following which she had 6 cycles of treatment with an Adriamycin containing regimen, I assume CHOP, completed sometime in 1992. She had a complete response. Her medical history is otherwise significant for rheumatoid arthritis, initially diagnosed in 1982. Her RA had been well controlled on long-term therapy with methotrexate. Sometime around May 2018 or June 2018 she became aware of a knot in her right cheek. It wasn't visible, but she could feel it with her finger or her tongue. A neck CT on 09/26/2018 showed an enlarged lymph node on the right side of the face measuring 1.9 x 1.2 cm. There was a suggestion of fullness and soft tissue lesion in the right palatine tonsil measuring approximately 1.3 x 1.1 cm. The parotid glands appeared normal, and there appeared to be normal sized intraparotid lymph nodes. She was referred to Dr. Garcia. An initial FNA biopsy of the cheek mass was nondiagnostic. She was then referred to Dr. Faustina Martinez at [facility]. On 12/04/2018 she underwent right superficial parotidectomy, level IIA and posterior level IB right neck dissection, and excision of the right buccal mass. The parotid gland showed no histopathologic abnormalities and the intraparotid lymph nodes showed reactive lymphoid hyperplasia with no morphologic evidence of lymphoma. 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 The neck dissection showed no involvement in 13 lymph nodes. I had seen her initially on 01/04/2019. Her staging PET/CT on 01/06/2019 showed a poorly defined right parotid soft tissue lesion measuring approximately 1.7 x 3.0 cm with SUV 3.6, felt to be consistent with lymphoma. A second FDG positive mass was noted in the subcutaneous fat overlying the left maxilla measuring 1.4 x 0.8 cm. There were multiple FDG positive mediastinal lymph nodes with possible paralysis of the left vocal cord. There were 2 semisolid nodules in the right upper lobe, with the dominant lesion measuring 1.1 cm of SUV 2.0, felt to be inflammatory. With low-grade lymphoma in the setting of long-term methotrexate therapy, she was recommended to stop the methotrexate and otherwise just continue on observation/expectant management. Her repeat neck CT on 04/12/2019 showed evidence of partial right neck dissection and removal of the right parotid gland with appropriate appearing postsurgical changes. There are no new lymph nodes identified, but there was a new soft tissue fullness noted in the right paraglottic space measuring 19 x 12 mm. She was seen again by Dr. Garcia and her flexible laryngoscopy showed no significant abnormality. Repeat CT of the neck on 05/16/2019 showed evidence of soft tissue thickening/mass involving the right paraglottic space extending to the right vocal cord, unchanged from the prior study. There was severe central canal stenosis in the cervical spine at C5-C6, also unchanged. Partially visualized patchy opacities were noted in the right lung apex. There was no cervical lymphadenopathy. Restaging CT sans of the chest, abdomen, and pelvis on 08/03/2019 showed diminished size and number of groundglass opacities in the right lung. The left lung opacities also had diminished slightly in size. The mediastinal adenopathy remained unchanged. There was no axillary adenopathy noted. The spleen remained slightly increased in size. There was no adenopathy in the abdomen/pelvis. She continued observation/expectant management. Repeat CT scans of the chest, abdomen, and pelvis on 01/30/2020 showed continued slow improvement in the groundglass opacifications and subsolid opacifications bilaterally as well as slight improvement in the mediastinal and hilar lymph nodes. The largest AP window lymph node measured 10 mm. There was unchanged mild splenomegaly. There was no mesenteric or retroperitoneal adenopathy identified. Her repeat neck CT scan on 02/01/2020 showed interval increase in the right paraglottic space mass with slight extension across the midline and with narrowing of the vallecula. The mass measured 1.5 x 0.7 cm. There was no associated adenopathy. With that finding she was referred to Dr. Garcia. On 04/23/2020 she underwent biopsy of the right base of tongue lesion. Pathology showed B-cell rich lymphoproliferative process. It was noted that the overall cytomorphologic and immunohistochemical features were worrisome for B-cell neoplasm, and marginal zone lymphoma, in particular, was a consideration. A florid reactive process could not be entirely excluded. A restaging PET/CT on 05/24/2020 showed resolution of previously noted uptake in the right parotid gland but there was new FDG positive soft tissue at the right base of tongue measuring 1.0 cm, SUV 6.8. There was no significant change in the mediastinal adenopathy from the prior study. Previously noted right lung groundglass opacities and semisolid nodules were nearly resolved. In the meantime, on 05/08/2020 she had been admitted to the hospital with pyelonephritis/sepsis in association with a large obstructing left UPJ stone and a large renal calculus. She underwent cystoscopy with left ureteral stent placement. On 06/16/2020 she underwent replacement of the ureteral stent and ESWL of both stones. She underwent repeat ESWL of the lower pole renal calculus on 07/07/2020. On 08/20/2020 she underwent direct laryngoscopy with biopsy of right base of tongue lesion by Dr. Garcia. Pathology was consistent with follicular lymphoma, grade 3A. In the setting of obvious disease progression despite having stopped her methotrexate therapy and with her disease having involved from grade 1???2 to grade 3, she was recommended to undergo course of chemotherapy with bendamustine/rituximab. She completed COVID-19 vaccinations in August and September 2020. She then began cycle 1 of bendamustine rituximab on 11/05/2020. She tolerated the treatment well, and she continued with cycle 2 on 12/03/2020, with cycle 3 on 12/31/2020, and with cycle 4 on 01/27/2021. Restaging PET/CT on 02/28/2021 showed resolution of previously noted activity at the right base of tongue. There was slight improvement in mediastinal lymph node uptake with an index right paratracheal lymph node showing SUV 4.1 compared to 4.6 on the prior study. There was no new adenopathy noted and there were no other areas of abnormal uptake. Her medical illnesses, in addition to the rheumatoid arthritis, include hypertension, GERD, and obstructive sleep apnea. She has additional history of having undergone hysterectomy/bilateral salpingo-oophorectomy for low-grade endometrial cancer in 2017. She also has had multiple skin cancers excised. She is a nonsmoker. INTERIM HISTORY: With her disease having shown significant response to the bendamustine/rituximab, she was then offered the option to continue with maintenance rituximab every 2 months. She began her maintenance cycle 1 on 03/23/2021. She tolerated it without significant toxicity. She is seen for a follow-up visit. She has been feeling pretty good generally, though she says her energy is not as good as she would like it to be. She is doing some walking and she does light work at home. ECOG score is 1. Her appetite is good. She has no fever or night sweats. She has occasional sinus drainage. She also complains of having cough associated with junk and/or a tickle in her throat. She has no difficulty swallowing. She does not complain of shortness of breath or chest pain. She has no GI/ complaints other than her bowel function tends to vary, occasionally with loose stools or even diarrhea. She has some soreness in her hands, which tends to be associated with activity. She otherwise is not having joint pain. She has just occasional headache. She does not complain of dizziness. She has some numbness/tingling in her fingers and toes. Medications: Aspirin 1 Tablet (of 81 mg) Oral daily, Atorvastatin Calcium 1 Tablet (of 10 mg) Oral daily, Calcium + D 1 Tablet Oral daily, Cardizem CD 1 (360 mg) Capsule SR 24 HR Oral daily, Eliquis 1 (5 mg) Tablet Oral b.i.d., Famotidine 1 Tablet (of 20 mg) Oral b.i.d., Folic Acid 2 Tablet (of 1 mg) Oral daily, Lipitor 1 Tablet (of 10 mg) Oral daily, Lisinopril 1 Tablet (of 5 mg) Oral b.i.d., metFORMIN HCl 1 Tablet (of 1000 mg) Oral daily, Multivitamin Adults 1 Tablet Oral daily Allergies: No Known Allergies. Vital Signs: Performed on May 18, 2021 11:45 Height - 67.50 in Weight - 279.4 lbs (LOW) BSA - 2.34 sq.m BMI - 43.11 (HIGH) Temperature - 98.4 F Pulse - 91 /min Respiration - 16 /min BP - 145/76 mm(hg) (HIGH) O2 Sat - 98 % Pain - 0 Fatigue - 3 Physical Examination: Constitutional - She looks pretty good generally, Eyes - Sclerae nonicteric. Conjunctivae clear, ENMT - There are no lesions noted in the oral cavity, Hematologic/Lymphatic - There is no cervical, clavicular, or axillary lymphadenopathy noted, Respiratory - Lungs are clear with good air movement bilaterally, Cardiovascular - Heart rhythm is regular. There is a II/ systolic murmur. There is no gallop or rub noted, Abdomen - Moderately distended. Liver and spleen are not enlarged. There is no abdominal mass or ascites noted and there is no inguinal adenopathy, Extremities - No edema, Neurologic - No focal neurologic deficits noted. Lab/Imaging: Test performed on May 18, 2021 08:22 LDH (Total) 147 U/L Sodium 140 mmol/L Potassium 3.9 mmol/L Chloride 105 mmol/L CO2 24 mmol/L Anion Gap 14.9 BUN 14 mg/dL Creatinine 0.6 mg/dL Cr Clearance (Est) 183.7300 mL/min eGFR 99.7 mL/min Glucose 195 mg/dL Osmolality - Calculated 296 mOsm/kg Calcium 9.0 mg/dL Protein, Total 6.0 g/dL Albumin 4.1 g/dL Globulin 1.9 g/dL Bilirubin, Total 1.1 mg/dL ALT (SGPT) 17 U/L AST (SGOT) 18 U/L Alkaline Phosphatase 84 IU/L WBC 4.4 10 3/uL RBC 3.95 10 6/uL HGB 11.9 g/dL HCT 35.7 % MCV 90.4 fl MCH 30.1 pg MCHC 33.3 g/dL RDW 14.0 % Platelet Count 145 10 3/cmm MPV 9.5 fL Neutrophils 3.31 10 3/uL Lymphocytes 0.4 10 3/uL Monocytes 0.5 10 3/uL Eosinophils 0.1 10 3/uL Basophils 0.0 10 3/uL Neutrophil % 76.0 % Lymphocyte % 9.4 % Monocyte % 11.7 % Eosinophil % 1.8 % Basophils % 0.9 % NRBC % 0 % Problem List: 1. Grade 1-2 follicular lymphoma presenting as a right buccal mass. 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 2. She had previous chemotherapy for lymphoma in . This was probably also low-grade lymphoma. 3. Long-standing rheumatoid arthritis. 4. Hypertension. 5. GERD. 6. Obstructive sleep apnea. 7. She underwent hysterectomy/bilateral salpingo-oophorectomy for low-grade endometrial cancer in 2016. 8. She has had multiple skin cancers excised. 9. In May 2020 she had an episode of pyelonephritis/sepsis in association with nephrolithiasis. She has undergone placement of left ureteral stent and ESWL x 2. 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 She underwent right superficial parotidectomy, level IIA and posterior level IB right neck dissection, and excision of right buccal mass on 12/04/2018. Her staging PET/CT did show residual activity in the right parotid area, and there also appeared to be involved mediastinal lymph nodes. However, in the setting of long-term methotrexate therapy, she was advised to stop the methotrexate and otherwise just be followed on observation/expectant management. Her repeat neck CT scan on 02/01/2020 showed interval increase in the right paraglottic space mass with slight extension across the midline and with narrowing of the vallecula. The mass measured 1.5 x 0.7 cm. There is no associated adenopathy. With that finding she was referred to Dr. Garcia. On 04/23/2020 she underwent biopsy of the right base of tongue lesion. Pathology showed B-cell rich lymphoproliferative process. It was noted that the overall cytomorphologic and immunohistochemical features were worrisome for B-cell neoplasm, but a florid reactive process could not be entirely excluded. A restaging PET/CT on 05/24/2020 showed resolution of previously noted uptake in the right parotid gland but there was new FDG positive soft tissue at the right base of tongue measuring 1.0 cm, SUV 6.8. There was no significant change in the mediastinal adenopathy from the prior study. Previously noted right lung groundglass opacities and semisolid nodules were nearly resolved. On 08/20/2020 she underwent direct laryngoscopy with biopsy of the right base of tongue lesion. Pathology was consistent with follicular lymphoma, grade 3A. With that finding, she clearly had progressive disease despite having stopped the methotrexate. 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 As such, she was recommended to proceed with a course of treatment with bendamustine/rituximab. She completed COVID-19 vaccinations in August and September 2020. She then completed 4 cycles of bendamustine rituximab from 11/05/2020 thru 01/27/2021. She tolerated the treatment well. Her restaging PET/CT on 02/28/2021 showed resolution of the previously reported activity at the right base of tongue. There was mild residual uptake in mediastinal lymph nodes, slightly improved and most likely reactive in nature. Overall she had a very good response to the chemotherapy, and she was then given the option to continue with maintenance rituximab. She received her maintenance cycle 1 treatment on 03/23/2021. She tolerated it without significant toxicity. Overall, she appears to be doing well clinically. She does have some mild residual throat symptoms, but of uncertain clinical significance. She will proceed now with maintenance cycle 2 of rituximab at 375 mg/m??? by IV infusion. She returns in 2 months. Signed By: Paco García M.D. <<Signature on File>>
== END 2021-05-18 07:50 | disposition home or self-care (01) ==
LOC: ONCMED 07:51
PROVIDERS: PCP Family Medicine; Visit Provider Internal Medicine Medical Oncology
DX: Z51.12 Encounter for antineoplastic immunotherapy (principal); C82.11 Follicular lymphoma grade II, lymph nodes of head, face, and neck; M06.9 Rheumatoid arthritis, unspecified; Z79.52 Long term (current) use of systemic steroids; I10 Essential (primary) hypertension; K21.9 Gastro-esophageal reflux disease without esophagitis; G47.33 Obstructive sleep apnea (adult) (pediatric); Z90.710 Acquired absence of both cervix and uterus; Z85.828 Personal history of other malignant neoplasm of skin; Z87.442 Personal history of urinary calculi; Z79.899 Other long term (current) drug therapy
CPT/HCPCS: 80053; 83615; 85025; 96375; 96413; 96415; 99215; J1200; J7040; J7050; J9312

== ENCOUNTER 2021-05-27 08:54 | Outpatient (CLI) | payer MEDICARE, OTHER, SELFPAY ==
--- NOTE | 2021-05-27 | US_ITS ---
ADDITIONAL VIEWS RIGHT BREAST RIGHT breast ultrasound, limited HISTORY: ABNORMAL MAMMO RT BREAST COMPARISON: 03/24/2021, 02/08/2020, 11/17/2017 Compression views right CC and MLO projection. True ML also submitted. Asymmetry near 12:00 in the anterior breast persists with additional imaging. Margins are irregular and partially obscured. This nodule measures approximately 8 mm and is ovoid. Does not maintain its discrete masslike structure. There are benign calcifications. RIGHT breast ultrasound, limited. Ultrasound is directed to the 12:00 axis. At 12:00, 3 cm from the nipple is a very small hypoechoic mass measuring 3 x 3 x 2 mm. There is an additional hypoechoic nodule at 12:00 in the subareolar location measuring 6 x 6 x 3 mm. No increased vascularity. MM/[place] [id number] IMPRESSION: BI-RADS: 3-Probably Benign FOLLOW-UP: 6 Month Follow-up Probably benign complex cysts in the RIGHT breast at 12:00. Recommend 6 month follow-up to document stability. LILY
--- NOTE | 2021-05-27 09:04 | MM_ITS ---
WS: [id number] ADDITIONAL VIEWS RIGHT BREAST RIGHT breast ultrasound, limited HISTORY: ABNORMAL MAMMO RT BREAST COMPARISON: 03/24/2021, 02/08/2020, 11/17/2017 Compression views right CC and MLO projection. True ML also submitted. Asymmetry near 12:00 in the an terior breast persists with additional imaging. Margins are irregular and partially obscured. This no dule measures approximately 8 mm and is ovoid. Does not maintain its discrete masslike structure. The re are benign calcifications. RIGHT breast ultrasound, limited. Ultrasound is directed to the 12:00 axis. At 12:00, 3 cm from the nipple is a very small hypoechoic m ass measuring 3 x 3 x 2 mm. There is an additional hypoechoic nodule at 12:00 in the subareolar locat ion measuring 6 x 6 x 3 mm. No increased vascularity. MM/[place] [id number] IMPRESSION: BI-RADS: 3-Probably Benign FOLLOW-UP: 6 Month Follow-up Probably benign complex cysts in the RIGHT breast at 12:00. Recommend 6 month f ollow-up to document stability.
== END 2021-05-27 08:55 | disposition home or self-care (01) ==
LOC: RADSHAW 09:02
PROVIDERS: PCP Family Medicine; Visit Provider Family Medicine
DX: R92.8 Other abnormal and inconclusive findings on diagnostic imaging of breast (principal); N63.15 Unspecified lump in the right breast, overlapping quadrants
CPT/HCPCS: 76642; 77065

== ENCOUNTER → 2021-07-07 09:55 | Outpatient (BNVA) | payer MEDICARE, OTHER, SELFPAY | PROVIDERS: PCP Family Medicine; Referring Provider Family Medicine; Visit Provider Specialist | DX: E11.42 Type 2 diabetes mellitus with diabetic polyneuropathy (principal); Z79.84 Long term (current) use of oral hypoglycemic drugs; I34.0 Nonrheumatic mitral (valve) insufficiency; Z92.21 Personal history of antineoplastic chemotherapy; Z85.79 Personal history of other malignant neoplasms of lymphoid, hematopoietic and related tissues | CPT/HCPCS: 99204 ==

== ENCOUNTER 2021-07-13 08:01 | Outpatient (CLI) | payer MEDICARE, OTHER, SELFPAY ==
[2021-07-13 08:38] LABS: Basophils # 0.1 10^3/uL (0.0-0.1); Basophils % 1.2 %; Eosinophils # 0.1 10^3/uL (0.0-0.8); Eosinophils % 2.7 %; Hemoglobin 11.7 g/dL (11.5-15.3); Lymphocytes # 0.4 10^3/uL (0.8-4.8); Lymphocytes % 10.6 %; Mean Corpuscular HGB Conc 32.5 g/dL (30.0-36.0); Mean Corpuscular Hemoglobin 29.3 pg (28.0-34.0); Mean Platelet Volume 9.9 fL (7.4-10.4); Monocytes # 0.7 10^3/uL (0.2-0.9); Monocytes % 16.4 %; Neutrophils # 2.83 10^3/uL (1.8-7.7); Neutrophils % 68.4 %; Nucleated Red Blood Cells % 0 %; Platelet Count 139 10^3/cmm (130-400); Red Cell Distribution Width 13.9 % (12.1-15.1); White Blood Count 4.1 10^3/uL (4.0-10.0)
[2021-07-13 09:18] LABS: Alanine Aminotransferase 19 U/L (0-33); Albumin Level 4.2 g/dL (3.5-5.2); Alkaline Phosphatase 105 IU/L (35-105); Anion Gap 17.2 (5-19); Aspartate Amino Transferase 18 U/L (0-32); Blood Urea Nitrogen 14 mg/dL (8-23); Calcium 10.8 mg/dL (8.5-10.5); Carbon Dioxide 26 mmol/L (22-29); Chloride 104 mmol/L (98-107); Globulin 1.6 g/dL (1.3-4.6); Glomerular Filtration Rate 99.7 mL/min (90-130); Glucose 215 mg/dL (65-115); Lactate Dehydrogenase 132 U/L (135-214); Osmolality Calculated 303 mOsm/kg (285-295); Potassium 4.2 mmol/L (3.5-5.1); Sodium 143 mmol/L (136-145); Total Bilirubin 0.7 mg/dL (0.15-1.2); Total Protein 5.8 g/dL (6.6-8.7)
[2021-07-13] MEDS: sodium chloride 0.9% 250 ML 25 ML IV (09:50)
[2021-07-13] MEDS: diphenhydrAMINE 50 mg/mL SDV 1mL 25 MG IV (09:50)
[2021-07-13] MEDS: acetaminophen 325 mg Tablet 650 MG PO (09:55)
== END 2021-07-13 08:02 | disposition home or self-care (01) ==
PROVIDERS: Internal Medicine Medical Oncology; PCP Family Medicine; Visit Provider Nurse Practitioner Family
DX: Z51.12 Encounter for antineoplastic immunotherapy (principal); C82.15 Follicular lymphoma grade II, lymph nodes of inguinal region and lower limb; M06.9 Rheumatoid arthritis, unspecified; Z79.52 Long term (current) use of systemic steroids; I10 Essential (primary) hypertension; K21.9 Gastro-esophageal reflux disease without esophagitis; G47.33 Obstructive sleep apnea (adult) (pediatric); Z85.828 Personal history of other malignant neoplasm of skin; Z85.42 Personal history of malignant neoplasm of other parts of uterus; Z79.899 Other long term (current) drug therapy
CPT/HCPCS: 80053; 83615; 85025; 96375; 96413; 96415; 99215; J1200; J7050

== ENCOUNTER 2021-07-29 08:42 | Outpatient (CLI) | payer MEDICARE, OTHER, SELFPAY ==
--- NOTE | 2021-07-29 15:00 | USCV_ITS ---
Mirela Aylin Age: 65 Gender: F : 1955 Exam Date: 07/29/2021 09:44 Ordering Phys: Adal Almodovar MD ([email or web address]) Technologist: ELVIN [place]am [place] [facility] [place]ication: Shortness of breath BP: 135 / 85 HR: 92 Rhythm: Sinus Technical Quality: Adequate MEASUREMENTS (Male / Female) Normal Values 2D ECHO LV Diastolic Diameter PLAX 5.3 cm 4.2 - 5.9 / 3.9 - 5.3 cm LV Systolic Diameter PLAX 3.1 cm IVS Diastolic Thickness 1.3 cm 0.6 - 1.0 / 0.6 - 0.9 cm IVS Systolic Thickness 2.0 cm LVPW Diastolic Thickness 1.1 cm 0.6 - 1.0 / 0.6 - 0.9 cm LVPW Systolic Thickness 1.8 cm LVOT Diameter 2.0 cm LV Ejection Fraction 2D Teich 72.1 % LV Ejection Fraction MOD 2C 50.2 % LV Ejection Fraction 2C AL 49.7 % LA Diameter 3.4 cm LA Width 3.5 cm LA Height 4.7 cm RA Width 3.4 cm RA Height 4.2 cm Aorta at Sinotubular Diameter 2.9 cm M-MODE Aortic Annulus Diameter 3.3 cm LA Ao Ratio MM 1.0 MV E Point Septal Separation 1.2 cm DOPPLER AV Peak Velocity 196.0 cm/s LVOT Peak Velocity 90.0 cm/s AV Area Cont Eq vti 1.8 cm squared AV Area Cont Eq pk 1.5 cm squared MV Peak Velocity 220.0 cm/s MV Area PHT 4.5 cm squared Mitral E to A Ratio 0.6 MV E' Velocity 63.0 cm/s Mitral E to MV E' Ratio 14.2 Mitral E to LV E' Lateral Ratio 13.0 Mitral E to LV E' Septal Ratio 16.0 TR Peak Velocity 147.3 cm/s TR Peak Gradient 8.7 mmHg TR Mean Velocity 94.7 cm/s TR Mean Gradient 4.0 mmHg TR Velocity Time Integral 28.0 cm TV Peak E Velocity 61.0 cm/s Right Atrial Pressure 3.0 mmHg Pulmonary Artery Systolic Pressu 11.7 mmHg PV Peak Velocity 87.0 cm/s RV Acceleration Time 0.1 s RV Ejection Time 0.3 s RV AcT/ET 0.2 FINDINGS Left Ventricle Normal left ventricular cavity size and systolic function. Left ventricular ejection fraction is estimated at 60 %. Although no diagnostic regional wall motion abnormality could be identified, this possibility cannot be completely excluded based on the study. Grade I diastolic dysfunction (abnormal relaxation filling pattern), normal to mildly elevated filling pressures. Right Ventricle Normal right ventricular size and systolic function. Right ventricular systolic pressure 11.7 mmHg. Right Atrium Normal right atrial size. Left Atrium Moderately increased left atrial size. Mitral Valve Moderate mitral annular calcification. Thickened mitral valve. No mitral valve stenosis. Mild mitral valve regurgitation. Aortic Valve Aortic valve not well visualized. No aortic valve stenosis. No aortic valve regurgitation. Tricuspid Valve Tricuspid valve not well visualized. Mild tricuspid valve regurgitation. Pulmonic Valve Pulmonic valve not well visualized. No pulmonary valve stenosis. No significant pulmonary valve regurgitation. Pericardium No pericardial effusion. Aorta Normal size aortic root and proximal ascending aorta. Normal- sized inferior vena cava. CONCLUSIONS 1. This is a technically difficult study. 2. Normal left ventricular cavity size and systolic function. Left ventricular ejection fraction is estimated at 60 %. Although no diagnostic regional wall motion abnormality could be identified, this possibility cannot be completely excluded based on the study. Grade I diastolic dysfunction (abnormal relaxation filling pattern), normal to mildly elevated filling pressures. 3. Normal right ventricular size and systolic function. 4. Mild mitral and tricuspid valve regurgitation. 5. When compared to previous echocardiogram dated 05/11/2020, there may not have been any significant change. Ashanti Mcarthur MD (Electronically Signed) Final Date: 29 July 2021 11:50 S
== END 2021-07-29 08:43 | disposition home or self-care (01) ==
LOC: RAD 08:48
PROVIDERS: PCP Family Medicine; Visit Provider Internal Medicine Cardiovascular Disease
DX: R06.02 Shortness of breath (principal); I48.91 Unspecified atrial fibrillation; I08.1 Rheumatic disorders of both mitral and tricuspid valves
CPT/HCPCS: 93306

== ENCOUNTER 2021-08-13 17:16 | Inpatient (IN) | payer MEDICARE, OTHER, SELFPAY ==
[2021-08-13 17:26] VITALS: BP 169/77; PULSE 97; RESP 18; TEMP 36.4; O2SAT 94; BMI 42.4
--- NOTE | 2021-08-13 18:02 | W.ED.WEAKNES ---
HPI - Weakness General: Chief complaint: Weakness Stated complaint: sent for high calcium Time Seen by Provider: 08/13/21 17:50 History of Present Illness: 66-year-old female came in today after it was found she had elevated calcium on her blood work she had done earlier in the day. Calcium level came back at 17. Patient reports that for the last 3 months she has had increasing headaches, some dizziness, and increasing weakness in her legs. Patient denies any drug allergies. Patient does have a medical history of chronic A. fib, diabetes mellitus type 2, recurrent foot surgeries, lithotripsy, hysterectomy due to uterine cancer, she is on Eliquis for her chronic A. fib. Patient denies any coronary artery disease. Review of the medical records notes peripheral neuropathy, valvular heart disease, CHF, renal calculi. Review of Systems Neuro: Reports: weakness in extremities PFSH ED PFSH: Medical History GERD (gastroesophageal reflux disease) Gross hematuria History of endometrial cancer History of follicular lymphoma History of lymphoma History of non-Hodgkin's lymphoma History of rheumatoid arthritis Hypertension Mitral valve regurgitation Obstructive pyelonephritis Obstructive sleep apnea S/P extracorporeal shock wave therapy Sepsis Skin cancer Tonsillectomy planned Tricuspid valve regurgitation Surgical History History of bladder suspension procedure History of carpal tunnel release History of total abdominal hysterectomy and bilateral salpingo-oophorectomy History of tubal ligation S/P panniculectomy S/P skin biopsy Family History Mother , at age 66 Non Hodgkin's lymphoma Father Heart disease Diabetes Other CAD (coronary artery disease) Cancer Hypertension Social History Smoking and tobacco status: never smoked Alcohol intake: never Marital status: Current occupational status: retired History of recent travel: No Physical Exam Const: COMMON NORMALS: patient oriented x3 and alert HENMT: COMMON NORMALS: normocephalic HEAD & SCALP: normocephalic Neck/C-Spine: COMMON NORMALS: full ROM Resp: COMMON NORMALS: normal respiratory effort and clear to auscultation bilaterally AUSCULTATION: clear to auscultation bilaterally Cardio: COMMON NORMALS: regular rate and regular rhythm RATE: regular rate RHYTHM: regular rhythm GI: COMMON NORMALS: Soft to palpation and non-tender PALPATION: Yes Soft to palpation Extremity: COMMON NORMALS: no pedal edema Neuro: COMMON NORMALS: patient oriented x3 SENSORIUM/ORIENTATION: Yes alert Psych: COMMON NORMALS: cooperative Course Vital Signs: Vital signs: Vital Signs Temperature 97.6 F 08/13/21 18:32 Pulse Rate 97 08/13/21 18:32 Respiratory Rate 18 08/13/21 18:32 Blood Pressure 169/77 08/13/21 18:32 Pulse Oximetry 94 08/13/21 18:32 MDM - Weakness Medical Decision Making 66-year-old female comes in today with complaints of elevated calcium. Patient was referred to her the emergency department after labs were drawn at her primary care office. Patient reports headaches since May. Patient reports weakness for the last 2 weeks. On exam patient is alert oriented. Skin is warm and dry. No tetany is noted. Differential diagnosis includes hypercalcemia, parathyroid dysfunction, renal failure. CBC was unremarkable. CMP noted a potassium of 3.4, calcium of 17.4, creatinine 1.2. PTH was noted at 11.5. Magnesium was 1.5. Reviewed exam with Dr. Arriaga who recommended patient be admitted for hypercalcemia. Patient will need cardiac monitoring, IV fluids, and repeat labs and correction of calcium. Dr. Ibrahim, hospitalist, was consulted for admission and agreed to plan. Lab Data : 08/13/21 18:12 08/13/21 18:12 Laboratory Results WBC 4.5 10^3/uL (4.0-10.0) 08/13/21 18:12 RBC 3.94 10^6/uL (4.1-5.3) L 08/13/21 18:12 Hgb 11.4 g/dL (11.5-15.3) L 08/13/21 18:12 Hct 34.1 % (37.0-47.0) L 08/13/21 18:12 MCV 86.5 fl (81-99) 08/13/21 18:12 MCH 28.9 pg (28.0-34.0) 08/13/21 18:12 MCHC 33.4 g/dL (30.0-36.0) 08/13/21 18:12 RDW 13.2 % (12.1-15.1) 08/13/21 18:12 Plt Count 115 10^3/cmm (130-400) L 08/13/21 18:12 MPV 9.8 fL (7.4-10.4) 08/13/21 18:12 Neut % (Auto) 69.9 % 08/13/21 18:12 Lymph % (Auto) 8.4 % 08/13/21 18:12 [place] % (Auto) 18.9 % 08/13/21 18:12 Eos % (Auto) 1.3 % 08/13/21 18:12 Baso % (Auto) 1.1 % 08/13/21 18:12 Neut # (Auto) 3.17 10^3/uL (1.8-7.7) 08/13/21 18:12 Lymph # (Auto) 0.4 10^3/uL (0.8-4.8) L 08/13/21 18:12 [place] # (Auto) 0.9 10^3/uL (0.2-0.9) 08/13/21 18:12 Eos # (Auto) 0.1 10^3/uL (0.0-0.8) 08/13/21 18:12 Baso # (Auto) 0.1 10^3/uL (0.0-0.1) 08/13/21 18:12 Nucleated RBC % (auto) 0 % 08/13/21 18:12 Nucleated RBCs # 0.0 /100WBC 08/13/21 18:12 Sodium 137 mmol/L (136-145) 08/13/21 18:12 Potassium 3.4 mmol/L (3.5-5.1) L 08/13/21 18:12 Chloride 99 mmol/L (98-107) 08/13/21 18:12 Carbon Dioxide 28 mmol/L (22-29) 08/13/21 18:12 Anion Gap 13.4 (5-19) 08/13/21 18:12 BUN 39 mg/dL (8-23) H 08/13/21 18:12 Creatinine 1.2 mg/dL (0.5-0.9) H 08/13/21 18:12 GFR Calculation 44.7 mL/min (90-130) L 08/13/21 18:12 Glucose 124 mg/dL (65-115) H 08/13/21 18:12 Calculated Osmolality 295 mOsm/kg (285-295) 08/13/21 18:12 Calcium 17.4 mg/dL (8.5-10.5) H* 08/13/21 18:12 Phosphorus 2.7 mg/dL (2.5-4.5) 08/13/21 18:12 Magnesium 1.5 mg/dL (1.7-2.3) L 08/13/21 18:12 Total Bilirubin 0.8 mg/dL (0.15-1.2) 08/13/21 18:12 AST 24 U/L (0-32) 08/13/21 18:12 ALT 25 U/L (0-33) 08/13/21 18:12 Alkaline Phosphatase 91 IU/L (35-105) 08/13/21 18:12 Total Protein 6.6 g/dL (6.6-8.7) 08/13/21 18:12 Albumin 4.2 g/dL (3.5-5.2) 08/13/21 18:12 Globulin 2.4 g/dL (1.3-4.6) 08/13/21 18:12 TSH 1.74 uIU/mL (0.27-4.20) 08/13/21 18:12 PTH Intact 11.5 pg/mL (15-65) L 08/13/21 18:12 Calcium (PTH Intact) 17.1 mg/dL (8.5-10.5) H* 08/13/21 18:12 EKG Data EKG 1: EKG interpretation date: 08/13/21 EKG interpretation time: 18:42 Interpretation: EKG shows a sinus rhythm with a regular rate at [address] abnormality is noted. No obvious ST elevation is noted. No PVCs are noted. Prior exams not available for comparison. Discharge Plan Discharge Patient Disposition: Admitted As Inpatient Clinical Impression: Hypercalcemia Condition: Stable Coding Level of Care Code ED Carpenter Inspector for Chg Fwd Exam Comprehensive
--- NOTE | 2021-08-13 18:07 | ECG_ITS ---
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 Measurements Intervals [place] Rate: 92 P: 55 NE: 266 QRS: -46 QRSD: 120 T: 43 QT: 368 QTc: 455 Interpretive Statements SINUS RHYTHM WITH FIRST DEGREE AV BLOCK LEFT ANTERIOR FASCICULAR BLOCK [QRS AXIS <= -45, QR IN I, RS IN II] MINIMAL VOLTAGE CRITERIA FOR LVH, CONSIDER NORMAL VARIANT [MEETS CRITERIA IN ONE OF: R(aVL), S(V1), R(V5), R(V5/V6)+S(V1)] POSSIBLE LATERAL MYOCARDIAL INFARCTION , OF INDETERMINATE AGE [30 ms Q WAVE IN I/aVL/V5/V6] Compared to ECG 07/28/2020 10:53:15 Left anterior fascicular block now present Myocardial infarct finding now present ST (T wave) deviation no longer present Electronically Signed On 08-14-2021 6:04:57 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 [id number]
[2021-08-13 18:32] VITALS: BP 169/77; PULSE 97; RESP 18; TEMP 36.4; O2SAT 94
[2021-08-13 18:36] LABS: Basophils # 0.1 10^3/uL (0.0-0.1); Basophils % 1.1 %; Eosinophils # 0.1 10^3/uL (0.0-0.8); Eosinophils % 1.3 %; Hematocrit 34.1 % (37.0-47.0); Hemoglobin 11.4 g/dL (11.5-15.3); Lymphocytes # 0.4 10^3/uL (0.8-4.8); Lymphocytes % 8.4 %; Mean Corpuscular HGB Conc 33.4 g/dL (30.0-36.0); Mean Corpuscular Hemoglobin 28.9 pg (28.0-34.0); Mean Corpuscular Volume 86.5 fl (81-99); Mean Platelet Volume 9.8 fL (7.4-10.4); Monocytes # 0.9 10^3/uL (0.2-0.9); Monocytes % 18.9 %; Neutrophils # 3.17 10^3/uL (1.8-7.7); Neutrophils % 69.9 %; Nucleated Red Blood Cells % 0 %; Platelet Count 115 10^3/cmm (130-400); Red Blood Count 3.94 10^6/uL (4.1-5.3); Red Cell Distribution Width 13.2 % (12.1-15.1); White Blood Count 4.5 10^3/uL (4.0-10.0)
[2021-08-13 18:50] LABS: Alanine Aminotransferase 25 U/L (0-33); Albumin Level 4.2 g/dL (3.5-5.2); Alkaline Phosphatase 91 IU/L (35-105); Anion Gap 13.4 (5-19); Aspartate Amino Transferase 24 U/L (0-32); Blood Urea Nitrogen 39 mg/dL (8-23); Carbon Dioxide 28 mmol/L (22-29); Chloride 99 mmol/L (98-107); Globulin 2.4 g/dL (1.3-4.6); Glomerular Filtration Rate 44.7 mL/min (90-130); Glucose 124 mg/dL (65-115); Magnesium 1.5 mg/dL (1.7-2.3); Osmolality Calculated 295 mOsm/kg (285-295); Phosphorus 2.7 mg/dL (2.5-4.5); Potassium 3.4 mmol/L (3.5-5.1); Sodium 137 mmol/L (136-145); Thyroid Stimulating Hormone 1.74 uIU/mL (0.27-4.20); Total Bilirubin 0.8 mg/dL (0.15-1.2); Total Protein 6.6 g/dL (6.6-8.7)
[2021-08-13 19:04] LABS: Parathyroid Hormone 11.5 pg/mL (15-65)
[2021-08-13 19:10] LABS: Calcium 17.1 mg/dL (8.5-10.5); Calcium 17.4 mg/dL (8.5-10.5)
[2021-08-13] MEDS: sodium chloride 0.9% 1,000 ML 999 ML IV (19:45)
[2021-08-13 20:31] LABS: Ionized Calcium 2.1 mmol/L (1.1-1.4)
--- NOTE | 2021-08-13 20:31 | PC.NURSE ---
Ionized Calcium 2.1 Reported to Vickie Osorio NP and message left with Dr. Ibrahim.
[2021-08-13 23:06] VITALS: BP 160/89; PULSE 91; RESP 18; O2SAT 96
[2021-08-13] MEDS: sodium chloride 0.9% 1,000 ML 75 ML IV (23:48)
[2021-08-13] MEDS: acetaminophen 325 mg Tablet 650 MG PO (23:48)
[2021-08-14] VITALS (8 sets, daily range): BP systolic 145–188; BP diastolic 77–96; PULSE 65–92; RESP 16–18; TEMP 36.3–37; O2SAT 90–96
[2021-08-14 01:15] LABS: 25 Hydroxy Vitamin D 27 ng/mL (30-100)
--- NOTE | 2021-08-14 01:22 | PM.HP ---
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 Additionally has RA, HTN, Sleep apnea , peripheral neuropathy, gr 1 d CHF. sent to ER today by PCP after being noted to have hypercalcemia of 17. She has been experiencing worsening peripheral neuropathy, headaches, dizziness, constipation over the past few months. No recent changes in her Ca supplementation or intake. Review of Systems General: Reports: 10 or more systems reviewed and unremarkable except in HPI and below Const: Denies: fever(s), chills or body aches Eyes: Denies: change in vision, blurry vision or photophobia ENMT: Reports: hoarseness; Denies: throat pain, enlarged tonsils, odynophagia or nasal congestion Card: Denies: chest pain, palpitations, irregular heart rhythm, edema, swelling of feet/ankles, lightheadedness, pre-syncope, dyspnea on exertion or orthopnea Resp: Denies: dyspnea, productive cough, non-productive cough, wheezing, stridor, pain on inspiration, change in phlegm color, hemoptysis or chest congestion GI: Denies: abdominal pain, nausea, vomiting, hematemesis, coffee ground emesis, dysphagia, heartburn, diarrhea, constipation, GI cramping, change in stool character, hematochezia or melena : Denies: flank pain, difficulty voiding, dysuria, urinary frequency, urinary urgency, urinary hesitancy or hematuria Musc: Denies: neck pain, back pain, extremity pain, joint swelling, joint warmth or deformity Neuro: Denies: headache(s), numbness in extremities, weakness in extremities, sensory changes, difficulty walking, frequent falls, dizziness, vertigo, behavioral changes, Slurred speech present or seizure-like activity Psych: Denies: anxiety, depression, suicidal ideation or homicidal ideation Endo: Denies: polyuria, polydipsia, tired all the time, cold intolerance or hot flashes [place]rendon/Lymph: Denies: easy bruising or easy bleeding Medications/Allergies Home Medications Medication Instructions Recorded Confirmed Last Taken Type aspirin 81 mg tablet,delayed 81 mg PO DAILY 05/08/20 08/13/21 08/13/21 History release atorvastatin 10 mg tablet 10 mg PO DAILY 05/08/20 08/13/21 08/13/21 History calcium carbonate 600 mg (1,500 1 tab PO DAILY 05/08/20 08/13/21 08/13/21 History mg)-vitamin D3 200 unit tablet famotidine 20 mg tablet 20 mg PO BID 05/08/20 08/13/21 08/13/21 History folic acid 1 mg tablet 2 mg PO DAILY 05/08/20 08/13/21 08/13/21 History multivitamin 1 tab PO DAILY 05/08/20 08/13/21 08/13/21 History acetaminophen 325 mg tablet 650 mg PO Q4H PRN #0 tab 05/14/20 08/13/21 Unknown Rx diltiazem HCl 360 mg 360 mg PO DAILY #90 cap 06/13/20 08/13/21 08/13/21 Rx capsule,extended release 24 hr apixaban 5 mg tablet (Eliquis) 5 mg PO BID 06/23/20 08/13/21 08/13/21 History metformin 500 mg tablet 1,000 mg PO DAILY tab 05/11/21 08/13/21 08/13/21 History lisinopril 5 mg tablet 5 mg PO BID #180 tab 05/15/21 08/13/21 08/13/21 Rx Allergies Allergy/AdvReac Type Severity Reaction Status Date / Time No Known Allergies Allergy Verified 08/13/21 19:48 PFSH Acute PFSH: Medical History GERD (gastroesophageal reflux disease) Gross hematuria History of endometrial cancer History of follicular lymphoma History of lymphoma History of non-Hodgkin's lymphoma History of rheumatoid arthritis Hypertension Mitral valve regurgitation Obstructive pyelonephritis Obstructive sleep apnea S/P extracorporeal shock wave therapy Sepsis Skin cancer Tonsillectomy planned Tricuspid valve regurgitation Surgical History History of bladder suspension procedure History of carpal tunnel release History of total abdominal hysterectomy and bilateral salpingo-oophorectomy History of tubal ligation S/P panniculectomy S/P skin biopsy Family History Mother , at age 66 Non Hodgkin's lymphoma Father Heart disease Diabetes Other CAD (coronary artery disease) Cancer Hypertension Social History Smoking and tobacco status: never smoked Alcohol intake: never Marital status: Current occupational status: retired History of recent travel: No Vitals/I&O/Wt Last Vital Signs Temp 97.6 F 08/13/21 18:32 Pulse 86 08/14/21 00:00 Resp 17 08/14/21 00:00 BP 154/84 08/14/21 00:00 Pulse Ox 94 08/14/21 00:00 08/13/21 08/13/21 08/14/21 14:59 22:59 06:59 Intake Total 1000 / 1000 Output Total 100 / 100 Balance 900 / 900 Weight last 48 hrs Weight 122.924 kg Physical Exam Narrative: GEN: Awake, alert and oriented, no acute distress CVS: S1S2 N RS: CTA B/L all areas Abd: Soft, nt/nd , bs+ 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 Last ca level from 07/13/21 at 10.8 Vague neurological symptoms which may be attributable to hypercalcemia Hypercalcemia may be related to known underlying malignancy given low serum PTH intact level at 11.5 Further evaluation with 1,25 di hydroxy vit D, 25 hydroxy Vit D, PTH rP, multiple myeloma panel(SPEP,UPEP) IVF NS 75 cc/hr, h/o gr1 diastolic dysfucntion, monitor closely, currently euvolemic Calcitonin 4mg/kg s/c zoledronic acid x 1 Recheck Ca with am labs and then 12 hrs later Status: Acute Attestations Medical Necessity Statement*: >2midnight admission anticipated for management of severe hypercalcemia with neurological manifestations Coding Level of Care Code 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
[2021-08-14 02:41] LABS: Ionized Calcium 2.1 mmol/L (1.1-1.4)
[2021-08-14 06:51] LABS: Alanine Aminotransferase 22 U/L (0-33); Albumin Level 3.6 g/dL (3.5-5.2); Alkaline Phosphatase 85 IU/L (35-105); Anion Gap 15.4 (5-19); Aspartate Amino Transferase 22 U/L (0-32); Blood Urea Nitrogen 37 mg/dL (8-23); Carbon Dioxide 27 mmol/L (22-29); Chloride 104 mmol/L (98-107); Glomerular Filtration Rate 44.7 mL/min (90-130); Glucose 112 mg/dL (65-115); Magnesium 1.5 mg/dL (1.7-2.3); Osmolality Calculated 305 mOsm/kg (285-295); Potassium 3.4 mmol/L (3.5-5.1); Sodium 143 mmol/L (136-145); Total Bilirubin 0.8 mg/dL (0.15-1.2); Total Protein 5.6 g/dL (6.6-8.7)
[2021-08-14 08:16] LABS: Glucose Point of Care 111 mg/dL (70-110)
[2021-08-14] MEDS: calcitonin,salmon 200 unit/mL SDV 2mL 400 UNIT SUBCUT (08:25)
[2021-08-14] MEDS: dilTIAZem ER (24HR) 180 mg Capsule 360 MG PO (08:26)
[2021-08-14] MEDS: famotidine 20 mg Tablet PO ×2 (08:26→18:00)
[2021-08-14] MEDS: aspirin 81 mg EC Tablet PO (08:26)
[2021-08-14] MEDS: atorvastatin 40 mg Tablet 10 MG PO (08:26)
[2021-08-14] MEDS: apixaban 5 mg Tablet PO ×2 (08:26→18:00)
[2021-08-14] MEDS: folic acid 1 mg Tablet 2 MG PO (08:26)
--- NOTE | 2021-08-14 09:54 | PC.CHAP ---
Pastoral Care Encounter/Spiritual Assessment Type of Contact [] Declined water ski assembler visit [] Patient/Family/Request visit [] Outpatient visit [] Follow-up visit [] Physician referral [] Code/Alert [x] Routine visit [] Staff referral [] Actively dying [] Patient sleeping [] Family support [] [] Out of room [] Palliative care [] [] Receiving care in room [] Pre-surgical visit [] Trauma [] Long length of stay [] ICU visit [] Other: Relational/Emotional Strength [x] Patient feels connected with others/family/visitors/staff [] Distress [] Loneliness/isolation [] Abandonment Spirituality of Patient [x] Person of Leonila [] Attends Sikhism of their Leonila [x] Believes in Prayer [] Reads Bible or Anglican materials [] There are Spiritual issues to be addressed 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 Interventions [x] Prayer [x] Active listening [x] Non-anxious presence [x Spiritual/emotional support [] Crisis/trauma care [] Spiritual counseling [] Bereavement support [] Provided bereavement packet [] Provided Bible/devotional materials [] Provided toy/stuffed animal, coloring book to patient or family member [] Provided Communion [] Anointing/[place] [] Salvation [x Completed spiritual assessment [] Other: Impact on Illness or Injury [] Angry [] Fearful [] Anxious [] Often cries [] Exhaustion [] Unable to work [] Unable to attend evangelical [] Unable to walk/stand [] Unable to read [] Unable to drive [] Unable to eat/drink [] Unable to sleep [] Unable to be with family [] Patient intubated [] Other: Summary Time spent with patient
[2021-08-14 12:04] LABS: Glucose Point of Care 141 mg/dL (70-110)
[2021-08-14] MEDS: sodium chloride 0.9% 1,000 ML 75 ML IV (13:08)
--- NOTE | 2021-08-14 13:58 | P.PN_ITS ---
Subjective Subjective: Patient was seen this morning, family is at bedside, she tells me that she is feeling better, does not feel woozy anymore, does have a history of kidney stones, no dysuria, no hematuria, no flank pain Vitals/I&O/Wt Last Vital Signs Temp 98 F 08/14/21 10:54 Pulse 92 08/14/21 10:54 Resp 18 08/14/21 10:54 BP 148/83 08/14/21 10:54 Pulse Ox 90 08/14/21 10:54 08/13/21 08/14/21 08/14/21 22:59 06:59 14:59 Intake Total 1000 / 1000 250 / 1250 1300 / 1300 Output Total 100 / 100 400 / 500 Balance 900 / 900 -150 / 750 1300 / 1300 Weight last 48 hrs Weight 122.924 kg Physical Exam Const: COMMON NORMALS: no acute distress and patient oriented x3 Neck/C-Spine: COMMON NORMALS: no JVD Resp: COMMON NORMALS: normal respiratory effort, No retractions, No use of accessory muscles and clear to auscultation bilaterally AUSCULTATION: clear to auscultation bilaterally Cardio: COMMON NORMALS: no JVD, regular rate, regular rhythm, S1 normal heart sound present and S2 normal heart sound present RATE: regular rate RHYTHM: regular rhythm HEART SOUNDS: S1 normal heart sound present and S2 normal heart sound present GI: COMMON NORMALS: Normal to inspection, nondistended, normoactive bowel sounds present, Soft to palpation, non-tender and No hepatosplenomegaly present PALPATION: Yes Soft to palpation and Yes No hepatosplenomegaly present Extremity: COMMON NORMALS: no pedal edema Neuro: COMMON NORMALS: patient oriented x3 Psych: COMMON NORMALS: mental status grossly normal Data : 08/13/21 18:12 08/14/21 06:20 A&P Assessment and plan (1) Hypercalcemia: Hypercalcemia with ca level at 17.1, ionized calcium 2.1. Repeat calcium level 16, ionized 2.1 Last ca level from 07/13/21 at 10.8 Vague neurological symptoms which may be attributable to hypercalcemia, resolved Hypercalcemia may be related to known underlying malignancy given low serum PTH intact level at 11.5 Further evaluation with 1,25 di hydroxy vit D, 25 hydroxy Vit D, PTH rP, multiple myeloma panel(SPEP,UPEP) IVF NS 75 cc/hr, h/o gr1 diastolic dysfucntion, monitor closely, currently euvolemic Calcitonin 4mg/kg s/c zoledronic acid x 1 Recheck Ca with am labs and then 12 hrs later Status: Acute Attestations Medical Necessity Statement*: Patient requires hospitalization for hypercalcemia Coding Level of Care Code 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
[2021-08-14 17:03] LABS: Glucose Point of Care 141 mg/dL (70-110)
[2021-08-14] MEDS: insulin lispro 100 unit/1 mL SUBCUT (18:00)
[2021-08-14 18:13] LABS: Alanine Aminotransferase 22 U/L (0-33); Albumin Level 3.7 g/dL (3.5-5.2); Alkaline Phosphatase 88 IU/L (35-105); Anion Gap 16.2 (5-19); Aspartate Amino Transferase 23 U/L (0-32); Blood Urea Nitrogen 32 mg/dL (8-23); Carbon Dioxide 27 mmol/L (22-29); Chloride 101 mmol/L (98-107); Globulin 2.3 g/dL (1.3-4.6); Glomerular Filtration Rate 44.7 mL/min (90-130); Glucose 133 mg/dL (65-115); Magnesium 1.4 mg/dL (1.7-2.3); Osmolality Calculated 301 mOsm/kg (285-295); Phosphorus 2.1 mg/dL (2.5-4.5); Potassium 3.2 mmol/L (3.5-5.1); Sodium 141 mmol/L (136-145); Total Bilirubin 0.9 mg/dL (0.15-1.2)
[2021-08-14 18:17] LABS: Calcium 13.9 mg/dL (8.5-10.5)
[2021-08-14 18:20] LABS: Ionized Calcium 1.8 mmol/L (1.1-1.4)
[2021-08-14] MEDS: magnesium sulfate premix 2 GM/50 ML PIGGYBACK IV (19:21)
[2021-08-14] MEDS: potassium chloride ER 20 mEq Tablet 40 MEQ PO (19:21)
[2021-08-15] VITALS (9 sets, daily range): BP systolic 135–182; BP diastolic 68–92; PULSE 61–88; RESP 16–18; TEMP 36.4–37.1; O2SAT 95–97
[2021-08-15] MEDS: sodium chloride 0.9% 1,000 ML 75 ML IV (01:57)
[2021-08-15 02:47] LABS: Ionized Calcium 1.7 mmol/L (1.1-1.4)
[2021-08-15 03:22] LABS: Basophils % 0.5 %; Eosinophils # 0.1 10^3/uL (0.0-0.8); Eosinophils % 1.9 %; Hematocrit 33.3 % (37.0-47.0); Hemoglobin 10.8 g/dL (11.5-15.3); Lymphocytes # 0.5 10^3/uL (0.8-4.8); Lymphocytes % 7.7 %; Mean Corpuscular HGB Conc 32.4 g/dL (30.0-36.0); Mean Corpuscular Hemoglobin 28.4 pg (28.0-34.0); Mean Corpuscular Volume 87.6 fl (81-99); Mean Platelet Volume 9.9 fL (7.4-10.4); Monocytes # 1.1 10^3/uL (0.2-0.9); Monocytes % 17.4 %; Neutrophils # 4.56 10^3/uL (1.8-7.7); Nucleated Red Blood Cells % 0 %; Platelet Count 110 10^3/cmm (130-400); Red Cell Distribution Width 13.7 % (12.1-15.1); White Blood Count 6.3 10^3/uL (4.0-10.0)
[2021-08-15 03:44] LABS: Alanine Aminotransferase 23 U/L (0-33); Albumin Level 3.9 g/dL (3.5-5.2); Alkaline Phosphatase 90 IU/L (35-105); Anion Gap 13.6 (5-19); Aspartate Amino Transferase 22 U/L (0-32); Blood Urea Nitrogen 31 mg/dL (8-23); Calcium 12.5 mg/dL (8.5-10.5); Carbon Dioxide 27 mmol/L (22-29); Chloride 106 mmol/L (98-107); Glomerular Filtration Rate 40.7 mL/min (90-130); Glucose 117 mg/dL (65-115); Magnesium 1.9 mg/dL (1.7-2.3); Osmolality Calculated 304 mOsm/kg (285-295); Phosphorus 2.4 mg/dL (2.5-4.5); Potassium 3.6 mmol/L (3.5-5.1); Sodium 143 mmol/L (136-145); Total Protein 5.9 g/dL (6.6-8.7)
[2021-08-15 07:50] LABS: Glucose Point of Care 108 mg/dL (70-110)
[2021-08-15 07:50] LABS: Glucose Point of Care 112 mg/dL (70-110)
[2021-08-15 07:50] LABS: Glucose Point of Care 114 mg/dL (70-110)
[2021-08-15 07:52] LABS: PROTEIN, TOTAL 6.3 g/dL (6.1-8.1)
[2021-08-15] MEDS: dilTIAZem ER (24HR) 180 mg Capsule 360 MG PO (08:43)
[2021-08-15] MEDS: aspirin 81 mg EC Tablet PO (08:43)
[2021-08-15] MEDS: apixaban 5 mg Tablet PO (08:43)
[2021-08-15] MEDS: folic acid 1 mg Tablet 2 MG PO (08:43)
[2021-08-15] MEDS: atorvastatin 40 mg Tablet 10 MG PO (08:44)
[2021-08-15] MEDS: famotidine 20 mg Tablet PO (08:44)
--- NOTE | 2021-08-15 09:25 | PC.NURSE ---
pt was up to restroom. Will retake after she rests.
[2021-08-15 11:18] LABS: Glucose Point of Care 127 mg/dL (70-110)
--- NOTE | 2021-08-15 11:49 | PM.DCS ---
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 Additionally has RA, HTN, Sleep apnea , peripheral neuropathy, gr 1 d CHF. sent to ER today by PCP after being noted to have hypercalcemia of 17.? Patient was admitted to [facility] for hypercalcemia, did have vague neurologic symptoms, received 1 dose of zoledronic acid, 1 dose of calcitonin, IV fluids, and clinically monitored. Patient clinically improved, her neurologic symptoms resolved, calcium on discharge trended down to 12.5, ionized calcium 1.7. She was discharged with instructions to drink plenty electrolyte balance fluids, follow with Dr. García on Tuesday for recheck electrolytes including calcium, magnesium, phosphorus, and creatinine. In terms of the etiology, possibly secondary to rituximab and/or follicular lymphoma, PTH RP, multiple myeloma panel pending, follow with Dr. García Creatinine discharge 1.3, hold lisinopril Hypertension clonidine 0.1 twice daily added Physical Exam Const: COMMON NORMALS: no acute distress and patient oriented x3 Resp: COMMON NORMALS: normal respiratory effort, No retractions, No use of accessory muscles and clear to auscultation bilaterally AUSCULTATION: clear to auscultation bilaterally Cardio: COMMON NORMALS: regular rate, regular rhythm, S1 normal heart sound present and S2 normal heart sound present RATE: regular rate RHYTHM: regular rhythm HEART SOUNDS: S1 normal heart sound present and S2 normal heart sound present GI: COMMON NORMALS: Normal to inspection, nondistended, normoactive bowel sounds present, Soft to palpation, non-tender and No hepatosplenomegaly present PALPATION: Yes Soft to palpation and Yes No hepatosplenomegaly present Extremity: COMMON NORMALS: no pedal edema Neuro: COMMON NORMALS: patient oriented x3 Psych: COMMON NORMALS: mental status grossly normal Discharge Data Studies Completed and Pending Pending at discharge Category Date Time Status CMP [Comprehensive Metabolic Panel] Stat Lab 08/15/21 16:00 Ordered Complete Blood Count w/Auto AM LABS Lab 08/16/21 04:00 Ordered Complete Blood Count w/Auto AM LABS Lab 08/17/21 04:00 Ordered Comprehensive Metabolic Panel AM LABS Lab 08/16/21 04:00 Ordered Comprehensive Metabolic Panel AM LABS Lab 08/17/21 04:00 Ordered Immunofixation Serum Urgent Lab 08/13/21 20:02 Received Ionized Calcium AM LABS Lab 08/16/21 04:00 Ordered Ionized Calcium AM LABS Lab 08/17/21 04:00 Ordered Ionized Calcium Stat Lab 08/15/21 16:00 Ordered KAPPA/LAMBDA LIGHT FREE SERUM Routine Lab 08/13/21 20:16 Received [place] Free Light Chains Urine Routine Lab 08/13/21 20:31 Received MAG [Magnesium] Stat Lab 08/15/21 16:00 Ordered Magnesium AM LABS Lab 08/16/21 04:00 Ordered Magnesium AM LABS Lab 08/17/21 04:00 Ordered PHOS [Phosphorus] Stat Lab 08/15/21 16:00 Ordered PTH Related Peptide (Protein) Routine Lab 08/13/21 21:47 Received Phosphorus AM LABS Lab 08/16/21 04:00 Ordered Phosphorus AM LABS Lab 08/17/21 04:00 Ordered SPEP [Total Protein Electrophoresis] Routine Lab 08/13/21 20:16 Results Urine Protein Electrop Random Routine Lab 08/13/21 20:31 Received Vitamin D 1,25 Dihydroxy Routine Lab 08/13/21 21:47 Received Laboratory Results WBC 6.3 10^3/uL (4.0-10.0) 08/15/21 02:16 RBC 3.80 10^6/uL (4.1-5.3) L 08/15/21 02:16 Hgb 10.8 g/dL (11.5-15.3) L 08/15/21 02:16 Hct 33.3 % (37.0-47.0) L 08/15/21 02:16 MCV 87.6 fl (81-99) 08/15/21 02:16 MCH 28.4 pg (28.0-34.0) 08/15/21 02:16 MCHC 32.4 g/dL (30.0-36.0) 08/15/21 02:16 RDW 13.7 % (12.1-15.1) 08/15/21 02:16 Plt Count 110 10^3/cmm (130-400) L 08/15/21 02:16 MPV 9.9 fL (7.4-10.4) 08/15/21 02:16 Neut % (Auto) 72.0 % 08/15/21 02:16 Lymph % (Auto) 7.7 % 08/15/21 02:16 [place] % (Auto) 17.4 % 08/15/21 02:16 Eos % (Auto) 1.9 % 08/15/21 02:16 Baso % (Auto) 0.5 % 08/15/21 02:16 Neut # (Auto) 4.56 10^3/uL (1.8-7.7) 08/15/21 02:16 Lymph # (Auto) 0.5 10^3/uL (0.8-4.8) L 08/15/21 02:16 [place] # (Auto) 1.1 10^3/uL (0.2-0.9) H 08/15/21 02:16 Eos # (Auto) 0.1 10^3/uL (0.0-0.8) 08/15/21 02:16 Baso # (Auto) 0.0 10^3/uL (0.0-0.1) 08/15/21 02:16 Nucleated RBC % (auto) 0 % 08/15/21 02:16 Nucleated RBCs # 0.0 /100WBC 08/15/21 02:16 Sodium 143 mmol/L (136-145) 08/15/21 02:16 Potassium 3.6 mmol/L (3.5-5.1) 08/15/21 02:16 Chloride 106 mmol/L (98-107) 08/15/21 02:16 Carbon Dioxide 27 mmol/L (22-29) 08/15/21 02:16 Anion Gap 13.6 (5-19) 08/15/21 02:16 BUN 31 mg/dL (8-23) H 08/15/21 02:16 Creatinine 1.3 mg/dL (0.5-0.9) H 08/15/21 02:16 GFR Calculation 40.7 mL/min (90-130) L 08/15/21 02:16 Glucose 117 mg/dL (65-115) H 08/15/21 02:16 POC Glucose 127 mg/dL (70-110) H 08/15/21 11:05 Calculated Osmolality 304 mOsm/kg (285-295) H 08/15/21 02:16 Calcium 12.5 mg/dL (8.5-10.5) H 08/15/21 02:16 Ionized Calcium Josiane 1.7 mmol/L (1.1-1.4) H 08/15/21 02:32 Phosphorus 2.4 mg/dL (2.5-4.5) L 08/15/21 02:16 Magnesium 1.9 mg/dL (1.7-2.3) 08/15/21 02:16 Total Bilirubin 1.0 mg/dL (0.15-1.2) 08/15/21 02:16 AST 22 U/L (0-32) 08/15/21 02:16 ALT 23 U/L (0-33) 08/15/21 02:16 Alkaline Phosphatase 90 IU/L (35-105) 08/15/21 02:16 Total Protein 5.9 g/dL (6.6-8.7) L 08/15/21 02:16 Albumin 3.9 g/dL (3.5-5.2) 08/15/21 02:16 Globulin 2.0 g/dL (1.3-4.6) 08/15/21 02:16 25-OH Vitamin D Total 27 ng/mL (30-100) L 08/13/21 18:12 TSH 1.74 uIU/mL (0.27-4.20) 08/13/21 18:12 PTH Intact 11.5 pg/mL (15-65) L 08/13/21 18:12 Calcium (PTH Intact) 17.1 mg/dL (8.5-10.5) H* 08/13/21 18:12 Vitals Last Vital Signs Temp 97.5 F L 08/15/21 08:00 Pulse 88 08/15/21 08:00 Resp 16 08/15/21 04:00 BP 139/74 08/15/21 10:23 Pulse Ox 95 08/15/21 08:00 Discharge Plan Discharge Patient Disposition: Home Condition: Stable Prescriptions: New clonidine HCl 0.1 mg tablet 0.1 mg PO BID 30 Days Qty: 60 0RF Continued Eliquis 5 mg tablet 5 mg PO BID 0RF Hold Instructions: Resume on 07/09/20. diltiazem HCl 360 mg capsule,extended release 24hr 360 mg PO DAILY Qty: 90 3RF multivitamin Tablet 1 tab PO DAILY 0RF atorvastatin 10 mg tablet 10 mg PO DAILY 0RF aspirin 81 mg Tablet,Delayed Release (Dr/Ec) 81 mg PO DAILY 0RF Hold Instructions: Resume on 07/09/20. famotidine 20 mg tablet 20 mg PO BID 0RF folic acid 1 mg Tablet 2 mg PO DAILY 0RF acetaminophen 325 mg Tablet 650 mg PO Q4H PRN (Reason: Mild/Mod Pain Or Temp >/= 101) Qty: 0 0RF Hold Instructions: Resume on 11/04/20. Do not take additional acetaminophen with the pain medication prescribed today. metformin 500 mg tablet 1,000 mg PO DAILY 0RF Discontinued lisinopril 5 mg tablet 5 mg PO BID Qty: 180 3RF calcium carbonate-vitamin D3 600 mg(1,500mg) -200 unit Tablet 1 tab PO DAILY 0RF Discharge Orders: Discharge Order (Routine); Ordered 08/15/21 Ordered By: Blayne Cardozo Referrals: Paco García MD [Hospitalist] - 1-3 days (Follow-up with Dr. García Tuesday) Vinh Raya MD [Primary Care Provider] - Discharge Diet: Cardiac Discharge Activity: Resume usual activity Patient Instructions: Opioid Safety Activity Restrictions/Additional Instructions: -Follow-up with Dr. García on Tuesday for recheck calcium levels, electrolyte levels, and kidney function -Continue to hydrate well -Hold lisinopril due to your kidney function -I have added clonidine 0.1 twice daily for your blood pressure Discharge Attestations Time Spent in Discharge Care*: less than 30 min Quality Metrics Clinical Quality Measures [ No reported AMI, CVA or VTE this stay] Coding Level of Care Code Acute Chg FW DC note Diagnoses Hypercalcemia E83.52
[2021-08-15] MEDS: cloNIDine 0.1 mg Tablet PO (12:16)
[2021-08-15 12:42] LABS: Creatinine, Random Urine 42 mg/dL (20-275); Protein, Total, Random 18 mg/dL (5-24); Protein/Creatinine Ratio 0.429 (0.021-0.161); Protein/Creatinine Ratio 429 mg/g creat (21-161)
[2021-08-15 16:40] LABS: Ionized Calcium 1.8 mmol/L (1.1-1.4)
[2021-08-15 16:50] LABS: Alanine Aminotransferase 20 U/L (0-33); Albumin Level 3.7 g/dL (3.5-5.2); Alkaline Phosphatase 89 IU/L (35-105); Anion Gap 12.4 (5-19); Aspartate Amino Transferase 21 U/L (0-32); Blood Urea Nitrogen 32 mg/dL (8-23); Calcium 13.4 mg/dL (8.5-10.5); Carbon Dioxide 28 mmol/L (22-29); Chloride 106 mmol/L (98-107); Globulin 2.4 g/dL (1.3-4.6); Glomerular Filtration Rate 40.7 mL/min (90-130); Glucose 113 mg/dL (65-115); Magnesium 1.7 mg/dL (1.7-2.3); Osmolality Calculated 304 mOsm/kg (285-295); Phosphorus 2.1 mg/dL (2.5-4.5); Potassium 3.4 mmol/L (3.5-5.1); Sodium 143 mmol/L (136-145); Total Bilirubin 0.9 mg/dL (0.15-1.2); Total Protein 6.1 g/dL (6.6-8.7)
[2021-08-15 18:16] LABS: Glucose Point of Care 97 mg/dL (70-110)
[2021-08-17 16:08] LABS: ALBUMIN 3.7 g/dL (3.8-4.8); ALPHA 1 GLOBULIN 0.4 g/dL (0.2-0.3); ALPHA 2 GLOBULIN 0.8 g/dL (0.5-0.9); BETA 1 GLOBULIN 0.4 g/dL (0.4-0.6); BETA 2 GLOBULIN 0.4 g/dL (0.2-0.5); GAMMA GLOBULIN 0.6 g/dL (0.8-1.7); KAPPA LIGHT CHAIN, FREE, SERUM 26.2 mg/L (3.3-19.4); KAPPA/LAMBDA LIGHT CHAINS FREE 0.95 (0.26-1.65); LAMBDA LIGHT CHAIN, FREE, SERU 27.7 mg/L (5.7-26.3)
[2021-08-17 16:32] LABS: Albumin,Urine Random 46 %; Alpha-1-Globulins Urine Random 8 %; Alpha-2-Globulins Urine Random 13 %; Beta-Globulin,Urine Random 20 %; Gamma Globulin,Urine Random 13 %
[2021-08-18 19:17] LABS: Kappa Free Light Chains Urine 35.53 mg/L (<=32.90)
[2021-08-19 08:22] LABS: Vit D 1,25 (Oh)2, Total 134 pg/mL (18-72); Vit D2 1,25 (Oh)2 <8 pg/mL; Vit D3 1,25 (Oh)2 134 pg/mL
[2021-08-20 15:53] LABS: PTH Related Peptide (Protein) 11 pg/mL (11-20)
== END 2021-08-15 17:53 | disposition home or self-care (01) | DRG 641 ==
LOC: ER 19:38 → MEDSURG 20:34
PROVIDERS: Family Medicine; Admitting Provider Student in an Organized Health Care Education/Training Program; Emergency Provider Nurse Practitioner Family; PCP Family Medicine; Visit Provider Family Medicine
DX: E83.52 Hypercalcemia (principal); I48.20 Chronic atrial fibrillation, unspecified; I50.32 Chronic diastolic (congestive) heart failure; C82.91 Follicular lymphoma, unspecified, lymph nodes of head, face, and neck; E11.42 Type 2 diabetes mellitus with diabetic polyneuropathy; Z90.710 Acquired absence of both cervix and uterus; Z85.42 Personal history of malignant neoplasm of other parts of uterus; I11.0 Hypertensive heart disease with heart failure; Z87.442 Personal history of urinary calculi; I08.3 Combined rheumatic disorders of mitral, aortic and tricuspid valves; K21.9 Gastro-esophageal reflux disease without esophagitis; M06.9 Rheumatoid arthritis, unspecified; G47.33 Obstructive sleep apnea (adult) (pediatric); Z85.828 Personal history of other malignant neoplasm of skin; Z79.899 Other long term (current) drug therapy; Z79.01 Long term (current) use of anticoagulants; Z79.82 Long term (current) use of aspirin; Z79.84 Long term (current) use of oral hypoglycemic drugs
CPT/HCPCS: 36415; 36416; 36591; 36592; 36600; 80053; 82306; 82310; 82330; 82542; 82570; 82652; 82962; 83615; 83735; 83883; 83970; 84100; 84155; 84156; 84165; 84166; 84443; 85025; 85651; 86334; 86335; 93005; 96360; 96372; 97165; 99285; J0630; J1815; J3475; J3489; J7030

== ENCOUNTER 2021-08-17 11:07 | Outpatient (CLI) | payer MEDICARE, OTHER, SELFPAY ==
[2021-08-17 11:52] LABS: Basophils # 0.1 10^3/uL (0.0-0.1); Basophils % 0.8 %; Eosinophils # 0.1 10^3/uL (0.0-0.8); Eosinophils % 1.7 %; Hemoglobin 11.2 g/dL (11.5-15.3); Lymphocytes # 0.4 10^3/uL (0.8-4.8); Lymphocytes % 6.3 %; Mean Corpuscular HGB Conc 32.9 g/dL (30.0-36.0); Mean Corpuscular Hemoglobin 28.8 pg (28.0-34.0); Mean Corpuscular Volume 87.4 fl (81-99); Mean Platelet Volume 9.8 fL (7.4-10.4); Monocytes # 0.9 10^3/uL (0.2-0.9); Monocytes % 14.3 %; Neutrophils # 4.82 10^3/uL (1.8-7.7); Neutrophils % 76.4 %; Nucleated Red Blood Cells % 0 %; Platelet Count 128 10^3/cmm (130-400); Red Blood Count 3.89 10^6/uL (4.1-5.3); Red Cell Distribution Width 13.7 % (12.1-15.1); White Blood Count 6.3 10^3/uL (4.0-10.0)
[2021-08-17 12:08] LABS: Alanine Aminotransferase 21 U/L (0-33); Albumin Level 4.1 g/dL (3.5-5.2); Alkaline Phosphatase 100 IU/L (35-105); Anion Gap 17.1 (5-19); Aspartate Amino Transferase 17 U/L (0-32); Blood Urea Nitrogen 34 mg/dL (8-23); Calcium 11.2 mg/dL (8.5-10.5); Carbon Dioxide 23 mmol/L (22-29); Chloride 101 mmol/L (98-107); Globulin 2.1 g/dL (1.3-4.6); Glomerular Filtration Rate 32.1 mL/min (90-130); Glucose 167 mg/dL (65-115); Lactate Dehydrogenase 150 U/L (135-214); Osmolality Calculated 297 mOsm/kg (285-295); Potassium 3.1 mmol/L (3.5-5.1); Sodium 138 mmol/L (136-145); Total Protein 6.2 g/dL (6.6-8.7)
--- NOTE | 2021-08-18 07:34 | ONC FU_ITS ---
Dr. García Patient Follow-Up Note Patient: Aylin Dietz Unit #: [id number]: [id number] Dicatated By: Paco García M.D.Date of Visit:Aug 17, 2021 Onc Med Follow-up/Prog Note Chief Complaint: Lymphoma. 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 She has a history of having undergone treatment for lymphoma by Dr. Ghulam Coon in [place]. It was initially diagnosed in 1991. I did not have the records, but based on the patient's description, it was probably low-grade. It had progressed on light chemotherapy, following which she had 6 cycles of treatment with an Adriamycin containing regimen, I assume CHOP, completed sometime in 1992. She had a complete response. Her medical history is otherwise significant for rheumatoid arthritis, initially diagnosed in 1982. Her RA had been well controlled on long-term therapy with methotrexate. Sometime around May 2018 or June 2018 she became aware of a knot in her right cheek. It wasn't visible, but she could feel it with her finger or her tongue. A neck CT on 09/26/2018 showed an enlarged lymph node on the right side of the face measuring 1.9 x 1.2 cm. There was a suggestion of fullness and soft tissue lesion in the right palatine tonsil measuring approximately 1.3 x 1.1 cm. The parotid glands appeared normal, and there appeared to be normal sized intraparotid lymph nodes. She was referred to Dr. Garcia. An initial FNA biopsy of the cheek mass was nondiagnostic. She was then referred to Dr. Faustina Martinez at [facility]. On 12/04/2018 she underwent right superficial parotidectomy, level IIA and posterior level IB right neck dissection, and excision of the right buccal mass. The parotid gland showed no histopathologic abnormalities and the intraparotid lymph nodes showed reactive lymphoid hyperplasia with no morphologic evidence of lymphoma. 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 The neck dissection showed no involvement in 13 lymph nodes. I had seen her initially on 01/04/2019. Her staging PET/CT on 01/06/2019 showed a poorly defined right parotid soft tissue lesion measuring approximately 1.7 x 3.0 cm with SUV 3.6, felt to be consistent with lymphoma. A second FDG positive mass was noted in the subcutaneous fat overlying the left maxilla measuring 1.4 x 0.8 cm. There were multiple FDG positive mediastinal lymph nodes with possible paralysis of the left vocal cord. There were 2 semisolid nodules in the right upper lobe, with the dominant lesion measuring 1.1 cm of SUV 2.0, felt to be inflammatory. With low-grade lymphoma in the setting of long-term methotrexate therapy, she was recommended to stop the methotrexate and otherwise just continue on observation/expectant management. Her repeat neck CT on 04/12/2019 showed evidence of partial right neck dissection and removal of the right parotid gland with appropriate appearing postsurgical changes. There are no new lymph nodes identified, but there was a new soft tissue fullness noted in the right paraglottic space measuring 19 x 12 mm. She was seen again by Dr. Garcia and her flexible laryngoscopy showed no significant abnormality. Repeat CT of the neck on 05/16/2019 showed evidence of soft tissue thickening/mass involving the right paraglottic space extending to the right vocal cord, unchanged from the prior study. There was severe central canal stenosis in the cervical spine at C5-C6, also unchanged. Partially visualized patchy opacities were noted in the right lung apex. There was no cervical lymphadenopathy. Restaging CT sans of the chest, abdomen, and pelvis on 08/03/2019 showed diminished size and number of groundglass opacities in the right lung. The left lung opacities also had diminished slightly in size. The mediastinal adenopathy remained unchanged. There was no axillary adenopathy noted. The spleen remained slightly increased in size. There was no adenopathy in the abdomen/pelvis. She continued observation/expectant management. Repeat CT scans of the chest, abdomen, and pelvis on 01/30/2020 showed continued slow improvement in the groundglass opacifications and subsolid opacifications bilaterally as well as slight improvement in the mediastinal and hilar lymph nodes. The largest AP window lymph node measured 10 mm. There was unchanged mild splenomegaly. There was no mesenteric or retroperitoneal adenopathy identified. Her repeat neck CT scan on 02/01/2020 showed interval increase in the right paraglottic space mass with slight extension across the midline and with narrowing of the vallecula. The mass measured 1.5 x 0.7 cm. There was no associated adenopathy. With that finding she was referred to Dr. Garcia. On 04/23/2020 she underwent biopsy of the right base of tongue lesion. Pathology showed B-cell rich lymphoproliferative process. It was noted that the overall cytomorphologic and immunohistochemical features were worrisome for B-cell neoplasm, and marginal zone lymphoma, in particular, was a consideration. A florid reactive process could not be entirely excluded. A restaging PET/CT on 05/24/2020 showed resolution of previously noted uptake in the right parotid gland but there was new FDG positive soft tissue at the right base of tongue measuring 1.0 cm, SUV 6.8. There was no significant change in the mediastinal adenopathy from the prior study. Previously noted right lung groundglass opacities and semisolid nodules were nearly resolved. In the meantime, on 05/08/2020 she had been admitted to the hospital with pyelonephritis/sepsis in association with a large obstructing left UPJ stone and a large renal calculus. She underwent cystoscopy with left ureteral stent placement. On 06/16/2020 she underwent replacement of the ureteral stent and ESWL of both stones. She underwent repeat ESWL of the lower pole renal calculus on 07/07/2020. On 08/20/2020 she underwent direct laryngoscopy with biopsy of right base of tongue lesion by Dr. Garcia. Pathology was consistent with follicular lymphoma, grade 3A. In the setting of obvious disease progression despite having stopped her methotrexate therapy and with her disease having involved from grade 1???2 to grade 3, she was recommended to undergo course of chemotherapy with bendamustine/rituximab. She completed COVID-19 vaccinations in August and September 2020. She began cycle 1 of bendamustine rituximab on 11/05/2020. She tolerated the treatment well, and she continued with cycle 2 on 12/03/2020, with cycle 3 on 12/31/2020, and with cycle 4 on 01/27/2021. Restaging PET/CT on 02/28/2021 showed resolution of previously noted activity at the right base of tongue. There was slight improvement in mediastinal lymph node uptake with an index right paratracheal lymph node showing SUV 4.1 compared to 4.6 on the prior study. There was no new adenopathy noted and there were no other areas of abnormal uptake. With her disease having shown significant response to the bendamustine/rituximab, she was recommended to continue treatment with maintenance rituximab. Her medical illnesses, in addition to the rheumatoid arthritis, include hypertension, GERD, and obstructive sleep apnea. She has additional history of having undergone hysterectomy/bilateral salpingo-oophorectomy for low-grade endometrial cancer in 2017. She also has had multiple skin cancers excised. She is a nonsmoker. INTERIM HISTORY: She began cycle 1 of maintenance rituximab on 03/23/2021. She tolerated it well. She then continued with cycle 2 on 05/18/2021 and with cycle 3 on 07/13/2021. On 08/12/2021 she called the office to report that she was having headaches and weakness/fatigue. She was scheduled to come in for laboratory studies and she was also scheduled for head MRI. Her laboratory studies the following day included CBC showing hemoglobin 11.4 g, white blood cell count 4500, and platelet count 115,000. Her sed rate was just slightly elevated at 17 mm/h. Her comprehensive metabolic profile shows a decline in her renal function with BUN increased to 40 mg/dL and creatinine 1.3 mg/dL. She was found to have significant hypercalcemia at 17.4 mg/dL. The bilirubin and liver enzymes were normal. The LDH was normal 145 U/L. She was then seen in the emergency room and admitted to the hospital. Her further laboratory evaluation included a parathyroid hormone level which was mildly decreased at 11.5 pg/mL. The results of a PTH related protein study are still pending. Her protein electrophoresis showed no monoclonal protein. She was given IV hydration, calcitonin, and IV zoledronic acid. She was discharged home on 08/15/2021, at which point her renal function was stable with creatinine 1.3 mg/dL but the serum calcium had decreased to 13.4 mg/dL. She had been taking an oral calcium/vitamin D supplement at home once a day, and that was discontinued. She is seen now for a follow-up visit. She indicates she had began to notice little changes as much as 2 or 3 weeks ago, including headache and fatigue. She progressed to the point that it was hard for her to get oriented and she had no strength in her legs. She is feeling somewhat better now, though her legs are still weak. She is able to do some housework, but it takes a while. ECOG score is 1. She has noticed that her appetite is down a little. She does not have fever or night sweats. She has not had sore mouth or throat. She has cough which comes and goes. She does not have shortness of breath or chest pain. She has no GI complaints. She has having some urgency with urination and some bladder incontinence. She complains that her knees hurt. She has no other joint or bone pain. She has neuropathy in her hands and in her feet and legs. Medications: Aspirin 1 Tablet (of 81 mg) Oral daily, Atorvastatin Calcium 1 Tablet (of 10 mg) Oral daily, Cardizem CD 1 (360 mg) Capsule SR 24 HR Oral daily, cloNIDine HCl 1 Tablet (of 0.1 mg) Oral b.i.d., Eliquis 1 (5 mg) Tablet Oral b.i.d., Famotidine 1 Tablet (of 20 mg) Oral b.i.d., Folic Acid 2 Tablet (of 1 mg) Oral daily, metFORMIN HCl 1 Tablet (of 1000 mg) Oral daily Allergies: No Known Allergies. Vital Signs: Performed on Aug 17, 2021 12:58 Height - 67.50 in Weight - 269.8 lbs (LOW) BSA - 2.31 sq.m BMI - 41.63 (HIGH) Temperature - 97.9 F (LOW) Pulse - 88 /min Respiration - 18 /min BP - 121/76 mm(hg) O2 Sat - 97 % Pain - 0 Fatigue - 5 Physical Examination: Constitutional - She appears somewhat weak generally, but not acutely ill, Eyes - Sclerae nonicteric. Conjunctivae clear, ENMT - There are no lesions noted in the oral cavity, Hematologic/Lymphatic - There is no cervical, clavicular, or axillary lymphadenopathy noted, Respiratory - Lungs are clear with good air movement bilaterally, Cardiovascular - Heart rhythm is regular. There is no murmur, gallop, or rub noted, Abdomen - Moderately distended. Liver and spleen are not enlarged. There is no abdominal mass or ascites noted and there is no inguinal adenopathy, Extremities - No edema, Neurologic - No focal neurologic deficits noted. Lab/Imaging: Test performed on Aug 17, 2021 10:33 LDH (Total) 150 U/L Sodium 138 mmol/L Potassium 3.1 mmol/L Chloride 101 mmol/L CO2 23 mmol/L Anion Gap 17.1 BUN 34 mg/dL Creatinine 1.6 mg/dL Cr Clearance (Est) 67.9600 mL/min eGFR 32.1 mL/min Glucose 167 mg/dL Osmolality - Calculated 297 mOsm/kg Calcium 11.2 mg/dL Protein, Total 6.2 g/dL Albumin 4.1 g/dL Globulin 2.1 g/dL Bilirubin, Total 1.0 mg/dL ALT (SGPT) 21 U/L AST (SGOT) 17 U/L Alkaline Phosphatase 100 IU/L WBC 6.3 10 3/uL RBC 3.89 10 6/uL HGB 11.2 g/dL HCT 34.0 % MCV 87.4 fl MCH 28.8 pg MCHC 32.9 g/dL RDW 13.7 % Platelet Count 128 10 3/cmm MPV 9.8 fL Neutrophils 4.82 10 3/uL Lymphocytes 0.4 10 3/uL Monocytes 0.9 10 3/uL Eosinophils 0.1 10 3/uL Basophils 0.1 10 3/uL Neutrophil % 76.4 % Lymphocyte % 6.3 % Monocyte % 14.3 % Eosinophil % 1.7 % Basophils % 0.8 % NRBC % 0 % Problem List: 1. Grade 1-2 follicular lymphoma presenting as a right buccal mass. It developed in the setting of custodial methotrexate therapy for rheumatoid arthritis. 2. She had previous chemotherapy for lymphoma in . This was probably also low-grade lymphoma. 3. Long-standing rheumatoid arthritis. 4. Hypertension. 5. GERD. 6. Obstructive sleep apnea. 7. She underwent hysterectomy/bilateral salpingo-oophorectomy for low-grade endometrial cancer in 2016. 8. She has had multiple skin cancers excised. 9. In May 2020 she had an episode of pyelonephritis/sepsis in association with nephrolithiasis. She has undergone placement of left ureteral stent and ESWL x 2. 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 It developed in the setting of watermaster methotrexate therapy for rheumatoid arthritis. She underwent right superficial parotidectomy, level IIA and posterior level IB right neck dissection, and excision of right buccal mass on 12/04/2018. Her staging PET/CT did show residual activity in the right parotid area, and there also appeared to be involved mediastinal lymph nodes. However, in the setting of long-term methotrexate therapy, she was advised to stop the methotrexate and otherwise just be followed on observation/expectant management. Her repeat neck CT scan on 02/01/2020 showed interval increase in the right paraglottic space mass with slight extension across the midline and with narrowing of the vallecula. The mass measured 1.5 x 0.7 cm. There is no associated adenopathy. With that finding she was referred to Dr. Garcia. On 04/23/2020 she underwent biopsy of the right base of tongue lesion. Pathology showed B-cell rich lymphoproliferative process. It was noted that the overall cytomorphologic and immunohistochemical features were worrisome for B-cell neoplasm, but a florid reactive process could not be entirely excluded. A restaging PET/CT on 05/24/2020 showed resolution of previously noted uptake in the right parotid gland but there was new FDG positive soft tissue at the right base of tongue measuring 1.0 cm, SUV 6.8. There was no significant change in the mediastinal adenopathy from the prior study. Previously noted right lung groundglass opacities and semisolid nodules were nearly resolved. On 08/20/2020 she underwent direct laryngoscopy with biopsy of the right base of tongue lesion. Pathology was consistent with follicular lymphoma, grade 3A. With that finding, she clearly had progressive disease despite having stopped the methotrexate. 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 As such, she was recommended to proceed with a course of treatment with bendamustine/rituximab. She completed COVID-19 vaccinations in August and September 2020. She then completed 4 cycles of bendamustine rituximab from 11/05/2020 thru 01/27/2021. She tolerated the treatment well. Her restaging PET/CT on 02/28/2021 showed resolution of the previously reported activity at the right base of tongue. There was mild residual uptake in mediastinal lymph nodes, slightly improved and most likely reactive in nature. Overall she had a very good response to the chemotherapy, and she was then given the option to continue with maintenance rituximab. She received her maintenance cycle 1 treatment on 03/23/2021. She tolerated it without significant toxicity. She then continued with cycle 2 on 05/18/2021 and was cycle 3 on 07/13/2021. She presents now with acute onset of hypercalcemia and renal impairment. A specific cause has not been determined. Rituximab has rarely been associated with nephrotoxicity, but I cannot find any reports of it causing hypercalcemia. Hypercalcemia can be associated with lymphoma, but it would be typically higher grade and in the setting of more advanced disease. As a precaution, I am going to schedule her for restaging PET/CT. In the meantime, she will be given additional IV hydration and I will schedule her for bilateral renal ultrasound. Her laboratory studies will be monitored weekly. Signed By: Paco García M.D. <<Signature on File>>
== END 2021-08-17 11:08 | disposition home or self-care (01) ==
LOC: ONCMED 11:13
PROVIDERS: PCP Family Medicine; Visit Provider Internal Medicine Medical Oncology
DX: C82.11 Follicular lymphoma grade II, lymph nodes of head, face, and neck (principal); E83.52 Hypercalcemia; N28.9 Disorder of kidney and ureter, unspecified; I10 Essential (primary) hypertension; K21.9 Gastro-esophageal reflux disease without esophagitis; G47.33 Obstructive sleep apnea (adult) (pediatric); Z79.899 Other long term (current) drug therapy; Z92.21 Personal history of antineoplastic chemotherapy; Z85.89 Personal history of malignant neoplasm of other organs and systems; Z85.828 Personal history of other malignant neoplasm of skin
CPT/HCPCS: 36591; 80053; 83615; 85025; 99215

== ENCOUNTER 2021-08-18 09:11 | Outpatient (CLI) | payer MEDICARE, OTHER, SELFPAY ==
--- NOTE | 2021-08-18 09:10 | XR_ITS ---
WS: [id number] KUB, AP view, 08/18/2021 Clinical Data: urolithiasis Comparison: KUB, 02/11/2021. Findings: No abnormal intraabdominal masses are seen. There is no dilatated small bowel or evidence of obstruct ion. The serpentine calcifications of left splenic artery again are seen. There are splenic granulomas. In jection granulomas are seen in both buttocks. Degenerative change of the lumbar vertebral bodies is m oderate to severe. XR/XR KUB [id number] Impression: No definite renal calcifications.
== END 2021-08-18 09:12 | disposition home or self-care (01) ==
LOC: RAD 09:14
PROVIDERS: PCP Family Medicine; Visit Provider Urology
DX: N20.2 Calculus of kidney with calculus of ureter (principal)
CPT/HCPCS: 74018; 81003; 87077; 87086; 87184

== ENCOUNTER 2021-08-18 13:06 | Outpatient (CLI) | payer MEDICARE, OTHER, SELFPAY ==
[2021-08-18] MEDS: sodium chloride 0.9% 1,000 ML 999 ML IV (13:35)
== END 2021-08-18 13:07 | disposition home or self-care (01) ==
PROVIDERS: PCP Family Medicine; Visit Provider Internal Medicine Medical Oncology
DX: E83.52 Hypercalcemia (principal); N28.9 Disorder of kidney and ureter, unspecified; N20.2 Calculus of kidney with calculus of ureter
CPT/HCPCS: 74018; 81003; 87077; 87086; 87184; 96360; J7030

== ENCOUNTER 2021-08-19 10:23 | Outpatient (CLI) | payer MEDICARE, OTHER, SELFPAY ==
[2021-08-19] MEDS: sodium chloride 0.9% 1,000 ML 999 ML IV (10:47)
== END 2021-08-19 10:24 | disposition home or self-care (01) ==
PROVIDERS: PCP Family Medicine; Visit Provider Internal Medicine Medical Oncology
DX: E83.52 Hypercalcemia (principal); N28.9 Disorder of kidney and ureter, unspecified
CPT/HCPCS: 96360; J7030

== ENCOUNTER 2021-08-20 10:16 | Outpatient (CLI) | payer MEDICARE, OTHER, SELFPAY ==
[2021-08-20] MEDS: sodium chloride 0.9% 1,000 ML 999 ML IV (10:40)
== END 2021-08-20 10:17 | disposition home or self-care (01) ==
PROVIDERS: PCP Family Medicine; Visit Provider Internal Medicine Medical Oncology
DX: E83.52 Hypercalcemia (principal); N28.9 Disorder of kidney and ureter, unspecified
CPT/HCPCS: 96360; J7030

== ENCOUNTER 2021-08-21 06:45 | Outpatient (CLI) | payer MEDICARE, OTHER, SELFPAY ==
--- NOTE | 2021-08-21 | US_ITS ---
WS: [id number] ULTRASOUND RENAL TECHNIQUE: Ultrasound examination of both kidneys. CLINICAL INFORMATION: HYPERCALC COMPARISON: None. FINDINGS: RIGHT: Right kidney is normal in size and appearance. Echogenicity: Normal. Cortical thickness: 1.4 cm; Normal. Hydronephrosis: None. Perinephric fluid: None. Right kidney measures: 12.2 cm x 5.2 cm x 4.1 cm. LEFT: Left kidney is normal in size and appearance. Echogenicity: Normal. Cortical thickness: 0.7 cm; Normal. Hydronephrosis: None. Perinephric fluid: None. Left kidney measures: 12.6 cm x 3.8 cm x 4.3 cm. Normal visualized aorta. Prevoid bladder volume 106 cc US/US renal BI* [id number] IMPRESSION: Technically difficult study large body habitus. 1. No hydronephrosis in either kidneys. 2. A few tiny nonobstructing renal parenchymal calculi. 3. Normal bladder
== END 2021-08-21 06:46 | disposition home or self-care (01) ==
PROVIDERS: PCP Family Medicine; Visit Provider Internal Medicine Medical Oncology
DX: E83.52 Hypercalcemia (principal)
CPT/HCPCS: 76770

== ENCOUNTER 2021-08-21 08:34 | Outpatient (CLI) | payer MEDICARE, OTHER, SELFPAY ==
[2021-08-21] MEDS: sodium chloride 0.9% 1,000 ML 999 ML IV (11:10)
== END 2021-08-21 08:35 | disposition home or self-care (01) ==
PROVIDERS: PCP Family Medicine; Visit Provider Internal Medicine Medical Oncology
DX: E83.52 Hypercalcemia (principal); N28.9 Disorder of kidney and ureter, unspecified
CPT/HCPCS: 76770; 96360; J7030

== ENCOUNTER 2021-08-24 13:19 | Outpatient (CLI) | payer MEDICARE, OTHER, SELFPAY ==
[2021-08-24] MEDS: sodium chloride 0.9% 1,000 ML 999 ML IV (13:40)
[2021-08-24 14:06] LABS: Basophils # 0.1 10^3/uL (0.0-0.1); Basophils % 1.4 %; Eosinophils # 0.1 10^3/uL (0.0-0.8); Eosinophils % 2.3 %; Hematocrit 31.5 % (37.0-47.0); Hemoglobin 10.5 g/dL (11.5-15.3); Lymphocytes # 0.5 10^3/uL (0.8-4.8); Lymphocytes % 10.7 %; Mean Corpuscular HGB Conc 33.3 g/dL (30.0-36.0); Mean Corpuscular Hemoglobin 28.6 pg (28.0-34.0); Mean Corpuscular Volume 85.8 fl (81-99); Mean Platelet Volume 10.3 fL (7.4-10.4); Monocytes # 0.9 10^3/uL (0.2-0.9); Monocytes % 17.7 %; Neutrophils # 3.27 10^3/uL (1.8-7.7); Neutrophils % 67.1 %; Nucleated Red Blood Cells % 0 %; Platelet Count 113 10^3/cmm (130-400); Red Blood Count 3.67 10^6/uL (4.1-5.3); Red Cell Distribution Width 14.1 % (12.1-15.1); White Blood Count 4.9 10^3/uL (4.0-10.0)
[2021-08-24 14:27] LABS: Alanine Aminotransferase 17 U/L (0-33); Albumin Level 4.2 g/dL (3.5-5.2); Alkaline Phosphatase 96 IU/L (35-105); Anion Gap 14.4 (5-19); Aspartate Amino Transferase 16 U/L (0-32); Blood Urea Nitrogen 21 mg/dL (8-23); Calcium 10.8 mg/dL (8.5-10.5); Carbon Dioxide 23 mmol/L (22-29); Chloride 105 mmol/L (98-107); Globulin 2.3 g/dL (1.3-4.6); Glomerular Filtration Rate 62.3 mL/min (90-130); Glucose 108 mg/dL (65-115); Magnesium 1.2 mg/dL (1.7-2.3); Osmolality Calculated 292 mOsm/kg (285-295); Potassium 3.4 mmol/L (3.5-5.1); Sodium 139 mmol/L (136-145); Total Bilirubin 0.7 mg/dL (0.15-1.2); Total Protein 6.5 g/dL (6.6-8.7)
[2021-08-24 17:57] LABS: Iron 62 ug/dL (37-145)
[2021-08-24 18:09] LABS: Percent Saturation 17.3 % (20-50); Total Iron Binding Capacity 357 mcg/dl; Unsaturated Iron Binding 295 ug/dL (112-347)
== END 2021-08-24 13:20 | disposition home or self-care (01) ==
PROVIDERS: PCP Family Medicine; Visit Provider Internal Medicine Medical Oncology
DX: E83.52 Hypercalcemia (principal)
CPT/HCPCS: 80053; 83540; 83550; 83735; 85025; 96360; J7030

== ENCOUNTER → 2021-08-26 13:01 | Outpatient (BNVA) | payer MEDICARE, OTHER, SELFPAY | PROVIDERS: PCP Family Medicine; Referring Provider Specialist; Visit Provider Specialist | DX: G62.89 Other specified polyneuropathies (principal) | CPT/HCPCS: 95913 ==

== ENCOUNTER 2021-08-31 13:27 | Outpatient (CLI) | payer MEDICARE, OTHER, SELFPAY ==
[2021-08-31 13:59] LABS: Basophils # 0.1 10^3/uL (0.0-0.1); Basophils % 1.2 %; Eosinophils # 0.1 10^3/uL (0.0-0.8); Eosinophils % 2.6 %; Hematocrit 29.4 % (37.0-47.0); Lymphocytes # 0.4 10^3/uL (0.8-4.8); Lymphocytes % 9.4 %; Mean Corpuscular Hemoglobin 29.5 pg (28.0-34.0); Mean Corpuscular Volume 86.7 fl (81-99); Mean Platelet Volume 9.9 fL (7.4-10.4); Monocytes # 0.7 10^3/uL (0.2-0.9); Neutrophils # 2.99 10^3/uL (1.8-7.7); Neutrophils % 70.1 %; Nucleated Red Blood Cells % 0 %; Platelet Count 117 10^3/cmm (130-400); Red Blood Count 3.39 10^6/uL (4.1-5.3); Red Cell Distribution Width 14.6 % (12.1-15.1); White Blood Count 4.3 10^3/uL (4.0-10.0)
[2021-08-31] MEDS: sodium chloride 0.9% 1,000 ML 999 ML IV (14:03)
[2021-08-31 14:20] LABS: Alanine Aminotransferase 17 U/L (0-33); Alkaline Phosphatase 93 IU/L (35-105); Anion Gap 15.5 (5-19); Aspartate Amino Transferase 16 U/L (0-32); Blood Urea Nitrogen 18 mg/dL (8-23); Calcium 11.3 mg/dL (8.5-10.5); Carbon Dioxide 24 mmol/L (22-29); Chloride 102 mmol/L (98-107); Globulin 2.1 g/dL (1.3-4.6); Glomerular Filtration Rate 71.3 mL/min (90-130); Glucose 144 mg/dL (65-115); Osmolality Calculated 290 mOsm/kg (285-295); Potassium 3.5 mmol/L (3.5-5.1); Sodium 138 mmol/L (136-145); Total Bilirubin 0.8 mg/dL (0.15-1.2); Total Protein 6.1 g/dL (6.6-8.7)
== END 2021-08-31 13:28 | disposition home or self-care (01) ==
LOC: ONCMED 13:29
PROVIDERS: PCP Family Medicine; Visit Provider Internal Medicine Medical Oncology
DX: E83.52 Hypercalcemia (principal)
CPT/HCPCS: 80053; 85025; 96360; J7030

== ENCOUNTER 2021-09-07 07:58 | Outpatient (CLI) | payer MEDICARE, OTHER, SELFPAY ==
[2021-09-07] MEDS: sodium chloride 0.9% 1,000 ML 999 ML IV (08:25)
[2021-09-07 08:27] LABS: Basophils # 0.1 10^3/uL (0.0-0.1); Basophils % 1.6 %; Eosinophils # 0.1 10^3/uL (0.0-0.8); Eosinophils % 2.2 %; Hematocrit 29.2 % (37.0-47.0); Hemoglobin 9.6 g/dL (11.5-15.3); Lymphocytes # 0.3 10^3/uL (0.8-4.8); Mean Corpuscular HGB Conc 32.9 g/dL (30.0-36.0); Mean Corpuscular Hemoglobin 29.5 pg (28.0-34.0); Mean Corpuscular Volume 89.8 fl (81-99); Mean Platelet Volume 9.4 fL (7.4-10.4); Monocytes # 0.6 10^3/uL (0.2-0.9); Monocytes % 16.6 %; Neutrophils # 2.56 10^3/uL (1.8-7.7); Neutrophils % 69.8 %; Nucleated Red Blood Cells % 0 %; Platelet Count 117 10^3/cmm (130-400); Red Blood Count 3.25 10^6/uL (4.1-5.3); Red Cell Distribution Width 15.4 % (12.1-15.1); White Blood Count 3.7 10^3/uL (4.0-10.0)
[2021-09-07 09:30] LABS: Alanine Aminotransferase 14 U/L (0-33); Albumin Level 3.9 g/dL (3.5-5.2); Alkaline Phosphatase 91 IU/L (35-105); Anion Gap 15.6 (5-19); Aspartate Amino Transferase 15 U/L (0-32); Blood Urea Nitrogen 18 mg/dL (8-23); Calcium 9.7 mg/dL (8.5-10.5); Carbon Dioxide 24 mmol/L (22-29); Chloride 102 mmol/L (98-107); Globulin 2.4 g/dL (1.3-4.6); Glomerular Filtration Rate 71.3 mL/min (90-130); Glucose 204 mg/dL (65-115); Lactate Dehydrogenase 122 U/L (135-214); Osmolality Calculated 294 mOsm/kg (285-295); Potassium 3.6 mmol/L (3.5-5.1); Sodium 138 mmol/L (136-145); Total Bilirubin 1.1 mg/dL (0.15-1.2); Total Protein 6.3 g/dL (6.6-8.7)
[2021-09-07 13:35] LABS: Iron 72 ug/dL (37-145); Percent Saturation 28.1 % (20-50); Total Iron Binding Capacity 256 mcg/dl; Unsaturated Iron Binding 184 ug/dL (112-347)
--- NOTE | 2021-09-07 17:32 | ONC FU_ITS ---
Dr. García Patient Follow-Up Note Patient: Aylin Dietz Unit #: [id number]: [id number] Dicatated By: Paco García M.D.Date of Visit:Sep 07, 2021 Onc Med Follow-up/Prog Note Chief Complaint: Lymphoma/hypercalcemia. 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 She recently was found to have severe hypercalcemia. She has a history of having undergone treatment for lymphoma by Dr. Ghulam Coon in [place]. It was initially diagnosed in 1991. I did not have the records, but based on the patient's description, it was probably low-grade. It had progressed on light chemotherapy, following which she had 6 cycles of treatment with an Adriamycin containing regimen, I assume CHOP, completed sometime in 1992. She had a complete response. Her medical history is otherwise significant for rheumatoid arthritis, initially diagnosed in 1982. Her RA had been well controlled on long-term therapy with methotrexate. Sometime around May 2018 or June 2018 she became aware of a knot in her right cheek. It wasn't visible, but she could feel it with her finger or her tongue. A neck CT on 09/26/2018 showed an enlarged lymph node on the right side of the face measuring 1.9 x 1.2 cm. There was a suggestion of fullness and soft tissue lesion in the right palatine tonsil measuring approximately 1.3 x 1.1 cm. The parotid glands appeared normal, and there appeared to be normal sized intraparotid lymph nodes. She was referred to Dr. Garcia. An initial FNA biopsy of the cheek mass was nondiagnostic. She was then referred to Dr. Faustina Martinez at [facility]. On 12/04/2018 she underwent right superficial parotidectomy, level IIA and posterior level IB right neck dissection, and excision of the right buccal mass. The parotid gland showed no histopathologic abnormalities and the intraparotid lymph nodes showed reactive lymphoid hyperplasia with no morphologic evidence of lymphoma. 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 The neck dissection showed no involvement in 13 lymph nodes. I had seen her initially on 01/04/2019. Her staging PET/CT on 01/06/2019 showed a poorly defined right parotid soft tissue lesion measuring approximately 1.7 x 3.0 cm with SUV 3.6, felt to be consistent with lymphoma. A second FDG positive mass was noted in the subcutaneous fat overlying the left maxilla measuring 1.4 x 0.8 cm. There were multiple FDG positive mediastinal lymph nodes with possible paralysis of the left vocal cord. There were 2 semisolid nodules in the right upper lobe, with the dominant lesion measuring 1.1 cm of SUV 2.0, felt to be inflammatory. With low-grade lymphoma in the setting of long-term methotrexate therapy, she was recommended to stop the methotrexate and otherwise just continue on observation/expectant management. Her repeat neck CT on 04/12/2019 showed evidence of partial right neck dissection and removal of the right parotid gland with appropriate appearing postsurgical changes. There are no new lymph nodes identified, but there was a new soft tissue fullness noted in the right paraglottic space measuring 19 x 12 mm. She was seen again by Dr. Garcia and her flexible laryngoscopy showed no significant abnormality. Repeat CT of the neck on 05/16/2019 showed evidence of soft tissue thickening/mass involving the right paraglottic space extending to the right vocal cord, unchanged from the prior study. There was severe central canal stenosis in the cervical spine at C5-C6, also unchanged. Partially visualized patchy opacities were noted in the right lung apex. There was no cervical lymphadenopathy. Restaging CT sans of the chest, abdomen, and pelvis on 08/03/2019 showed diminished size and number of groundglass opacities in the right lung. The left lung opacities also had diminished slightly in size. The mediastinal adenopathy remained unchanged. There was no axillary adenopathy noted. The spleen remained slightly increased in size. There was no adenopathy in the abdomen/pelvis. She continued observation/expectant management. Repeat CT scans of the chest, abdomen, and pelvis on 01/30/2020 showed continued slow improvement in the groundglass opacifications and subsolid opacifications bilaterally as well as slight improvement in the mediastinal and hilar lymph nodes. The largest AP window lymph node measured 10 mm. There was unchanged mild splenomegaly. There was no mesenteric or retroperitoneal adenopathy identified. Her repeat neck CT scan on 02/01/2020 showed interval increase in the right paraglottic space mass with slight extension across the midline and with narrowing of the vallecula. The mass measured 1.5 x 0.7 cm. There was no associated adenopathy. With that finding she was referred to Dr. Garcia. On 04/23/2020 she underwent biopsy of the right base of tongue lesion. Pathology showed B-cell rich lymphoproliferative process. It was noted that the overall cytomorphologic and immunohistochemical features were worrisome for B-cell neoplasm, and marginal zone lymphoma, in particular, was a consideration. A florid reactive process could not be entirely excluded. A restaging PET/CT on 05/24/2020 showed resolution of previously noted uptake in the right parotid gland but there was new FDG positive soft tissue at the right base of tongue measuring 1.0 cm, SUV 6.8. There was no significant change in the mediastinal adenopathy from the prior study. Previously noted right lung groundglass opacities and semisolid nodules were nearly resolved. In the meantime, on 05/08/2020 she had been admitted to the hospital with pyelonephritis/sepsis in association with a large obstructing left UPJ stone and a large renal calculus. She underwent cystoscopy with left ureteral stent placement. On 06/16/2020 she underwent replacement of the ureteral stent and ESWL of both stones. She underwent repeat ESWL of the lower pole renal calculus on 07/07/2020. On 08/20/2020 she underwent direct laryngoscopy with biopsy of right base of tongue lesion by Dr. Garcia. Pathology was consistent with follicular lymphoma, grade 3A. In the setting of obvious disease progression despite having stopped her methotrexate therapy and with her disease having evolved from grade 1???2 to grade 3, she was recommended to undergo course of chemotherapy with bendamustine/rituximab. She completed COVID-19 vaccinations in August and September 2020. She began cycle 1 of bendamustine rituximab on 11/05/2020. She tolerated the treatment well, and she continued with cycle 2 on 12/03/2020, with cycle 3 on 12/31/2020, and with cycle 4 on 01/27/2021. Restaging PET/CT on 02/28/2021 showed resolution of previously noted activity at the right base of tongue. There was slight improvement in mediastinal lymph node uptake with an index right paratracheal lymph node showing SUV 4.1 compared to 4.6 on the prior study. There was no new adenopathy noted and there were no other areas of abnormal uptake. With her disease having shown significant response to the bendamustine/rituximab, she was recommended to continue treatment with maintenance rituximab. Her medical illnesses, in addition to the rheumatoid arthritis, include hypertension, GERD, and obstructive sleep apnea. She has additional history of having undergone hysterectomy/bilateral salpingo-oophorectomy for low-grade endometrial cancer in 2017. She also has had multiple skin cancers excised. She is a nonsmoker. INTERIM HISTORY: She began cycle 1 of maintenance rituximab on 03/23/2021. She tolerated it well. She then continued with cycle 2 on 05/18/2021 and with cycle 3 on 07/13/2021. On 08/12/2021 she called the office to report that she was having headaches and weakness/fatigue. She was scheduled to come in for laboratory studies and she was also scheduled for head MRI. Her laboratory studies the following day included CBC showing hemoglobin 11.4 g, white blood cell count 4500, and platelet count 115,000. Her sed rate was just slightly elevated at 17 mm/h. Her comprehensive metabolic profile shows a decline in her renal function with BUN increased to 40 mg/dL and creatinine 1.3 mg/dL. She was found to have significant hypercalcemia at 17.4 mg/dL. The bilirubin and liver enzymes were normal. The LDH was normal 145 U/L. She was then seen in the emergency room and admitted to the hospital. Her further laboratory evaluation included a parathyroid hormone level which was mildly decreased at 11.5 pg/mL. The results of a PTH related protein study are still pending. Her protein electrophoresis showed no monoclonal protein. She was given IV hydration, calcitonin, and IV zoledronic acid. She was discharged home on 08/15/2021, at which point her renal function was stable with creatinine 1.3 mg/dL but the serum calcium had decreased to 13.4 mg/dL. She had been taking an oral calcium/vitamin D supplement at home once a day, and that was discontinued. I had seen her for a follow-up visit on 08/17/2021. At that point her calcium was down to 11.2 mg/dL and she was feeling better, but her BUN and creatinine were still elevated at 34 and 1.6 mg/dL. She was given additional IV hydration. Her restaging PET/CT on 08/22/2021 showed new increased FDG activity in the right and left paratracheal, left hilar, subcarinal, and subaortic territories consistent with recurrent lymphoma. There were additional FDG positive lymph nodes in the portal and peripancreatic territory. The spleen was noted to have increased in size and it was noted to demonstrate diffuse abnormal FDG uptake, consistent with splenic involvement with lymphoma. Given the PET/CT findings, she was referred to [facility]. She was seen there by Dr. Nelly Pinzon on 09/02/2021, and she is scheduled to have biopsies of mediastinal lymph nodes and spleen this week. She says she is feeling fine, though she still does not have very good energy. She is able to do housework. ECOG score is 1. She has good appetite. She has no fever or night sweats. She complains that her nose keeps running. She is not having sore mouth or throat. Her cough is better. She is not having shortness of breath or chest pain. She has been having constipation with her iron supplement. She has no other GI complaints. She has noticed a foul odor to her urine. She has a little tightness in her hands, but she has no other joint or bone pain. She is still having headache occasionally. She has some numbness in her hands and feet. Medications: Aspirin 1 Tablet (of 81 mg) Oral daily, Atorvastatin Calcium 1 Tablet (of 10 mg) Oral daily, Cardizem CD 1 (360 mg) Capsule SR 24 HR Oral daily, cloNIDine HCl 1 Tablet (of 0.1 mg) Oral b.i.d., Eliquis 1 (5 mg) Tablet Oral b.i.d., Famotidine 1 Tablet (of 20 mg) Oral b.i.d., Folic Acid 2 Tablet (of 1 mg) Oral daily Allergies: No Known Allergies. Vital Signs: Performed on Sep 07, 2021 08:22 Height - 67.50 in Weight - 273.4 lbs (HIGH) BSA - 2.32 sq.m BMI - 42.19 (HIGH) Temperature - 97.3 F (LOW) Pulse - 68 /min Respiration - 18 /min BP - 108/63 mm(hg) O2 Sat - 97 % Pain - 0 Fatigue - 0 Physical Examination: Constitutional - She looks pretty good generally, Eyes - Sclerae nonicteric. Conjunctivae clear, ENMT - There are no lesions noted in the oral cavity, Hematologic/Lymphatic - There is no cervical, clavicular, or axillary lymphadenopathy noted, Respiratory - Lungs are clear with good air movement bilaterally, Cardiovascular - Heart rhythm is regular. There is a II/ systolic murmur. There is no gallop or rub noted, Abdomen - Moderately distended. Liver is not enlarged. I am not able to palpate the spleen. There is no abdominal mass or ascites noted and there is no inguinal adenopathy, Extremities - No edema, Neurologic - No focal neurologic deficits noted. Lab/Imaging: Test performed on Sep 07, 2021 08:12 LDH (Total) 122 U/L Sodium 138 mmol/L Potassium 3.6 mmol/L Chloride 102 mmol/L CO2 24 mmol/L Anion Gap 15.6 BUN 18 mg/dL Creatinine 0.8 mg/dL Cr Clearance (Est) 135.9100 mL/min eGFR 71.3 mL/min Glucose 204 mg/dL Osmolality - Calculated 294 mOsm/kg Calcium 9.7 mg/dL Protein, Total 6.3 g/dL Albumin 3.9 g/dL Globulin 2.4 g/dL Bilirubin, Total 1.1 mg/dL ALT (SGPT) 14 U/L AST (SGOT) 15 U/L Alkaline Phosphatase 91 IU/L WBC 3.7 10 3/uL RBC 3.25 10 6/uL HGB 9.6 g/dL HCT 29.2 % MCV 89.8 fl MCH 29.5 pg MCHC 32.9 g/dL RDW 15.4 % Platelet Count 117 10 3/cmm MPV 9.4 fL Neutrophils 2.56 10 3/uL Lymphocytes 0.3 10 3/uL Monocytes 0.6 10 3/uL Eosinophils 0.1 10 3/uL Basophils 0.1 10 3/uL Neutrophil % 69.8 % Lymphocyte % 9.0 % Monocyte % 16.6 % Eosinophil % 2.2 % Basophils % 1.6 % NRBC % 0 % Problem List: 1. Grade 1-2 follicular lymphoma which developed in the setting of nursing home methotrexate therapy for rheumatoid arthritis. 2. She had acute onset of hypercalcemia in August 2021. 3. Long-standing rheumatoid arthritis. 4. Hypertension. 5. GERD. 6. Obstructive sleep apnea. 7. She underwent hysterectomy/bilateral salpingo-oophorectomy for low-grade endometrial cancer in 2016. 8. She has had multiple skin cancers excised. 9. In May 2020 she had an episode of pyelonephritis/sepsis in association with nephrolithiasis. She has undergone placement of left ureteral stent and ESWL x 2. Problems Addressed with this Encounter and Plan: 1. 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 It developed in the setting of technician terminal and repeater methotrexate therapy for rheumatoid arthritis. She underwent right superficial parotidectomy, level IIA and posterior level IB right neck dissection, and excision of right buccal mass on 12/04/2018. Her staging PET/CT did show residual activity in the right parotid area, and there also appeared to be involved mediastinal lymph nodes. However, in the setting of long-term methotrexate therapy, she was advised to stop the methotrexate and otherwise just be followed on observation/expectant management. Her repeat neck CT scan on 02/01/2020 showed interval increase in the right paraglottic space mass with slight extension across the midline and with narrowing of the vallecula. The mass measured 1.5 x 0.7 cm. There is no associated adenopathy. With that finding she was referred to Dr. Garcia. On 04/23/2020 she underwent biopsy of the right base of tongue lesion. Pathology showed B-cell rich lymphoproliferative process. It was noted that the overall cytomorphologic and immunohistochemical features were worrisome for B-cell neoplasm, but a florid reactive process could not be entirely excluded. A restaging PET/CT on 05/24/2020 showed resolution of previously noted uptake in the right parotid gland but there was new FDG positive soft tissue at the right base of tongue measuring 1.0 cm, SUV 6.8. There was no significant change in the mediastinal adenopathy from the prior study. Previously noted right lung groundglass opacities and semisolid nodules were nearly resolved. On 08/20/2020 she underwent direct laryngoscopy with biopsy of the right base of tongue lesion. Pathology was consistent with follicular lymphoma, grade 3A. With that finding, she clearly had progressive disease despite having stopped the methotrexate. 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 As such, she was recommended to proceed with a course of treatment with bendamustine/rituximab. She completed COVID-19 vaccinations in August and September 2020. She then completed 4 cycles of bendamustine rituximab from 11/05/2020 thru 01/27/2021. She tolerated the treatment well. Her restaging PET/CT on 02/28/2021 showed resolution of the previously reported activity at the right base of tongue. There was mild residual uptake in mediastinal lymph nodes, slightly improved and most likely reactive in nature. Overall she had a very good response to the chemotherapy, and she was then given the option to continue with maintenance rituximab. She received her maintenance cycle 1 treatment on 03/23/2021. She tolerated it without significant toxicity. She then continued with cycle 2 on 05/18/2021 and was cycle 3 on 07/13/2021. She presented recently with acute onset of hypercalcemia and renal impairment. The hypercalcemia improved following IV hydration and IV Zometa. In the meantime, her restaging PET/CT on 08/22/2021 showed new FDG activity in mediastinal and upper abdominal lymph nodes, suspicious for disease progression. There was also suspected lymphoma is infiltration of the spleen. In association with the PET/CT findings, the development of hypercalcemia is suspicious for transformation to large cell lymphoma. She has been seen by Dr. Nelly Pinzon at [facility], and she is scheduled now to have biopsies of mediastinal lymph nodes and spleen. At the present time, the hypercalcemia remains adequately managed following the initial Zometa infusion, and her renal function has recovered to baseline. For the time being I will continue to monitor her labs weekly. 2. She has been mildly anemic. Her initial serum iron studies showed slightly low transferrin saturation at 17%, at that point she had started on oral iron supplement. She is advised now to stop it, as it is causing significant constipation. I will continue to monitor blood counts and iron studies, and she will be given the option to have parenteral iron replacement as indicated. Signed By: Paco García M.D. <<Signature on File>>
== END 2021-09-07 07:59 | disposition home or self-care (01) ==
PROVIDERS: PCP Family Medicine; Visit Provider Internal Medicine Medical Oncology
DX: C82.11 Follicular lymphoma grade II, lymph nodes of head, face, and neck (principal); E83.52 Hypercalcemia; N82.9 Female genital tract fistula, unspecified; I10 Essential (primary) hypertension; K21.9 Gastro-esophageal reflux disease without esophagitis; G47.33 Obstructive sleep apnea (adult) (pediatric); Z79.899 Other long term (current) drug therapy; Z92.21 Personal history of antineoplastic chemotherapy; Z85.89 Personal history of malignant neoplasm of other organs and systems; Z85.828 Personal history of other malignant neoplasm of skin
CPT/HCPCS: 80053; 83540; 83550; 83615; 85025; 96360; 99215; J7030

== ENCOUNTER → 2021-09-11 10:25 | Outpatient (BNVA) | payer MEDICARE, OTHER, SELFPAY | PROVIDERS: PCP Family Medicine; Visit Provider Internal Medicine Cardiovascular Disease | DX: I48.91 Unspecified atrial fibrillation (principal); I34.0 Nonrheumatic mitral (valve) insufficiency; I50.9 Heart failure, unspecified; I07.1 Rheumatic tricuspid insufficiency | CPT/HCPCS: 99214 ==

== ENCOUNTER 2021-09-14 08:45 | Outpatient (CLI) | payer MEDICARE, OTHER, SELFPAY ==
[2021-09-14 09:25] LABS: Basophils # 0.1 10^3/uL (0.0-0.1); Basophils % 1.2 %; Eosinophils # 0.1 10^3/uL (0.0-0.8); Eosinophils % 2.1 %; Hematocrit 27.5 % (37.0-47.0); Hemoglobin 8.7 g/dL (11.5-15.3); Lymphocytes # 0.4 10^3/uL (0.8-4.8); Lymphocytes % 9.3 %; Mean Corpuscular HGB Conc 31.6 g/dL (30.0-36.0); Mean Corpuscular Hemoglobin 28.5 pg (28.0-34.0); Mean Corpuscular Volume 90.2 fl (81-99); Mean Platelet Volume 9.7 fL (7.4-10.4); Monocytes # 0.6 10^3/uL (0.2-0.9); Monocytes % 14.9 %; Neutrophils # 3.04 10^3/uL (1.8-7.7); Neutrophils % 70.6 %; Nucleated Red Blood Cells % 0 %; Platelet Count 110 10^3/cmm (130-400); Red Blood Count 3.05 10^6/uL (4.1-5.3); Red Cell Distribution Width 16.1 % (12.1-15.1); White Blood Count 4.3 10^3/uL (4.0-10.0)
[2021-09-14 09:26] LABS: Bilirubin Urine Neg (Negative); Blood Urine Neg (Negative); Glucose Urine UA Norm (Normal); Ketones Urine Negative (Negative); Leukocyte Esterase Urine Negative (Negative); Nitrate Urine Negative (Negative); Protein Urine Neg (Negative); Urine Appearance Clear (CLEAR); Urine Color Yellow (Yellow); Urobilinogen Urine Norm (Negative); pH Urine 5 (5-7)
[2021-09-14 09:31] LABS: Squamous Epithelial Cell Urine 0-4 /hpf (0-5)
[2021-09-14 09:32] LABS: Add Urine Culture? No; Bacteria Urine TRACE /hpf
[2021-09-14 09:41] LABS: Alanine Aminotransferase 11 U/L (0-33); Albumin Level 3.7 g/dL (3.5-5.2); Alkaline Phosphatase 93 IU/L (35-105); Anion Gap 14.6 (5-19); Aspartate Amino Transferase 13 U/L (0-32); Blood Urea Nitrogen 11 mg/dL (8-23); Calcium 9.5 mg/dL (8.5-10.5); Carbon Dioxide 23 mmol/L (22-29); Chloride 104 mmol/L (98-107); Globulin 2.5 g/dL (1.3-4.6); Glomerular Filtration Rate 83.2 mL/min (90-130); Glucose 174 mg/dL (65-115); Osmolality Calculated 290 mOsm/kg (285-295); Potassium 3.6 mmol/L (3.5-5.1); Sodium 138 mmol/L (136-145); Total Bilirubin 1.8 mg/dL (0.15-1.2); Total Protein 6.2 g/dL (6.6-8.7)
[2021-09-14 10:17] LABS: Reticulocyte % 3.4 % (0.5-2.0)
[2021-09-14 10:44] LABS: Lactate Dehydrogenase 175 U/L (135-214)
== END 2021-09-14 08:46 | disposition home or self-care (01) ==
LOC: ONCMED 08:47
PROVIDERS: PCP Family Medicine; Visit Provider Internal Medicine Medical Oncology
DX: C82.19 Follicular lymphoma grade II, extranodal and solid organ sites (principal)
CPT/HCPCS: 36591; 80053; 81001; 83010; 83615; 85025; 85045

== ENCOUNTER 2021-09-21 08:30 | Outpatient (CLI) | payer MEDICARE, OTHER, SELFPAY ==
[2021-09-21 09:06] LABS: Basophils # 0.1 10^3/uL (0.0-0.1); Basophils % 1.3 %; Eosinophils # 0.1 10^3/uL (0.0-0.8); Eosinophils % 2.9 %; Hematocrit 31.7 % (37.0-47.0); Lymphocytes # 0.4 10^3/uL (0.8-4.8); Lymphocytes % 8.3 %; Mean Corpuscular HGB Conc 31.5 g/dL (30.0-36.0); Mean Corpuscular Hemoglobin 28.5 pg (28.0-34.0); Mean Corpuscular Volume 90.3 fl (81-99); Mean Platelet Volume 9.4 fL (7.4-10.4); Monocytes # 0.7 10^3/uL (0.2-0.9); Monocytes % 16.1 %; Neutrophils # 3.14 10^3/uL (1.8-7.7); Neutrophils % 70.5 %; Nucleated Red Blood Cells % 0 %; Platelet Count 145 10^3/cmm (130-400); Red Blood Count 3.51 10^6/uL (4.1-5.3); Red Cell Distribution Width 16.2 % (12.1-15.1); White Blood Count 4.5 10^3/uL (4.0-10.0)
[2021-09-21 09:21] LABS: Estmated Average Glucose 94; Hemoglobin A1C 4.9 % (4.0-6.0)
[2021-09-21 09:22] LABS: Alanine Aminotransferase 9 U/L (0-33); Albumin Level 3.9 g/dL (3.5-5.2); Alkaline Phosphatase 97 IU/L (35-105); Anion Gap 15.2 (5-19); Aspartate Amino Transferase 12 U/L (0-32); Blood Urea Nitrogen 18 mg/dL (8-23); Calcium 9.4 mg/dL (8.5-10.5); Carbon Dioxide 23 mmol/L (22-29); Chloride 106 mmol/L (98-107); Globulin 2.7 g/dL (1.3-4.6); Glomerular Filtration Rate 83.2 mL/min (90-130); Glucose 154 mg/dL (65-115); Osmolality Calculated 295 mOsm/kg (285-295); Potassium 4.2 mmol/L (3.5-5.1); Sodium 140 mmol/L (136-145); Total Bilirubin 0.9 mg/dL (0.15-1.2); Total Protein 6.6 g/dL (6.6-8.7)
== END 2021-09-21 08:31 | disposition home or self-care (01) ==
LOC: ONCMED 08:31
PROVIDERS: PCP Family Medicine; Visit Provider Internal Medicine Medical Oncology
DX: E11.9 Type 2 diabetes mellitus without complications (principal)
CPT/HCPCS: 36591; 80053; 83036; 85025

== ENCOUNTER 2021-09-28 08:54 | Outpatient (CLI) | payer MEDICARE, OTHER, SELFPAY ==
[2021-09-28 09:39] LABS: Anion Gap 15.8 (5-19); Blood Urea Nitrogen 27 mg/dL (8-23); Calcium 8.4 mg/dL (8.5-10.5); Carbon Dioxide 23 mmol/L (22-29); Chloride 104 mmol/L (98-107); Glomerular Filtration Rate 71.3 mL/min (90-130); Glucose 158 mg/dL (65-115); Osmolality Calculated 296 mOsm/kg (285-295); Potassium 3.8 mmol/L (3.5-5.1); Sodium 139 mmol/L (136-145)
== END 2021-09-28 08:55 | disposition home or self-care (01) ==
PROVIDERS: PCP Family Medicine; Visit Provider Internal Medicine Medical Oncology
DX: C82.01 Follicular lymphoma grade I, lymph nodes of head, face, and neck (principal)
CPT/HCPCS: 36591; 80048

== ENCOUNTER 2021-10-05 11:25 | Oncology outpatient (recurring) (ONCR) | payer MEDICARE, OTHER, SELFPAY ==
[2021-10-05 11:47] LABS: Basophils % 0.4 %; Eosinophils # 0.1 10^3/uL (0.0-0.8); Eosinophils % 0.6 %; Hematocrit 35.8 % (37.0-47.0); Hemoglobin 11.6 g/dL (11.5-15.3); Lymphocytes # 0.8 10^3/uL (0.8-4.8); Lymphocytes % 7.6 %; Mean Corpuscular HGB Conc 32.4 g/dL (30.0-36.0); Mean Corpuscular Hemoglobin 29.7 pg (28.0-34.0); Mean Corpuscular Volume 91.6 fl (81-99); Mean Platelet Volume 9.3 fL (7.4-10.4); Monocytes # 1.1 10^3/uL (0.2-0.9); Monocytes % 10.3 %; Neutrophils # 8.21 10^3/uL (1.8-7.7); Neutrophils % 80.1 %; Nucleated Red Blood Cells % 0 %; Platelet Count 151 10^3/cmm (130-400); Red Blood Count 3.91 10^6/uL (4.1-5.3); Red Cell Distribution Width 16.8 % (12.1-15.1); White Blood Count 10.3 10^3/uL (4.0-10.0)
[2021-10-05 12:14] LABS: Alanine Aminotransferase 14 U/L (0-33); Albumin Level 4.4 g/dL (3.5-5.2); Alkaline Phosphatase 72 IU/L (35-105); Anion Gap 16.1 (5-19); Aspartate Amino Transferase 11 U/L (0-32); Blood Urea Nitrogen 29 mg/dL (8-23); Calcium 8.7 mg/dL (8.5-10.5); Carbon Dioxide 22 mmol/L (22-29); Chloride 102 mmol/L (98-107); Globulin 1.6 g/dL (1.3-4.6); Glomerular Filtration Rate 83.2 mL/min (90-130); Glucose 115 mg/dL (65-115); Osmolality Calculated 289 mOsm/kg (285-295); Potassium 4.1 mmol/L (3.5-5.1); Sodium 136 mmol/L (136-145); Total Bilirubin 1.1 mg/dL (0.15-1.2)
[2021-10-05 12:25] LABS: Magnesium 1.8 mg/dL (1.7-2.3); NT Pro B Type Natriuretic Pept 136 pg/mL (0-125)
[2021-10-05 14:50] LABS: Iron 96 ug/dL (37-145); Percent Saturation 31.4 % (20-50); Total Iron Binding Capacity 305 mcg/dl; Unsaturated Iron Binding 209 ug/dL (112-347)
== END 2021-11-03 23:59 | disposition home or self-care (01) ==
PROVIDERS: Internal Medicine Cardiovascular Disease; PCP Family Medicine; Visit Provider Internal Medicine Medical Oncology
DX: C82.19 Follicular lymphoma grade II, extranodal and solid organ sites (principal); D50.9 Iron deficiency anemia, unspecified; Z79.899 Other long term (current) drug therapy
CPT/HCPCS: 36591; 80053; 83540; 83550; 83735; 83880; 85025

== ENCOUNTER 2021-11-05 13:00 | Oncology outpatient (recurring) (ONCR) | payer MEDICARE, OTHER, SELFPAY ==
[2021-11-05 14:30] VITALS: BMI 43.7
[2021-11-05 15:01] LABS: Basophils % 0.4 %; Eosinophils % 0.1 %; Hematocrit 34.1 % (37.0-47.0); Hemoglobin 11.5 g/dL (11.5-15.3); Lymphocytes # 0.4 10^3/uL (0.8-4.8); Mean Corpuscular HGB Conc 33.7 g/dL (30.0-36.0); Mean Corpuscular Volume 91.9 fl (81-99); Mean Platelet Volume 9.3 fL (7.4-10.4); Monocytes # 0.3 10^3/uL (0.2-0.9); Monocytes % 3.8 %; Neutrophils # 7.32 10^3/uL (1.8-7.7); Neutrophils % 89.7 %; Nucleated Red Blood Cells % 0 %; Platelet Count 119 10^3/cmm (130-400); Red Blood Count 3.71 10^6/uL (4.1-5.3); Red Cell Distribution Width 16.1 % (12.1-15.1); White Blood Count 8.2 10^3/uL (4.0-10.0)
[2021-11-05 15:11] LABS: Alanine Aminotransferase 21 U/L (0-33); Alkaline Phosphatase 66 IU/L (35-105); Anion Gap 16.3 (5-19); Aspartate Amino Transferase 14 U/L (0-32); Blood Urea Nitrogen 22 mg/dL (8-23); Carbon Dioxide 23 mmol/L (22-29); Chloride 105 mmol/L (98-107); Globulin 2.2 g/dL (1.3-4.6); Glomerular Filtration Rate 71.3 mL/min (90-130); Glucose 233 mg/dL (65-115); Osmolality Calculated 301 mOsm/kg (285-295); Potassium 4.3 mmol/L (3.5-5.1); Sodium 140 mmol/L (136-145); Total Bilirubin 1.1 mg/dL (0.15-1.2); Total Protein 6.2 g/dL (6.6-8.7)
[2021-11-05 16:24] LABS: Ferritin 76 ng/mL (15-150); Iron 71 ug/dL (37-145); Percent Saturation 23.5 % (20-50); Total Iron Binding Capacity 301 mcg/dl; Unsaturated Iron Binding 230 ug/dL (112-347)
--- NOTE | 2021-11-06 11:33 | PC.NURSE ---
Called patient to notify her that her Iron Study and FE is all in normal range. Patient acknowledged understanding and had no other questions or concerns.//bd
== END 2021-11-05 23:59 | disposition home or self-care (01) ==
PROVIDERS: Nurse Practitioner Family; PCP Family Medicine; Visit Provider Internal Medicine Medical Oncology
DX: D86.89 Sarcoidosis of other sites (principal); C82.19 Follicular lymphoma grade II, extranodal and solid organ sites; D50.8 Other iron deficiency anemias; E11.9 Type 2 diabetes mellitus without complications
CPT/HCPCS: 36591; 80053; 82728; 83540; 83550; 85025; 99214

== ENCOUNTER 2021-12-16 10:55 | Outpatient (CLI) | payer MEDICARE, OTHER, SELFPAY ==
--- NOTE | 2021-12-16 11:09 | MM_ITS ---
WS: [id number] DIAGNOSTIC RIGHT DIGITAL BREAST TOMOSYNTHESIS MAMMOGRAPHY WITH CAD. RIGHT breast ultrasound, limited HISTORY: ABNORMAL MAMMO RT BREAST COMPARISON: 05/27/2021, 03/24/2021, 02/08/2020 and 12/22/2018 Technique: CC, MLO and ML views. Spot compression RIGHT CC and MLO. Breast composition: There are scattered areas of fibroglandular density. Scattered fibroglandular de nsities. No change in the asymmetries. There is a well-rounded nodule near 12:00 at a middle to anter ior depth measuring 7 mm. Lymph node in the lateral RIGHT breast. Vascular calcifications. RIGHT breast ultrasound, limited. Ultrasound directed to the 12:00 axis to reevaluate the complex cystic masses at 12:00 seen on 2020. At 12:00, 3 cm from the nipple is a hypoechoic nodule measuring 3 x 3 x 2 mm. At 12:00 in the s ubareolar location is an additional well-circumscribed hypoechoic nodule measuring 6 x 6.4 mm. Both o f these nodules were seen on the prior study with no increase in size. MM/[place] [id number] IMPRESSION: BI-RADS: 3-Probably Benign FOLLOW UP: 6 Month Follow-up Recommend 6 month follow-up. This will be time for the patient's annual mammogr am for 2021.
== END 2021-12-16 10:56 | disposition home or self-care (01) ==
PROVIDERS: PCP Family Medicine; Visit Provider Family Medicine
DX: R92.8 Other abnormal and inconclusive findings on diagnostic imaging of breast (principal)
CPT/HCPCS: 76642; 77061

== ENCOUNTER 2021-12-22 12:24 | Oncology outpatient (recurring) (ONCR) | payer MEDICARE, OTHER, SELFPAY ==
[2021-12-22 12:56] LABS: Basophils % 0.4 %; Eosinophils % 0.4 %; Hematocrit 32.6 % (37.0-47.0); Hemoglobin 10.7 g/dL (11.5-15.3); Lymphocytes # 0.5 10^3/uL (0.8-4.8); Lymphocytes % 5.1 %; Mean Corpuscular HGB Conc 32.8 g/dL (30.0-36.0); Mean Corpuscular Hemoglobin 31.2 pg (28.0-34.0); Mean Platelet Volume 8.8 fL (7.4-10.4); Monocytes # 0.8 10^3/uL (0.2-0.9); Monocytes % 7.9 %; Neutrophils # 8.55 10^3/uL (1.8-7.7); Neutrophils % 85.1 %; Nucleated Red Blood Cells % 0 %; Platelet Count 152 10^3/cmm (130-400); Red Blood Count 3.43 10^6/uL (4.1-5.3); Red Cell Distribution Width 15.7 % (12.1-15.1)
[2021-12-22 13:30] LABS: Alanine Aminotransferase 17 U/L (0-33); Alkaline Phosphatase 84 IU/L (35-105); Anion Gap 14.4 (5-19); Aspartate Amino Transferase 14 U/L (0-32); Blood Urea Nitrogen 20 mg/dL (8-23); Calcium 9.6 mg/dL (8.5-10.5); Carbon Dioxide 27 mmol/L (22-29); Chloride 103 mmol/L (98-107); Globulin 2.1 g/dL (1.3-4.6); Glomerular Filtration Rate 99.4 mL/min (90-130); Glucose 136 mg/dL (65-115); Osmolality Calculated 295 mOsm/kg (285-295); Potassium 4.4 mmol/L (3.5-5.1); Sodium 140 mmol/L (136-145); Total Protein 6.1 g/dL (6.6-8.7)
[2021-12-22 15:22] LABS: Ferritin 95 ng/mL (15-150); Iron 57 ug/dL (37-145); Percent Saturation 19.8 % (20-50); Total Iron Binding Capacity 287 mcg/dl; Unsaturated Iron Binding 230 ug/dL (112-347)
[2021-12-22 15:39] LABS: Vitamin B12 316 pg/mL (232-1245)
== END 2022-01-03 23:59 | disposition home or self-care (01) ==
PROVIDERS: Nurse Practitioner Family; PCP Family Medicine; Visit Provider Internal Medicine Medical Oncology
DX: D86.89 Sarcoidosis of other sites (principal); C82.19 Follicular lymphoma grade II, extranodal and solid organ sites; D50.9 Iron deficiency anemia, unspecified
CPT/HCPCS: 36591; 80053; 82607; 82728; 83540; 83550; 85025; 99214

== ENCOUNTER 2022-01-21 13:32 | Oncology outpatient (recurring) (ONCR) | payer MEDICARE, OTHER, SELFPAY ==
[2022-01-21 14:00] LABS: Basophils # 0.1 10^3/uL (0.0-0.1); Basophils % 0.5 %; Eosinophils % 0.3 %; Hematocrit 34.7 % (37.0-47.0); Hemoglobin 11.2 g/dL (11.5-15.3); Lymphocytes # 0.7 10^3/uL (0.8-4.8); Lymphocytes % 6.9 %; Mean Corpuscular HGB Conc 32.3 g/dL (30.0-36.0); Mean Corpuscular Hemoglobin 30.4 pg (28.0-34.0); Mean Corpuscular Volume 94.3 fl (81-99); Mean Platelet Volume 9.1 fL (7.4-10.4); Monocytes # 0.9 10^3/uL (0.2-0.9); Monocytes % 8.8 %; Neutrophils # 8.06 10^3/uL (1.8-7.7); Neutrophils % 82.6 %; Nucleated Red Blood Cells % 0 %; Platelet Count 156 10^3/cmm (130-400); Red Blood Count 3.68 10^6/uL (4.1-5.3); Red Cell Distribution Width 15.2 % (12.1-15.1); White Blood Count 9.8 10^3/uL (4.0-10.0)
[2022-01-21 14:01] LABS: Erythrocyte Sedimentation Rate 8 mm/hr (0-15)
[2022-01-21 14:26] LABS: Alanine Aminotransferase 19 U/L (0-33); Albumin Level 4.3 g/dL (3.5-5.2); Alkaline Phosphatase 86 U/L (35-105); Anion Gap 17.2 (5-19); Aspartate Amino Transferase 16 U/L (0-32); Blood Urea Nitrogen 20 mg/dL (8-23); Calcium 9.7 mg/dL (8.5-10.5); Carbon Dioxide 27 mmol/L (22-29); Chloride 101 mmol/L (98-107); Globulin 2.1 g/dL (1.3-4.6); Glomerular Filtration Rate 99.4 mL/min (90-130); Glucose 165 mg/dL (65-115); Lactate Dehydrogenase 172 U/L (135-214); Osmolality Calculated 298 mOsm/kg (285-295); Potassium 4.2 mmol/L (3.5-5.1); Sodium 141 mmol/L (136-145); Total Bilirubin 0.9 mg/dL (0.15-1.2); Total Protein 6.4 g/dL (6.6-8.7)
== END 2022-02-03 23:59 | disposition home or self-care (01) ==
PROVIDERS: PCP Family Medicine; Visit Provider Internal Medicine Medical Oncology
DX: Z08 Encounter for follow-up examination after completed treatment for malignant neoplasm; Z85.72 Personal history of non-Hodgkin lymphomas; D86.89 Sarcoidosis of other sites; D50.9 Iron deficiency anemia, unspecified; Z79.899 Other long term (current) drug therapy; Z79.52 Long term (current) use of systemic steroids; Z92.21 Personal history of antineoplastic chemotherapy
CPT/HCPCS: 36591; 80053; 83615; 85025; 85651; 99214

== ENCOUNTER 2022-02-18 12:30 | Outpatient (CLI) | payer MEDICARE, OTHER, SELFPAY ==
--- NOTE | 2022-02-18 14:21 | XR_ITS ---
WS: [id number] XR KUB [id number] REASON FOR EXAM: STONES, CALCULUS OF KIDNEY FINDINGS: There is a calcific density (10 x 5 mm) in the right abdomen at the L1-L2 level. No other definite calculi or calcifications are seen along the course of the urinary tract in the abd omen. No urinary tract calculi are identified in the pelvis. Moderate gaseous distention of multiple segments of colon. Extensive calcification of the splenic artery which overlies the left kidney. Moderate degenerative spondylosis in the lumbar spine. XR/XR KUB [id number] IMPRESSION: Calcification in the right abdomen which is not identified on the previous exam ination. If this were a right intrarenal calculus. Should have been seen on the previous examination of 08/18/2021.
== END 2022-02-18 12:31 | disposition home or self-care (01) ==
LOC: RAD 12:33
PROVIDERS: PCP Family Medicine; Visit Provider Urology
DX: N20.2 Calculus of kidney with calculus of ureter (principal); N39.0 Urinary tract infection, site not specified; N39.41 Urge incontinence
CPT/HCPCS: 74018; 87077; 87086; 87186; 99213

== ENCOUNTER → 2022-02-26 11:04 | Outpatient (BNVA) | payer MEDICARE, OTHER, SELFPAY | PROVIDERS: PCP Family Medicine; Visit Provider Nurse Practitioner Family | DX: I48.91 Unspecified atrial fibrillation (principal); Z79.01 Long term (current) use of anticoagulants; I11.0 Hypertensive heart disease with heart failure; I50.30 Unspecified diastolic (congestive) heart failure; R00.0 Tachycardia, unspecified | CPT/HCPCS: 93005; 99214 ==

== ENCOUNTER → 2022-03-04 11:12 | Outpatient (BNVA) | payer MEDICARE, OTHER, SELFPAY | PROVIDERS: PCP Family Medicine; Visit Provider Urology | DX: N20.9 Urinary calculus, unspecified (principal); N20.2 Calculus of kidney with calculus of ureter; N39.0 Urinary tract infection, site not specified; N39.41 Urge incontinence | CPT/HCPCS: 81003 ==

== ENCOUNTER 2022-03-15 14:18 | Oncology outpatient (recurring) (ONCR) | payer MEDICARE, OTHER, SELFPAY ==
[2022-03-15 15:03] LABS: Basophils # 0.1 10^3/uL (0.0-0.1); Basophils % 0.7 %; Eosinophils % 0.3 %; Hematocrit 34.2 % (37.0-47.0); Lymphocytes # 0.5 10^3/uL (0.8-4.8); Mean Corpuscular HGB Conc 32.2 g/dL (30.0-36.0); Mean Corpuscular Hemoglobin 30.8 pg (28.0-34.0); Mean Corpuscular Volume 95.8 fl (81-99); Mean Platelet Volume 9.5 fL (7.4-10.4); Monocytes # 0.5 10^3/uL (0.2-0.9); Monocytes % 7.3 %; Nucleated Red Blood Cells % 0 %; Platelet Count 182 10^3/cmm (130-400); Red Blood Count 3.57 10^6/uL (4.1-5.3); Red Cell Distribution Width 15.6 % (12.1-15.1); White Blood Count 7.1 10^3/uL (4.0-10.0)
[2022-03-15 15:28] LABS: Alanine Aminotransferase 20 U/L (0-33); Albumin Level 3.9 g/dL (3.5-5.2); Alkaline Phosphatase 79 U/L (35-105); Anion Gap 16.5 (5-19); Aspartate Amino Transferase 18 U/L (0-32); Blood Urea Nitrogen 17 mg/dL (8-23); Calcium 9.2 mg/dL (8.5-10.5); Carbon Dioxide 26 mmol/L (22-29); Chloride 104 mmol/L (98-107); Globulin 2.3 g/dL (1.3-4.6); Glomerular Filtration Rate 83.2 mL/min (90-130); Glucose 175 mg/dL (65-115); Osmolality Calculated 300 mOsm/kg (285-295); Potassium 4.5 mmol/L (3.5-5.1); Sodium 142 mmol/L (136-145); Total Protein 6.2 g/dL (6.6-8.7)
== END 2022-04-05 23:59 | disposition home or self-care (01) ==
PROVIDERS: Nurse Practitioner Family; PCP Family Medicine; Visit Provider Internal Medicine Medical Oncology
DX: D86.89 Sarcoidosis of other sites; E83.52 Hypercalcemia; N28.89 Other specified disorders of kidney and ureter; R06.02 Shortness of breath; Z79.52 Long term (current) use of systemic steroids; C82.19 Follicular lymphoma grade II, extranodal and solid organ sites; Z92.21 Personal history of antineoplastic chemotherapy; Z92.25 Personal history of immunosuppression therapy
CPT/HCPCS: 36591; 80053; 85025; 99214

== ENCOUNTER → 2022-03-31 13:53 | Outpatient (BNVA) | payer MEDICARE, OTHER, SELFPAY | PROVIDERS: PCP Family Medicine; Referring Provider Family Medicine; Visit Provider Podiatrist Foot & Ankle Surgery | DX: I73.9 Peripheral vascular disease, unspecified (principal); Q82.8 Other specified congenital malformations of skin; L60.8 Other nail disorders; M21.40 Flat foot [pes planus] (acquired), unspecified foot; M20.41 Other hammer toe(s) (acquired), right foot; M20.42 Other hammer toe(s) (acquired), left foot; L60.3 Nail dystrophy; R73.03 Prediabetes; Z79.01 Long term (current) use of anticoagulants; G62.9 Polyneuropathy, unspecified | CPT/HCPCS: 11721; 17110; 99204 ==

== ENCOUNTER 2022-04-05 14:58 | Outpatient (CLI) | payer MEDICARE, OTHER, SELFPAY ==
[2022-04-05] MEDS: iohexol 350 mg/mL 100 mL Btl PO (15:34)
--- NOTE | 2022-04-05 16:30 | CT_ITS ---
WS: [id number] CT CHEST, ABDOMEN AND PELVIS WITH CONTRAST HISTORY: lymphoma TECHNIQUE: Contiguous 5 mm axial imaging performed through the chest, abdomen and pelvis with IV cont rast, oral contrast has been provided. Coronal and sagittal reformats chest. Coronal and sagittal ref ormats through the abdomen and pelvis. All CT scans at [facility] use at least one of these d ose optimization techniques: automated exposure control; mA and/or kV adjustment per patient size (in cludes targeted exams where dose is matched to clinical indication); or iterative reconstruction. CONTRAST: Omnipaque 350; 95 mL IV. DLP: 1828.97 mGy.cm COMPARISON: PET CT 08/22/[address] 05/10/[address]: Micronodule RIGHT apex measures 3 mm. No change since 05/08/2020. No new or enlarging pulmon kash mass or nodule. No pneumonia. No pericardial or pleural effusion. Normal size heart. Mild atheros clerosis aorta with no aneurysm. Negative pulmonary artery. No axillary lymph nodes. Previously described PET/CT positive mediastinal and hilar lymph nodes has e ssentially returned to normal. Largest RIGHT paratracheal lymph node is 8 mm. Minimal residual lympho id tissue at the LEFT hilum. No new or enlarging lymph nodes. No chest wall abnormality. Abdomen CT: Mildly enlarged liver with low attenuation and hepatic steatosis. No mass. Normal portal vein. Gallbladder is abnormal. No adjacent pericholecystic fluid, there is evidence for cholelithiasi s. Partially calcified gallbladder wall. Mild atrophy of the pancreas. Spleen is top normal size at 1 3.0 cm in length. There are a few scattered granulomata. Spleen is less bulky than on the prior exami nation. No discrete splenic nodules. No adrenal mass. Atherosclerosis aorta. There is heavy calcifica tion in the splenic artery with tortuosity. Calcification at the origin of the celiac axis and SMA bu t no occlusions. RIGHT kidney is normal size. Nonobstructing 5 mm calcification lower pole. Mild atro phy of the LEFT kidney with focal areas of cortical thinning and scarring. No obstruction or solid ma ss. No ascites. No mesenteric lymph nodes are identified. No omental thickening. Stomach is minimally distended. There is mild prominence of the posterior gastric fundus but may be d ue to underdistention. No small bowel obstruction. Mild fecal retention. Numerous diverticula in the distal colon without acute diverticulitis. Pelvic CT: No free fluid or adenopathy in the pelvis. Urinary bladder moderately well distended. No f illing defects. No inguinal or pelvic adenopathy. Advanced degenerative changes within the thoracic and lumbar spine. Disc spaces are narrowed with ost eophytosis and facet arthritis. No destructive bone lesions. CT/CT chest abd pel w con* IMPRESSION: 1. Complete resolution of the recently described mediastinal and hilar and upp er abdominal lymph nodes. These lymph nodes have returned to normal size. No ne w or increasing size of adenopathy within the chest, abdomen or pelvis. 2. Spleen is top normal size with no discrete splenic lesions. 3. No ascites. 4. Cholelithiasis and partially calcified gallbladder wall. 5. Distal colon diverticulosis without acute diverticulitis. 6. Mildly prominent gastric fundus is probably due to underdistention. This ca n be reevaluated on follow-up exams.
[2022-04-05] MEDS: iohexol 350 mg/mL 100 mL Btl IV (16:58)
== END 2022-04-05 14:59 | disposition home or self-care (01) ==
LOC: RAD 14:59
PROVIDERS: PCP Family Medicine; Visit Provider Internal Medicine Medical Oncology
DX: C82.90 Follicular lymphoma, unspecified, unspecified site (principal)
CPT/HCPCS: 71260; 74177

== ENCOUNTER 2022-04-28 08:05 | Outpatient (CLI) | payer MEDICARE, OTHER, SELFPAY ==
--- NOTE | 2022-04-28 08:00 | USCV_ITS ---
Aylin Dietz Age: 66 Gender: F : 1955 Exam Date: 04/28/2022 08:18 Ordering Phys: Divine Main Technologist: Exam Location: [facility] [place] Indication: high risk meds BP: 125 / 74 HR: 90 Rhythm: Sinus Technical Quality: Adequate MEASUREMENTS (Male / Female) Normal Values 2D ECHO LV Diastolic Diameter PLAX 4.2 cm 4.2 - 5.9 / 3.9 - 5.3 cm LV Systolic Diameter PLAX 2.7 cm IVS Diastolic Thickness 1.3 cm 0.6 - 1.0 / 0.6 - 0.9 cm IVS Systolic Thickness 1.7 cm LVPW Diastolic Thickness 1.3 cm 0.6 - 1.0 / 0.6 - 0.9 cm LVPW Systolic Thickness 1.5 cm LVOT Diameter 2.0 cm LV Ejection Fraction 2D Teich 66.2 % LV Ejection Fraction MOD 2C 55.0 % LV Ejection Fraction 2C AL 55.0 % LA Diameter 4.5 cm Aorta at Sinotubular Diameter 2.8 cm M-MODE Aortic Annulus Diameter 3.2 cm LA Ao Ratio MM 1.4 MV E Point Septal Separation 1.6 cm DOPPLER AV Peak Velocity 215.0 cm/s LVOT Peak Velocity 92.0 cm/s AV Area Cont Eq vti 1.6 cm squared AV Area Cont Eq pk 1.4 cm squared MV Area PHT 4.5 cm squared Mitral E to A Ratio 0.8 MV E' Velocity 105.6 cm/s Mitral E to MV E' Ratio 19.0 Mitral E to LV E' Lateral Ratio 15.7 Mitral E to LV E' Septal Ratio 23.9 TR Peak Velocity 325.3 cm/s TR Peak Gradient 42.3 mmHg TV Peak E Velocity 134.0 cm/s Right Atrial Pressure 3.0 mmHg Pulmonary Artery Systolic Pressu 45.3 mmHg RV Acceleration Time 0.1 s FINDINGS Left Ventricle Normal left ventricular size and systolic function, EF 61 %. Mild left ventricular hypertrophy. No regional wall motion abnormalities. Grade I/IV diastolic dysfunction (abnormal relaxation filling pattern), normal to mildly elevated filling pressures. Right Ventricle The right ventricle is normal in size and function. Right Atrium The right atrium is normal in size. Left Atrium Mildly increased left atrial size. Mitral Valve Thickened mitral valve. Moderate mitral annular calcification. Mild mitral valve regurgitation. Aortic Valve Thickened aortic valve. Trace aortic valve regurgitation. Mild aortic valve stenosis, mean gradient 8.4 mmHg, BONNIE 1.6 cm squared. Tricuspid Valve Trace tricuspid valve regurgitation. Pulmonic Valve Pulmonic valve not well visualized. Pericardium No pericardial effusion. Aorta Normal aortic annulus size. IVC Inferior vena cava not visualized. CONCLUSIONS Normal left ventricular size and systolic function, EF 61 %. Mild left ventricular hypertrophy. No regional wall motion abnormalities. Grade I/IV diastolic dysfunction (abnormal relaxation filling pattern), normal to mildly elevated filling pressures. Mildly increased left atrial size. Thickened mitral valve. Moderate mitral annular calcification. Mild mitral valve regurgitation. Mild aortic valve stenosis, mean gradient 8.4 mmHg, BONNIE 1.6 cm squared. Trace aortic valve regurgitation. Trace tricuspid valve regurgitation. Mild pulmonary hypertension with an estimated pulmonary artery peak systolic pressure of 45 mmHg. No pericardial effusion. Compared to the study from 07/29/2021, there may not be a significant change. Dr Barb Diamond MD [facility] (Electronically Signed) Final Date: 29 April 2022 08:14 S
== END 2022-04-28 08:06 | disposition home or self-care (01) ==
LOC: RAD 08:06
PROVIDERS: PCP Family Medicine; Visit Provider Nurse Practitioner Family
DX: I50.9 Heart failure, unspecified (principal); Z79.899 Other long term (current) drug therapy; I08.3 Combined rheumatic disorders of mitral, aortic and tricuspid valves; I27.20 Pulmonary hypertension, unspecified
CPT/HCPCS: 93306

== ENCOUNTER 2022-06-25 08:54 | Oncology outpatient (recurring) (ONCR) | payer MEDICARE, OTHER, SELFPAY ==
[2022-06-25 09:29] LABS: Basophils # 0.1 10^3/uL (0.0-0.1); Basophils % 0.9 %; Eosinophils # 0.2 10^3/uL (0.0-0.8); Eosinophils % 2.2 %; Hematocrit 35.6 % (37.0-47.0); Hemoglobin 11.4 g/dL (11.5-15.3); Lymphocytes # 0.6 10^3/uL (0.8-4.8); Lymphocytes % 8.2 %; Mean Corpuscular Hemoglobin 30.1 pg (28.0-34.0); Mean Corpuscular Volume 93.9 fl (81-99); Mean Platelet Volume 9.5 fL (7.4-10.4); Monocytes % 13.7 %; Neutrophils # 5.13 10^3/uL (1.8-7.7); Neutrophils % 74.1 %; Nucleated Red Blood Cells % 0 %; Platelet Count 183 10^3/cmm (130-400); Red Blood Count 3.79 10^6/uL (4.1-5.3); Red Cell Distribution Width 14.6 % (12.1-15.1); White Blood Count 6.9 10^3/uL (4.0-10.0)
[2022-06-25 09:49] LABS: Alanine Aminotransferase 21 U/L (0-33); Albumin Level 3.6 g/dL (3.5-5.2); Alkaline Phosphatase 68 U/L (35-105); Anion Gap 15.8 (5-19); Aspartate Amino Transferase 23 U/L (0-32); Blood Urea Nitrogen 16 mg/dL (8-23); Calcium 9.9 mg/dL (8.5-10.5); Carbon Dioxide 26 mmol/L (22-29); Chloride 104 mmol/L (98-107); Globulin 2.3 g/dL (1.3-4.6); Glomerular Filtration Rate 83.2 mL/min (90-130); Glucose 159 mg/dL (65-115); Lactate Dehydrogenase 184 U/L (135-214); Osmolality Calculated 299 mOsm/kg (285-295); Potassium 3.8 mmol/L (3.5-5.1); Sodium 142 mmol/L (136-145); Total Bilirubin 0.9 mg/dL (0.15-1.2); Total Protein 5.9 g/dL (6.6-8.7)
== END 2022-07-06 23:59 | disposition home or self-care (01) ==
PROVIDERS: PCP Family Medicine; Visit Provider Internal Medicine Medical Oncology
DX: D86.89 Sarcoidosis of other sites (principal); E83.52 Hypercalcemia; N28.89 Other specified disorders of kidney and ureter; R59.0 Localized enlarged lymph nodes; Z85.72 Personal history of non-Hodgkin lymphomas; Z92.21 Personal history of antineoplastic chemotherapy; Z92.25 Personal history of immunosuppression therapy; Z79.52 Long term (current) use of systemic steroids; Z79.899 Other long term (current) drug therapy
CPT/HCPCS: 36591; 80053; 83615; 85025; 99214

== ENCOUNTER → 2022-06-29 12:45 | Outpatient (BNVA) | payer MEDICARE, OTHER, SELFPAY | PROVIDERS: PCP Family Medicine; Visit Provider Podiatrist Foot & Ankle Surgery | DX: E11.8 Type 2 diabetes mellitus with unspecified complications (principal); Q82.8 Other specified congenital malformations of skin; I73.9 Peripheral vascular disease, unspecified; L60.8 Other nail disorders; M20.41 Other hammer toe(s) (acquired), right foot; M20.42 Other hammer toe(s) (acquired), left foot; L60.3 Nail dystrophy; Z79.01 Long term (current) use of anticoagulants; G62.89 Other specified polyneuropathies; M21.42 Flat foot [pes planus] (acquired), left foot; M21.41 Flat foot [pes planus] (acquired), right foot | CPT/HCPCS: 11721; 17110 ==

== ENCOUNTER 2022-08-19 12:55 | Outpatient (CLI) | payer MEDICARE, OTHER, SELFPAY ==
--- NOTE | 2022-08-19 13:07 | XR_ITS ---
WS: [id number] XR KUB [id number] REASON FOR EXAM: Urolithiasis FINDINGS: No definite urinary tract calculi identified. Previous abnormality in the right abdomen noted on 02/18 apparently was within bowel. Moderate degenerative change in the lumbar spine. Extensive calcification of the splenic artery. No acute abdominal abnormality. XR/XR KUB [id number] IMPRESSION: No urinary tract calculi identified.
== END 2022-08-19 12:56 | disposition home or self-care (01) ==
PROVIDERS: PCP Family Medicine; Visit Provider Urology
DX: N20.2 Calculus of kidney with calculus of ureter (principal); N39.0 Urinary tract infection, site not specified; N39.41 Urge incontinence
CPT/HCPCS: 74018; 81003; 87077; 87086; 87186; 99213

== ENCOUNTER → 2022-09-02 11:30 | Outpatient (BNVA) | payer MEDICARE, OTHER, SELFPAY | PROVIDERS: PCP Family Medicine; Visit Provider Podiatrist Foot & Ankle Surgery | DX: I73.9 Peripheral vascular disease, unspecified (principal); L60.8 Other nail disorders; M21.41 Flat foot [pes planus] (acquired), right foot; M21.42 Flat foot [pes planus] (acquired), left foot; M20.41 Other hammer toe(s) (acquired), right foot; M20.42 Other hammer toe(s) (acquired), left foot; L60.3 Nail dystrophy; Z79.01 Long term (current) use of anticoagulants; G62.89 Other specified polyneuropathies | CPT/HCPCS: 11721 ==

== ENCOUNTER 2022-09-21 12:18 | Oncology outpatient (recurring) (ONCR) | payer MEDICARE, OTHER, SELFPAY ==
[2022-09-21 14:07] LABS: Basophils # 0.1 10^3/uL (0.0-0.1); Eosinophils # 0.1 10^3/uL (0.0-0.8); Eosinophils % 1.3 %; Hematocrit 36.7 % (37.0-47.0); Hemoglobin 11.8 g/dL (11.5-15.3); Lymphocytes # 0.8 10^3/uL (0.8-4.8); Lymphocytes % 9.6 %; Mean Corpuscular HGB Conc 32.2 g/dL (30.0-36.0); Mean Corpuscular Hemoglobin 29.8 pg (28.0-34.0); Mean Corpuscular Volume 92.7 fl (81-99); Mean Platelet Volume 9.3 fL (7.4-10.4); Monocytes % 12.1 %; Neutrophils # 6.27 10^3/uL (1.8-7.7); Neutrophils % 75.2 %; Nucleated Red Blood Cells % 0 %; Platelet Count 197 10^3/cmm (130-400); Red Blood Count 3.96 10^6/uL (4.1-5.3); White Blood Count 8.3 10^3/uL (4.0-10.0)
[2022-09-21 14:37] LABS: Alanine Aminotransferase 21 U/L (0-33); Albumin Level 3.4 g/dL (3.5-5.2); Alkaline Phosphatase 85 U/L (35-105); Aspartate Amino Transferase 25 U/L (0-32); Blood Urea Nitrogen 21 mg/dL (8-23); Calcium 9.6 mg/dL (8.5-10.5); Carbon Dioxide 25 mmol/L (22-29); Chloride 100 mmol/L (98-107); Glomerular Filtration Rate 71.1 mL/min (90-130); Glucose 171 mg/dL (65-115); Lactate Dehydrogenase 181 U/L (135-214); Osmolality Calculated 289 mOsm/kg (285-295); Sodium 136 mmol/L (136-145); Thyroid Stimulating Hormone 2.41 uIU/mL (0.27-4.20); Total Bilirubin 0.9 mg/dL (0.15-1.2); Total Protein 5.4 g/dL (6.6-8.7)
== END 2022-10-03 23:59 | disposition home or self-care (01) ==
PROVIDERS: PCP Family Medicine; Visit Provider Internal Medicine Medical Oncology
DX: D86.89 Sarcoidosis of other sites (principal); D86.1 Sarcoidosis of lymph nodes; E83.52 Hypercalcemia; Z79.52 Long term (current) use of systemic steroids; Z92.21 Personal history of antineoplastic chemotherapy; Z92.25 Personal history of immunosuppression therapy; Z85.72 Personal history of non-Hodgkin lymphomas; Z79.899 Other long term (current) drug therapy; R06.02 Shortness of breath
CPT/HCPCS: 80053; 83615; 84443; 85025; 99214

== ENCOUNTER 2022-10-12 14:39 | Outpatient (CLI) | payer MEDICARE, OTHER, SELFPAY ==
--- NOTE | 2022-10-12 14:50 | XR_ITS ---
WS: [id number] KUB, AP view, 10/12/2022 Clinical Data: N20.2 - Calculus of kidney with calculus of ureter Comparison: KUB, 08/19/2022 Findings: No abnormal intraabdominal masses or renal calcifications are seen. There is no dilatated small bowel or evidence of obstruction. There are splenic artery calcifications. There are injection granulomas in both buttocks. There is de generative change of the lower thoracic and the lumbar spine. XR/XR KUB [id number] Impression: Negative for renal calculi.
== END 2022-10-12 14:40 | disposition home or self-care (01) ==
LOC: RAD 14:43
PROVIDERS: PCP Family Medicine; Visit Provider Urology
DX: N20.2 Calculus of kidney with calculus of ureter (principal); N39.41 Urge incontinence; N39.0 Urinary tract infection, site not specified
CPT/HCPCS: 74018; 81003; 99213

== ENCOUNTER 2022-10-19 13:39 | Oncology outpatient (recurring) (ONCR) | payer MEDICARE, OTHER, SELFPAY ==
[2022-10-19 14:08] VITALS: BP 127/71; PULSE 104; RESP 16; TEMP 36.6; O2SAT 96
== END 2022-11-03 23:59 | disposition home or self-care (01) ==
LOC: ONCMED 13:39
PROVIDERS: PCP Family Medicine; Visit Provider Internal Medicine Medical Oncology
DX: Z45.2 Encounter for adjustment and management of vascular access device (principal)
CPT/HCPCS: 96523; J1642

== ENCOUNTER 2022-11-17 13:54 | Outpatient (CLI) | payer MEDICARE, OTHER, SELFPAY ==
--- NOTE | 2022-11-17 14:18 | XR_ITS ---
WS: [id number] SCREENING DEXA SCAN [employer] CLINICAL INFORMATION: POSTMENOPAUSAL COMPARISON: November 09, 2019 FINDINGS: The L1-L4 bone mineral density measures 2.210 g/cm2. This corresponds to a T score score of 8.6 and Z score of 9.1. Left femoral neck bone mineral density measures 1.233 g/cm2. This corresponds to a T score of 1.8 and Z score of 2.4. Right femoral neck bone mineral density measures 1.288 g/cm2. This corresponds to a T score 2.2of and Z score of 2.8. Mean femoral neck bone mineral density measures 1.260 g/cm2. This corresponds to a T score of 2.0 and Z score of 2.6. XR/XR DEXA axial skeleton* [id number] IMPRESSION: Normal bone mineralization. Patient's FRAX calculated 10 year probability for major osteoporotic fracture i s 9.1 % and osteoporotic hip fracture is 0.2%. Bone mineral density lumbar spine is unchanged since 2019 Bone mineral density in the femoral necks decreased -6.2% since 2019.
--- NOTE | 2022-11-17 14:20 | MM_ITS ---
WS: [id number] BILATERAL 3D TOMOSYNTHESIS DIGITAL SCREENING MAMMOGRAPHY WITH CAD CLINICAL INFORMATION: SCREEN HISTORY: Screening mammogram. No current complaints. COMPARISON: 2020 TECHNIQUE: Bilateral CC and MLO views. FINDINGS: Scattered fibroglandular densities bilaterally. No suspicious focal mass, asymmetry, calcifications, or architectural distortion. No evidence of malignancy. Vascular calcification. Incidental punctate a nd secretory calcifications. Previously described ovoid nodular densities outer RIGHT breast and suba reolar RIGHT breast unchanged. MM/[place] [id number] IMPRESSION: BI-RADS: 2-Benign FOLLOW UP: 1 Year Follow-up Recommend return to annual screening mammography.
== END 2022-11-17 13:55 | disposition home or self-care (01) ==
PROVIDERS: PCP Family Medicine; Visit Provider Family Medicine
DX: Z12.31 Encounter for screening mammogram for malignant neoplasm of breast (principal); Z78.0 Asymptomatic menopausal state
CPT/HCPCS: 77063; 77067; 77080

== ENCOUNTER → 2022-11-25 14:39 | Outpatient (BNVA) | payer MEDICARE, OTHER, SELFPAY | PROVIDERS: PCP Family Medicine; Visit Provider Internal Medicine Cardiovascular Disease | DX: I48.91 Unspecified atrial fibrillation (principal); I50.9 Heart failure, unspecified; I08.1 Rheumatic disorders of both mitral and tricuspid valves; I45.9 Conduction disorder, unspecified | CPT/HCPCS: 93005; 99214 ==

== ENCOUNTER → 2022-11-30 12:56 | Outpatient (BNVA) | payer MEDICARE, OTHER, SELFPAY | PROVIDERS: PCP Family Medicine; Visit Provider Podiatrist Foot & Ankle Surgery | DX: I73.9 Peripheral vascular disease, unspecified (principal); L60.8 Other nail disorders; L84 Corns and callosities; L60.3 Nail dystrophy; M20.41 Other hammer toe(s) (acquired), right foot; M20.42 Other hammer toe(s) (acquired), left foot; M21.42 Flat foot [pes planus] (acquired), left foot; M21.41 Flat foot [pes planus] (acquired), right foot; G62.89 Other specified polyneuropathies; Z79.01 Long term (current) use of anticoagulants | CPT/HCPCS: 11055; 11721 ==

== ENCOUNTER → 2022-12-02 11:02 | Outpatient (BNVA) | payer MEDICARE, OTHER, SELFPAY | PROVIDERS: PCP Family Medicine; Visit Provider Urology | DX: N39.0 Urinary tract infection, site not specified (principal); N20.9 Urinary calculus, unspecified; N20.2 Calculus of kidney with calculus of ureter; N39.41 Urge incontinence | CPT/HCPCS: 81003; 99213 ==

== ENCOUNTER 2022-12-21 14:30 | Oncology outpatient (recurring) (ONCR) | payer MEDICARE, OTHER, SELFPAY ==
[2022-12-20 13:03] VITALS: BP 144/65; PULSE 79; RESP 18; TEMP 37.2; O2SAT 95
[2022-12-20 13:17] LABS: Basophils # 0.1 10^3/uL (0.0-0.1); Basophils % 0.8 %; Eosinophils # 0.1 10^3/uL (0.0-0.8); Eosinophils % 1.4 %; Hematocrit 35.9 % (37.0-47.0); Hemoglobin 11.7 g/dL (11.5-15.3); Lymphocytes # 1.2 10^3/uL (0.8-4.8); Lymphocytes % 19.4 %; Mean Corpuscular HGB Conc 32.6 g/dL (30.0-36.0); Mean Corpuscular Volume 92.1 fl (81-99); Mean Platelet Volume 9.3 fL (7.4-10.4); Monocytes # 1.1 10^3/uL (0.2-0.9); Monocytes % 16.6 %; Neutrophils # 3.94 10^3/uL (1.8-7.7); Neutrophils % 61.5 %; Nucleated Red Blood Cells % 0 %; Platelet Count 182 10^3/cmm (130-400); Red Cell Distribution Width 13.9 % (12.1-15.1); White Blood Count 6.4 10^3/uL (4.0-10.0)
[2022-12-20 13:33] LABS: Alanine Aminotransferase 20 U/L (0-33); Albumin Level 3.4 g/dL (3.5-5.2); Alkaline Phosphatase 106 U/L (35-105); Anion Gap 14.8 (5-19); Aspartate Amino Transferase 28 U/L (0-32); Blood Urea Nitrogen 23 mg/dL (8-23); Calcium 12.3 mg/dL (8.5-10.5); Carbon Dioxide 27 mmol/L (22-29); Chloride 101 mmol/L (98-107); Globulin 2.1 g/dL (1.3-4.6); Glomerular Filtration Rate 62.1 mL/min (90-130); Glucose 110 mg/dL (65-115); Lactate Dehydrogenase 142 U/L (135-214); Osmolality Calculated 292 mOsm/kg (285-295); Potassium 3.8 mmol/L (3.5-5.1); Sodium 139 mmol/L (136-145); Total Bilirubin 0.9 mg/dL (0.15-1.2); Total Protein 5.5 g/dL (6.6-8.7)
[2022-12-21 14:20] VITALS: BP 121/44; PULSE 108; RESP 16; TEMP 37.2; O2SAT 95
[2022-12-21] MEDS: zoledronic acid 4 MG in sodium chloride 0.9% (100 ml) 100 ML 420 MG IV (14:41)
[2022-12-21] MEDS: sodium chloride 0.9% 250 ML 75 ML IV (14:41)
[2022-12-21 15:19] VITALS: BP 118/63; PULSE 96; RESP 16; TEMP 37.1; O2SAT 96
[2022-12-21 16:10] LABS: Anion Gap 13.4 (5-19); Blood Urea Nitrogen 24 mg/dL (8-23); Calcium 12.1 mg/dL (8.5-10.5); Carbon Dioxide 28 mmol/L (22-29); Chloride 102 mmol/L (98-107); Glomerular Filtration Rate 62.1 mL/min (90-130); Glucose 106 mg/dL (65-115); Magnesium 1.8 mg/dL (1.7-2.3); NT Pro B Type Natriuretic Pept 221 pg/mL (0-125); Osmolality Calculated 294 mOsm/kg (285-295); Potassium 3.4 mmol/L (3.5-5.1); Sodium 140 mmol/L (136-145)
== END 2023-01-03 23:59 | disposition home or self-care (01) ==
PROVIDERS: Internal Medicine Cardiovascular Disease; PCP Family Medicine; Visit Provider Internal Medicine Medical Oncology
DX: I48.91 Unspecified atrial fibrillation (principal); I50.9 Heart failure, unspecified
CPT/HCPCS: 36591; 80048; 80053; 83615; 83735; 83880; 85025; 96365; 99214; J1642; J3489; J7050

== ENCOUNTER → 2022-12-22 13:29 | Outpatient (BNVA) | payer MEDICARE, OTHER, SELFPAY | PROVIDERS: PCP Family Medicine; Visit Provider Nurse Practitioner Family | DX: I48.91 Unspecified atrial fibrillation (principal); I11.0 Hypertensive heart disease with heart failure; I50.30 Unspecified diastolic (congestive) heart failure; Z79.01 Long term (current) use of anticoagulants; Z79.82 Long term (current) use of aspirin | CPT/HCPCS: 99214 ==

== ENCOUNTER 2023-01-01 05:45 | Outpatient (CLI) | payer MEDICARE, OTHER, SELFPAY ==
--- NOTE | 2023-01-01 09:30 | PETR_ITS ---
PROCEDURE INFORMATION: Exam: PET/CT Skull Base to Mid-thigh Exam date and time: 01/01/2023 10:28 AM Age: 67 years old Clinical indication: Condition or disease; Primary cancer: Sarcoidosis of other sites, follicular lymphoma; Additional info: [facility] LABS AND CLINICAL REPORTS: Glucose: 109 mg/dl Treatment strategy for malignancy (PET staging): Restaging (PS) TECHNIQUE: Imaging protocol: Following at least four-hour fasting and following the injection of radiopharmaceutical, low dose CT images were obtained. Then, PET images were obtained. Attenuation corrected images were constructed using the CT scan. Fused images of PET and CT were reviewed. The standardized uptake values (SUV) reported below are maximum values within a region of interest, expressed in gm/ml. Exam includes orbital meatal line to mid-thigh. Radiopharmaceutical: 11.59 mCi F-18 FDG (Fluorodeoxyglucose), IV. Time of imaging post radiopharmaceutical administration: 1 hour Injection site: Right antecubital COMPARISON: 1. PT PET Scan 01/06/2019 7:26 AM 2. PT PET Scan 08/22/2021 9:48 AM 3. PT PET Scan 02/28/2021 8:33 AM 4. PT PET Scan 05/24/2020 8:18 AM FINDINGS: Tubes, catheters and devices: Right chest port terminates at the superior cavoatrial junction. Brain: Visualized brain has normal physiologic uptake. Pharynx: No abnormal uptake. Larynx: No abnormal uptake. Lungs, pleura and trachea: No abnormal uptake. Mild fzpl-gzghvao-gzbh-right lung base subpleural reticulation likely represents atelectasis. Heart: Normal physiologic uptake. Mitral annular calcification. Mediastinal space: No abnormal uptake. Liver: No abnormal uptake. Diffuse hypoattenuation in keeping with steatosis. Gallbladder and bile ducts: Cholelithiasis. There is some increased pericholecystic FDG uptake, axial image 95. Pancreas: No abnormal uptake. Spleen: Stable size without abnormal uptake. Adrenal glands: No abnormal uptake. Kidneys and ureters: Normal physiologic uptake. Nonobstructive bilateral nephrolithiasis. Stomach and bowel: No abnormal uptake. No dilatation. Colonic diverticulosis without findings of diverticulitis. Vasculature: No abnormal uptake. Moderate systemic atherosclerotic calcification without abdominal aortic aneurysm. Lymph nodes: Stable size of mediastinal and left hilar lymph nodes with index right paratracheal lymph node showing decreased FDG uptake with SUV max of 2.0 today. Left hilar lymph node shows SUV max of 2.8. Otherwise no abnormal uptake. Specifically, no convincing abnormal uptake at the previously abnormal upper abdominal lymph nodes. Bones/joints: No abnormal uptake in the visualized axial and appendicular skeleton. No acute fracture. Degenerative changes along the spine. Soft tissues: No abnormal uptake in the visualized head, neck, chest, abdomen, pelvis, and extremities. Mild body wall edema of the abdomen and pelvis. Multiple calcified granulomata at the bilateral buttock subcutaneous layer. [facility] [id number] IMPRESSION: 1. Improved exam with decreased mediastinal and left hilar lymph node FDG uptake, resolved abnormal upper abdominal lymph node activity, and normalized splenic uptake. No new or progressive disease. 2. Cholelithiasis with mild increased pericholecystic FDG uptake. Correlate for evidence of cholecystitis.
== END 2023-01-01 05:46 | disposition home or self-care (01) ==
LOC: RAD 01-03 05:46
PROVIDERS: PCP Family Medicine; Visit Provider Nurse Practitioner Family
DX: C82.90 Follicular lymphoma, unspecified, unspecified site (principal); D86.89 Sarcoidosis of other sites; K80.20 Calculus of gallbladder without cholecystitis without obstruction
CPT/HCPCS: 78815; A9552

== ENCOUNTER 2023-01-05 09:01 | Outpatient (CLI) | payer MEDICARE, OTHER, SELFPAY ==
[2023-01-05 10:12] LABS: Anion Gap 13.9 (5-19); Blood Urea Nitrogen 20 mg/dL (8-23); Calcium 11.4 mg/dL (8.5-10.5); Carbon Dioxide 26 mmol/L (22-29); Chloride 103 mmol/L (98-107); Glomerular Filtration Rate 71.1 mL/min (90-130); Glucose 138 mg/dL (65-115); NT Pro B Type Natriuretic Pept 249 pg/mL (0-125); Osmolality Calculated 293 mOsm/kg (285-295); Potassium 3.9 mmol/L (3.5-5.1); Sodium 139 mmol/L (136-145)
== END 2023-01-05 09:02 | disposition home or self-care (01) ==
PROVIDERS: PCP Family Medicine; Visit Provider Nurse Practitioner Family
DX: I50.9 Heart failure, unspecified (principal)
CPT/HCPCS: 36415; 80048; 83880

== ENCOUNTER 2023-01-13 10:23 | Oncology outpatient (recurring) (ONCR) | payer MEDICARE, OTHER, SELFPAY ==
[2023-01-13 10:28] VITALS: BP 125/74; PULSE 106; RESP 18; TEMP 35.9; O2SAT 96
[2023-01-13 10:30] VITALS: BMI 48.5
[2023-01-13 11:00] LABS: Anion Gap 16.4 (5-19); Blood Urea Nitrogen 23 mg/dL (8-23); Calcium 10.5 mg/dL (8.5-10.5); Carbon Dioxide 25 mmol/L (22-29); Chloride 106 mmol/L (98-107); Glomerular Filtration Rate 71.1 mL/min (90-130); Glucose 165 mg/dL (65-115); Osmolality Calculated 303 mOsm/kg (285-295); Potassium 4.4 mmol/L (3.5-5.1); Sodium 143 mmol/L (136-145)
== END 2023-02-03 23:59 | disposition home or self-care (01) ==
PROVIDERS: Nurse Practitioner Family; PCP Family Medicine; Visit Provider Internal Medicine Medical Oncology
DX: C82.19 Follicular lymphoma grade II, extranodal and solid organ sites (principal)
CPT/HCPCS: 36591; 80048; J1642

== ENCOUNTER 2023-02-08 14:07 | Outpatient (RCR) | payer MEDICARE, OTHER, SELFPAY | END 2023-03-05 23:59 | disposition home or self-care (01) | LOC: CR 14:07 | PROVIDERS: PCP Family Medicine; Referring Provider Family Medicine; Visit Provider Family Medicine | DX: I50.21 Acute systolic (congestive) heart failure (principal) | CPT/HCPCS: 93798 ==

== ENCOUNTER 2023-02-23 13:00 | Oncology outpatient (recurring) (ONCR) | payer MEDICARE, OTHER, SELFPAY ==
[2023-02-04 10:40] VITALS: BP 118/60; PULSE 96; RESP 16; TEMP 36.9; O2SAT 96
[2023-02-04 11:09] LABS: Anion Gap 14.9 (5-19); Blood Urea Nitrogen 24 mg/dL (8-23); Calcium 10.4 mg/dL (8.5-10.5); Carbon Dioxide 26 mmol/L (22-29); Chloride 104 mmol/L (98-107); Glomerular Filtration Rate 71.1 mL/min (90-130); Glucose 126 mg/dL (65-115); Osmolality Calculated 298 mOsm/kg (285-295); Potassium 3.9 mmol/L (3.5-5.1); Sodium 141 mmol/L (136-145)
[2023-02-23 12:54] VITALS: BP 126/78; PULSE 104; RESP 16; TEMP 36.8; O2SAT 98
[2023-02-23 13:09] LABS: Basophils # 0.1 10^3/uL (0.0-0.1); Eosinophils # 0.1 10^3/uL (0.0-0.8); Eosinophils % 1.6 %; Hematocrit 33.6 % (36-47); Lymphocytes # 1.1 10^3/uL (0.8-4.8); Lymphocytes % 21.1 %; Mean Corpuscular HGB Conc 33.3 g/dL (30-55); Mean Corpuscular Hemoglobin 30.4 pg (27-33); Mean Corpuscular Volume 91.3 fl (85-98); Mean Platelet Volume 9.5 fL (7.4-10.4); Monocytes # 0.8 10^3/uL (0.2-0.9); Monocytes % 16.6 %; Neutrophils # 3.02 10^3/uL (1.8-7.7); Neutrophils % 59.5 %; Nucleated Red Blood Cells % 0 %; Platelet Count 160 10^3/cmm (157-399); Red Blood Count 3.68 10^6/uL (3.85-5.65); Red Cell Distribution Width 13.2 % (12.1-15.1); White Blood Count 5.07 10^3/uL (3.29-11.43)
[2023-02-23 13:25] LABS: Alanine Aminotransferase 19 U/L (0-33); Albumin Level 3.5 g/dL (3.5-5.2); Alkaline Phosphatase 105 U/L (35-105); Aspartate Amino Transferase 25 U/L (0-32); Blood Urea Nitrogen 25 mg/dL (8-23); Carbon Dioxide 27 mmol/L (22-29); Chloride 103 mmol/L (98-107); Globulin 1.9 g/dL (1.3-4.6); Glomerular Filtration Rate 71.1 mL/min (90-130); Glucose 135 mg/dL (65-115); Lactate Dehydrogenase 140 U/L (135-214); Osmolality Calculated 292 mOsm/kg (285-295); Sodium 138 mmol/L (136-145); Total Bilirubin 0.9 mg/dL (0.15-1.2); Total Protein 5.4 g/dL (6.6-8.7)
== END 2023-03-05 23:59 | disposition home or self-care (01) ==
PROVIDERS: Nurse Practitioner Family; PCP Family Medicine; Visit Provider Internal Medicine Medical Oncology
DX: C77.0 Secondary and unspecified malignant neoplasm of lymph nodes of head, face and neck; C18.3 Malignant neoplasm of hepatic flexure
CPT/HCPCS: 36591; 80048; 80053; 83615; 85025; 93798; 99214; J1642

== ENCOUNTER 2023-03-07 09:25 | Outpatient (RCR) | payer MEDICARE, OTHER, SELFPAY | END 2023-04-05 23:59 | disposition home or self-care (01) | LOC: CR 09:25 | PROVIDERS: PCP Family Medicine; Referring Provider Family Medicine; Visit Provider Family Medicine | DX: I50.21 Acute systolic (congestive) heart failure (principal) | CPT/HCPCS: 93798 ==

== ENCOUNTER 2023-03-10 12:27 | Outpatient (RCR) | payer MEDICARE, OTHER, SELFPAY | END 2023-04-05 23:59 | disposition home or self-care (01) | LOC: SPT 12:27 | PROVIDERS: PCP Family Medicine; Visit Provider Nurse Practitioner Family | DX: R26.89 Other abnormalities of gait and mobility (principal) | CPT/HCPCS: 93798; 97110; 97161 ==

== ENCOUNTER → 2023-03-22 08:54 | Outpatient (BNVA) | payer MEDICARE, OTHER, SELFPAY | PROVIDERS: PCP Family Medicine; Visit Provider Podiatrist Foot & Ankle Surgery | DX: I73.9 Peripheral vascular disease, unspecified; L60.3 Nail dystrophy; L60.8 Other nail disorders; L84 Corns and callosities; Z79.01 Long term (current) use of anticoagulants; G62.89 Other specified polyneuropathies; M25.371 Other instability, right ankle; Q66.229 Congenital metatarsus adductus, unspecified foot; R26.81 Unsteadiness on feet; Z91.81 History of falling; E11.42 Type 2 diabetes mellitus with diabetic polyneuropathy; G62.9 Polyneuropathy, unspecified | CPT/HCPCS: 11056; 11721; 99213 ==

== ENCOUNTER 2023-03-25 09:53 | Oncology outpatient (recurring) (ONCR) | payer MEDICARE, OTHER, SELFPAY ==
[2023-03-25 10:25] VITALS: BP 100/63; PULSE 92; RESP 17; TEMP 37; O2SAT 96
[2023-03-25 11:01] LABS: Alanine Aminotransferase 15 U/L (0-33); Albumin Level 3.5 g/dL (3.5-5.2); Alkaline Phosphatase 88 U/L (35-105); Anion Gap 15.7 (5-19); Aspartate Amino Transferase 22 U/L (0-32); Blood Urea Nitrogen 24 mg/dL (8-23); Calcium 9.8 mg/dL (8.5-10.5); Carbon Dioxide 24 mmol/L (22-29); Chloride 104 mmol/L (98-107); Globulin 1.8 g/dL (1.3-4.6); Glomerular Filtration Rate 71.1 mL/min (90-130); Glucose 179 mg/dL (65-115); Osmolality Calculated 299 mOsm/kg (285-295); Potassium 3.7 mmol/L (3.5-5.1); Sodium 140 mmol/L (136-145); Total Protein 5.3 g/dL (6.6-8.7)
== END 2023-04-05 23:59 | disposition home or self-care (01) ==
PROVIDERS: Nurse Practitioner Family; PCP Family Medicine; Visit Provider Internal Medicine Medical Oncology
DX: E83.52 Hypercalcemia; C82.19 Follicular lymphoma grade II, extranodal and solid organ sites; Z95.828 Presence of other vascular implants and grafts
CPT/HCPCS: 36591; 80053; 93798; J1642

== ENCOUNTER 2023-04-06 06:00 | Outpatient (RCR) | payer MEDICARE, OTHER, SELFPAY | END 2023-05-05 23:59 | disposition home or self-care (01) | LOC: SPT 06:00 | PROVIDERS: PCP Family Medicine; Visit Provider Nurse Practitioner Family | DX: R26.89 Other abnormalities of gait and mobility (principal) | CPT/HCPCS: 97110 ==

== ENCOUNTER 2023-04-07 12:17 | Outpatient (RCR) | payer MEDICARE, OTHER, SELFPAY | END 2023-05-05 23:59 | disposition home or self-care (01) | LOC: CR 12:17 | PROVIDERS: PCP Family Medicine; Referring Provider Family Medicine; Visit Provider Family Medicine | DX: I50.21 Acute systolic (congestive) heart failure (principal) | CPT/HCPCS: 93798 ==

== ENCOUNTER 2023-04-25 14:04 | Oncology outpatient (recurring) (ONCR) | payer MEDICARE, OTHER, SELFPAY ==
[2023-04-25 14:51] LABS: Basophils # 0.1 10^3/uL (0.0-0.1); Eosinophils # 0.1 10^3/uL (0.0-0.8); Eosinophils % 1.6 %; Hematocrit 36.3 % (36-47); Lymphocytes % 20.9 %; Mean Corpuscular HGB Conc 33.1 g/dL (30-55); Mean Corpuscular Hemoglobin 30.1 pg (27-33); Mean Platelet Volume 9.6 fL (7.4-10.4); Monocytes # 0.7 10^3/uL (0.2-0.9); Monocytes % 14.3 %; Neutrophils # 3.07 10^3/uL (1.8-7.7); Neutrophils % 61.8 %; Nucleated Red Blood Cells % 0 %; Platelet Count 162 10^3/cmm (157-399); Red Blood Count 3.99 10^6/uL (3.85-5.65); Red Cell Distribution Width 13.3 % (12.1-15.1); White Blood Count 4.97 10^3/uL (3.29-11.43)
[2023-04-25 15:05] LABS: Alanine Aminotransferase 18 U/L (0-33); Albumin Level 3.8 g/dL (3.5-5.2); Alkaline Phosphatase 91 U/L (35-105); Aspartate Amino Transferase 23 U/L (0-32); Blood Urea Nitrogen 26 mg/dL (8-23); Calcium 9.9 mg/dL (8.5-10.5); Carbon Dioxide 26 mmol/L (22-29); Chloride 104 mmol/L (98-107); Globulin 2.1 g/dL (1.3-4.6); Glucose 118 mg/dL (65-115); Osmolality Calculated 298 mOsm/kg (285-295); Sodium 141 mmol/L (136-145); Total Bilirubin 0.9 mg/dL (0.15-1.2); Total Protein 5.9 g/dL (6.6-8.7)
== END 2023-05-05 23:59 | disposition home or self-care (01) ==
PROVIDERS: Nurse Practitioner Family; PCP Family Medicine; Visit Provider Internal Medicine Medical Oncology
DX: E83.52 Hypercalcemia (principal); C82.19 Follicular lymphoma grade II, extranodal and solid organ sites; Z95.828 Presence of other vascular implants and grafts; D86.89 Sarcoidosis of other sites; Z79.899 Other long term (current) drug therapy
CPT/HCPCS: 36591; 80053; 85025; 99214; J1642

== ENCOUNTER 2023-05-06 10:23 | Outpatient (RCR) | payer MEDICARE, OTHER, SELFPAY | END 2023-06-05 23:59 | disposition home or self-care (01) | LOC: CR 10:23 | PROVIDERS: PCP Family Medicine; Referring Provider Family Medicine; Visit Provider Family Medicine | DX: I50.21 Acute systolic (congestive) heart failure (principal) | CPT/HCPCS: 93798 ==

== ENCOUNTER 2023-06-07 11:00 | Outpatient (RCR) | payer SELFPAY | END 2023-07-06 23:59 | disposition home or self-care (01) | LOC: CR 11:00 | PROVIDERS: PCP Family Medicine; Referring Provider Family Medicine; Visit Provider Family Medicine | DX: I50.21 Acute systolic (congestive) heart failure (principal) ==

== ENCOUNTER 2023-06-15 14:32 | Oncology outpatient (recurring) (ONCR) | payer MEDICARE, OTHER, SELFPAY ==
[2023-06-15 15:25] VITALS: BP 128/81; PULSE 82; RESP 16; TEMP 36.7; O2SAT 94
== END 2023-07-06 23:59 | disposition home or self-care (01) ==
PROVIDERS: PCP Family Medicine; Visit Provider Internal Medicine Medical Oncology
DX: E83.52 Hypercalcemia (principal); C82.19 Follicular lymphoma grade II, extranodal and solid organ sites; Z95.828 Presence of other vascular implants and grafts; D86.89 Sarcoidosis of other sites; Z79.899 Other long term (current) drug therapy
CPT/HCPCS: 96523; J1642

== ENCOUNTER → 2023-06-30 10:29 | Outpatient (BNVA) | payer MEDICARE, OTHER, SELFPAY | PROVIDERS: PCP Family Medicine; Visit Provider Nurse Practitioner Family | DX: I48.91 Unspecified atrial fibrillation (principal); I11.0 Hypertensive heart disease with heart failure; I50.32 Chronic diastolic (congestive) heart failure; Z79.01 Long term (current) use of anticoagulants; Z79.82 Long term (current) use of aspirin | CPT/HCPCS: 99214 ==

== ENCOUNTER → 2023-07-06 10:51 | Outpatient (BNVA) | payer MEDICARE, OTHER, SELFPAY | PROVIDERS: PCP Family Medicine; Visit Provider Podiatrist Foot & Ankle Surgery | DX: I73.9 Peripheral vascular disease, unspecified; L60.8 Other nail disorders; L84 Corns and callosities; L60.3 Nail dystrophy; Z79.01 Long term (current) use of anticoagulants; M25.371 Other instability, right ankle; R26.81 Unsteadiness on feet; Z91.81 History of falling; Q66.222 Congenital metatarsus adductus, left foot; Q66.221 Congenital metatarsus adductus, right foot | CPT/HCPCS: 11056; 11721 ==

== ENCOUNTER 2023-07-07 13:51 | Outpatient (RCR) | payer SELFPAY ==
[2023-07-14 16:45] LABS: Basophils # 0.1 10^3/uL (0.0-0.1); Basophils % 1.7 %; Eosinophils # 0.1 10^3/uL (0.0-0.8); Eosinophils % 2.3 %; Hematocrit 38.3 % (36-47); Lymphocytes # 1.4 10^3/uL (0.8-4.8); Lymphocytes % 29.4 %; Mean Corpuscular HGB Conc 33.2 g/dL (30-55); Mean Corpuscular Hemoglobin 29.7 pg (27-33); Mean Corpuscular Volume 89.7 fl (85-98); Mean Platelet Volume 9.5 fL (7.4-10.4); Monocytes # 0.7 10^3/uL (0.2-0.9); Monocytes % 15.5 %; Neutrophils # 2.42 10^3/uL (1.8-7.7); Neutrophils % 50.9 %; Nucleated Red Blood Cells % 0 %; Platelet Count 167 10^3/cmm (157-399); Red Blood Count 4.27 10^6/uL (3.85-5.65); Red Cell Distribution Width 14.1 % (12.1-15.1); White Blood Count 4.76 10^3/uL (3.29-11.43)
== END 2023-08-04 23:59 | disposition home or self-care (01) ==
LOC: CR 13:51
PROVIDERS: Internal Medicine Pulmonary Disease; PCP Family Medicine; Referring Provider Family Medicine; Visit Provider Family Medicine
DX: I50.21 Acute systolic (congestive) heart failure (principal)
CPT/HCPCS: 36415; 82785; 85025; 86003

== ENCOUNTER → 2023-07-14 14:26 | Outpatient (BNVA) | payer MEDICARE, OTHER, SELFPAY | PROVIDERS: PCP Family Medicine; Visit Provider Internal Medicine Pulmonary Disease | DX: R05.3 Chronic cough (principal); D86.9 Sarcoidosis, unspecified; R09.81 Nasal congestion | CPT/HCPCS: 36415; 82785; 85025; 86003; 99204 ==

== ENCOUNTER 2023-08-02 11:23 | Oncology outpatient (recurring) (ONCR) | payer MEDICARE, OTHER, SELFPAY ==
[2023-08-02 11:59] LABS: Basophils # 0.1 10^3/uL (0.0-0.1); Basophils % 1.1 %; Eosinophils # 0.1 10^3/uL (0.0-0.8); Eosinophils % 2.3 %; Hematocrit 37.8 % (36-47); Lymphocytes # 1.5 10^3/uL (0.8-4.8); Lymphocytes % 27.9 %; Mean Corpuscular HGB Conc 33.1 g/dL (30-55); Mean Corpuscular Hemoglobin 29.3 pg (27-33); Mean Corpuscular Volume 88.5 fl (85-98); Mean Platelet Volume 9.8 fL (7.4-10.4); Monocytes # 0.8 10^3/uL (0.2-0.9); Monocytes % 14.4 %; Neutrophils # 2.83 10^3/uL (1.8-7.7); Neutrophils % 53.9 %; Nucleated Red Blood Cells % 0 %; Platelet Count 171 10^3/cmm (157-399); Red Blood Count 4.27 10^6/uL (3.85-5.65); White Blood Count 5.26 10^3/uL (3.29-11.43)
[2023-08-02 12:20] LABS: Alanine Aminotransferase 13 U/L (0-33); Albumin Level 3.7 g/dL (3.5-5.2); Alkaline Phosphatase 82 U/L (35-105); Anion Gap 13.7 (5-19); Aspartate Amino Transferase 19 U/L (0-32); Blood Urea Nitrogen 18 mg/dL (8-23); Calcium 9.9 mg/dL (8.5-10.5); Carbon Dioxide 25 mmol/L (22-29); Chloride 107 mmol/L (98-107); Globulin 2.1 g/dL (1.3-4.6); Glomerular Filtration Rate 99.1 mL/min (90-130); Glucose 131 mg/dL (65-115); Lactate Dehydrogenase 148 U/L (135-214); Osmolality Calculated 298 mOsm/kg (285-295); Potassium 3.7 mmol/L (3.5-5.1); Sodium 142 mmol/L (136-145); Total Bilirubin 0.9 mg/dL (0.15-1.2); Total Protein 5.8 g/dL (6.6-8.7)
== END 2023-08-04 23:59 | disposition home or self-care (01) ==
PROVIDERS: PCP Family Medicine; Visit Provider Internal Medicine Medical Oncology
DX: C82.19 Follicular lymphoma grade II, extranodal and solid organ sites; Z95.828 Presence of other vascular implants and grafts; D86.89 Sarcoidosis of other sites; Z79.899 Other long term (current) drug therapy
CPT/HCPCS: 36591; 80053; 83615; 85025; 99214; J1642

== ENCOUNTER 2023-08-08 14:39 | Outpatient (RCR) | payer SELFPAY | END 2023-09-04 23:59 | disposition home or self-care (01) | LOC: CR 14:39 | PROVIDERS: PCP Family Medicine; Referring Provider Family Medicine; Visit Provider Family Medicine | DX: I50.21 Acute systolic (congestive) heart failure (principal) ==

== ENCOUNTER 2023-08-10 08:56 | Outpatient (CLI) | payer MEDICARE, OTHER, SELFPAY | END 2023-08-10 08:57 | disposition home or self-care (01) | PROVIDERS: PCP Family Medicine; Visit Provider Internal Medicine Pulmonary Disease | DX: R06.02 Shortness of breath (principal) | CPT/HCPCS: 94010; 94618; 94726; 94729 ==

== ENCOUNTER 2023-08-30 15:02 | Oncology outpatient (recurring) (ONCR) | payer MEDICARE, OTHER, SELFPAY | END 2023-09-04 23:59 | disposition home or self-care (01) | PROVIDERS: PCP Family Medicine; Visit Provider Internal Medicine Medical Oncology | DX: E83.52 Hypercalcemia (principal); C82.19 Follicular lymphoma grade II, extranodal and solid organ sites; Z95.828 Presence of other vascular implants and grafts; D86.89 Sarcoidosis of other sites; Z79.899 Other long term (current) drug therapy; Z45.2 Encounter for adjustment and management of vascular access device; E11.8 Type 2 diabetes mellitus with unspecified complications; L60.3 Nail dystrophy; L84 Corns and callosities; L60.8 Other nail disorders; L97.512 Non-pressure chronic ulcer of other part of right foot with fat layer exposed; M21.42 Flat foot [pes planus] (acquired), left foot; M21.41 Flat foot [pes planus] (acquired), right foot; M20.41 Other hammer toe(s) (acquired), right foot; M20.42 Other hammer toe(s) (acquired), left foot; I73.9 Peripheral vascular disease, unspecified; Z79.01 Long term (current) use of anticoagulants; M25.371 Other instability, right ankle; R26.81 Unsteadiness on feet; Z91.81 History of falling; R05.3 Chronic cough; D86.9 Sarcoidosis, unspecified | CPT/HCPCS: 11056; 11721; 87070; 87075; 87077; 87186; 87205; 96523; 99214 ==

== ENCOUNTER → 2023-08-31 08:01 | Outpatient (BNVA) | payer MEDICARE, OTHER, SELFPAY | PROVIDERS: PCP Family Medicine; Visit Provider Thoracic Surgery (Cardiothoracic Vascular Surgery) | DX: L89.893 Pressure ulcer of other site, stage 3 (principal) | CPT/HCPCS: 97597; 99213; A6212 ==

== ENCOUNTER → 2023-09-07 08:53 | Outpatient (BNVA) | payer MEDICARE, OTHER, SELFPAY | PROVIDERS: PCP Family Medicine; Visit Provider Thoracic Surgery (Cardiothoracic Vascular Surgery) | DX: L89.893 Pressure ulcer of other site, stage 3 (principal) | CPT/HCPCS: 97597; A6021; A6210 ==

== ENCOUNTER 2023-09-14 15:35 | Outpatient (CLI) | payer MEDICARE, OTHER, SELFPAY | END 2023-09-14 15:36 | disposition home or self-care (01) | LOC: RAD 15:36 | PROVIDERS: PCP Family Medicine; Visit Provider Nurse Practitioner Family | DX: E11.52 Type 2 diabetes mellitus with diabetic peripheral angiopathy with gangrene (principal); E11.621 Type 2 diabetes mellitus with foot ulcer; L97.512 Non-pressure chronic ulcer of other part of right foot with fat layer exposed | CPT/HCPCS: 11042; 97597; A6021 ==

== ENCOUNTER → 2023-09-21 10:12 | Outpatient (BNVA) | payer MEDICARE, OTHER, SELFPAY | PROVIDERS: PCP Family Medicine; Visit Provider Thoracic Surgery (Cardiothoracic Vascular Surgery) | DX: E11.52 Type 2 diabetes mellitus with diabetic peripheral angiopathy with gangrene (principal); E11.621 Type 2 diabetes mellitus with foot ulcer; L97.511 Non-pressure chronic ulcer of other part of right foot limited to breakdown of skin | CPT/HCPCS: 11042; 97597; A6021 ==

== ENCOUNTER 2023-09-27 14:17 | Oncology outpatient (recurring) (ONCR) | payer MEDICARE, OTHER, SELFPAY | END 2023-10-04 23:59 | disposition home or self-care (01) | LOC: ONCMED 14:17 | PROVIDERS: PCP Family Medicine; Referring Provider Family Medicine; Visit Provider Internal Medicine Medical Oncology | DX: Z53.9 Procedure and treatment not carried out, unspecified reason (principal) ==

== ENCOUNTER 2023-09-29 06:00 | Outpatient (RCR) | payer SELFPAY | END 2023-10-04 23:59 | disposition home or self-care (01) | LOC: CR 06:00 | PROVIDERS: PCP Family Medicine; Referring Provider Family Medicine; Visit Provider Family Medicine | DX: I50.9 Heart failure, unspecified (principal) ==

== ENCOUNTER → 2023-09-29 11:08 | Outpatient (BNVA) | payer MEDICARE, OTHER, SELFPAY | PROVIDERS: PCP Family Medicine; Visit Provider Thoracic Surgery (Cardiothoracic Vascular Surgery) | DX: E11.52 Type 2 diabetes mellitus with diabetic peripheral angiopathy with gangrene (principal); E11.621 Type 2 diabetes mellitus with foot ulcer; L97.521 Non-pressure chronic ulcer of other part of left foot limited to breakdown of skin; Z09 Encounter for follow-up examination after completed treatment for conditions other than malignant neoplasm | CPT/HCPCS: 97597; A6021 ==

== ENCOUNTER → 2023-10-06 10:45 | Outpatient (BNVA) | payer MEDICARE, OTHER, SELFPAY | PROVIDERS: PCP Family Medicine; Visit Provider Thoracic Surgery (Cardiothoracic Vascular Surgery) | DX: E11.52 Type 2 diabetes mellitus with diabetic peripheral angiopathy with gangrene (principal); E11.621 Type 2 diabetes mellitus with foot ulcer; L97.521 Non-pressure chronic ulcer of other part of left foot limited to breakdown of skin | CPT/HCPCS: 97597; A6021 ==

== ENCOUNTER 2023-10-06 13:40 | Outpatient (RCR) | payer SELFPAY | END 2023-11-04 23:59 | disposition home or self-care (01) | LOC: CR 13:40 | PROVIDERS: PCP Family Medicine; Referring Provider Family Medicine; Visit Provider Family Medicine | DX: E11.52 Type 2 diabetes mellitus with diabetic peripheral angiopathy with gangrene (principal); E11.621 Type 2 diabetes mellitus with foot ulcer; L97.511 Non-pressure chronic ulcer of other part of right foot limited to breakdown of skin | CPT/HCPCS: 97597; A6021 ==

== ENCOUNTER → 2023-10-12 14:26 | Outpatient (BNVA) | payer MEDICARE, OTHER, SELFPAY | PROVIDERS: PCP Family Medicine; Visit Provider Thoracic Surgery (Cardiothoracic Vascular Surgery) | DX: E11.52 Type 2 diabetes mellitus with diabetic peripheral angiopathy with gangrene (principal); E11.621 Type 2 diabetes mellitus with foot ulcer; L97.511 Non-pressure chronic ulcer of other part of right foot limited to breakdown of skin | CPT/HCPCS: 97597; A6021 ==

== ENCOUNTER → 2023-10-19 15:10 | Outpatient (BNVA) | payer MEDICARE, OTHER, SELFPAY | PROVIDERS: PCP Family Medicine; Visit Provider Thoracic Surgery (Cardiothoracic Vascular Surgery) | DX: E11.52 Type 2 diabetes mellitus with diabetic peripheral angiopathy with gangrene (principal); E11.621 Type 2 diabetes mellitus with foot ulcer; L97.511 Non-pressure chronic ulcer of other part of right foot limited to breakdown of skin | CPT/HCPCS: 97597; A6021 ==

== ENCOUNTER 2023-10-25 14:27 | Oncology outpatient (recurring) (ONCR) | payer MEDICARE, OTHER, SELFPAY | END 2023-11-04 23:59 | disposition home or self-care (01) | PROVIDERS: PCP Family Medicine; Visit Provider Internal Medicine Medical Oncology | DX: Z45.2 Encounter for adjustment and management of vascular access device (principal) | CPT/HCPCS: 96523 ==

== ENCOUNTER → 2023-10-26 14:51 | Outpatient (BNVA) | payer MEDICARE, OTHER, SELFPAY | PROVIDERS: PCP Family Medicine; Visit Provider Thoracic Surgery (Cardiothoracic Vascular Surgery) | DX: E11.52 Type 2 diabetes mellitus with diabetic peripheral angiopathy with gangrene (principal); E11.621 Type 2 diabetes mellitus with foot ulcer; L97.511 Non-pressure chronic ulcer of other part of right foot limited to breakdown of skin | CPT/HCPCS: 97597 ==

== ENCOUNTER 2023-10-27 09:03 | Inpatient (IN) | payer MEDICARE, OTHER, SELFPAY ==
[2023-10-27] VITALS (80 sets, daily range): BP systolic 85–126; BP diastolic 46–83; PULSE 78–175; RESP 14–23; TEMP 36.4–36.9; O2SAT 91–100; BMI 45.4
--- NOTE | 2023-10-27 09:56 | XR_ITS ---
WS: [id number] Portable AP upright chest, 10/27/2023 Clinical Data: dyspnea Comparison: Portable chest, 05/12/2020 Findings: No nodules, masses or effusions are seen. The heart is normal. The pulmonary vascularity is not increased. No pneumonia or pneumothorax is seen. The aortic arch and descending thoracic aorta s how mild tortuosity. There is an infusion catheter entering the right subclavian vein and ending in t he superior vena cava. Monitor leads are on the chest wall. XR/XR chest 1V portable [id number] Impression: Atherosclerosis.
--- NOTE | 2023-10-27 09:56 | ECG_ITS ---
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 Measurements Intervals [place] Rate: 113 P: 0 WA: 0 QRS: -14 QRSD: 110 T: 63 QT: 331 QTc: 455 Interpretive Statements ATRIAL FIBRILLATION WITH RAPID VENTRICULAR RESPONSE LOW QRS VOLTAGE IN PRECORDIAL LEADS [QRS DEFLECTION < 1.0 mV IN CHEST LEADS] PATTERN CONSISTENT WITH PULMONARY DISEASE Compared to ECG 11/25/2022 14:51:18 Low QRS voltage now present Sinus rhythm no longer present First degree AV block no longer present Left-axis deviation no longer present Intraventricular conduction delay no longer present Myocardial infarct finding no longer present Electronically Signed On 10-27-2023 17:09:58 CDT by Tutu Leon M.D. [id number] f
--- NOTE | 2023-10-27 09:58 | W.ED.ARRPALP ---
HPI - Arrhythmia/Palpitations General: Chief Complaint: Arrhythmia/Palpitations Stated Complaint: Blood in stool Time Seen by Provider: 10/27/23 09:50 Source: patient Mode of arrival: ambulatory History of Present Illness: 68-year-old female presents emergency room complaining of rapid heart rate fatigue and blood in the stool. She had a dark stool last night and then had a more noticeably dark stool with some slight red discoloration this morning. last night she felt very weak was trying to cook and had to have her complete cooking. She denies any fever sweats or chills she has noticed some mild shortness of breath with exertion. She is also noticed that she has been hypotensive. She did not denies any distinct chest pain. She did not recently change any of her medications she thinks she might have missed 1 dose a week or more ago but otherwise has been regular with her medicines. MD complaint: rapid heart beat Onset (ago): hour(s) Associated symptoms: Reports nausea Review of Systems Const: Denies: fever(s) or chills Card: Denies: chest pain Resp: Denies: dyspnea GI: Reports: abdominal pain, nausea, hematochezia and melena; Denies: hematemesis or coffee ground emesis : Denies: dysuria, urinary frequency or urinary urgency Musc: Denies: neck pain or back pain Skin/Breast: Denies: rash PFSH ED PFSH: Medical History Hypertension History of atrial fibrillation History of pyelonephritis Nephrolithiasis Follicular lymphoma Rheumatoid arthritis Sarcoidosis Urgency incontinence Peripheral neuropathy History of endometrial cancer Tricuspid valve regurgitation Mitral valve regurgitation Obstructive sleep apnea GERD (gastroesophageal reflux disease) Surgical History History of foot surgery Hx of tonsillectomy History of neck surgery (12/04/18) Right superficial parotidectomy, right neck dissection, excision of right buccal mass Status post surgical removal of malignant neoplasm of skin History of multiple skin cancer excisions S/P extracorporeal shock wave therapy S/P panniculectomy History of tubal ligation History of bladder suspension procedure History of carpal tunnel release History of total abdominal hysterectomy and bilateral salpingo-oophorectomy Family History Mother , at age 66 Non Hodgkin's lymphoma Father Heart disease Diabetes Hyperlipidemia Sister Anesthesia complication Hyperlipidemia Brother Hyperlipidemia Other CAD (coronary artery disease) Cancer Hypertension Denies family history of Clotting disorder Dementia Psychiatric illness Chronic kidney disease (CKD) Suicide Bleeding disorder Lung disease Stroke Social History Smoking and tobacco/nicotine status: never used tobacco/nicotine Alcohol intake: never Substance/Drug Use: never Marital status: Current occupational status: retired Physical Exam Const: GENERAL APPEARANCE: cooperative and comfortable ORIENTATION/CONSCIOUSNESS: Yes awake, Yes oriented to person, Yes oriented to place and Yes oriented to time HENMT: COMMON NORMALS: normocephalic, atraumatic and hearing grossly normal bilaterally HEAD & SCALP: normocephalic and atraumatic Resp: COMMON NORMALS: normal respiratory effort, No retractions, No use of accessory muscles and clear to auscultation bilaterally AUSCULTATION: clear to auscultation bilaterally Cardio: COMMON NORMALS: No murmurs present (Cardio) RATE: tachycardic RHYTHM: abnormal rhythm irregularly irregular GI: COMMON NORMALS: Soft to palpation and No hepatosplenomegaly present AUSCULTATION: Yes normoactive bowel sounds PALPATION: Yes Soft to palpation, No Tenderness to palpation present (GI), No Guarding due to palpation present (GI) and Yes No hepatosplenomegaly present Extremity: COMMON NORMALS: normal to inspection, capillary refill normal, no clubbing, cyanosis or edema, no calf tenderness and no pedal edema Neuro: SENSORIUM/ORIENTATION: Yes oriented to person, Yes oriented to place and Yes oriented to time Skin: COMMON NORMALS: no rashes or lesions noted GENERAL SKIN EXAM: no rashes or lesions noted Course Vital Signs: Vital signs: Vital Signs Temperature 97.6 F 10/27/23 14:44 Pulse Rate 89 10/27/23 16:45 Respiratory Rate 22 H 10/27/23 16:45 Blood Pressure 88/55 10/27/23 16:45 Pulse Oximetry 98 10/27/23 16:45 Oxygen Delivery Me thod Room Air 10/27/23 15:37 MDM - Arrhythmia/Palpitations Medical Decision Making Patient presents with A-fib with RVR but did not take her morning medicines. Is also reporting melanic stools. Her BUN is significantly elevated. Her hemoglobin is down 3 points. Will admit her she is given IV Protonix. Initially gave her an IV push of Cardizem and gave her oral Cardizem but she had minimal response to this she was given another IV push dose of Cardizem and started on a drip which did improve her rate control. Discussed with hospitalist orders written consult general surgery for EGD in the morning. Hold Erin her last dose was last evening Medical Records I reviewed the patient's medical records. Lab Data I reviewed the patient's lab results. 10/27/23 14:50 10/27/23 10:03 Radiology Impressions Chest X-Ray 10/27/23 09:56 Impression: Atherosclerosis. Abdomen/Pelvis CT 10/27/23 13:54 IMPRESSION: 1. Cholelithiasis. No evidence for acute cholecystitis. 2. There is a single small bowel loop in the mid LEFT abdomen which contains increased density, image 46 of series 3. There is increased density may be active arterial extravasation. This does appear to be a diverticulum therefore this may also be related to retained products of digestion. 3. Moderate distal colonic diverticulosis without acute diverticulitis. 4. No free fluid or or adenopathy. Laboratory Results WBC 5.54 10^3/uL (3.29-11.43) 10/27/23 10:03 RBC 3.31 10^6/uL (3.85-5.65) L 10/27/23 10:03 Hgb 9.80 g/dL (11.27-16.99) L 10/27/23 10:03 Hct 30.7 % (36-47) L 10/27/23 10:03 MCV 92.7 fl (85-98) 10/27/23 10:03 MCH 29.6 pg (27-33) 10/27/23 10:03 MCHC 31.9 g/dL (30-55) 10/27/23 10:03 RDW 14.5 % (12.1-15.1) 10/27/23 10:03 Plt Count 133 10^3/cmm (157-399) L 10/27/23 10:03 MPV 10.7 fL (7.4-10.4) H 10/27/23 10:03 Neut % (Auto) 61.6 % 10/27/23 10:03 Lymph % (Auto) 23.6 % 10/27/23 10:03 [place] % (Auto) 11.9 % 10/27/23 10:03 Eos % (Auto) 1.6 % 10/27/23 10:03 Baso % (Auto) 0.9 % 10/27/23 10:03 Neut # (Auto) 3.41 10^3/uL (1.8-7.7) 10/27/23 10:03 Lymph # (Auto) 1.3 10^3/uL (0.8-4.8) 10/27/23 10:03 [place] # (Auto) 0.7 10^3/uL (0.2-0.9) 10/27/23 10:03 Eos # (Auto) 0.1 10^3/uL (0.0-0.8) 10/27/23 10:03 Baso # (Auto) 0.1 10^3/uL (0.0-0.1) 10/27/23 10:03 Nucleated RBC % (auto) 0 % 10/27/23 10:03 Nucleated RBCs # 0.0 /100WBC 10/27/23 10:03 PT 14.20 SECONDS (12.1-14.9) 10/27/23 10:03 INR 1.06 (0.8-1.2) 10/27/23 10:03 Sodium 142 mmol/L (136-145) 10/27/23 10:03 Potassium 4.6 mmol/L (3.5-5.1) 10/27/23 10:03 Chloride 106 mmol/L (98-107) 10/27/23 10:03 Carbon Dioxide 22 mmol/L (22-29) 10/27/23 10:03 Anion Gap 18.6 (5-19) 10/27/23 10:03 BUN 47 mg/dL (8-23) H 10/27/23 10:03 Creatinine 0.7 mg/dL (0.5-0.9) 10/27/23 10:03 GFR Calculation 82.7 mL/min (90-130) L 10/27/23 10:03 Glucose 161 mg/dL (65-115) H 10/27/23 10:03 Calculated Osmolality 310 mOsm/kg (285-295) H 10/27/23 10:03 Calcium 9.7 mg/dL (8.5-10.5) 10/27/23 10:03 Total Bilirubin 1.2 mg/dL (0.15-1.2) 10/27/23 10:03 AST 16 U/L (0-32) 10/27/23 10:03 ALT 11 U/L (0-33) 10/27/23 10:03 Alkaline Phosphatase 75 U/L (35-105) 10/27/23 10:03 Troponin T Baseline 14 ng/L (0-10) H 10/27/23 10:03 Troponin T 120 Minute 13.17 ng/L (0-10) H 10/27/23 12:22 Delta Troponin T -0.83 ABS# (0-10) L 10/27/23 12:22 Total Protein 5.4 g/dL (6.6-8.7) L 10/27/23 10:03 Albumin 3.5 g/dL (3.5-5.2) 10/27/23 10:03 Globulin 1.9 g/dL (1.3-4.6) 10/27/23 10:03 Urine Color Yellow (Yellow) 10/27/23 11:57 Urine Appearance Slightly cloudy (CLEAR) 10/27/23 11:57 Urine pH 5 (5-7) 10/27/23 11:57 Ur Specific Sentinel 1.015 (1.005-1.030) 10/27/23 11:57 Urine Protein Trace (Negative) 10/27/23 11:57 Urine Glucose (UA) Norm (Normal) 10/27/23 11:57 Urine Ketones Negative (Negative) 10/27/23 11:57 Urine Blood 3+ (Negative) H 10/27/23 11:57 Urine Nitrate Negative (Negative) 10/27/23 11:57 Urine Bilirubin 1+ (Negative) H 10/27/23 11:57 Urine Urobilinogen Norm mg/dL (Negative) 10/27/23 11:57 Ur Leukocyte Esterase 2+ (Negative) H 10/27/23 11:57 Urine RBC 5-10 /hpf (0-2) H 10/27/23 11:57 Urine WBC 15-25 /hpf (0-5) H 10/27/23 11:57 Ur Squamous Epith Cells 10-15 /hpf (0-5) H 10/27/23 11:57 Calcium Oxalate Crystal 0-4 /hpf H 10/27/23 11:57 Amorphous Sediment Not Reportable 10/27/23 11:57 Urine Bacteria 1+ /hpf (NONE) H 10/27/23 11:57 Hyaline Casts 0-4 /lpf H 10/27/23 11:57 Urine Mucus Trace /hpf 10/27/23 11:57 Urine Yeast 1+ /hpf H 10/27/23 11:57 All radiology interpretation(s) finalized by discharge Discharge Plan Discharge Patient Disposition: Admitted As Inpatient Admit Provider: Mao Triplett Clinical Impression: Atrial fibrillation with RVR, GI bleed, Acute blood loss anemia Condition: Stable Coding Level of Care Code ED Workers Compensation Claims Assistant for Frank Rowland
[2023-10-27] MEDS: dilTIAZem 5 mg/mL SDV 5 mL 10 MG IVP ×2 (10:11→10:47)
[2023-10-27] MEDS: dilTIAZem ER (24HR) 180 mg Capsule 360 MG PO (10:11)
[2023-10-27 10:13] LABS: Basophils # 0.1 10^3/uL (0.0-0.1); Basophils % 0.9 %; Eosinophils # 0.1 10^3/uL (0.0-0.8); Eosinophils % 1.6 %; Hematocrit 30.7 % (36-47); Lymphocytes # 1.3 10^3/uL (0.8-4.8); Lymphocytes % 23.6 %; Mean Corpuscular HGB Conc 31.9 g/dL (30-55); Mean Corpuscular Hemoglobin 29.6 pg (27-33); Mean Corpuscular Volume 92.7 fl (85-98); Mean Platelet Volume 10.7 fL (7.4-10.4); Monocytes # 0.7 10^3/uL (0.2-0.9); Monocytes % 11.9 %; Neutrophils # 3.41 10^3/uL (1.8-7.7); Neutrophils % 61.6 %; Nucleated Red Blood Cells % 0 %; Platelet Count 133 10^3/cmm (157-399); Red Blood Count 3.31 10^6/uL (3.85-5.65); Red Cell Distribution Width 14.5 % (12.1-15.1); White Blood Count 5.54 10^3/uL (3.29-11.43)
[2023-10-27] MEDS: sodium chloride 0.9% 1,000 ML 999 ML IV (10:19)
[2023-10-27 10:34] LABS: Alanine Aminotransferase 11 U/L (0-33); Albumin Level 3.5 g/dL (3.5-5.2); Alkaline Phosphatase 75 U/L (35-105); Anion Gap 18.6 (5-19); Aspartate Amino Transferase 16 U/L (0-32); Blood Urea Nitrogen 47 mg/dL (8-23); Calcium 9.7 mg/dL (8.5-10.5); Carbon Dioxide 22 mmol/L (22-29); Chloride 106 mmol/L (98-107); Creatinine Clr Calc Pharmacy 92.5316; Globulin 1.9 g/dL (1.3-4.6); Glomerular Filtration Rate 82.7 mL/min (90-130); Glucose 161 mg/dL (65-115); Osmolality Calculated 310 mOsm/kg (285-295); Potassium 4.6 mmol/L (3.5-5.1); Sodium 142 mmol/L (136-145); Total Bilirubin 1.2 mg/dL (0.15-1.2); Total Protein 5.4 g/dL (6.6-8.7)
[2023-10-27 10:36] LABS: Troponin(5th) Baseline 14 ng/L (0-10)
[2023-10-27 10:44] LABS: INR 1.06 (0.8-1.2)
[2023-10-27] MEDS: dilTIAZem 100 MG in sodium chloride 0.9% (add-van) 100 ML IV (10:47)
[2023-10-27 10:52] LABS: Slide Review Slide Review Perform
--- NOTE | 2023-10-27 11:56 | ECG_ITS ---
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 Measurements Intervals [place] Rate: 96 P: 0 TN: 0 QRS: -23 QRSD: 105 T: 49 QT: 376 QTc: 477 Interpretive Statements ATRIAL FIBRILLATION LOW QRS VOLTAGE IN PRECORDIAL LEADS [QRS DEFLECTION < 1.0 mV IN CHEST LEADS] POSSIBLE ANTERIOR MYOCARDIAL INFARCTION , PROBABLY OLD [30 ms Q WAVE IN V3/V4, OR R < 0.2 mV IN V4] Compared to ECG 10/27/2023 09:21:49 Myocardial infarct finding now present Electronically Signed On 10-27-2023 17:12:57 CDT by Tutu Leon M.D. [id number]
[2023-10-27 12:49] LABS: Troponin 5 2HR 13.17 ng/L (0-10)
[2023-10-27 12:51] LABS: Troponin 5 2HR Delta -0.83 ABS# (0-10)
[2023-10-27 12:52] LABS: Add Urine Microscopic? YES; Bilirubin Urine 1+ (Negative); Blood Urine 3+ (Negative); Glucose Urine UA Norm (Normal); Ketones Urine Negative (Negative); Leukocyte Esterase Urine 2+ (Negative); Nitrate Urine Negative (Negative); Protein Urine Trace (Negative); Specific Gravity, Urine 1.015 (1.005-1.030); Urine Appearance Slightly Cloudy (CLEAR); Urine Color Yellow (Yellow); Urobilinogen Urine Norm (Negative); pH Urine 5 (5-7)
[2023-10-27 13:04] LABS: Add Urine Culture? Yes; Bacteria Urine 1+ /hpf; Calcium Oxalate Crystals Urine 0-4 /hpf; Hyaline Casts Urine 0-4 /lpf; Mucus Urine TRACE /hpf; WBC Urine 15-25 /hpf (0-5)
[2023-10-27] MEDS: pantoprazole 40 mg SDV 80 MG IVP (13:45)
--- NOTE | 2023-10-27 13:50 | PM.HP ---
Providers/Chief Complaint Admitting Physician: Mao Triplett MD Primary Care Provider: Vinh Raya MD Chief Complaint: Blood in stool History of Present Illness Aylin Dietz is a 68 year old female presenting to the emergency department with complaints of weakness, dark stool, dizziness starting last night. She has not had any abdominal pain but her daughter relates that she has some neuropathy and she has some difficulty with sensation there. Last night when she was feeling ill, she noticed 2 dark stools with diarrhea, with some bright red blood tinged around them. Her blood pressure was low. This morning on evaluation in the emergency department she was noted to be in A-fib with RVR, and anemic. She denies any recent fever, cough, chills. She is on anticoagulation with apixaban and does take aspirin as well. She reports no prior history of ulcer/GI bleeding. She has had a colonoscopy but it is been over 10 years ago and was reported to be normal. No recent EGD. Family relates she is on chronic antibiotics secondary to bladder infections. She feels better currently. In the emergency department she received some Protonix, IV fluids, and some diltiazem for her A-fib with RVR. Review of Systems General: Reports: 10 or more systems reviewed and unremarkable except in HPI and below Card: Reports: palpitations and dyspnea on exertion; Denies: chest pain Resp: Reports: dyspnea; Denies: productive cough or non-productive cough GI: Reports: hematochezia and melena; Denies: abdominal pain, nausea, vomiting or hematemesis Medications/Allergies Home Medications Medication Instructions Recorded Confirmed Last Taken Type aspirin 81 mg tablet,delayed 81 mg PO DAILY 05/08/20 10/27/23 10/26/23 History release atorvastatin 10 mg tablet 10 mg PO QPM 05/08/20 10/27/23 10/26/23 History acetaminophen 325 mg tablet 650 mg (2 x 325 mg) PO Q4H PRN 05/14/20 10/27/23 Unknown Rx Mild/Mod Pain Or Temp >/= 101 #0 tabs loratadine 10 mg tablet 10 mg PO DAILY 09/21/22 10/27/23 10/26/23 History magnesium oxide 400 mg (241.3 mg 400 mg PO BID 11/25/22 10/27/23 10/26/23 History magnesium) tablet losartan 50 mg tablet 50 mg PO DAILY #90 tabs 12/08/22 10/27/23 10/26/23 Rx BACH balance brace to right #1 ea 03/22/23 10/27/23 Unknown Rx CPAP (Standard Cpap) 04/25/23 10/27/23 Unknown History Folate 800 mcg PO .COMPLEX 04/25/23 10/27/23 10/26/23 History pantoprazole 20 mg tablet,delayed 20 mg PO DAILY 04/25/23 10/27/23 10/26/23 History release apixaban 5 mg tablet (Eliquis) 5 mg PO BID #180 tabs 04/29/23 10/27/23 10/26/23 Rx potassium chloride 10 mEq 30 meq (3 x 10 mEq) PO DIRECTED 06/20/23 10/27/23 10/26/23 Rx tablet,extended release #270 tabs furosemide 40 mg tablet 40 mg PO DAILY #180 tabs 06/30/23 10/27/23 10/26/23 Rx amoxicillin 875 mg-potassium 1 tab PO BID 08/02/23 10/27/23 10/26/23 History clavulanate 125 mg tablet cranberry extract-vitamin C 250 1 cap PO DAILY 08/30/23 10/27/23 10/26/23 History mg-60 mg capsule (Azo Cranberry Plus Vit C) lactobacillus combo no.11 15 1 cap PO DAILY 08/30/23 10/27/23 10/26/23 History billion cell sprinkle capsule (Probiotic) fluticasone propionate 115 2 puff inhalation BID #12 grams 09/06/23 10/27/23 10/26/23 Rx mcg-salmeterol 21 mcg/actuation HFA inhaler (Advair HFA) diltiazem HCl 180 mg capsule,24 360 mg PO DAILY 10/27/23 10/27/23 10/26/23 History hr,extended release (Tiadylt ER) gabapentin 300 mg capsule 300 mg PO BID 10/27/23 10/27/23 10/26/23 History Allergies Allergy/AdvReac Type Severity Reaction Status Date / Time ragweed pollen Allergy Mild ALGY-Sneezi Verified 08/30/23 14:09 ng sulfamethoxazole Allergy Mild ADR-Itching Verified 09/27/23 14:25 [From Bactrim] trimethoprim [From Bactrim] Allergy Mild ADR-Itching Verified 09/27/23 14:25 PFSH Acute PFSH: Medical History Hypertension History of atrial fibrillation History of pyelonephritis Nephrolithiasis Follicular lymphoma Rheumatoid arthritis Sarcoidosis Urgency incontinence Peripheral neuropathy History of endometrial cancer Tricuspid valve regurgitation Mitral valve regurgitation Obstructive sleep apnea GERD (gastroesophageal reflux disease) Surgical History History of foot surgery Hx of tonsillectomy History of neck surgery (12/04/18) Right superficial parotidectomy, right neck dissection, excision of right buccal mass Status post surgical removal of malignant neoplasm of skin History of multiple skin cancer excisions S/P extracorporeal shock wave therapy S/P panniculectomy History of tubal ligation History of bladder suspension procedure History of carpal tunnel release History of total abdominal hysterectomy and bilateral salpingo-oophorectomy Family History Mother , at age 66 Non Hodgkin's lymphoma Father Heart disease Diabetes Hyperlipidemia Sister Anesthesia complication Hyperlipidemia Brother Hyperlipidemia Other CAD (coronary artery disease) Cancer Hypertension Denies family history of Clotting disorder Dementia Psychiatric illness Chronic kidney disease (CKD) Suicide Bleeding disorder Lung disease Stroke Social History Smoking and tobacco/nicotine status: never used tobacco/nicotine Alcohol intake: never Substance/Drug Use: never Marital status: Current occupational status: retired Vitals/I&O/Wt Last Vital Signs Temp 97.7 F 10/27/23 09:28 Pulse 89 10/27/23 13:30 Resp 18 10/27/23 09:28 BP 101/60 10/27/23 13:30 Pulse Ox 98 10/27/23 13:30 O2 Del Method Room Air 10/27/23 11:21 Weight last 48 hrs Weight 131.542 kg Physical Exam Narrative: General exam is a white female, no apparent distress HEENT: Atraumatic normocephalic. Oropharynx clear Neck is supple no lymphadenopathy thyromegaly Cardiovascular irregular, irregular with accelerated rate Lungs clear Abdomen soft nontender with positive bowel sounds. No obvious organomegaly exams deferred Extremities show trace edema bilaterally. Small bruises noted anterior crawley. Skin no rash Neuro no focal deficits. Data 10/27/23 10:03 10/27/23 10:03 Other Labs: INR is 1.06 LFTs are normal Calcium and albumin are normal Troponin 14 with repeat of 13 Urinalysis with 5-10 reds, 15-25 whites, 10-15 squamous. Chest x-ray which I reviewed demonstrated no infiltrate, a port, and some atherosclerotic disease. Urine culture was obtained EKG which I reviewed demonstrates atrial fibrillation, borderline left axis deviation, rate around 110, nonspecific ST-T wave changes. Last echocardiogram in 2021 demonstrated ejection fraction around 60% A&P Assessment and plan (1) GI bleed: Patient presents with complaints of GI bleed, dark blood, associate with diarrhea. This is most likely an upper GI bleed even though she saw some bright red blood tinge around this. Hold anticoagulants of Eliquis as well as aspirin Protonix 80 mg IV was given in the emergency department. Continue 40 mg every 12 hours Surgery consult for possible EGD N.p.o. except for ice chips sips, medicines Repeat hemoglobin now as it has been 4 hours since last hemoglobin DVT pharmacologic prophylaxis contraindicated secondary to bleeding IV fluids Hold all antihypertensives with the exception of Cardizem Hold Lasix currently She says she has significant decrease sensation to her abdomen secondary to prior treatment for lymphoma, will obtain CT scan of abdomen pelvis with contrast. (2) Acute blood loss anemia: Secondary to above, see notation above Patient is okay with transfusion if needed (3) Atrial fibrillation with RVR: Presents with A-fib with RVR, likely secondary to her acute bleeding and anemia If blood pressure tolerates restart her diltiazem tomorrow. Continue diltiazem drip today. (4) Thrombocytopenia: Slightly low platelets. Repeat CBC tomorrow. Likely secondary to GI bleeding. INR is normal. No history of cirrhosis. Plan Multiple other medical problems as outlined in past medical history Full code SCDs for DVT prophylaxis. Pharmacologic anticoagulation contraindicated secondary to bleeding. Attestations Medical Necessity Statement*: Will need greater than 2 midnight stay for evaluation and treatment of acute blood loss anemia, borderline hypotension, A-fib with RVR Coding Level of Care Code Acute Code for [facility] Fwd Diagnoses GI bleed K92.2 Acute blood loss anemia D62 Atrial fibrillation with RVR I48.91 Thrombocytopenia D69.6
--- NOTE | 2023-10-27 13:54 | CT_ITS ---
WS: [id number] CT ABDOMEN AND PELVIS WITH CONTRAST HISTORY: GI bleeding TECHNIQUE: Imaging performed of the abdomen and pelvis with IV contrast. Single phase imaging of the abdomen. Coronal and sagittal reformats are submitted. All CT scans at [facility] use at [place] [facility] one of these dose optimization techniques: automated exposure control; mA and/or kV adjustment per patient size (includes targeted exams where dose is matched to clinical indication); or iterative re construction. IV CONTRAST: Omnipaque 350; 100 mL IV. Oral contrast: No DLP: 1280.87 mGy.cm COMPARISON: 04/05/2022 Lower thorax: Lung bases are clear. Heart is normal size. No hiatal hernia. Liver/biliary system: Normal size with no intrahepatic dilatation. Normal portal vein. Gallbladder: Abnormal gallbladder. There is a large stone filling the large portion of the lumen. No pericholecystic fluid. No edema. Pancreas: Normal size pancreas and pancreatic duct. No adjacent inflammation. Spleen: Mildly enlarged spleen at 14 cm in length. Adrenal glands: Normal. Right kidney: Nonobstructing 5 mm calcification lower pole. No perinephric stranding or obstruction. Left kidney: Normal size kidney with multifocal areas of cortical thinning and scarring. Nonobstructi ng central calcifications. Normal ureter. Aorta: Normal. Extensive splenic artery calcifications. Lymphadenopathy: None. Free fluid: None. GI tract: Nondistended stomach. No active extravasation or bleeding. No small bowel obstruction. Ther e is a single loop of small bowel in the mid LEFT abdomen which contains increased density. This may be a small small bowel diverticulum. The increased density can be seen with retained products from di gestion or bleeding. No additional areas of abnormal enhancement. Moderate diverticular disease throu ghout the distal colon. Abdominal wall: Unremarkable abdominal wall. No hernia. Pelvis: No free fluid or adenopathy within the pelvis. Bones: Increase in lumbar lordosis. Advanced degenerative changes in the spine. CT/CT abdomen pelvis w con* [id number] IMPRESSION: 1. Cholelithiasis. No evidence for acute cholecystitis. 2. There is a single small bowel loop in the mid LEFT abdomen which contains i ncreased density, image 46 of series 3. There is increased density may be activ e arterial extravasation. This does appear to be a diverticulum therefore this may also be related to retained products of digestion. 3. Moderate distal colonic diverticulosis without acute diverticulitis. 4. No free fluid or or adenopathy.
[2023-10-27] MEDS: iohexol 350 mg/mL 500 mL Btl (per mL) IV (14:12)
[2023-10-27 14:57] LABS: Hematocrit 25.8 % (36-47)
[2023-10-27] MEDS: sodium chloride 0.9% 1,000 ML 100 ML IV ×2 (14:57→23:51)
--- NOTE | 2023-10-27 15:39 | P.CONIM_ITS ---
Providers/Reason For Consult 2 Consulting Physician/Specialty*: general surgery Reason for Consult*: UGI bleeding Attending Physician: Mao Triplett MD Primary Care Provider: Vinh Raya MD History of Present Illness History of Present Illness Aylin Dietz is a 68 year old female with history of afib on anticoagulation who presents to the hospital for melena and dizziness during the last 24 hours. patient reports 2 large black bowel movements and small ammount of red stool during the second BM. in the ER she was noted to have drop in hemoglobin from baseline. a CT abdomen and pelvis failed to identify active extravasation but there was small ammount of retained blood products in the small bowel. Review of Systems 2 General: Reports: 10 or more systems reviewed and unremarkable except in HPI and below Medications/Allergies Home Medications Medication Instructions Recorded Confirmed Last Taken Type aspirin 81 mg tablet,delayed 81 mg PO DAILY 05/08/20 10/27/23 10/26/23 History release atorvastatin 10 mg tablet 10 mg PO QPM 05/08/20 10/27/23 10/26/23 History acetaminophen 325 mg tablet 650 mg (2 x 325 mg) PO Q4H PRN 05/14/20 10/27/23 Unknown Rx Mild/Mod Pain Or Temp >/= 101 #0 tabs loratadine 10 mg tablet 10 mg PO DAILY 09/21/22 10/27/23 10/26/23 History magnesium oxide 400 mg (241.3 mg 400 mg PO BID 11/25/22 10/27/23 10/26/23 History magnesium) tablet losartan 50 mg tablet 50 mg PO DAILY #90 tabs 12/08/22 10/27/23 10/26/23 Rx BACH balance brace to right #1 ea 03/22/23 10/27/23 Unknown Rx CPAP (Standard Cpap) 04/25/23 10/27/23 Unknown History Folate 800 mcg PO .COMPLEX 04/25/23 10/27/23 10/26/23 History pantoprazole 20 mg tablet,delayed 20 mg PO DAILY 04/25/23 10/27/23 10/26/23 History release apixaban 5 mg tablet (Eliquis) 5 mg PO BID #180 tabs 04/29/23 10/27/23 10/26/23 Rx potassium chloride 10 mEq 30 meq (3 x 10 mEq) PO DIRECTED 06/20/23 10/27/23 10/26/23 Rx tablet,extended release #270 tabs furosemide 40 mg tablet 40 mg PO DAILY #180 tabs 06/30/23 10/27/23 10/26/23 Rx amoxicillin 875 mg-potassium 1 tab PO BID 08/02/23 10/27/23 10/26/23 History clavulanate 125 mg tablet cranberry extract-vitamin C 250 1 cap PO DAILY 08/30/23 10/27/23 10/26/23 History mg-60 mg capsule (Azo Cranberry Plus Vit C) lactobacillus combo no.11 15 1 cap PO DAILY 08/30/23 10/27/23 10/26/23 History billion cell sprinkle capsule (Probiotic) fluticasone propionate 115 2 puff inhalation BID #12 grams 09/06/23 10/27/23 10/26/23 Rx mcg-salmeterol 21 mcg/actuation HFA inhaler (Advair HFA) diltiazem HCl 180 mg capsule,24 360 mg PO DAILY 10/27/23 10/27/23 10/26/23 History hr,extended release (Tiadylt ER) gabapentin 300 mg capsule 300 mg PO BID 10/27/23 10/27/23 10/26/23 History Allergies Allergy/AdvReac Type Severity Reaction Status Date / Time ragweed pollen Allergy Mild ALGY-Sneezi Verified 08/30/23 14:09 ng sulfamethoxazole Allergy Mild ADR-Itching Verified 09/27/23 14:25 [From Bactrim] trimethoprim [From Bactrim] Allergy Mild ADR-Itching Verified 09/27/23 14:25 Current Medications Generic Name Dose Route Start Last Admin Trade Name Freq PRN Reason Stop Dose Admin Diltiazem HCl 100 mg/ Sodium 100 mls @ 0 mls/hr 10/27/23 10:45 10/27/23 10:47 Chloride IV 5 mg/hr .Q0M AMRIT 5 mls/hr Administration Protocol Per Protocol Sodium Chloride 1,000 mls @ 100 mls/hr 10/27/23 14:21 10/27/23 14:57 Sodium Chloride 0.9% IV 100 mls/hr .Q10H AMRIT Administration PFSH Acute 2 PFSH: Medical History Hypertension History of atrial fibrillation History of pyelonephritis Nephrolithiasis Follicular lymphoma Rheumatoid arthritis Sarcoidosis Urgency incontinence Peripheral neuropathy History of endometrial cancer Tricuspid valve regurgitation Mitral valve regurgitation Obstructive sleep apnea GERD (gastroesophageal reflux disease) Surgical History History of foot surgery Hx of tonsillectomy History of neck surgery (12/04/18) Right superficial parotidectomy, right neck dissection, excision of right buccal mass Status post surgical removal of malignant neoplasm of skin History of multiple skin cancer excisions S/P extracorporeal shock wave therapy S/P panniculectomy History of tubal ligation History of bladder suspension procedure History of carpal tunnel release History of total abdominal hysterectomy and bilateral salpingo-oophorectomy Family History Mother , at age 66 Non Hodgkin's lymphoma Father Heart disease Diabetes Hyperlipidemia Sister Anesthesia complication Hyperlipidemia Brother Hyperlipidemia Other CAD (coronary artery disease) Cancer Hypertension Denies family history of Clotting disorder Dementia Psychiatric illness Chronic kidney disease (CKD) Suicide Bleeding disorder Lung disease Stroke Social History Smoking and tobacco/nicotine status: never used tobacco/nicotine Alcohol intake: never Substance/Drug Use: never Marital status: Current occupational status: retired Vitals/I&O/Wt Last Vital Signs Temp 97.6 F 10/27/23 14:44 Pulse 97 10/27/23 14:44 Resp 20 H 10/27/23 14:44 BP 105/57 10/27/23 14:44 Pulse Ox 98 10/27/23 14:44 O2 Del Method Room Air 10/27/23 14:44 10/27/23 10/27/23 10/27/23 06:59 14:59 22:59 Intake Total 1000 / 1000 Balance 1000 / 1000 Weight last 48 hrs Weight 290 lb Physical Exam 2 GI: OTHER: Abdomen is soft, non tender and non distended Data 10/27/23 14:50 10/27/23 10:03 A&P Assessment and plan (1) GI bleed: Plan 68 y/o F with UGI bleeding in the setting of anticoagulation due to afib. patient currentlly stable. will be resucitated and receive IV protonix overnight. we will plan for Upper endoscopy tomorrow morning. I have discussed all risk and benefits including the risk of perforation with patient and she agrees to proceed. NPO after midninght EGD tomorrow High dose PPI Trend Hgb resucitation and blood products as needed All other care per primary team. Coding Level of Care Code Acute Code for [facility] Fwd Diagnoses GI bleed K92.2
--- NOTE | 2023-10-27 16:50 | PC.NURSE ---
SCD's were not refused but the floor is currently out of SCDs.
[2023-10-27 17:00] LABS: Troponin 5 6HR 15.74 ng/L (0-10); Troponin 5 6HR Delta 1.74 ng/L (0-12)
[2023-10-27] MEDS: gabapentin 300 mg Capsule PO (17:52)
[2023-10-27] MEDS: atorvastatin 40 mg Tablet PO (17:53)
[2023-10-27] MEDS: acetaminophen 325 mg Tablet 650 MG PO ×2 (17:53→23:50)
[2023-10-27 22:45] LABS: Hematocrit 21.3 % (36-47)
[2023-10-27] MEDS: pantoprazole 40 mg SDV IVP (23:16)
[2023-10-28] VITALS (30 sets, daily range): BP systolic 95–142; BP diastolic 42–84; PULSE 88–105; RESP 10–22; TEMP 36.1–37.3; O2SAT 97–100
--- NOTE | 2023-10-28 00:31 | PC.NURSE ---
at 2300 Messaged regarding patients drop in H/H from8.4/25.8 to 7.0/21.3 asking for order to type and screen. Dr Olivia said she would review chart and get back to nurse. 00:30 Nurse messaged regarding patient positive occult blood results and increased frequency of stools. ordered type and screen and order to transfuse 2 units.
[2023-10-28 01:18] LABS: Lactic Sepsis W/Reflex 1.6 mmol/L (0.5-2.2)
--- NOTE | 2023-10-28 01:34 | PC.RESP ---
EKG @ 4331 NOT COMPLETED IN ER.
[2023-10-28] MEDS: sodium chloride 0.9% 100 mL Bag 50 ML IV (01:59)
[2023-10-28] MEDS: ipratropium-albuterol 3 mL Neb INHALATION (07:22)
[2023-10-28] MEDS: budesonide 0.5 mg/2 mL Neb INHALATION (07:22)
--- NOTE | 2023-10-28 07:55 | P.HPUD_ITS ---
Surgery/Procedure H&P Update DATE OF PROCEDURE: October 28, 2023 DATE H&P PERFORMED: 10/21/20 H&P UPDATE INFORMATION: I have reviewed H&P completed within last 30 days, I have examined patient prior to procedure, No changes to prior documentation and H&P is in [facility] [place] on date indicated PLANNED PROCEDURE: Operation Date: 10/28/23 11:15 Proposed Procedures p EGD(Not Applicable) - Kike Post MD
[2023-10-28] MEDS: gabapentin 300 mg Capsule PO ×2 (08:09→16:57)
[2023-10-28] MEDS: dilTIAZem ER (24HR) 180 mg Capsule 360 MG PO (08:09)
[2023-10-28 08:54] LABS: Basophils % 0.8 %; Eosinophils # 0.1 10^3/uL (0.0-0.8); Eosinophils % 1.9 %; Hematocrit 23.6 % (36-47); Lymphocytes # 1.4 10^3/uL (0.8-4.8); Lymphocytes % 27.3 %; Mean Corpuscular HGB Conc 32.2 g/dL (30-55); Mean Corpuscular Hemoglobin 29.5 pg (27-33); Mean Corpuscular Volume 91.5 fl (85-98); Mean Platelet Volume 10.1 fL (7.4-10.4); Monocytes # 0.7 10^3/uL (0.2-0.9); Monocytes % 13.1 %; Neutrophils # 2.94 10^3/uL (1.8-7.7); Neutrophils % 56.3 %; Nucleated Red Blood Cells % 0 %; Platelet Count 128 10^3/cmm (157-399); Red Blood Count 2.58 10^6/uL (3.85-5.65); Red Cell Distribution Width 15.3 % (12.1-15.1); White Blood Count 5.21 10^3/uL (3.29-11.43)
[2023-10-28 09:14] LABS: Alanine Aminotransferase 11 U/L (0-33); Albumin Level 2.9 g/dL (3.5-5.2); Alkaline Phosphatase 54 U/L (35-105); Anion Gap 10.9 (5-19); Aspartate Amino Transferase 14 U/L (0-32); Blood Urea Nitrogen 52 mg/dL (8-23); Carbon Dioxide 24 mmol/L (22-29); Chloride 113 mmol/L (98-107); Creatinine Clr Calc Pharmacy 92.6626; Globulin 1.5 g/dL (1.3-4.6); Glomerular Filtration Rate 98.8 mL/min (90-130); Glucose 141 mg/dL (65-115); Magnesium 1.8 mg/dL (1.7-2.3); Osmolality Calculated 314 mOsm/kg (285-295); Potassium 3.9 mmol/L (3.5-5.1); Sodium 144 mmol/L (136-145); Total Protein 4.4 g/dL (6.6-8.7)
[2023-10-28] MEDS: sodium chloride 0.9% 1,000 ML 30 ML IV (10:36)
--- NOTE | 2023-10-28 10:36 | P.ANESASSM_ITS ---
Pre-Anesthetic Assessment Height/Weight: Height 1.7 m Weight 131.859 kg Temp Pulse Resp BP Pulse Ox O2 Del Method O2 Flow Rate 97.8 F 94 17 131/67 98 Room Air 2 10/28/23 07:50 10/28/23 07:50 10/28/23 07:50 10/28/23 07:50 10/28/23 07:50 10/28/23 07:50 10/28/23 07:22 Operation Date: 10/28/23 11:15 Proposed Procedures p EGD(Not Applicable) - Kike Post MD Familial anesthetic complications: slow to wake up Was Beta Merle taken within 24 hours: N/A Was Clonidine taken within 24 hours: N/A Last intake: > 8 hrs Social No alcohol and No tobacco Exam alert, oriented x 3, clear to auscultation bilaterally and regular rate & rhythm Pulmonary Sleep Apnea CV/HEM Atrial Fibrillation, Congestive Heart Failure, Hypertension and Peripheral Vascular Disease MVR GI Gastroesophageal Reflux Disease Metabolic Diabetes Mellitus and Morbid Obesity [facility] [place] sarcoidosis Anesthetic Plan ASA status: 4 Anesthesia: MAC Risk of > 500 ml blood loss (7ml/kg in children): No Medications/Allergies Home Medications Medication Instructions Recorded Confirmed Last Taken Type aspirin 81 mg tablet,delayed 81 mg PO DAILY 05/08/20 10/27/23 10/26/23 History release atorvastatin 10 mg tablet 10 mg PO QPM 05/08/20 10/27/23 10/26/23 History acetaminophen 325 mg tablet 650 mg (2 x 325 mg) PO Q4H PRN 05/14/20 10/27/23 Unknown Rx Mild/Mod Pain Or Temp >/= 101 #0 tabs loratadine 10 mg tablet 10 mg PO DAILY 09/21/22 10/27/23 10/26/23 History magnesium oxide 400 mg (241.3 mg 400 mg PO BID 11/25/22 10/27/23 10/26/23 History magnesium) tablet losartan 50 mg tablet 50 mg PO DAILY #90 tabs 12/08/22 10/27/23 10/26/23 Rx BACH balance brace to right #1 ea 03/22/23 10/27/23 Unknown Rx CPAP (Standard Cpap) 04/25/23 10/27/23 Unknown History Folate 800 mcg PO .COMPLEX 04/25/23 10/27/23 10/26/23 History pantoprazole 20 mg tablet,delayed 20 mg PO DAILY 04/25/23 10/27/23 10/26/23 History release apixaban 5 mg tablet (Eliquis) 5 mg PO BID #180 tabs 04/29/23 10/27/23 10/26/23 Rx potassium chloride 10 mEq 30 meq (3 x 10 mEq) PO DIRECTED 06/20/23 10/27/23 10/26/23 Rx tablet,extended release #270 tabs furosemide 40 mg tablet 40 mg PO DAILY #180 tabs 06/30/23 10/27/23 10/26/23 Rx amoxicillin 875 mg-potassium 1 tab PO BID 08/02/23 10/27/23 10/26/23 History clavulanate 125 mg tablet cranberry extract-vitamin C 250 1 cap PO DAILY 08/30/23 10/27/23 10/26/23 History mg-60 mg capsule (Azo Cranberry Plus Vit C) lactobacillus combo no.11 15 1 cap PO DAILY 08/30/23 10/27/23 10/26/23 History billion cell sprinkle capsule (Probiotic) fluticasone propionate 115 2 puff inhalation BID #12 grams 09/06/23 10/27/23 10/26/23 Rx mcg-salmeterol 21 mcg/actuation HFA inhaler (Advair HFA) diltiazem HCl 180 mg capsule,24 360 mg PO DAILY 10/27/23 10/27/23 10/26/23 History hr,extended release (Tiadylt ER) gabapentin 300 mg capsule 300 mg PO BID 10/27/23 10/27/23 10/26/23 History Allergies Allergy/AdvReac Type Severity Reaction Status Date / Time ragweed pollen Allergy Mild ALGY-Sneezi Verified 08/30/23 14:09 ng sulfamethoxazole Allergy Mild ADR-Itching Verified 09/27/23 14:25 [From Bactrim] trimethoprim [From Bactrim] Allergy Mild ADR-Itching Verified 09/27/23 14:25 Current Medications Generic Name Dose Route Start Last Admin Trade Name Freq PRN Reason Stop Dose Admin Acetaminophen 650 mg 10/27/23 14:21 10/27/23 23:50 Acetaminophen 325 Mg Tablet PO 650 mg Q6H PRN Administration Mild/Mod Pain Or Temp >/= 101 Albuterol/Ipratropium 3 ml 10/27/23 14:21 10/28/23 07:22 Ipratropium-Albuterol 3 Ml Neb INHALATION 3 ml Q6H PRN Administration SHORTNESS OF BREATH Atorvastatin Calcium 40 mg 10/27/23 18:00 10/27/23 17:53 Atorvastatin 40 Mg Tablet PO 40 mg QPM AMRIT Administration Budesonide 0.5 mg 10/27/23 20:00 10/28/23 07:22 Budesonide 0.5 Mg/2 Ml Neb INHALATION 0.5 mg BID.RESPIRATORY AMRIT Administration Diltiazem HCl 360 mg 10/28/23 09:00 10/28/23 08:09 Diltiazem Er (24hr) 180 Mg Capsule PO 360 mg DAILY AMRIT Administration Gabapentin 300 mg 10/27/23 18:00 10/28/23 08:09 Gabapentin 300 Mg Capsule PO 300 mg BID AMRIT Administration Diltiazem HCl 100 mg/ Sodium 100 mls @ 0 mls/hr 10/27/23 10:45 10/28/23 07:08 Chloride IV Infused .Q0M AMRIT Titration Protocol Per Protocol Sodium Chloride 1,000 mls @ 100 mls/hr 10/27/23 14:21 10/28/23 07:07 Sodium Chloride 0.9% IV 100 mls/hr .Q10H AMRIT Infusion Pantoprazole Sodium 40 mg 10/27/23 23:00 10/27/23 23:16 Pantoprazole 40 Mg Sdv IVP 40 mg Q12H AMRIT Administration Sodium Chloride 50 ml 10/28/23 00:30 10/28/23 01:59 Sodium Chloride 0.9% 100 Ml Bag IV 10/29/23 00:30 50 ml PRN PRN Administration Blood transfusion prime and flush PFSH Anesthesia Medical History Hypertension History of atrial fibrillation History of pyelonephritis Nephrolithiasis Follicular lymphoma Rheumatoid arthritis Sarcoidosis Urgency incontinence Peripheral neuropathy History of endometrial cancer Tricuspid valve regurgitation Mitral valve regurgitation Obstructive sleep apnea GERD (gastroesophageal reflux disease) Surgical History History of foot surgery Hx of tonsillectomy History of neck surgery (12/04/18) Right superficial parotidectomy, right neck dissection, excision of right buccal mass Status post surgical removal of malignant neoplasm of skin History of multiple skin cancer excisions S/P extracorporeal shock wave therapy S/P panniculectomy History of tubal ligation History of bladder suspension procedure History of carpal tunnel release History of total abdominal hysterectomy and bilateral salpingo-oophorectomy Family History Mother , at age 66 Non Hodgkin's lymphoma Father Heart disease Diabetes Hyperlipidemia Sister Anesthesia complication Hyperlipidemia Brother Hyperlipidemia Other CAD (coronary artery disease) Cancer Hypertension Denies family history of Clotting disorder Dementia Psychiatric illness Chronic kidney disease (CKD) Suicide Bleeding disorder Lung disease Stroke Social History Smoking and tobacco/nicotine status: never used tobacco/nicotine Alcohol intake: never Substance/Drug Use: never Marital status: Current occupational status: retired Data Anesthesia 10/28/23 08:07 10/28/23 08:07 Short CBC 10/27/23 10/27/23 10/27/23 Range/Units 10:03 14:50 22:19 WBC 5.54 (3.29-11.43) 10^3/uL Hgb 9.80 L 8.40 L 7.00 L (11.27-16.99) g/dL Hct 30.7 L 25.8 L 21.3 L (36-47) % MCV 92.7 (85-98) fl Plt Count 133 L (157-399) 10^3/cmm Neut % (Auto) 61.6 % Neut # (Auto) 3.41 (1.8-7.7) 10^3/uL 10/28/23 Range/Units 08:07 WBC 5.21 (3.29-11.43) 10^3/uL Hgb 7.60 L (11.27-16.99) g/dL Hct 23.6 L (36-47) % MCV 91.5 (85-98) fl Plt Count 128 L (157-399) 10^3/cmm Neut % (Auto) 56.3 % Neut # (Auto) 2.94 (1.8-7.7) 10^3/uL BMP 10/27/23 10/28/23 10:03 08:07 Sodium 142 144 Potassium 4.6 3.9 Chloride 106 113 H Carbon Dioxide 22 24 BUN 47 H 52 H Creatinine 0.7 0.6 Glucose 161 H 141 H Calcium 9.7 8.0 L Cardiac Enzymes 10/27/23 10/27/23 10/27/23 Range/Units 10:03 12:22 16:13 Troponin T Baseline 14 H (0-10) ng/L Troponin T 120 Minute 13.17 H (0-10) ng/L Delta Troponin T -0.83 L (0-10) ABS# Troponin T Hi Sens 6Hr 15.74 H (0-10) ng/L Troponin T Hi Sens 6Hr Delta 1.74 (0-12) ng/L Liver Function 10/27/23 10/28/23 Range/Units 10:03 08:07 Total Bilirubin 1.2 2.0 H (0.15-1.2) mg/dL AST 16 14 (0-32) U/L ALT 11 11 (0-33) U/L Alkaline Phosphatase 75 54 (35-105) U/L Albumin 3.5 2.9 L (3.5-5.2) g/dL Urine 10/27/23 Range/Units 11:57 Urine Color Yellow (Yellow) Urine Appearance Slightly cloudy (CLEAR) Urine pH 5 (5-7) Ur Specific [place] 1.015 (1.005-1.030) Urine Protein Trace (Negative) Urine Glucose (UA) Norm (Normal) Urine Ketones Negative (Negative) Urine Nitrate Negative (Negative) Urine Bilirubin 1+ H (Negative) Ur Leukocyte Esterase 2+ H (Negative) Urine RBC 5-10 H (0-2) /hpf Urine WBC 15-25 H (0-5) /hpf Blood Bank 10/27/23 22:19 Blood Type A Positive Rho(D) Type Rh positive Antibody Screen Negative Coags 10/27/23 10:03 PT 14.20 INR 1.06 Microbiology 10/27/23 11:57 Urine Culture - Preliminary Urine,Clean Catch Gram Negative Rods 10/27/23 21:25 Occult Blood (FIT) - Final Stool - Stool Aspirate Cardiac Studies: 2 Echocardiogram 04/28/22 Echocardiogram Ultrasound 05/11/20
--- NOTE | 2023-10-28 11:19 | PM.MISC ---
Miscellaneous Note Purpose of Documentation: Update on patient care Note: Upper endoscopy was done this morning, there was no evidence of active bleeding in the stomach and in the duodenum To the third portion of the duodenum. There was significant active gastritis of the antrum and prepyloric area of the stomach, no biopsies were taken at this time as patient is high risk for bleeding. My recommendation will be to continue conservative management with high-dose PPI and fluid resuscitation. If that continues downtrend is noted in the hemoglobin patient will need to be transferred to higher level of care for double-balloon enteroscopy versus an embolization as the bleeding may be distal to the area of evaluation, this taking consideration the CT scan of the abdomen pelvis done upon admission showed evidence of a possible area of hyperdense material in the jejunum that may be the cause of bleeding. All other management per primary team.
--- NOTE | 2023-10-28 11:25 | ANE.PACU2 ---
Inpatient post-anesthesia follow up: Airway intact: Yes Vital signs: Temperature 98.7 F Pulse Rate 90 Respiratory Rate 20 Blood Pressure 133/60 Pulse Oximetry 98 Oxygen Delivery Me thod Room Air Oxygen Flow Rate 2 Fraction of Inspir ed Oxygen Hydration adequate: Yes Nausea and vomiting: No Pain level: 1 Mental status: Baseline
--- NOTE | 2023-10-28 11:46 | PC.NURSE ---
Patient received from GI lab. Patient able to ambulate from stretcher to bed with minimum contact assist. Dr Christensen in to see patient. Ok for patient to have clear liquid diet. Water provided.
[2023-10-28 13:15] LABS: Basophils # 0.1 10^3/uL (0.0-0.1); Basophils % 0.8 %; Eosinophils # 0.1 10^3/uL (0.0-0.8); Eosinophils % 1.7 %; Hematocrit 21.8 % (36-47); Lymphocytes # 1.6 10^3/uL (0.8-4.8); Lymphocytes % 26.6 %; Mean Corpuscular HGB Conc 32.1 g/dL (30-55); Mean Corpuscular Hemoglobin 29.4 pg (27-33); Mean Corpuscular Volume 91.6 fl (85-98); Mean Platelet Volume 10.2 fL (7.4-10.4); Monocytes # 0.7 10^3/uL (0.2-0.9); Monocytes % 11.8 %; Neutrophils % 58.3 %; Nucleated Red Blood Cells % 0 %; Platelet Count 140 10^3/cmm (157-399); Red Blood Count 2.38 10^6/uL (3.85-5.65); Red Cell Distribution Width 15.9 % (12.1-15.1); White Blood Count 6.01 10^3/uL (3.29-11.43)
[2023-10-28] MEDS: sodium chloride 0.9% 1,000 ML 100 ML IV (15:23)
--- NOTE | 2023-10-28 15:34 | PM.DCS ---
Discharge Providers Date of Admission: 10/27/23 13:32 Date of Discharge: October 28, 2023 Attending Provider at Admission: Mao Triplett MD Attending Provider at Discharge: Brandi Zayas MD Consults: General surgery Primary Care Provider: Vinh Raya MD Diagnoses at Discharge Discharge Diagnosis (1) GI bleed: Status: Acute Reason for Visit Reason for Visit: Blood in stool Brief History: Patient presented with melena, fatigue, and tachycardia. Please see H&P for full details of HPI. Hospital Course Hospital Course She was in rapid A-fib when she arrived to the ED. She is currently rate controlled and is in normal sinus rhythm. Her aspirin and apixaban have been held. She is on oral diltiazem. Her other antihypertensives also on hold. Her baseline hemoglobin is between 11-12. Her initial hemoglobin was 9.8 g/dL and trended down to 7.0 g/dL. She was given 2 units of PRBCs. She had an EGD today by general surgery which showed significant active gastritis in the antrum and prepyloric area of the stomach but no evidence of active bleeding in the stomach and duodenum. CT abdomen pelvis done on 10/26 showed evidence of possible area of hyperdense material in the jejunum which is suspected to be the source of bleeding. She continues to have active bleeding mostly melena with occasional clots. Her hemoglobin had improved to 7.6 g/dL after blood transfusion but is back down to 7.0 g/dL. 2 additional units of PRBCs have been ordered. General surgery recommended transfer to tertiary center for further treatment. She may need an enteroscopy to evaluate the jejunum and/or arterial embolization by IR. Her blood pressure has been stable. She has been accepted for transfer to [facility]. Discharge Data Studies Completed and Pending Completed Studies During Hospitalization Category Date Time Status CT abdomen pelvis w con* [id number] Routine Cat Scan 10/27/23 13:54 Completed XR chest 1V portable [id number] Stat Exams 10/27/23 09:56 Completed Pending at discharge Category Date Time Status Basic Metabolic Panel AM LABS Lab 10/29/23 04:00 Ordered CBC Auto Diff [Complete Blood Count w/Auto] AM LABS Lab 10/29/23 04:00 Ordered HH [Hemoglobin and Hematocrit] Routine Lab 10/28/23 18:00 Ordered Leukocyte Reduced RBC Stat Lab 10/28/23 00:30 Results Type and Screen Stat Lab 10/28/23 00:30 Results Urine Culture Stat Lab 10/27/23 11:57 Results Radiology Impressions Chest X-Ray 10/27/23 09:56 Impression: Atherosclerosis. Abdomen/Pelvis CT 10/27/23 13:54 IMPRESSION: 1. Cholelithiasis. No evidence for acute cholecystitis. 2. There is a single small bowel loop in the mid LEFT abdomen which contains increased density, image 46 of series 3. There is increased density may be active arterial extravasation. This does appear to be a diverticulum therefore this may also be related to retained products of digestion. 3. Moderate distal colonic diverticulosis without acute diverticulitis. 4. No free fluid or or adenopathy. Laboratory Results WBC 6.01 10^3/uL (3.29-11.43) 10/28/23 12:49 RBC 2.38 10^6/uL (3.85-5.65) L 10/28/23 12:49 Hgb 7.00 g/dL (11.27-16.99) L 10/28/23 12:49 Hct 21.8 % (36-47) L 10/28/23 12:49 MCV 91.6 fl (85-98) 10/28/23 12:49 MCH 29.4 pg (27-33) 10/28/23 12:49 MCHC 32.1 g/dL (30-55) 10/28/23 12:49 RDW 15.9 % (12.1-15.1) H 10/28/23 12:49 Plt Count 140 10^3/cmm (157-399) L 10/28/23 12:49 MPV 10.2 fL (7.4-10.4) 10/28/23 12:49 Neut % (Auto) 58.3 % 10/28/23 12:49 Lymph % (Auto) 26.6 % 10/28/23 12:49 [place] % (Auto) 11.8 % 10/28/23 12:49 Eos % (Auto) 1.7 % 10/28/23 12:49 Baso % (Auto) 0.8 % 10/28/23 12:49 Neut # (Auto) 3.50 10^3/uL (1.8-7.7) 10/28/23 12:49 Lymph # (Auto) 1.6 10^3/uL (0.8-4.8) 10/28/23 12:49 [place] # (Auto) 0.7 10^3/uL (0.2-0.9) 10/28/23 12:49 Eos # (Auto) 0.1 10^3/uL (0.0-0.8) 10/28/23 12:49 Baso # (Auto) 0.1 10^3/uL (0.0-0.1) 10/28/23 12:49 Nucleated RBC % (auto) 0 % 10/28/23 12:49 Nucleated RBCs # 0.0 /100WBC 10/28/23 12:49 PT 14.20 SECONDS (12.1-14.9) 10/27/23 10:03 INR 1.06 (0.8-1.2) 10/27/23 10:03 Sodium 144 mmol/L (136-145) 10/28/23 08:07 Potassium 3.9 mmol/L (3.5-5.1) 10/28/23 08:07 Chloride 113 mmol/L (98-107) H 10/28/23 08:07 Carbon Dioxide 24 mmol/L (22-29) 10/28/23 08:07 Anion Gap 10.9 (5-19) 10/28/23 08:07 BUN 52 mg/dL (8-23) H 10/28/23 08:07 Creatinine 0.6 mg/dL (0.5-0.9) 10/28/23 08:07 GFR Calculation 98.8 mL/min (90-130) 10/28/23 08:07 Glucose 141 mg/dL (65-115) H 10/28/23 08:07 Calculated Osmolality 314 mOsm/kg (285-295) H 10/28/23 08:07 Lactic Acid 1.6 mmol/L (0.5-2.2) 10/28/23 00:38 Calcium 8.0 mg/dL (8.5-10.5) L 10/28/23 08:07 Magnesium 1.8 mg/dL (1.7-2.3) 10/28/23 08:07 Total Bilirubin 2.0 mg/dL (0.15-1.2) H 10/28/23 08:07 AST 14 U/L (0-32) 10/28/23 08:07 ALT 11 U/L (0-33) 10/28/23 08:07 Alkaline Phosphatase 54 U/L (35-105) 10/28/23 08:07 Troponin T Baseline 14 ng/L (0-10) H 10/27/23 10:03 Troponin T 120 Minute 13.17 ng/L (0-10) H 10/27/23 12:22 Delta Troponin T -0.83 ABS# (0-10) L 10/27/23 12:22 Troponin T Hi Sens 6Hr 15.74 ng/L (0-10) H 10/27/23 16:13 Troponin T Hi Sens 6Hr Delta 1.74 ng/L (0-12) 10/27/23 16:13 Total Protein 4.4 g/dL (6.6-8.7) L 10/28/23 08:07 Albumin 2.9 g/dL (3.5-5.2) L 10/28/23 08:07 Globulin 1.5 g/dL (1.3-4.6) 10/28/23 08:07 Urine Color Yellow (Yellow) 10/27/23 11:57 Urine Appearance Slightly cloudy (CLEAR) 10/27/23 11:57 Urine pH 5 (5-7) 10/27/23 11:57 Ur Specific [place] 1.015 (1.005-1.030) 10/27/23 11:57 Urine Protein Trace (Negative) 10/27/23 11:57 Urine Glucose (UA) Norm (Normal) 10/27/23 11:57 Urine Ketones Negative (Negative) 10/27/23 11:57 Urine Blood 3+ (Negative) H 10/27/23 11:57 Urine Nitrate Negative (Negative) 10/27/23 11:57 Urine Bilirubin 1+ (Negative) H 10/27/23 11:57 Urine Urobilinogen Norm mg/dL (Negative) 10/27/23 11:57 Ur Leukocyte Esterase 2+ (Negative) H 10/27/23 11:57 Urine RBC 5-10 /hpf (0-2) H 10/27/23 11:57 Urine WBC 15-25 /hpf (0-5) H 10/27/23 11:57 Ur Squamous Epith Cells 10-15 /hpf (0-5) H 10/27/23 11:57 Calcium Oxalate Crystal 0-4 /hpf H 10/27/23 11:57 Amorphous Sediment Not Reportable 10/27/23 11:57 Urine Bacteria 1+ /hpf (NONE) H 10/27/23 11:57 Hyaline Casts 0-4 /lpf H 10/27/23 11:57 Urine Mucus Trace /hpf 10/27/23 11:57 Urine Yeast 1+ /hpf H 10/27/23 11:57 Blood Type A Positive 10/27/23 22:19 Rho(D) Type Rh positive 10/27/23 22:19 Antibody Screen Negative 10/27/23 22:19 Crossmatch See Detail 10/27/23 22:19 Vitals Last Vital Signs Temp 98.4 F 10/28/23 15:26 Pulse 91 10/28/23 15:26 Resp 22 H 10/28/23 15:26 BP 132/68 10/28/23 15:26 Pulse Ox 97 10/28/23 15:26 O2 Del Method Room Air 10/28/23 12:00 O2 Flow Rate 2 10/28/23 07:22 Discharge Plan Discharge Patient Disposition: Xfer Short-Term Hosp Condition: Stable Prescriptions: Continued magnesium oxide 400 mg (241.3 mg magnesium) tablet 400 mg PO BID loratadine 10 mg tablet 10 mg PO DAILY Folate tablet 800 mcg PO .COMPLEX Rx Instructions: 800 mcg total orally 2 tablets daily; (DME) BACH balance brace to right See Rx Instructions .Route .MEDSUPPLY Qty: 1 0RF Rx Instructions: As directed by [facility] pantoprazole 20 mg tablet,delayed release (DR/EC) 20 mg PO DAILY (DME) Standard Cpap Device See Rx Instructions .Route Rx Instructions: As directed amoxicillin-pot clavulanate 875-125 mg tablet 1 tab PO BID cranberry extract-vitamin C [Azo Cranberry Plus Vit C] 250-60 mg capsule 1 cap PO DAILY Probiotic 15 billion cell capsule, sprinkle 1 cap PO DAILY Rx Instructions: do not crush/chew/cut; swallow whole OR may open and sprinkle in cold drink/food potassium chloride 10 mEq tablet extended release 30 meq PO DIRECTED Qty: 270 1RF Rx Instructions: 20mEq (2 tabs) in AM and 10mEq (1 tab) in PM fluticasone propion-salmeterol [Advair HFA] 115-21 mcg/actuation HFA aerosol inhaler 2 puff inhalation BID Qty: 12 6RF atorvastatin 10 mg tablet 10 mg PO QPM acetaminophen 325 mg Tablet 650 mg PO Q4H PRN (Reason: Mild/Mod Pain Or Temp >/= 101) Qty: 0 0RF Hold Instructions: Resume on 11/04/20. Do not take additional acetaminophen with the pain medication prescribed today. Tiadylt ER 180 mg capsule,extended release 24 hr 360 mg PO DAILY gabapentin 300 mg capsule 300 mg PO BID Held furosemide 40 mg tablet 40 mg PO DAILY Qty: 180 1RF losartan 50 mg tablet 50 mg PO DAILY Qty: 90 1RF aspirin 81 mg Tablet,Delayed Release (Dr/Ec) 81 mg PO DAILY Hold Instructions: Resume on 07/09/20. Discontinued Eliquis 5 mg tablet 5 mg PO BID Qty: 180 3RF Hold Instructions: Resume on 07/09/20. Discharge Orders: Discharge Order (Routine); Ordered 10/28/23 Ordered By: Brandi Zayas Referrals: Vinh Raya MD [Primary Care Provider] - 1 week Patient Instructions: GI Discharge Instructions Activity Restrictions/Additional Instructions: Keep NPO for transfer to [facility]. Discharge Attestations Time Spent in Discharge Care*: greater than 30 min Specific Discharge Activities: educating and/or supporting family/caregiver, documenting/other paperwork and evaluating patient/reviewing data Quality Metrics Clinical Quality Measures [ No reported AMI, CVA or VTE this stay] Coding Level of Care Code 25549 Diagnoses GI bleed K92.2
[2023-10-28] MEDS: atorvastatin 40 mg Tablet PO (16:57)
[2023-10-28] MEDS: cefTRIAXone 1,000 MG in sodium chloride 0.9% (plus) 50 ML 100 MG IV (16:58)
--- NOTE | 2023-10-28 17:58 | PM.MISC ---
Miscellaneous Note Purpose of Documentation: Update on patient care Note: Patient evaluated this afternoon, no significant abdominal pain or other symptoms. But she endorses still having melanotic stools. Currently receiving blood unit of PRBC. With this findings I think I agree with the decision of primary team of transferring patient to higher level of care for possible evaluation for angioembolization. In the interim we will continue resuscitation with blood products and we will continue to monitor vital signs and a telemetry unit. No other intervention is planned from our standpoint before transfer
[2023-10-28 18:22] LABS: Hematocrit 22.6 % (36-47)
== END 2023-10-28 19:50 | disposition short-term general hospital (02) | DRG 378 ==
LOC: ER 09:59 → CSU 13:33
PROVIDERS: Internal Medicine; Surgery; Admitting Provider Internal Medicine; Emergency Provider Family Medicine; PCP Family Medicine; Visit Provider Student in an Organized Health Care Education/Training Program
PROC: 0DJ08ZZ Inspection of Upper Intestinal Tract, Via Natural or Artificial Opening Endoscopic (ICD-10-PCS; CPT 43235; principal; 2023-10-28 11:15)
DX: K92.2 Gastrointestinal hemorrhage, unspecified (principal); D62 Acute posthemorrhagic anemia; I48.20 Chronic atrial fibrillation, unspecified; K29.70 Gastritis, unspecified, without bleeding; Z79.01 Long term (current) use of anticoagulants; Z79.82 Long term (current) use of aspirin; D69.6 Thrombocytopenia, unspecified; I10 Essential (primary) hypertension; K21.9 Gastro-esophageal reflux disease without esophagitis; G62.9 Polyneuropathy, unspecified
CPT/HCPCS: 36415; 36430; 36591; 43235; 71045; 74177; 80053; 81001; 82274; 83605; 83735; 84484; 85014; 85018; 85025; 85610; 86850; 86900; 86920; 87077; 87086; 87186; 93005; 94640; 96374; 96376; 96523; 97597; 99285; 99291; 99292; C9113; J0696; J2704; J3490; J7030; J7626; P9016; P9040; Q9967

== ENCOUNTER → 2023-11-02 14:52 | Outpatient (BNVA) | payer MEDICARE, OTHER, SELFPAY | PROVIDERS: PCP Family Medicine; Visit Provider Thoracic Surgery (Cardiothoracic Vascular Surgery) | DX: E11.52 Type 2 diabetes mellitus with diabetic peripheral angiopathy with gangrene (principal); E11.621 Type 2 diabetes mellitus with foot ulcer; L97.511 Non-pressure chronic ulcer of other part of right foot limited to breakdown of skin | CPT/HCPCS: 97597; A6021 ==

== ENCOUNTER 2023-11-07 12:38 | Oncology outpatient (recurring) (ONCR) | payer MEDICARE, OTHER, SELFPAY ==
[2023-11-07] MEDS: iohexol 350 mg/mL 500 mL Btl (per mL) PO (13:22)
--- NOTE | 2023-11-07 13:30 | CTR_ITS ---
PROCEDURE INFORMATION: Exam: CT Chest With Contrast; Diagnostic Exam date and time: 11/07/2023 2:27 PM Age: 68 years old Clinical indication: Condition or disease; Other: Lymphoma; Prior surgery; Surgery date: 6+ months; Surgery type: Port; Additional info: Surveillance, please complete before her oncology follow-up on 11/22/23 TECHNIQUE: Imaging protocol: Diagnostic computed tomography of the chest with contrast. Radiation optimization: All CT scans at this facility use at least one of these dose optimization techniques: automated exposure control; mA and/or kV adjustment per patient size (includes targeted exams where dose is matched to clinical indication); or iterative reconstruction. Contrast material: OMNI 350; Contrast volume: 100 ml; Contrast route: INTRAVENOUS (IV); COMPARISON: CT chest abdpel w/*[id number] 04/05/2022 4:43 PM RADIATION DOSE METRICS: Total DLP (mGy-cm): 1595.81 FINDINGS: Thyroid: Subcentimeter nodules and calcifications. Consider correlation with thyroid function tests and follow-up outpatient thyroid ultrasound. Lungs: No focal consolidation. Pleural spaces: No pleural effusion. No pneumothorax. Heart: No cardiomegaly. No pericardial effusion. Mediastinal space: Trachea and central airways are grossly patent. MediPort in place with tip terminating in the mid SVC. Lymph nodes: There are borderline enlarged mediastinal and hilar nodes measuring up to 11 mm in the right paratracheal region and 8 mm short axis in the left hilar region, similar to prior PET-CT from 01/01/2023. Vasculature: No aneurysmal dilatation of the thoracic aorta. No evidence of dissection. Though this study is not tailored to evaluate for pulmonary thromboembolism, there is no evidence of PE within limitations of respiratory motion. Bones/joints: No evidence of acute fracture or aggressive osseous lesion. Soft tissues: No fluid collection or hematoma in the superficial soft tissues. PROCEDURE INFORMATION: Exam: CT Abdomen And Pelvis With Contrast Exam date and time: 11/07/2023 2:27 PM Age: 68 years old Clinical indication: Condition or disease; Other: Lymphoma; Prior surgery; Surgery date: 6+ months; Surgery type: Port; Additional info: Surveillance, please complete before her oncology follow-up on 11/22/23 TECHNIQUE: Imaging protocol: Computed tomography of the abdomen and pelvis with contrast. Radiation optimization: All CT scans at this facility use at least one of these dose optimization techniques: automated exposure control; mA and/or kV adjustment per patient size (includes targeted exams where dose is matched to clinical indication); or iterative reconstruction. Contrast material: OMNI 350; Contrast volume: 100 ml; Contrast route: INTRAVENOUS (IV); COMPARISON: CT abdomen pelvis w con* [id number] 10/27/2023 2:08 PM RADIATION DOSE METRICS: Total DLP (mGy-cm): 1595.81 FINDINGS: Liver: Hepatic steatosis. No evidence of focal hepatic lesion. Gallbladder and bile ducts: There is cholelithiasis. No inflammatory changes to suggest acute cholecystitis. No intrahepatic or extrahepatic biliary dilatation. Pancreas: Unremarkable. Spleen: There is a new 4 cm wedge-shaped region of hypoenhancement in the posterior aspect of the spleen suggestive of splenic infarct. Adrenal glands: Unremarkable. Kidneys and ureters: Bilateral renal parenchymal scarring, left worse than right. Nonobstructive renal stones bilaterally measuring up to 9 mm on the left. Stomach and bowel: Colonic diverticulosis without evidence of acute diverticulitis. No bowel obstruction or perienteric inflammatory changes. Appendix: The appendix is not visualized, however there are no findings to suggest appendicitis. Intraperitoneal space: No evidence of free air or fluid collection. Vasculature: Mild aortobiiliac atherosclerosis without aneurysmal dilatation or dissection. There are dense vascular calcifications of the splenic artery. The celiac trunk, SMA and PAVITHRA are grossly patent. No evidence of IVC thrombus. The portal vein, SMV and splenic veins are grossly patent. Lymph nodes: No adenopathy. Urinary bladder: Grossly unremarkable. Reproductive: Prior hysterectomy. Bones/joints: No evidence of acute fracture or aggressive osseous lesion. Moderate-severe multilevel spondylosis of the lumbar spine with facet arthrosis, osteophytosis and endplate degeneration. There is multilevel central and foraminal stenosis. Severe bilateral foraminal stenosis at L5-S1 with possible impingement of the exiting L5 nerve roots. Soft tissues: No evidence of fluid collection or hematoma in the superficial soft tissues. CT/CT chest abdpel w/*[id number] IMPRESSION: 1. Borderline enlarged mediastinal and hilar nodes, similar to prior PET-CT from December 2022. 2. Right-sided MediPort in place. IMPRESSION: 1. New wedge-shaped region of splenic hypoenhancement suggestive of splenic infarct. Consider correlation with MRI of the abdomen with/without contrast to exclude an underlying lesion.
[2023-11-07 14:13] LABS: Blood Urea Nitrogen 15 mg/dL (8-23); Glomerular Filtration Rate 82.7 mL/min (90-130)
[2023-11-07] MEDS: iohexol 350 mg/mL 500 mL Btl (per mL) IV (14:46)
== END 2023-12-04 23:59 | disposition home or self-care (01) ==
LOC: ONCMED 12:39 → RAD 12:56 → ONCMED 12:56
PROVIDERS: PCP Family Medicine; Visit Provider Internal Medicine Medical Oncology
DX: C82.30 Follicular lymphoma grade IIIa, unspecified site; D86.89 Sarcoidosis of other sites; R91.8 Other nonspecific abnormal finding of lung field
CPT/HCPCS: 71260; 74177; 82565; 84520; 96523; Q9967

== ENCOUNTER → 2023-11-08 10:55 | Outpatient (BNVA) | payer MEDICARE, OTHER, SELFPAY | PROVIDERS: PCP Family Medicine; Visit Provider Podiatrist Foot & Ankle Surgery | DX: I73.9 Peripheral vascular disease, unspecified; L60.8 Other nail disorders; L84 Corns and callosities; M20.41 Other hammer toe(s) (acquired), right foot; M20.42 Other hammer toe(s) (acquired), left foot; L60.3 Nail dystrophy; Z79.01 Long term (current) use of anticoagulants; M25.371 Other instability, right ankle; R26.81 Unsteadiness on feet; Z91.81 History of falling; E11.42 Type 2 diabetes mellitus with diabetic polyneuropathy; M21.41 Flat foot [pes planus] (acquired), right foot; M21.42 Flat foot [pes planus] (acquired), left foot | CPT/HCPCS: 11056; 11721; 99213 ==

== ENCOUNTER → 2023-11-09 14:27 | Outpatient (BNVA) | payer MEDICARE, OTHER, SELFPAY | PROVIDERS: PCP Family Medicine; Visit Provider Thoracic Surgery (Cardiothoracic Vascular Surgery) | DX: Z09 Encounter for follow-up examination after completed treatment for conditions other than malignant neoplasm (principal); Z87.2 Personal history of diseases of the skin and subcutaneous tissue | CPT/HCPCS: 99212 ==

== ENCOUNTER → 2023-11-23 14:00 | Outpatient (BNVA) | payer MEDICARE, OTHER, SELFPAY | PROVIDERS: PCP Family Medicine; Visit Provider Thoracic Surgery (Cardiothoracic Vascular Surgery) | DX: Z09 Encounter for follow-up examination after completed treatment for conditions other than malignant neoplasm (principal); Z87.2 Personal history of diseases of the skin and subcutaneous tissue | CPT/HCPCS: 99212 ==

== ENCOUNTER 2023-12-05 11:38 | Outpatient (CLI) | payer MEDICARE, OTHER, SELFPAY ==
--- NOTE | 2023-12-05 11:45 | MR_ITS ---
WS: [id number] MRI ABDOMEN WITH AND WITHOUT CONTRAST. COMPARISON: Prior CT 11/07/2023 and 10/27/2023, PET/CT 01/01/2023 Multiplanar, multisequence imaging is performed with and without contrast. MultiHance 20 mL. Spleen is normal size with a few granulomata. There is an area of decreased signal intensity and decr eased enhancement involving the posterior spleen which corresponds to the recent CT finding. There is a significant amount of artifact and signal abnormality within the abdomen due to patient's body hab itus. Area of signal abnormality is best seen on the postcontrast imaging measuring 2.4 x 3.6 cm. The re is no significant enhancement this is probably an area of a prior infarct. The signal abnormality was not noted on the CT of 10/27/2023 but been noted on 11/07/2023. There is no ascites. Mild fatty liver. Gallbladder is abnormal. There is there is an area of abnormal signal in the RIGHT anterior abdomen just below the gallbladder which may be an artifact from adjace nt clip in the colon related to surgery. The visualized GI tract as we see is normal. There is no korin nopathy or ascites. Gallbladder wall thickening with calcification no adjacent inflammatory changes. MR/MR abdomen wo/w con* [id number] IMPRESSION: 1. Focal area of nonenhancement in the posterior spleen measures 2.4 x 3.6 cm. 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 2. No adenopathy or ascites. 3. Abnormal gallbladder. Gallbladder wall thickening with a large stone as bee n previously described. No acute cholecystitis at this time.
[2023-12-05] MEDS: gadobenate dimeglumine 20 mL vial IV (12:27)
== END 2023-12-05 11:39 | disposition home or self-care (01) ==
LOC: RAD 11:39
PROVIDERS: PCP Family Medicine; Visit Provider Internal Medicine Medical Oncology
DX: C82.19 Follicular lymphoma grade II, extranodal and solid organ sites (principal); R93.89 Abnormal findings on diagnostic imaging of other specified body structures; K82.8 Other specified diseases of gallbladder
CPT/HCPCS: 74183; A9577

== ENCOUNTER 2023-12-06 15:27 | Outpatient (RCR) | payer SELFPAY | END 2024-01-04 23:59 | disposition home or self-care (01) | LOC: CR 15:27 | PROVIDERS: PCP Family Medicine; Referring Provider Family Medicine; Visit Provider Family Medicine | DX: I50.9 Heart failure, unspecified (principal) ==

== ENCOUNTER 2023-12-07 13:24 | Oncology outpatient (recurring) (ONCR) | payer MEDICARE, OTHER, SELFPAY ==
[2023-12-07 14:05] LABS: Basophils % 0.8 %; Eosinophils # 0.1 10^3/uL (0.0-0.8); Eosinophils % 1.8 %; Hematocrit 30.9 % (36-47); Lymphocytes # 1.2 10^3/uL (0.8-4.8); Lymphocytes % 23.9 %; Mean Corpuscular HGB Conc 31.4 g/dL (30-55); Mean Corpuscular Hemoglobin 27.6 pg (27-33); Mean Corpuscular Volume 87.8 fl (85-98); Mean Platelet Volume 10.1 fL (7.4-10.4); Monocytes # 0.8 10^3/uL (0.2-0.9); Monocytes % 15.5 %; Neutrophils # 2.91 10^3/uL (1.8-7.7); Neutrophils % 57.8 %; Nucleated Red Blood Cells % 0 %; Platelet Count 182 10^3/cmm (157-399); Red Blood Count 3.52 10^6/uL (3.85-5.65); Red Cell Distribution Width 15.5 % (12.1-15.1); White Blood Count 5.03 10^3/uL (3.29-11.43)
[2023-12-07 15:26] LABS: Alanine Aminotransferase 10 U/L (0-33); Albumin Level 3.7 g/dL (3.5-5.2); Alkaline Phosphatase 96 U/L (35-105); Anion Gap 15.9 (5-19); Aspartate Amino Transferase 16 U/L (0-32); Blood Urea Nitrogen 25 mg/dL (8-23); Calcium 9.5 mg/dL (8.5-10.5); Carbon Dioxide 25 mmol/L (22-29); Chloride 103 mmol/L (98-107); Creatinine Clr Calc Pharmacy 90.5437; Globulin 2.3 g/dL (1.3-4.6); Glomerular Filtration Rate 82.7 mL/min (90-130); Glucose 104 mg/dL (65-115); Lactate Dehydrogenase 156 U/L (135-214); Osmolality Calculated 295 mOsm/kg (285-295); Potassium 3.9 mmol/L (3.5-5.1); Sodium 140 mmol/L (136-145)
== END 2024-01-04 23:59 | disposition home or self-care (01) ==
PROVIDERS: Nurse Practitioner Family; PCP Family Medicine; Visit Provider Internal Medicine Medical Oncology
DX: C82.30 Follicular lymphoma grade IIIa, unspecified site (principal); D86.89 Sarcoidosis of other sites; D73.5 Infarction of spleen; Z79.01 Long term (current) use of anticoagulants; D50.0 Iron deficiency anemia secondary to blood loss (chronic)
CPT/HCPCS: 36591; 80053; 83615; 85025; 99214

== ENCOUNTER → 2023-12-29 11:25 | Outpatient (BNVA) | payer MEDICARE, OTHER, SELFPAY | PROVIDERS: PCP Family Medicine; Visit Provider Internal Medicine | DX: I11.0 Hypertensive heart disease with heart failure (principal); I50.32 Chronic diastolic (congestive) heart failure; I48.91 Unspecified atrial fibrillation; I08.1 Rheumatic disorders of both mitral and tricuspid valves | CPT/HCPCS: 99214 ==

== ENCOUNTER 2024-01-04 12:00 | Outpatient (CLI) | payer MEDICARE, OTHER, SELFPAY ==
--- NOTE | 2024-01-04 11:57 | MM_ITS ---
WS: [id number] Bilateral screening 3D tomosynthesis digital mammogram, 01/04/2024 Clinical Data: SCREENING Comparison: 11/17/2022, 12/16/2021, 05/27/2021, 03/24/2021, 02/08/2020, 01/22/2019, 12/22/2018, 11/17/2017, 11/12/2016, 10/29/2015, 10/08/2015, 06/11/2014, 05/27/2014, 06/08/2012, 02/11/2012, 01/22/2011, 01/08/2010, 12/28/19 09, 12/07/2007, 12/05/2006. Findings: The breast parenchymal pattern shows fibroglandular tissue. No spiculated masses or clustered calcifi cations are seen. There are no secondary signs of carcinoma. There are scattered ductal and vascular calcifications throughout both breasts unchanged. There is an infusion port in the right axilla. MM/[place] [id number] Impression: 1. Negative bilateral mammogram unchanged. 2. Recommend annual screening mammograms. BIRADS: 1-Negative FOLLOW UP: 1 Year Follow-up The CAD motor checker was used.
== END 2024-01-04 12:01 | disposition home or self-care (01) ==
PROVIDERS: PCP Family Medicine; Visit Provider Family Medicine
DX: Z12.31 Encounter for screening mammogram for malignant neoplasm of breast (principal)
CPT/HCPCS: 77063; 77067

== ENCOUNTER 2024-01-11 14:56 | Oncology outpatient (recurring) (ONCR) | payer MEDICARE, OTHER, SELFPAY ==
[2024-01-11 15:35] LABS: Basophils % 1.1 %; Eosinophils # 0.1 10^3/uL (0.0-0.8); Eosinophils % 2.8 %; Mean Corpuscular HGB Conc 31.2 g/dL (30-55); Mean Corpuscular Hemoglobin 26.1 pg (27-33); Mean Corpuscular Volume 83.8 fl (85-98); Mean Platelet Volume 10.8 fL (7.4-10.4); Monocytes # 0.7 10^3/uL (0.2-0.9); Neutrophils % 45.1 %; Nucleated Red Blood Cells % 0 %; Platelet Count 159 10^3/cmm (157-399); Red Blood Count 3.94 10^6/uL (3.85-5.65); Red Cell Distribution Width 16.6 % (12.1-15.1); White Blood Count 3.55 10^3/uL (3.29-11.43)
[2024-01-11 15:57] LABS: Alanine Aminotransferase 13 U/L (0-33); Albumin Level 4.1 g/dL (3.5-5.2); Alkaline Phosphatase 92 U/L (35-105); Anion Gap 18.9 (5-19); Aspartate Amino Transferase 23 U/L (0-32); Blood Urea Nitrogen 28 mg/dL (8-23); Calcium 10.7 mg/dL (8.5-10.5); Carbon Dioxide 24 mmol/L (22-29); Chloride 101 mmol/L (98-107); Ferritin 41 ng/mL (15-150); Globulin 2.2 g/dL (1.3-4.6); Glomerular Filtration Rate 70.9 mL/min (90-130); Glucose 112 mg/dL (65-115); Iron 59 ug/dL (37-145); Lactate Dehydrogenase 180 U/L (135-214); Osmolality Calculated 296 mOsm/kg (285-295); Percent Saturation 16.2 % (20-50); Potassium 3.9 mmol/L (3.5-5.1); Sodium 140 mmol/L (136-145); Total Bilirubin 0.9 mg/dL (0.15-1.2); Total Iron Binding Capacity 362 mcg/dl; Total Protein 6.3 g/dL (6.6-8.7); Unsaturated Iron Binding 303 ug/dL (112-347)
== END 2024-02-04 23:59 | disposition home or self-care (01) ==
PROVIDERS: PCP Family Medicine; Visit Provider Internal Medicine Medical Oncology
DX: D64.9 Anemia, unspecified; C82.30 Follicular lymphoma grade IIIa, unspecified site
CPT/HCPCS: 36591; 80053; 82728; 83540; 83550; 83615; 85025

== ENCOUNTER 2024-01-17 08:41 | Outpatient (RCR) | payer SELFPAY | END 2024-02-04 23:59 | disposition home or self-care (01) | LOC: CR 08:41 | PROVIDERS: PCP Family Medicine; Referring Provider Family Medicine; Visit Provider Family Medicine | DX: I50.9 Heart failure, unspecified (principal) ==

== ENCOUNTER 2024-01-20 15:02 | Outpatient (CLI) | payer MEDICARE, OTHER, SELFPAY ==
--- NOTE | 2024-01-20 15:45 | USCV_ITS ---
Aylin Dietz Age: 68 Gender: F : 1955 Exam Date: 01/20/2024 15:46 Ordering Phys: Tutu Leon M.D ([email or web address]) Technologist: Gordy Bryant Exam Location: [facility] – [place] Indication: AOS BP: 155 / 74 HR: 86 Rhythm: Sinus Technical Quality: Adequate MEASUREMENTS (Male / Female) Normal Values 2D ECHO LV Diastolic Diameter PLAX 6.3 cm 4.2 - 5.9 / 3.9 - 5.3 cm IVS Diastolic Thickness 1.2 cm 0.6 - 1.0 / 0.6 - 0.9 cm IVS Systolic Thickness 1.6 cm LVPW Diastolic Thickness 1.7 cm 0.6 - 1.0 / 0.6 - 0.9 cm LVPW Systolic Thickness 2.4 cm LVOT Diameter 2.3 cm LV Ejection Fraction 2D Teich 71.6 % LV Ejection Fraction MOD 4C 56.4 % LV Ejection Fraction MOD 2C 70.2 % LV Ejection Fraction 2C AL 70.1 % LA Diameter 4.8 cm RA Systolic Volume 4C AL 72.4 ml RA Systolic Volume 4C MOD 72.8 ml LA Sys Volume AL 88.6 cm cubed LA Sys Volume Index AL 35.4 cm cubed/m squared Aorta at Sinotubular Diameter 3.0 cm IVC Diameter 2.1 cm M-MODE LA Ao Ratio MM 1.3 AV Cusp Separation MM 2.0 cm DOPPLER AV Peak Velocity 194.3 cm/s LVOT Peak Velocity 81.0 cm/s AV Area Cont Eq vti 1.7 cm squared AV Area Cont Eq pk 1.7 cm squared MV Peak Velocity 188.0 cm/s MV Area PHT 3.0 cm squared Mitral E to A Ratio 93.2 TV Peak Velocity 319.5 cm/s TR Peak Velocity 326.0 cm/s TR Peak Gradient 42.5 mmHg TR Mean Velocity 245.0 cm/s TR Mean Gradient 26.6 mmHg TR Velocity Time Integral 79.3 cm PV Peak Velocity 122.0 cm/s RV Ejection Time 0.3 s FINDINGS Left Ventricle LV systolic function is normal with EF of 55-60%. No regional wall motion abnormalities are seen. Right Ventricle Normal in size and function Right Atrium Normal in size Left Atrium Dilated Mitral Valve Mitral valve is thickened. Mild mitral regurgitation. Mean gradient across mitral valve is 4.54 mmHg. Consistent with mild mitral stenosis Aortic Valve Aortic valve is thickened. Mild aortic stenosis with aortic valve area of 1.54 cm squared and mean gradient across aortic valve of 10 mmHg. Tricuspid Valve Mild tricuspid regurgitation. RVSP is 40 to 45 mmHg. This is consistent with mild pulmonary hypertension Pulmonic Valve Trace pulmonic regurgitation Pericardium Normal Aorta Normal in size IVC Appears to be normal CONCLUSIONS LV systolic function is normal with EF of 55 to 60%. Left atrial dilation Mild mitral regurgitation. Mild mitral stenosis. Mild aortic stenosis Mild tricuspid regurgitation Mild pulmonary hypertension Trace pulmonic regurgitation Compared to prior echocardiogram from 2021, patient has mildly elevated gradients across mitral valve. Tutu Leon MD (Electronically Signed) Final Date: 27 January 2024 22:33 S
== END 2024-01-20 15:03 | disposition home or self-care (01) ==
LOC: RAD 15:02
PROVIDERS: PCP Family Medicine; Visit Provider Internal Medicine
DX: I35.0 Nonrheumatic aortic (valve) stenosis (principal)
CPT/HCPCS: 93306

== ENCOUNTER → 2024-02-07 11:08 | Outpatient (BNVA) | payer MEDICARE, OTHER, SELFPAY | PROVIDERS: PCP Family Medicine; Visit Provider Podiatrist Foot & Ankle Surgery | DX: E11.42 Type 2 diabetes mellitus with diabetic polyneuropathy; L60.3 Nail dystrophy; L84 Corns and callosities; I73.9 Peripheral vascular disease, unspecified; Z79.01 Long term (current) use of anticoagulants; R26.81 Unsteadiness on feet; Z91.81 History of falling; L60.8 Other nail disorders; M20.41 Other hammer toe(s) (acquired), right foot; M20.42 Other hammer toe(s) (acquired), left foot; M25.371 Other instability, right ankle; M21.41 Flat foot [pes planus] (acquired), right foot; M21.42 Flat foot [pes planus] (acquired), left foot | CPT/HCPCS: 11056; 11721; 99213 ==

== ENCOUNTER 2024-02-08 12:57 | Outpatient (RCR) | payer SELFPAY | END 2024-03-05 23:59 | disposition home or self-care (01) | LOC: CR 12:57 | PROVIDERS: PCP Family Medicine; Visit Provider Family Medicine | DX: I50.9 Heart failure, unspecified (principal) ==

== ENCOUNTER → 2024-02-23 13:10 | Outpatient (BNVA) | payer MEDICARE, OTHER, SELFPAY | PROVIDERS: PCP Family Medicine; Visit Provider Internal Medicine Critical Care Medicine | DX: R05.3 Chronic cough (principal); K21.9 Gastro-esophageal reflux disease without esophagitis; D86.9 Sarcoidosis, unspecified; E66.01 Morbid (severe) obesity due to excess calories; Z68.42 Body mass index [BMI] 45.0-49.9, adult; Z71.3 Dietary counseling and surveillance; Z71.82 Exercise counseling; Z71.89 Other specified counseling | CPT/HCPCS: 99214 ==

== ENCOUNTER 2024-02-29 11:22 | Oncology outpatient (recurring) (ONCR) | payer MEDICARE, OTHER, SELFPAY ==
[2024-02-08 15:07] LABS: Basophils # 0.1 10^3/uL (0.0-0.1); Basophils % 1.1 %; Eosinophils # 0.1 10^3/uL (0.0-0.8); Eosinophils % 2.4 %; Hematocrit 34.7 % (36-47); Lymphocytes # 1.3 10^3/uL (0.8-4.8); Lymphocytes % 27.3 %; Mean Corpuscular HGB Conc 31.1 g/dL (30-55); Mean Corpuscular Hemoglobin 26.3 pg (27-33); Mean Corpuscular Volume 84.4 fl (85-98); Mean Platelet Volume 9.8 fL (7.4-10.4); Monocytes # 0.7 10^3/uL (0.2-0.9); Monocytes % 14.8 %; Neutrophils # 2.52 10^3/uL (1.8-7.7); Neutrophils % 54.2 %; Nucleated Red Blood Cells % 0 %; Platelet Count 173 10^3/cmm (157-399); Red Blood Count 4.11 10^6/uL (3.85-5.65); Red Cell Distribution Width 18.4 % (12.1-15.1); White Blood Count 4.65 10^3/uL (3.29-11.43)
[2024-02-08 15:24] LABS: Alanine Aminotransferase 15 U/L (0-33); Albumin Level 3.9 g/dL (3.5-5.2); Alkaline Phosphatase 90 U/L (35-105); Anion Gap 16.1 (5-19); Aspartate Amino Transferase 23 U/L (0-32); Blood Urea Nitrogen 25 mg/dL (8-23); Calcium 10.5 mg/dL (8.5-10.5); Carbon Dioxide 26 mmol/L (22-29); Chloride 104 mmol/L (98-107); Ferritin 43 ng/mL (15-150); Globulin 1.9 g/dL (1.3-4.6); Glomerular Filtration Rate 82.7 mL/min (90-130); Glucose 117 mg/dL (65-115); Iron 88 ug/dL (37-145); Lactate Dehydrogenase 158 U/L (135-214); Osmolality Calculated 299 mOsm/kg (285-295); Percent Saturation 29.2 % (20-50); Potassium 4.1 mmol/L (3.5-5.1); Sodium 142 mmol/L (136-145); Total Bilirubin 0.8 mg/dL (0.15-1.2); Total Iron Binding Capacity 301 mcg/dl; Total Protein 5.8 g/dL (6.6-8.7); Unsaturated Iron Binding 213 ug/dL (112-347)
[2024-02-29 11:40] LABS: Basophils # 0.1 10^3/uL (0.0-0.1); Basophils % 1.4 %; Eosinophils # 0.1 10^3/uL (0.0-0.8); Eosinophils % 2.6 %; Hematocrit 38.9 % (36-47); Lymphocytes # 1.4 10^3/uL (0.8-4.8); Lymphocytes % 33.7 %; Mean Corpuscular HGB Conc 31.6 g/dL (30-55); Mean Corpuscular Volume 85.3 fl (85-98); Mean Platelet Volume 9.5 fL (7.4-10.4); Monocytes # 0.6 10^3/uL (0.2-0.9); Monocytes % 14.8 %; Neutrophils # 1.96 10^3/uL (1.8-7.7); Nucleated Red Blood Cells % 0 %; Platelet Count 135 10^3/cmm (157-399); Red Blood Count 4.56 10^6/uL (3.85-5.65); Red Cell Distribution Width 18.8 % (12.1-15.1); White Blood Count 4.18 10^3/uL (3.29-11.43)
[2024-02-29 11:57] LABS: Alanine Aminotransferase 14 U/L (0-33); Albumin Level 3.7 g/dL (3.5-5.2); Alkaline Phosphatase 92 U/L (35-105); Aspartate Amino Transferase 27 U/L (0-32); Blood Urea Nitrogen 26 mg/dL (8-23); Calcium 10.5 mg/dL (8.5-10.5); Carbon Dioxide 26 mmol/L (22-29); Chloride 104 mmol/L (98-107); Ferritin 56 ng/mL (15-150); Globulin 2.3 g/dL (1.3-4.6); Glomerular Filtration Rate 70.9 mL/min (90-130); Glucose 152 mg/dL (65-115); Iron 142 ug/dL (37-145); Osmolality Calculated 302 mOsm/kg (285-295); Percent Saturation 46.8 % (20-50); Sodium 142 mmol/L (136-145); Total Bilirubin 0.9 mg/dL (0.15-1.2); Total Iron Binding Capacity 303 mcg/dl; Unsaturated Iron Binding 161 ug/dL (112-347)
[2024-02-29 11:59] LABS: Anion Gap 15.9 (5-19); Potassium 3.9 mmol/L (3.5-5.1)
== END 2024-03-05 23:59 | disposition home or self-care (01) ==
PROVIDERS: Nurse Practitioner; PCP Family Medicine; Visit Provider Internal Medicine Medical Oncology
DX: D64.9 Anemia, unspecified (principal); D73.5 Infarction of spleen; D86.9 Sarcoidosis, unspecified; Z95.828 Presence of other vascular implants and grafts; Z85.72 Personal history of non-Hodgkin lymphomas; Z85.828 Personal history of other malignant neoplasm of skin; K21.9 Gastro-esophageal reflux disease without esophagitis; G62.9 Polyneuropathy, unspecified; Z92.25 Personal history of immunosuppression therapy; D69.6 Thrombocytopenia, unspecified; E11.9 Type 2 diabetes mellitus without complications
CPT/HCPCS: 36591; 80053; 82728; 83540; 83550; 83615; 85025; 99214

== ENCOUNTER 2024-02-29 11:26 | Outpatient (RCR) | payer MEDICARE, OTHER, SELFPAY | END 2024-03-05 23:59 | disposition home or self-care (01) | LOC: ONCMED 11:26 | PROVIDERS: PCP Family Medicine; Referring Provider Family Medicine; Visit Provider Family Medicine | DX: Z45.2 Encounter for adjustment and management of vascular access device (principal) | CPT/HCPCS: 36591 ==

== ENCOUNTER → 2024-03-05 14:20 | Outpatient (BNVA) | payer MEDICARE, OTHER, SELFPAY | PROVIDERS: PCP Family Medicine; Visit Provider Internal Medicine | DX: R00.2 Palpitations (principal); I50.32 Chronic diastolic (congestive) heart failure; I48.91 Unspecified atrial fibrillation; I08.1 Rheumatic disorders of both mitral and tricuspid valves | CPT/HCPCS: 99214 ==

== ENCOUNTER 2024-03-06 13:31 | Outpatient (RCR) | payer SELFPAY | END 2024-04-05 23:59 | disposition home or self-care (01) | LOC: CR 13:31 | PROVIDERS: PCP Family Medicine; Visit Provider Family Medicine | DX: I50.9 Heart failure, unspecified (principal) ==

== ENCOUNTER 2024-04-06 13:40 | Outpatient (RCR) | payer SELFPAY | END 2024-05-05 23:59 | disposition home or self-care (01) | LOC: CR 13:40 | PROVIDERS: PCP Family Medicine; Visit Provider Family Medicine | DX: I50.9 Heart failure, unspecified (principal) ==

== ENCOUNTER → 2024-04-12 14:26 | Outpatient (BNVA) | payer MEDICARE, OTHER, SELFPAY | PROVIDERS: PCP Family Medicine; Visit Provider Podiatrist Foot & Ankle Surgery | DX: M79.671 Pain in right foot (principal); E11.42 Type 2 diabetes mellitus with diabetic polyneuropathy; S90.31XA Contusion of right foot, initial encounter; X58.XXXA Exposure to other specified factors, initial encounter | CPT/HCPCS: 73630; 99213 ==

== ENCOUNTER 2024-04-19 11:28 | Oncology outpatient (recurring) (ONCR) | payer MEDICARE, OTHER, SELFPAY ==
[2024-04-19 12:26] LABS: Basophils # 0.1 10^3/uL (0.0-0.1); Basophils % 1.2 %; Eosinophils # 0.1 10^3/uL (0.0-0.8); Eosinophils % 2.5 %; Hematocrit 37.2 % (36-47); Lymphocytes # 1.3 10^3/uL (0.8-4.8); Lymphocytes % 26.4 %; Mean Corpuscular HGB Conc 32.5 g/dL (30-55); Mean Corpuscular Hemoglobin 28.6 pg (27-33); Mean Corpuscular Volume 87.9 fl (85-98); Mean Platelet Volume 9.9 fL (7.4-10.4); Monocytes # 0.7 10^3/uL (0.2-0.9); Monocytes % 15.3 %; Neutrophils # 2.62 10^3/uL (1.8-7.7); Neutrophils % 54.2 %; Nucleated Red Blood Cells % 0 %; Platelet Count 156 10^3/cmm (157-399); Red Blood Count 4.23 10^6/uL (3.85-5.65); Red Cell Distribution Width 15.5 % (12.1-15.1); White Blood Count 4.84 10^3/uL (3.29-11.43)
[2024-04-19 12:50] LABS: Alanine Aminotransferase 13 U/L (0-33); Albumin Level 3.8 g/dL (3.5-5.2); Alkaline Phosphatase 90 U/L (35-105); Aspartate Amino Transferase 22 U/L (0-32); Blood Urea Nitrogen 27 mg/dL (8-23); Calcium 9.3 mg/dL (8.5-10.5); Carbon Dioxide 26 mmol/L (22-29); Chloride 105 mmol/L (98-107); Creatinine Clr Calc Pharmacy 88.4819; Ferritin 72 ng/mL (15-150); Globulin 1.8 g/dL (1.3-4.6); Glomerular Filtration Rate 82.7 mL/min (90-130); Glucose 107 mg/dL (65-115); Iron 98 ug/dL (37-145); Osmolality Calculated 300 mOsm/kg (285-295); Percent Saturation 34.3 % (20-50); Sodium 142 mmol/L (136-145); Total Bilirubin 0.8 mg/dL (0.15-1.2); Total Iron Binding Capacity 285 mcg/dl; Total Protein 5.6 g/dL (6.6-8.7); Unsaturated Iron Binding 187 ug/dL (112-347)
== END 2024-05-05 23:59 | disposition home or self-care (01) ==
PROVIDERS: Nurse Practitioner Family; PCP Family Medicine; Visit Provider Nurse Practitioner
DX: D64.9 Anemia, unspecified (principal); D86.9 Sarcoidosis, unspecified; E11.9 Type 2 diabetes mellitus without complications; Z95.828 Presence of other vascular implants and grafts; D73.5 Infarction of spleen; Z85.72 Personal history of non-Hodgkin lymphomas; Z79.899 Other long term (current) drug therapy; Z79.01 Long term (current) use of anticoagulants
CPT/HCPCS: 36415; 80053; 82728; 83540; 83550; 85025; 99214

== ENCOUNTER → 2024-04-23 15:36 | Outpatient (BNVA) | payer MEDICARE, OTHER, SELFPAY | PROVIDERS: PCP Family Medicine; Visit Provider Nurse Practitioner Family | DX: I50.32 Chronic diastolic (congestive) heart failure (principal); E11.9 Type 2 diabetes mellitus without complications; K92.2 Gastrointestinal hemorrhage, unspecified; J98.4 Other disorders of lung; R94.31 Abnormal electrocardiogram [ECG] [EKG] | CPT/HCPCS: 93005; 99213 ==

== ENCOUNTER → 2024-05-08 11:30 | Outpatient (BNVA) | payer MEDICARE, OTHER, SELFPAY | PROVIDERS: PCP Family Medicine; Visit Provider Podiatrist Foot & Ankle Surgery | DX: I73.9 Peripheral vascular disease, unspecified (principal); L60.3 Nail dystrophy; L60.8 Other nail disorders; L84 Corns and callosities; Z79.01 Long term (current) use of anticoagulants; R26.81 Unsteadiness on feet; Z91.81 History of falling; E11.42 Type 2 diabetes mellitus with diabetic polyneuropathy; Q66.221 Congenital metatarsus adductus, right foot; Q66.222 Congenital metatarsus adductus, left foot | CPT/HCPCS: 11056; 11721 ==

== ENCOUNTER 2024-05-09 07:19 | Outpatient (RCR) | payer SELFPAY | END 2024-06-05 23:59 | disposition home or self-care (01) | LOC: CR 07:19 | PROVIDERS: PCP Family Medicine; Visit Provider Family Medicine | DX: I50.9 Heart failure, unspecified (principal) ==

== ENCOUNTER 2024-05-31 14:48 | Outpatient (CLI) | payer MEDICARE, OTHER, SELFPAY ==
--- NOTE | 2024-05-31 14:57 | CT_ITS ---
WS: [id number] CT NECK WITH CONTRAST HISTORY: DYSPHAGIA, CHRONIC COUGH, DYSPHONIA TECHNIQUE: Contiguous 2 mm axial images are performed through the neck with intravenous contrast. Sag ittal and coronal reformats are also submitted. All CT scans at [facility] use at least one o f these dose optimization techniques: automated exposure control; mA and/or kV adjustment per patient size (includes targeted exams where dose is matched to clinical indication); or iterative reconstruc tion. CONTRAST: CONTRAST: Omnipaque 350; 100 mL IV. DLP: 283.34 mGy.cm COMPARISON: 02/01/2020, PET/CT 01/01/2023 Nasopharynx, oropharynx, hypopharynx and larynx are unremarkable. No soft tissue masses or abnormal e nhancement. Torus tubarius and fossa of Rosenmuller and parapharyngeal fat are normal. No significant lymphadenopathy is identified. RIGHT laryngeal ventricle is patulous and enlarged. Aryepiglottic fold is displaced centrally. No juvencio tral mass is identified. Very slight distortion also noted of the epiglottis. Bilateral small thyroid nodules. Surgical clips along the RIGHT parotid bed. Advanced degenerative cervical disc disease. C3 anterolisthesis by 4 mm. Retrolisthesis of C4 and C5. Advanced degenerative changes in the cervical spine. Visualized portions of the skull base demonstrate no abnormalities. Orbits and globes are within norm al limits. No soft tissue masses. Visualized paranasal sinuses and mastoid air cells are normal. Lung apices are clear. CT/CT neck w con* [id number] IMPRESSION: 1. No neck mass or lymphadenopathy identified. Previously described RIGHT para glottic mass is not identified. 2. The RIGHT laryngeal ventricle is patulous and the aryepiglottic fold is dis placed centrally. Correlate for possible RIGHT vocal cord paralysis. 3. Advanced cervical spondylosis.
[2024-05-31] MEDS: iohexol 350 mg/mL 500 mL Btl (per mL) IV (15:24)
== END 2024-05-31 14:49 | disposition home or self-care (01) ==
LOC: RAD 14:50
PROVIDERS: PCP Family Medicine; Visit Provider Otolaryngology
DX: J38.3 Other diseases of vocal cords (principal); E04.2 Nontoxic multinodular goiter; M50.20 Other cervical disc displacement, unspecified cervical region; M43.12 Spondylolisthesis, cervical region; R05.3 Chronic cough; R13.10 Dysphagia, unspecified; R49.0 Dysphonia
CPT/HCPCS: 70491

== ENCOUNTER 2024-06-06 10:21 | Outpatient (RCR) | payer SELFPAY | END 2024-07-06 23:59 | disposition home or self-care (01) | LOC: CR 10:21 | PROVIDERS: PCP Family Medicine; Visit Provider Family Medicine | DX: I50.20 Unspecified systolic (congestive) heart failure (principal) ==

== ENCOUNTER 2024-06-07 14:31 | Oncology outpatient (recurring) (ONCR) | payer SELFPAY ==
[2024-06-07 15:33] LABS: Basophils # 0.1 10^3/uL (0.0-0.1); Eosinophils # 0.1 10^3/uL (0.0-0.8); Eosinophils % 1.9 %; Hematocrit 37.6 % (36-47); Lymphocytes # 1.6 10^3/uL (0.8-4.8); Lymphocytes % 30.8 %; Mean Corpuscular Hemoglobin 29.9 pg (27-33); Mean Corpuscular Volume 90.6 fl (85-98); Mean Platelet Volume 9.7 fL (7.4-10.4); Monocytes # 0.7 10^3/uL (0.2-0.9); Neutrophils # 2.74 10^3/uL (1.8-7.7); Neutrophils % 52.9 %; Nucleated Red Blood Cells % 0 %; Platelet Count 161 10^3/cmm (157-399); Red Blood Count 4.15 10^6/uL (3.85-5.65); Red Cell Distribution Width 14.1 % (12.1-15.1); White Blood Count 5.17 10^3/uL (3.29-11.43)
[2024-06-07 15:54] LABS: Alanine Aminotransferase 15 U/L (0-33); Albumin Level 3.8 g/dL (3.5-5.2); Alkaline Phosphatase 105 U/L (35-105); Anion Gap 13.9 (5-19); Aspartate Amino Transferase 22 U/L (0-32); Blood Urea Nitrogen 20 mg/dL (8-23); Calcium 9.6 mg/dL (8.5-10.5); Carbon Dioxide 28 mmol/L (22-29); Chloride 104 mmol/L (98-107); Ferritin 97 ng/mL (15-150); Globulin 2.4 g/dL (1.3-4.6); Glomerular Filtration Rate 98.8 mL/min (90-130); Glucose 120 mg/dL (65-115); Iron 80 ug/dL (37-145); Lactate Dehydrogenase 164 U/L (135-214); Osmolality Calculated 298 mOsm/kg (285-295); Percent Saturation 30.4 % (20-50); Potassium 3.9 mmol/L (3.5-5.1); Sodium 142 mmol/L (136-145); Total Iron Binding Capacity 263 mcg/dl; Total Protein 6.2 g/dL (6.6-8.7); Unsaturated Iron Binding 183 ug/dL (112-347)
== END 2024-07-06 23:59 | disposition home or self-care (01) ==
LOC: ONCMED 14:32
PROVIDERS: PCP Family Medicine; Visit Provider Nurse Practitioner
DX: E11.9 Type 2 diabetes mellitus without complications (principal); D69.6 Thrombocytopenia, unspecified; D50.8 Other iron deficiency anemias; C82.19 Follicular lymphoma grade II, extranodal and solid organ sites
CPT/HCPCS: 36591; 80053; 82728; 83540; 83550; 83615; 85025

== ENCOUNTER → 2024-06-28 12:25 | Outpatient (BNVA) | payer MEDICARE, OTHER, SELFPAY | PROVIDERS: PCP Family Medicine; Visit Provider Internal Medicine | DX: I50.32 Chronic diastolic (congestive) heart failure (principal); I48.91 Unspecified atrial fibrillation; I08.1 Rheumatic disorders of both mitral and tricuspid valves; Z79.01 Long term (current) use of anticoagulants | CPT/HCPCS: 99214 ==

== ENCOUNTER 2024-07-19 12:25 | Outpatient (RCR) | payer SELFPAY | END 2024-08-03 23:59 | disposition home or self-care (01) | LOC: CR 12:25 | PROVIDERS: PCP Family Medicine; Visit Provider Family Medicine | DX: I50.20 Unspecified systolic (congestive) heart failure (principal) ==

== ENCOUNTER 2024-07-19 12:27 | Oncology outpatient (recurring) (ONCR) | payer MEDICARE, OTHER, SELFPAY ==
[2024-07-19 13:18] LABS: Basophils % 0.4 %; Eosinophils % 0.2 %; Hematocrit 38.2 % (36-47); Lymphocytes # 1.5 10^3/uL (0.8-4.8); Lymphocytes % 32.5 %; Mean Corpuscular HGB Conc 32.7 g/dL (30-55); Mean Corpuscular Hemoglobin 29.8 pg (27-33); Mean Platelet Volume 9.9 fL (7.4-10.4); Monocytes # 0.3 10^3/uL (0.2-0.9); Monocytes % 5.9 %; Neutrophils # 2.75 10^3/uL (1.8-7.7); Neutrophils % 60.1 %; Nucleated Red Blood Cells % 0 %; Platelet Count 148 10^3/cmm (157-399); Red Cell Distribution Width 13.6 % (12.1-15.1); Reticulocyte % 1.6 % (0.5-2.0); White Blood Count 4.58 10^3/uL (3.29-11.43)
[2024-07-19 13:41] LABS: Alanine Aminotransferase 28 U/L (0-33); Albumin Level 4.2 g/dL (3.5-5.2); Alkaline Phosphatase 93 U/L (35-105); Anion Gap 17.5 (5-19); Aspartate Amino Transferase 38 U/L (0-32); Blood Urea Nitrogen 25 mg/dL (8-23); Carbon Dioxide 23 mmol/L (22-29); Chloride 106 mmol/L (98-107); Ferritin 215 ng/mL (15-150); Globulin 2.1 g/dL (1.3-4.6); Glomerular Filtration Rate 98.8 mL/min (90-130); Glucose 153 mg/dL (65-115); Iron 91 ug/dL (37-145); Lactate Dehydrogenase 170 U/L (135-214); Osmolality Calculated 301 mOsm/kg (285-295); Percent Saturation 34.4 % (20-50); Potassium 4.5 mmol/L (3.5-5.1); Sodium 142 mmol/L (136-145); Total Bilirubin 0.7 mg/dL (0.15-1.2); Total Iron Binding Capacity 264 mcg/dl; Total Protein 6.3 g/dL (6.6-8.7); Unsaturated Iron Binding 173 ug/dL (112-347)
== END 2024-08-03 23:59 | disposition home or self-care (01) ==
PROVIDERS: Internal Medicine; PCP Family Medicine; Visit Provider Nurse Practitioner
DX: D69.6 Thrombocytopenia, unspecified (principal); D64.9 Anemia, unspecified; Z85.72 Personal history of non-Hodgkin lymphomas; E11.9 Type 2 diabetes mellitus without complications; D73.5 Infarction of spleen; D86.9 Sarcoidosis, unspecified; Z95.828 Presence of other vascular implants and grafts; Z92.21 Personal history of antineoplastic chemotherapy; Z92.25 Personal history of immunosuppression therapy; Z79.899 Other long term (current) drug therapy
CPT/HCPCS: 36591; 80053; 82728; 83010; 83540; 83550; 83615; 85025; 85045; 99213

== ENCOUNTER 2024-08-04 12:40 | Outpatient (RCR) | payer SELFPAY | END 2024-09-03 23:59 | disposition home or self-care (01) | LOC: CR 12:40 | PROVIDERS: PCP Family Medicine; Visit Provider Family Medicine | DX: I50.20 Unspecified systolic (congestive) heart failure (principal) ==

== ENCOUNTER → 2024-08-07 09:58 | Outpatient (BNVA) | payer MEDICARE, OTHER, SELFPAY | PROVIDERS: PCP Family Medicine; Visit Provider Podiatrist Foot & Ankle Surgery | DX: E11.42 Type 2 diabetes mellitus with diabetic polyneuropathy (principal); L60.3 Nail dystrophy; L84 Corns and callosities; I73.9 Peripheral vascular disease, unspecified; Z79.01 Long term (current) use of anticoagulants; R26.81 Unsteadiness on feet; Z91.81 History of falling; L60.8 Other nail disorders | CPT/HCPCS: 11056; 11721 ==

== ENCOUNTER 2024-09-04 14:27 | Outpatient (RCR) | payer SELFPAY | END 2024-10-03 23:59 | disposition home or self-care (01) | LOC: CR 14:27 | PROVIDERS: PCP Family Medicine; Visit Provider Family Medicine | DX: I50.20 Unspecified systolic (congestive) heart failure (principal) ==

== ENCOUNTER 2024-09-28 10:53 | Oncology outpatient (recurring) (ONCR) | payer MEDICARE, OTHER, SELFPAY ==
[2024-09-28 11:00] VITALS: BP 134/81; PULSE 89; RESP 17; TEMP 36.2; O2SAT 96
== END 2024-10-03 23:59 | disposition home or self-care (01) ==
PROVIDERS: PCP Family Medicine; Visit Provider Nurse Practitioner
DX: D69.6 Thrombocytopenia, unspecified (principal); D64.9 Anemia, unspecified; Z85.72 Personal history of non-Hodgkin lymphomas; E11.9 Type 2 diabetes mellitus without complications; D73.5 Infarction of spleen; D86.9 Sarcoidosis, unspecified; Z95.828 Presence of other vascular implants and grafts; Z92.21 Personal history of antineoplastic chemotherapy; Z92.25 Personal history of immunosuppression therapy; Z79.899 Other long term (current) drug therapy
CPT/HCPCS: 96523

== ENCOUNTER 2024-10-04 12:28 | Outpatient (RCR) | payer SELFPAY | END 2024-11-03 23:59 | disposition home or self-care (01) | LOC: CR 12:28 | PROVIDERS: PCP Family Medicine; Visit Provider Family Medicine | DX: I50.20 Unspecified systolic (congestive) heart failure (principal) ==

== ENCOUNTER 2024-11-04 09:37 | Outpatient (RCR) | payer SELFPAY | END 2024-12-03 23:59 | disposition home or self-care (01) | LOC: CR 09:37 | PROVIDERS: PCP Family Medicine; Visit Provider Family Medicine | DX: I50.20 Unspecified systolic (congestive) heart failure (principal) ==

== ENCOUNTER → 2024-11-06 10:00 | Outpatient (BNVA) | payer MEDICARE, OTHER, SELFPAY | PROVIDERS: PCP Family Medicine; Visit Provider Podiatrist Foot & Ankle Surgery | DX: E11.42 Type 2 diabetes mellitus with diabetic polyneuropathy (principal); L60.3 Nail dystrophy; L84 Corns and callosities; I73.9 Peripheral vascular disease, unspecified; Z79.01 Long term (current) use of anticoagulants; R26.81 Unsteadiness on feet; Z91.81 History of falling; L60.8 Other nail disorders | CPT/HCPCS: 11056; 11721 ==

== ENCOUNTER 2024-11-15 12:02 | Oncology outpatient (recurring) (ONCR) | payer MEDICARE, OTHER, SELFPAY ==
[2024-11-15 12:50] LABS: Basophils # 0.1 10^3/uL (0.0-0.1); Basophils % 1.1 %; Eosinophils # 0.1 10^3/uL (0.0-0.8); Eosinophils % 2.7 %; Hematocrit 37.2 % (36-47); Lymphocytes # 1.5 10^3/uL (0.8-4.8); Lymphocytes % 27.8 %; Mean Corpuscular HGB Conc 33.1 g/dL (30-55); Mean Corpuscular Hemoglobin 30.3 pg (27-33); Mean Corpuscular Volume 91.6 fl (85-98); Mean Platelet Volume 9.7 fL (7.4-10.4); Monocytes # 0.7 10^3/uL (0.2-0.9); Monocytes % 13.3 %; Neutrophils # 2.87 10^3/uL (1.8-7.7); Neutrophils % 54.7 %; Nucleated Red Blood Cells % 0 %; Platelet Count 144 10^3/cmm (157-399); Red Blood Count 4.06 10^6/uL (3.85-5.65); Red Cell Distribution Width 14.5 % (12.1-15.1); White Blood Count 5.25 10^3/uL (3.29-11.43)
[2024-11-15 12:53] LABS: Reticulocyte % 1.9 % (0.5-2.0)
[2024-11-15 13:32] LABS: Alanine Aminotransferase 11 U/L (0-33); Albumin Level 3.8 g/dL (3.5-5.2); Alkaline Phosphatase 100 U/L (35-105); Anion Gap 15.1 (5-19); Aspartate Amino Transferase 16 U/L (0-32); Blood Urea Nitrogen 16 mg/dL (8-23); Calcium 8.8 mg/dL (8.5-10.5); Carbon Dioxide 23 mmol/L (22-29); Chloride 109 mmol/L (98-107); Ferritin 112 ng/mL (15-150); Globulin 2.1 g/dL (1.3-4.6); Glucose 106 mg/dL (65-115); Iron 73 ug/dL (37-145); Lactate Dehydrogenase 139 U/L (135-214); Osmolality Calculated 298 mOsm/kg (285-295); Percent Saturation 29.3 % (20-50); Potassium 4.1 mmol/L (3.5-5.1); Sodium 143 mmol/L (136-145); Total Bilirubin 0.9 mg/dL (0.15-1.2); Total Iron Binding Capacity 249 mcg/dl; Total Protein 5.9 g/dL (6.6-8.7); Unsaturated Iron Binding 176 ug/dL (112-347); Vitamin B12 407 pg/mL (232-1245)
[2024-11-15 15:01] LABS: Free T4 Free Thyroxine 1.02 ng/dL (0.82-1.77); Thyroid Stimulating Hormone 1.56 uIU/mL (0.27-4.20)
[2024-11-15 17:44] LABS: Folate Level > 20.0 ng/mL (4.8-37.3)
== END 2024-12-03 23:59 | disposition home or self-care (01) ==
PROVIDERS: Internal Medicine; PCP Family Medicine; Visit Provider Nurse Practitioner
DX: Z08 Encounter for follow-up examination after completed treatment for malignant neoplasm (principal); Z85.72 Personal history of non-Hodgkin lymphomas; D86.9 Sarcoidosis, unspecified; Z79.01 Long term (current) use of anticoagulants; D73.5 Infarction of spleen; D69.6 Thrombocytopenia, unspecified; D64.9 Anemia, unspecified; E11.9 Type 2 diabetes mellitus without complications; R53.83 Other fatigue; Z95.828 Presence of other vascular implants and grafts; Z79.899 Other long term (current) drug therapy; Z92.25 Personal history of immunosuppression therapy
CPT/HCPCS: 36591; 80053; 82607; 82728; 82746; 83010; 83540; 83550; 83615; 84439; 84443; 85025; 85045; 96523; 99214

== ENCOUNTER 2024-12-04 11:24 | Outpatient (RCR) | payer SELFPAY | END 2025-01-03 23:59 | disposition home or self-care (01) | LOC: CR 11:24 | PROVIDERS: PCP Family Medicine; Visit Provider Family Medicine | DX: I50.20 Unspecified systolic (congestive) heart failure (principal) ==

== ENCOUNTER 2024-12-20 11:30 | Oncology outpatient (recurring) (ONCR) | payer MEDICARE, OTHER, SELFPAY | END 2025-01-03 23:59 | disposition home or self-care (01) | LOC: ONCMED 11:30 | PROVIDERS: PCP Family Medicine; Visit Provider Nurse Practitioner | DX: Z45.2 Encounter for adjustment and management of vascular access device (principal); Z95.828 Presence of other vascular implants and grafts | CPT/HCPCS: 96523 ==

== ENCOUNTER → 2024-12-26 15:23 | Outpatient (BNVA) | payer MEDICARE, OTHER, SELFPAY | PROVIDERS: PCP Family Medicine; Visit Provider Internal Medicine | DX: I48.91 Unspecified atrial fibrillation (principal); I50.32 Chronic diastolic (congestive) heart failure; I08.1 Rheumatic disorders of both mitral and tricuspid valves; Z79.01 Long term (current) use of anticoagulants | CPT/HCPCS: 99213 ==

== ENCOUNTER → 2025-01-02 12:58 | Outpatient (BNVA) | payer MEDICARE, OTHER, SELFPAY | PROVIDERS: PCP Family Medicine; Visit Provider Podiatrist Foot & Ankle Surgery | DX: I73.9 Peripheral vascular disease, unspecified (principal); Z79.01 Long term (current) use of anticoagulants; R26.81 Unsteadiness on feet; Z91.81 History of falling; E11.42 Type 2 diabetes mellitus with diabetic polyneuropathy; L60.8 Other nail disorders; L60.3 Nail dystrophy; L84 Corns and callosities; L97.512 Non-pressure chronic ulcer of other part of right foot with fat layer exposed; E11.621 Type 2 diabetes mellitus with foot ulcer | CPT/HCPCS: 11042; 11055; 11721 ==

== ENCOUNTER 2025-01-04 14:26 | Outpatient (RCR) | payer MEDICARE, OTHER, SELFPAY | END 2025-02-03 23:59 | disposition home or self-care (01) | LOC: CR 14:26 | PROVIDERS: PCP Family Medicine; Visit Provider Family Medicine | DX: I50.20 Unspecified systolic (congestive) heart failure (principal) ==

== ENCOUNTER → 2025-01-15 12:54 | Outpatient (BNVA) | payer MEDICARE, OTHER, SELFPAY | PROVIDERS: PCP Family Medicine; Visit Provider Podiatrist Foot & Ankle Surgery | DX: I73.9 Peripheral vascular disease, unspecified (principal); Z79.01 Long term (current) use of anticoagulants; R26.81 Unsteadiness on feet; Z91.81 History of falling; E11.42 Type 2 diabetes mellitus with diabetic polyneuropathy; L60.8 Other nail disorders | CPT/HCPCS: 99213 ==

== ENCOUNTER 2025-01-24 12:20 | Oncology outpatient (recurring) (ONCR) | payer MEDICARE, OTHER, SELFPAY | END 2025-02-03 23:59 | disposition home or self-care (01) | LOC: ONCMED 12:21 | PROVIDERS: PCP Family Medicine; Visit Provider Nurse Practitioner | DX: Z45.2 Encounter for adjustment and management of vascular access device (principal); Z95.828 Presence of other vascular implants and grafts | CPT/HCPCS: 96523 ==

== ENCOUNTER 2025-02-05 14:01 | Outpatient (RCR) | payer SELFPAY | END 2025-03-05 23:59 | disposition home or self-care (01) | LOC: CR 14:01 | PROVIDERS: PCP Family Medicine; Visit Provider Family Medicine | DX: I50.20 Unspecified systolic (congestive) heart failure (principal) ==

== ENCOUNTER 2025-02-08 11:10 | Outpatient (CLI) | payer MEDICARE, OTHER, SELFPAY ==
--- NOTE | 2025-02-08 11:20 | MM_ITS ---
WS: [id number] BILATERAL 3D TOMOSYNTHESIS DIGITAL SCREENING MAMMOGRAPHY WITH CAD CLINICAL INFORMATION: SCREENING HISTORY: Screening mammogram. No current complaints. COMPARISON: 2023 TECHNIQUE: Bilateral CC and MLO views. FINDINGS: Scattered fibroglandular densities bilaterally. No suspicious focal mass, asymmetry, calcifications, or architectural distortion. No evidence of malignancy. Vascular calcification. Secretory calcifications. MM/MM scr tomosynthesis [id number] IMPRESSION: DENSITY: There are scattered areas of fibroglandular density. BI-RADS: 2 - Benign. FOLLOW UP: 1 Year Follow-up Recommend return to annual screening mammography.
== END 2025-02-08 11:11 | disposition home or self-care (01) ==
LOC: RAD 11:12
PROVIDERS: PCP Family Medicine; Visit Provider Family Medicine
DX: Z12.31 Encounter for screening mammogram for malignant neoplasm of breast (principal); R92.323 Mammographic fibroglandular density, bilateral breasts; R92.1 Mammographic calcification found on diagnostic imaging of breast
CPT/HCPCS: 77063; 77067

== ENCOUNTER 2025-03-06 09:01 | Outpatient (RCR) | payer SELFPAY | END 2025-04-05 23:59 | disposition home or self-care (01) | LOC: CR 09:01 | PROVIDERS: PCP Family Medicine; Referring Provider Family Medicine; Visit Provider Family Medicine | DX: I50.20 Unspecified systolic (congestive) heart failure (principal) ==

== ENCOUNTER 2025-03-07 12:25 | Oncology outpatient (recurring) (ONCR) | payer MEDICARE, OTHER, SELFPAY ==
[2025-03-07 12:48] LABS: Hematocrit 38.6 % (36-47); Hemoglobin 12.30 g/dL (11.27-16.99); Mean Corpuscular HGB Conc 31.9 g/dL (30-55); Mean Corpuscular Hemoglobin 28.5 pg (27-33); Mean Corpuscular Volume 89.6 fl (85-98); Nucleated Red Blood Cells % 0 %; Platelet Count 166 10^3/cmm (157-399); Red Blood Count 4.31 10^6/uL (3.85-5.65); White Blood Count 7.95 10^3/uL (3.29-11.43)
[2025-03-07 13:04] LABS: Alanine Aminotransferase 9 U/L (0-33); Albumin Level 3.8 g/dL (3.5-5.2); Alkaline Phosphatase 110 U/L (35-105); Anion Gap 15.3 (5-19); Aspartate Amino Transferase 19 U/L (0-32); Blood Urea Nitrogen 17 mg/dL (8-23); Calcium 9.1 mg/dL (8.5-10.5); Carbon Dioxide 26 mmol/L (22-29); Chloride 105 mmol/L (98-107); Creatinine Clr Calc Pharmacy 85.7402; Ferritin 149 ng/mL (15-150); Globulin 2.5 g/dL (1.3-4.6); Glucose 129 mg/dL (65-115); Iron 49 ug/dL (37-145); Osmolality Calculated 297 mOsm/kg (285-295); Potassium 4.3 mmol/L (3.5-5.1); Sodium 142 mmol/L (136-145); Total Iron Binding Capacity 245 mcg/dl; Total Protein 6.3 g/dL (6.6-8.7); Unsaturated Iron Binding 196 ug/dL (112-347)
== END 2025-04-05 23:59 | disposition home or self-care (01) ==
PROVIDERS: PCP Family Medicine; Visit Provider Nurse Practitioner
DX: Z08 Encounter for follow-up examination after completed treatment for malignant neoplasm (principal); Z85.72 Personal history of non-Hodgkin lymphomas; D50.8 Other iron deficiency anemias; D69.6 Thrombocytopenia, unspecified; D64.9 Anemia, unspecified; D73.5 Infarction of spleen; E11.9 Type 2 diabetes mellitus without complications; D86.9 Sarcoidosis, unspecified; R10.9 Unspecified abdominal pain; R05.9 Cough, unspecified; Z79.899 Other long term (current) drug therapy; Z79.01 Long term (current) use of anticoagulants
CPT/HCPCS: 36591; 80053; 82728; 83010; 83540; 83550; 83615; 85025; 85045; 99214

== ENCOUNTER 2025-04-06 12:46 | Outpatient (RCR) | payer SELFPAY | END 2025-05-05 23:59 | disposition home or self-care (01) | LOC: CR 12:46 | PROVIDERS: PCP Family Medicine; Referring Provider Family Medicine; Visit Provider Family Medicine | DX: I50.20 Unspecified systolic (congestive) heart failure (principal) | CPT/HCPCS: 93798 ==

== ENCOUNTER → 2025-04-15 14:55 | Outpatient (BNVA) | payer MEDICARE, OTHER, SELFPAY | PROVIDERS: PCP Family Medicine; Visit Provider Podiatrist Foot & Ankle Surgery | DX: M79.671 Pain in right foot (principal); E11.42 Type 2 diabetes mellitus with diabetic polyneuropathy; L60.3 Nail dystrophy; L84 Corns and callosities; I73.9 Peripheral vascular disease, unspecified; Z79.01 Long term (current) use of anticoagulants; R26.81 Unsteadiness on feet; Z91.81 History of falling; L60.8 Other nail disorders; Q66.221 Congenital metatarsus adductus, right foot; M76.71 Peroneal tendinitis, right leg | CPT/HCPCS: 11056; 11721; 73630; 99214 ==

== ENCOUNTER 2025-05-06 09:11 | Outpatient (RCR) | payer SELFPAY | END 2025-06-05 23:59 | disposition home or self-care (01) | LOC: CR 09:11 | PROVIDERS: PCP Family Medicine; Referring Provider Family Medicine; Visit Provider Family Medicine | DX: I50.20 Unspecified systolic (congestive) heart failure (principal) ==

== ENCOUNTER → 2025-05-28 14:31 | Outpatient (BNVA) | payer MEDICARE, OTHER, SELFPAY | PROVIDERS: PCP Family Medicine; Visit Provider Podiatrist Foot & Ankle Surgery | DX: E11.42 Type 2 diabetes mellitus with diabetic polyneuropathy (principal); L60.3 Nail dystrophy; L84 Corns and callosities; I73.9 Peripheral vascular disease, unspecified; Z79.01 Long term (current) use of anticoagulants; L60.8 Other nail disorders | CPT/HCPCS: 11056; 11721 ==

== ENCOUNTER 2025-06-05 11:21 | Outpatient (CLI) | payer MEDICARE, OTHER, SELFPAY ==
[2025-06-05] MEDS: iohexol 350 mg/mL 500 mL Btl (per mL) PO (12:27)
--- NOTE | 2025-06-05 12:30 | CTR_ITS ---
PROCEDURE INFORMATION: Exam: CT Chest With Contrast; Diagnostic Exam date and time: 06/05/2025 12:51 PM Age: 69 years old Clinical indication: Condition or disease; Other: Follicular lymphoma; Prior surgery; Surgery date: 6+ months; Surgery type: Port TECHNIQUE: Imaging protocol: Diagnostic computed tomography of the chest with contrast. Radiation optimization: All CT scans at this facility use at least one of these dose optimization techniques: automated exposure control; mA and/or kV adjustment per patient size (includes targeted exams where dose is matched to clinical indication); or iterative reconstruction. Contrast material: OMNI 350; Contrast volume: 100 ml; Contrast route: INTRAVENOUS (IV); COMPARISON: CT chest abdpel w/*[id number] 11/07/2023 2:27 PM RADIATION DOSE METRICS: Total DLP (mGy-cm): 1406.01 FINDINGS: Tubes, catheters and devices: Right-sided infusion port is in satisfactory location, its tip projects in the area of the superior vena cava. Thyroid: Heterogeneous thyroid. This is similar to prior. Lungs: No suspicious pulmonary nodule or mass. Pleural spaces: Unremarkable. No pneumothorax. No pleural effusion. Heart: Unremarkable. No cardiomegaly. No pericardial effusion. Lymph nodes: Lymph nodes in the chest are minimally prominent, guest services representative lymph nodes include aortopulmonary 9 mm short axis previously 8 mm, left paratracheal 13 mm short axis previously 10 mm. Left infrahilar lymph node 9 mm short axis previously 6 mm. Vasculature: Unremarkable. No aortic aneurysm. Bones/joints: There are moderate degenerative changes throughout the visible areas of the spine. Soft tissues: Unremarkable. PROCEDURE INFORMATION: Exam: CT Abdomen And Pelvis With Contrast Exam date and time: 06/05/2025 12:51 PM Age: 69 years old Clinical indication: Condition or disease; Other: Follicular lymphoma; Prior surgery; Surgery date: 6+ months; Surgery type: Port TECHNIQUE: Imaging protocol: Computed tomography of the abdomen and pelvis with contrast. Radiation optimization: All CT scans at this facility use at least one of these dose optimization techniques: automated exposure control; mA and/or kV adjustment per patient size (includes targeted exams where dose is matched to clinical indication); or iterative reconstruction. Contrast material: OMNI 350; Contrast volume: 100 ml; Contrast route: INTRAVENOUS (IV); COMPARISON: MR abdomen wo/w con* [id number] 12/05/2023 12:00 PM RADIATION DOSE METRICS: Total DLP (mGy-cm): 1406.01 FINDINGS: Liver: No suspicious focal liver lesion. Gallbladder and biliary ducts: Marked abnormal appearance of the gallbladder. The gallbladder wall markedly thickened and irregular with pericholecystic inflammatory stranding. There is cholelithiasis, which was seen previously but the abnormality of the gallbladder wall is new. This may represent acute cholecystitis but there is no provided clinical history that would suggest acute onset of symptoms. Gallbladder malignancy would also be considered in the differential. Surgical referral recommended at this time. Pancreas: Normal. No pancreatic ductal dilation. Spleen: The spleen is enlarged at approximately 15 cm. There is an approximate 1.3 cm low-density focus in the spleen inferiorly, this is indeterminate but was not clearly present on the prior exam. Several additional splenic low-density lesions are present, also nonspecific and not definitely present previously. Adrenal glands: Normal. No mass. Kidneys and ureters: Nonobstructing renal stones bilaterally. Renal atrophy on the left. Stomach and bowel: Colonic diverticulosis is present without diverticulitis. Abnormal gallbladder described above has an infiltrative margin with the hepatic flexure serosa. Intraperitoneal space: Unremarkable. No free air. No significant fluid collection. Vasculature: Severe atherosclerotic disease is evident. Lymph nodes: No new or progressive lymphadenopathy in the abdomen or pelvis. Urinary bladder: Urinary bladder decompressed. Reproductive: Prior hysterectomy. Bones/joints: No new or aggressive osseous abnormality Soft tissues: Unremarkable. CT/CT chest abdpel w/*[id number] IMPRESSION: 1. Mild increase in size of mediastinal and hilar lymph nodes as per above, nonspecific but which may reflect disease progression. 2. No suspicious focal liver lesion. IMPRESSION: 1. Abnormal appearance of the gallbladder. The findings could represent cholecystitis, but in the absence of correlative symptomatology a gallbladder malignancy would also be considered in the differential. Recommend surgical referral. As per above, the abnormal gallbladder contacts and is inseparable from the hepatic flexure of the colon. 2. Several nonspecific splenic low-density lesions, not definitely present on prior. These are indeterminate. Splenomegaly. Additional nonemergent findings as above.
[2025-06-05 12:39] LABS: Blood Urea Nitrogen 16 mg/dL (8-23)
[2025-06-05] MEDS: iohexol 350 mg/mL 500 mL Btl (per mL) IV (12:56)
== END 2025-06-05 11:22 | disposition home or self-care (01) ==
LOC: RAD 11:22
PROVIDERS: Internal Medicine Medical Oncology; PCP Family Medicine; Visit Provider Internal Medicine
DX: C82.19 Follicular lymphoma grade II, extranodal and solid organ sites (principal); R16.1 Splenomegaly, not elsewhere classified; K82.8 Other specified diseases of gallbladder; K57.30 Diverticulosis of large intestine without perforation or abscess without bleeding; N20.0 Calculus of kidney; R59.0 Localized enlarged lymph nodes
CPT/HCPCS: 71260; 74177; 82565; 84520

== ENCOUNTER 2025-06-05 11:48 | Oncology outpatient (recurring) (ONCR) | payer MEDICARE, OTHER, SELFPAY | END 2025-06-05 23:59 | disposition home or self-care (01) | LOC: ONCMED 11:49 | PROVIDERS: PCP Family Medicine; Visit Provider Nurse Practitioner | DX: C82.30 Follicular lymphoma grade IIIa, unspecified site (principal) ==